=== PATIENT | male | born 1960 | race Caucasian/White ===

== ENCOUNTER → 2016-10-19 | Outpatient (CLI) | payer MEDICAID ==
[~2016-10-19] MED LIST: CYCL10TA9 PO; LISI10TA2 PO; NEURONTIN; SULF1TAB34
== END ==
LOC: CARD 07:57
PROVIDERS: ATTEND Physician Assistant
DX: I25.10 Atherosclerotic heart disease of native coronary artery without angina pectoris (principal); I10 Essential (primary) hypertension; E78.2 Mixed hyperlipidemia; E66.9 Obesity, unspecified

== ENCOUNTER 2017-01-02 05:47 | Outpatient (CLI) | payer MEDICAID ==
[~2017-01-02] VITALS: Ht 170.2 cm; Wt 98.4 kg
[2017-01-04] MEDS ORDERED: PANT40TA2 PO (11:50)
== END 2017-01-02 11:37 ==
LOC: PREOP 05:47
PROVIDERS: ATTEND Surgery
DX: Z01.818 Encounter for other preprocedural examination (principal); Z12.11 Encounter for screening for malignant neoplasm of colon; R13.10 Dysphagia, unspecified

== ENCOUNTER 2017-01-04 09:47 | Day surgery (SDC) | payer MEDICAID ==
[~2017-01-04] VITALS: Ht 170.2 cm; Wt 98.4 kg
--- OUTSIDE RECORDS SUMMARY | 2017-01-04 09:51 | XMS REPORT ---
Author Author JO OQUENDO Organization [facility] Address [address] [place] [address] Care Team Providers Care Cruller Maker Name Role Phone JO OQUENDO Unavailable PROBLEMS Type Condition ICD9-CM Code BLO07-HG Code Onset Dates Condition Status SNOMED Code Problem Other and unspecified hyperlipidemia 272.4 Active 72751104 Problem CAD (coronary artery disease) I25.10 Active 24326833 Problem Unspecified hypothyroidism 244.9 Active 92910873 Problem Constipation, unspecified constipation type K59.00 Active 64676784 Problem Seasonal allergic rhinitis, unspecified allergic rhinitis trigger J30.2 Active 824055258 Problem Hyperlipidemia, unspecified hyperlipidemia type E78.5 Active 99885044 Problem Hyperlipemia E78.5 Active 39672417 Problem Lumbago with sciatica, left side M54.42 Active 416498966 Problem Essential hypertension I10 Active 62388285 Problem Family history of other cardiovascular diseases V17.49 Active 091411009 Problem Coronary atherosclerosis of unspecified type of vessel, [place] or graft 414.00 Active 911149456 Problem Essential hypertension, benign 401.1 Active 8295879 Problem Arthralgia of neck M54.2 Active 69916064 Problem Obesity, unspecified 278.00 Active 702267608 ALLERGIES Substance Reaction Event Type Date Status Ibuprofen hives Drug Allergy Apr, Active Bactrim Unknown Drug Allergy Apr, Active SOCIAL HISTORY No smoking Hx information available PLAN OF CARE Activity Details Follow Up prn Reason: VITAL SIGNS Height 67 in 2016-05-10 Weight 227.2 lbs 2016-05-10 Temperature 97.9 degrees Fahrenheit 2016-05-10 Heart Rate 64 bpm 2016-05-10 Respiratory Rate 18 2016-05-10 BMI 35.58 kg/m2 2016-05-10 Blood pressure systolic 138 mmHg 2016-05-10 Blood pressure diastolic 86 mmHg 2016-05-10 MEDICATIONS Medication Instructions Dosage Frequency Start Date End Date Duration Status Lipitor 40 MG Orally Once a day 1 tablet 24h Feb, Active Losartan Potassium 50 MG Orally Once a day 1 tablet 24h Active HydrOXYzine HCl 25 mg take 1 tablet (25 mg) by oral route 4 times per day Apr, Active Fluticasone Furoate Active Norflex 100 mg 1 tablet by Oral route 2 times per day Nov, Active Guaifenesin 400 MG Orally 4 times a day 1 tablet as needed 6h Apr, Active Omeprazole 40 MG Orally Once a day 1 capsule 24h Active Nystatin 237702 UNIT/ML Mouth/Throat Four times a day 5 ml 6h Apr, Apr, 15 days Active Miconazole Nitrate 2 % 1 soham by Topical route 2 times per day for 14 day(s ) Apr, Active Neurontin 400 mg 1 capsule by Oral route 3 times per day Oct, Active Hydrocodone-Acetaminophen Active RESULTS No Results PROCEDURES Procedure Date Ordered Related Diagnosis Body Site Office Visit, Est Pt., Level 3 May 10, 2016 IMMUNIZATIONS No Known Immunizations
--- OUTSIDE RECORDS SUMMARY | 2017-01-04 09:51 | XMS REPORT ---
Author Author MEKHI BRAVO Organization [employer] Address Unknown Phone Unavailable Care Team Providers Care Forest Economics Professor Name Role Phone MEKHI BRAVO CP Unavailable Allergies No Known Allergies Problems Problem Type Condition Code Onset Dates Condition Status Assessment Hyperlipemia E78.5 Active Problem Unspecified hypothyroidism 244.9 Active Problem Family history of other cardiovascular diseases V17.49 Active Problem Hyperlipemia E78.5 Active Problem Obesity, unspecified 278.00 Active Problem CAD (coronary artery disease) I25.10 Active Problem Cervicalgia 723.1 Active Problem Coronary atherosclerosis of unspecified type of vessel, [place] or graft 414.00 Active Problem Essential hypertension, benign 401.1 Active Problem Other and unspecified hyperlipidemia 272.4 Active Medications Medication Code System Code Instructions Start Date End Date Status Dosage Lipitor [facility] [address]-01 40 MG Orally Once a day Feb 28, 2015 1 tablet Results No Known Results Summary Purpose [employer]ClinicalWorks Submission
--- OUTSIDE RECORDS SUMMARY | 2017-01-04 09:51 | XMS REPORT ---
Author Author JENNI JUNG [facility] eClinical[employer] Address Unknown Phone Unavailable Care Team Providers Care Hardware Engineering Manager Name Role Phone JENNI JUNG CP Unavailable Allergies, Adverse Reactions, Alerts Substance Reaction Event Type Bactrim Info Not Available Drug Allergy Problems Problem Type Condition Code Onset Dates Condition Status Assessment Dental caries K02.9 Active Problem Unspecified hypothyroidism 244.9 Active Problem Family history of other cardiovascular diseases V17.49 Active Problem Hyperlipemia E78.5 Active Problem Obesity, unspecified 278.00 Active Problem CAD (coronary artery disease) I25.10 Active Problem Cervicalgia 723.1 Active Problem Coronary atherosclerosis of unspecified type of vessel, [place] or graft 414.00 Active Problem Essential hypertension, benign 401.1 Active Problem Other and unspecified hyperlipidemia 272.4 Active Medications Medication Code System Code Instructions Start Date End Date Status Dosage Hydrocodone-Acetaminophen [facility] [address]-03 not defined Neurontin [facility] [address]-57 400 mg 1 CAP orally 3 times a day October 27, 2013 1 capsule by Oral route 3 times per day Fluticasone Furoate [facility] [address]-60 not defined Amoxicillin [facility] [address]-71 500 MG Orally 3 TIMES A DAY November 15, 2015 November 22, 2015 1 capsule Lipitor [facility] [address]-06 40 MG Orally Once a day Feb 28, 2015 1 tablet Procedures Procedure Coding System Code Date SURG REMOVAL ERUPTED TOOTH CPT-4 D7210 November 22, 2015 Vital Signs Date/Time: November 22, 2015 Blood Pressure Diastolic 88 mmHg Blood Pressure Systolic 161 mmHg Results No Known Results Summary Purpose eClinicalWorks Submission
--- OUTSIDE RECORDS SUMMARY | 2017-01-04 09:51 | XMS REPORT ---
Author Author ROCAEL SANDOVAL Organization [facility] Address [address] [place] [address] Care Team Providers Care Bung Driver Name Role Phone ROCAEL SANDOVAL Unavailable PROBLEMS Type Condition ICD9-CM Code [id number] Code Onset Dates Condition Status SNOMED Code Problem Coronary atherosclerosis of unspecified type of vessel, [place] or graft 414.00 Active 70401390 Problem Other and unspecified hyperlipidemia 272.4 Active 20439676 Problem Cervicalgia 723.1 Active 55521929 Assessment Oropharyngeal candidiasis B37.0 Mar, Active 97840981 Problem Family history of other cardiovascular diseases V17.49 Active 008518478 Problem Unspecified hypothyroidism 244.9 Active 94762922 Problem Essential hypertension I10 Active 81712716 Problem Hyperlipidemia, unspecified hyperlipidemia type E78.5 Active 73869774 Problem Obesity, unspecified 278.00 Active 076976424 Problem Essential hypertension, benign 401.1 Active 5814359 Problem CAD (coronary artery disease) I25.10 Active 93195874 Problem Hyperlipemia E78.5 Active 20242725 ALLERGIES Substance Reaction Event Type Date Status Bactrim Unknown Drug Allergy Mar, Active SOCIAL HISTORY No smoking Hx information available PLAN OF CARE VITAL SIGNS Height 67 in 2016-04-10 Weight 228.4 lbs 2016-04-10 Heart Rate 64 bpm 2016-04-10 Respiratory Rate 20 2016-04-10 BMI 35.77 kg/m2 2016-04-10 Blood pressure systolic 128 mmHg 2016-04-10 Blood pressure diastolic 76 mmHg 2016-04-10 MEDICATIONS Medication Instructions Dosage Frequency Start Date End Date Duration Status Losartan Potassium 50 MG Orally Once a day 1 tablet 24h Active Omeprazole 40 MG Orally Once a day 1 capsule 24h Active Lipitor 40 MG Orally Once a day 1 tablet 24h Feb, Active Magic Mouthwash 30 ML each of 2% Viscous Lidocaine/Maalox/Benadryl Oral Swish and Spit 4 times daily 5 ML Active Fluconazole 200 MG Orally Once a day 1 tablet 24h Mar, Mar, 10 day(s) Active Amoxicillin 500 MG Orally every 8 hrs 1 tablet 8h Mar, Active RESULTS No Results PROCEDURES Procedure Date Ordered Related Diagnosis Body Site Office Visit, Est Pt., Level 3 Apr 10, 2016 IMMUNIZATIONS No Known Immunizations
--- OUTSIDE RECORDS SUMMARY | 2017-01-04 09:51 | XMS REPORT ---
Author Author JOCELYNN BUSTAMANTE Organization [employer] Address Unknown Phone Unavailable Care Team Providers Care Property Coordinator Name Role Phone JOCELYNN BUSTAMANTE CP Unavailable Allergies, Adverse Reactions, Alerts Substance Reaction Event Type Bactrim Info Not Available Drug Allergy Problems Problem Type Condition ICD-9 Code Onset Dates Condition Status Assessment Neuropathy 355.9 Active Problem Essential hypertension, benign 401.1 Active Problem Other and unspecified hyperlipidemia 272.4 Active Problem Obesity, unspecified 278.00 Active Problem Unspecified hypothyroidism 244.9 Active Problem Family history of other cardiovascular diseases V17.49 Active Problem Cervicalgia 723.1 Active Problem Coronary atherosclerosis of unspecified type of vessel, [place] or graft 414.00 Active Medications Medication Code System Code Instructions Start Date End Date Status Dosage Terbinafine HCl [facility] [address]-16 1 % Externally Twice a day Dec 31, 2014 Feb 11, 2015 1 application to affected area Procedures Procedure Coding System Code Date DEPO MEDROL 40 MG/ML CPT-4 J1030 Dec 31, 2014 THER/PROPH/DIAG INJ, SC/IM CPT-4 47036 Dec 31, 2014 Office Visit, Est Pt., Level 3 CPT-4 54539 Dec 31, 2014 Vital Signs Date/Time: Dec 31, 2014 Temperature 96.9 F Weight 209.8 lbs Height 67 in BMI 32.86 Index Blood Pressure Diastolic 82 mmHg Blood Pressure Systolic 150 mmHg Cardiac Monitoring Heart Rate 78 bpm Results No Known Results Summary Purpose eClinicalWorks Submission
--- OUTSIDE RECORDS SUMMARY | 2017-01-04 09:51 | XMS REPORT ---
Author Author FRANKLIN MELENDEZ Organization [employer] Address Unknown Phone Unavailable Care Team Providers Care Kelp Or Seagrass Gatherer Name Role Phone FRANKLIN MELENDEZ CP Unavailable Allergies No Known Allergies Problems Problem Type Condition Code Onset Dates Condition Status Problem Unspecified hypothyroidism 244.9 Active Problem Cervicalgia 723.1 Active Problem Coronary atherosclerosis of unspecified type of vessel, [place] or graft 414.00 Active Assessment Hyperlipemia E78.5 Active Problem Family history of other cardiovascular diseases V17.49 Active Problem Hyperlipidemia, unspecified hyperlipidemia type E78.5 Active Problem CAD (coronary artery disease) I25.10 Active Problem Essential hypertension I10 Active Problem Essential hypertension, benign 401.1 Active Problem Other and unspecified hyperlipidemia 272.4 Active Problem Hyperlipemia E78.5 Active Problem Obesity, unspecified 278.00 Active Medications No Known Medications Procedures Procedure Coding System Code Date VENIPUNCT, ROUTINE* CPT-4 30469 Feb 21, 2016 LAB NOT BILLED BY [facility] CPT-4 NOBLL Feb 21, 2016 Results No Known Results Summary Purpose eClinicalWorks Submission
--- OUTSIDE RECORDS SUMMARY | 2017-01-04 09:51 | XMS REPORT ---
Author Author BINTA GAMEZ Organization [employer] Address Unknown Phone Unavailable Care Team Providers Care Geriatric Assistant Name Role Phone BINTA GAMEZ CP Unavailable Allergies, Adverse Reactions, Alerts Substance Reaction Event Type Bactrim Info Not Available Drug Allergy Problems Problem Type Condition Code Onset Dates Condition Status Assessment Right elbow pain M25.521 Active Problem Unspecified hypothyroidism 244.9 Active Problem Family history of other cardiovascular diseases V17.49 Active Assessment Neuropathy G62.9 Active Assessment Left elbow pain M25.522 Active Problem Hyperlipemia E78.5 Active Problem Obesity, unspecified 278.00 Active Problem CAD (coronary artery disease) I25.10 Active Problem Cervicalgia 723.1 Active Problem Coronary atherosclerosis of unspecified type of vessel, [place] or graft 414.00 Active Problem Essential hypertension, benign 401.1 Active Problem Other and unspecified hyperlipidemia 272.4 Active Medications Medication Code System Code Instructions Start Date End Date Status Dosage Neurontin [facility] [address]-35 400 mg 1 CAP orally 3 times a day October 27, 2013 1 capsule by Oral route 3 times per day Lipitor [facility] [address]-57 40 MG Orally Once a day Feb 28, 2015 1 tablet Naprosyn [facility] [address]-50 500 MG Orally every 12 hrs May 13, 2015May 1 tablet as needed with food Procedures Procedure Coding System Code Date Office Visit, Est Pt., Level 3 CPT-4 25732 May 13, 2015 X-RAY EXAM OF ELBOW CPT-4 04656 May 13, 2015 Vital Signs Date/Time: May 13, 2015 Temperature 97.3 F Weight 212.7 lbs Height 67 in BMI 33.31 Index Blood Pressure Diastolic 90 mmHg Blood Pressure Systolic 140 mmHg Cardiac Monitoring Heart Rate 64 bpm Results No Known Results Summary Purpose eClinicalWorks Submission
--- OUTSIDE RECORDS SUMMARY | 2017-01-04 09:51 | XMS REPORT ---
Author Author JOCELYNN BUSTAMANTE [facility] Address [address] [place] [address] Care Team Providers Care Market Analyst Name Role Phone JOCELYNN BUSTAMANTE Unavailable PROBLEMS Type Condition ICD9-CM Code TCH72-MO Code Onset Dates Condition Status SNOMED Code Problem Other and unspecified hyperlipidemia 272.4 Active 85151541 Problem CAD (coronary artery disease) I25.10 Active 21870799 Problem Unspecified hypothyroidism 244.9 Active 41377233 Problem Constipation, unspecified constipation type K59.00 Active 88637224 Problem Seasonal allergic rhinitis, unspecified allergic rhinitis trigger J30.2 Active 358053117 Problem Hyperlipidemia, unspecified hyperlipidemia type E78.5 Active 00712041 Problem Hyperlipemia E78.5 Active 33224441 Problem Lumbago with sciatica, left side M54.42 Active 318676802 Problem Essential hypertension I10 Active 36521820 Problem Family history of other cardiovascular diseases V17.49 Active 864784340 Problem Coronary atherosclerosis of unspecified type of vessel, [place] or graft 414.00 Active 473795197 Problem Essential hypertension, benign 401.1 Active 4176747 Problem Arthralgia of neck M54.2 Active 29076728 Problem Obesity, unspecified 278.00 Active 091546964 ALLERGIES Substance Reaction Event Type Date Status Ibuprofen hives Drug Allergy Apr, Active Bactrim Unknown Drug Allergy Apr, Active SOCIAL HISTORY No smoking Hx information available PLAN OF CARE VITAL SIGNS Height 67 in 2016-05-02 Weight 228.2 lbs 2016-05-02 Temperature 97.3 degrees Fahrenheit 2016-05-02 Heart Rate 60 bpm 2016-05-02 Respiratory Rate 18 2016-05-02 BMI 35.74 kg/m2 2016-05-02 Blood pressure systolic 130 mmHg 2016-05-02 Blood pressure diastolic 74 mmHg 2016-05-02 MEDICATIONS Medication Instructions Dosage Frequency Start Date End Date Duration Status Neurontin 400 mg 1 capsule by Oral route 3 times per day Oct, Active Losartan Potassium 50 MG Orally Once a day 1 tablet 24h Active PredniSONE 20 mg Orally Once a day 2 tablets 24h Apr, Apr, 05 days Active Hydrocodone-Acetaminophen Active Lipitor 40 MG Orally Once a day 1 tablet 24h Feb, Active Omeprazole 40 MG Orally Once a day 1 capsule 24h Active Fluticasone Furoate Active Norflex 100 mg 1 tablet by Oral route 2 times per day Nov, Active HydrOXYzine HCl 25 mg take 1 tablet (25 mg) by oral route 4 times per day Apr, Active Miconazole Nitrate 2 % 1 soham by Topical route 2 times per day for 14 day(s ) Apr, Active Guaifenesin 400 MG Orally 4 times a day 1 tablet as needed 6h Apr, Active RESULTS No Results PROCEDURES Procedure Date Ordered Related Diagnosis Body Site Office Visit, Est Pt., Level 3 May 02, 2016 IMMUNIZATIONS No Known Immunizations
--- OUTSIDE RECORDS SUMMARY | 2017-01-04 09:51 | XMS REPORT ---
Author Author FRANKLIN MELENDEZ Organization [employer] Address Unknown Phone Unavailable Care Team Providers Care Accounts Adjustable Clerk Name Role Phone FRANKLIN MELENDEZ CP Unavailable Allergies, Adverse Reactions, Alerts Substance Reaction Event Type Bactrim Info Not Available Drug Allergy Problems Problem Type Condition Code Onset Dates Condition Status Problem Unspecified hypothyroidism 244.9 Active Problem Cervicalgia 723.1 Active Problem Coronary atherosclerosis of unspecified type of vessel, [place] or graft 414.00 Active Problem Hyperlipidemia, unspecified hyperlipidemia type E78.5 Active Problem CAD (coronary artery disease) I25.10 Active Problem Essential hypertension I10 Active Problem Essential hypertension, benign 401.1 Active Problem Other and unspecified hyperlipidemia 272.4 Active Problem Hyperlipemia E78.5 Active Problem Obesity, unspecified 278.00 Active Assessment Hyperlipidemia, unspecified hyperlipidemia type E78.5 Active Assessment Essential hypertension I10 Active Assessment CAD (coronary artery disease) I25.10 Active Assessment Dyspnea, unspecified type R06.00 Active Problem Family history of other cardiovascular diseases V17.49 Active Medications Medication Code System Code Instructions Start Date End Date Status Dosage Lipitor [facility] [address]-42 40 MG Orally Once a day Feb 28, 2015 1 tablet Omeprazole [facility] [address]-85 40 MG Orally Once a day 1 capsule Losartan Potassium [facility] [address]-11 50 MG Orally Once a day 1 tablet Procedures Procedure Coding System Code Date Office Visit, Est Pt., Level 4 CPT-4 95822 Feb 03, 2016 Vital Signs Date/Time: Feb 03, 2016 Cardiac Monitoring Heart Rate 70 bpm Weight 222 lbs Height 67 in BMI 34.77 Index Blood Pressure Diastolic 78 mmHg Blood Pressure Systolic 130 mmHg Results No Known Results Summary Purpose eClinicalWorks Submission
--- OUTSIDE RECORDS SUMMARY | 2017-01-04 09:52 | XMS REPORT ---
Author Author FRANKLIN MELENDEZ Organization [employer] Address Unknown Phone Unavailable Care Team Providers Care Emergency Room Orderly Name Role Phone FRANKLIN MELENDEZ CP Unavailable Allergies, Adverse Reactions, Alerts Substance Reaction Event Type Bactrim Info Not Available Drug Allergy Problems Problem Type Condition Code Onset Dates Condition Status Assessment CAD (coronary artery disease) I25.10 Active Problem Unspecified hypothyroidism 244.9 Active Problem Family history of other cardiovascular diseases V17.49 Active Problem Hyperlipemia E78.5 Active Problem Obesity, unspecified 278.00 Active Problem CAD (coronary artery disease) I25.10 Active Problem Cervicalgia 723.1 Active Problem Coronary atherosclerosis of unspecified type of vessel, [place] or graft 414.00 Active Problem Essential hypertension, benign 401.1 Active Problem Other and unspecified hyperlipidemia 272.4 Active Assessment History of tobacco use Z87.891 Active Assessment Obesity E66.9 Active Assessment Hyperlipemia E78.5 Active Medications No Known Medications Procedures Procedure Coding System Code Date VENIPUNCT, ROUTINE* CPT-4 27991 Feb 18, 2015 Office Visit, Est Pt., Level 4 CPT-4 93900 Feb 18, 2015 LAB NOT BILLED BY [facility] CPT-4 NOBLL Feb 18, 2015 Vital Signs Date/Time: Feb 18, 2015 Temperature 97.9 F Weight 207.2 lbs Height 67 in BMI 32.45 Index Blood Pressure Diastolic 76 mmHg Blood Pressure Systolic 142 mmHg Cardiac Monitoring Heart Rate 72 bpm Results Name Result Date Reference Range Unit Abnormality Flag ROUTINE VENIPUNCTURE LIPID PANEL Summary Purpose eClinicalWorks Submission
[2017-01-04] MEDS ORDERED: NS IV 500 ML 500 ML ONE (09:54)
--- NOTE | 2017-01-04 09:56 | Conscious Sedation/ASA ---
Conscious Sedation Pre-Proced Time Reviewed: 09:47 ASA Class: 2 Airway Mallampati Classification: ([place] appropriate class) I. II. III, IV Lungs Heart ASA score ASA 1: a normal healthy patient ASA 2: a patient with a mild systemic disease (mid diabetes, controlled hypertension, obesity ASA 3: a patient with a severe systemic disease that limits activity (angina , COPD, prior Myocardial infarction) ASA 4: a patient with an incapacitating disease that is a constant threat to life (CHF, renal failure) ASA 5: a moribund patient not expected to survive 24 hrs. (ruptured aneurysm) ASA 6: a declared brain patient whose organs are being harvested. For emergent operations, add the letter E after the classification Grade 2 Sedation Plan: Analgesia, Amnesia, Plan communicated to team members, Discussed options with patient/fam, Discussed risks with patient/fam Note The patient is an appropriate candidate to undergo the planned procedure, sedation, and anesthesia. The patient immediately re-assessed prior to indication. MALAIKA VILCHIS MD Jan 04, 2017 9:56 am
--- NOTE | 2017-01-04 09:56 | Progress Note-Pre Operative ---
Pre-Operative Progress Note H&P Reviewed The H&P was reviewed, patient examined and no changes noted. Date Seen by Provider: Jan 04, 2017 Time Seen by Provider: 09:47 Date H&P Reviewed: Jan 04, 2017 Time H&P Reviewed: 09:47 Pre-Operative Diagnosis: dysphagia, screening colonoscopy MALAIKA VILCHIS MD Jan 04, 2017 9:56 am
[2017-01-04] MEDS ORDERED: ONDANSETRON 4 MG/2 ML (SDV) Z0FRAN IV PRN (10:00)
[2017-01-04] MEDS ORDERED: morphine INJ 10 MG/ML 1ML (SYR OR VIAL) IV PRN (10:00)
[2017-01-04] MEDS ORDERED: HYDROcodone/APAP 5 MG/325 MG (LORTAB) TAB PO PRN (10:00)
[2017-01-04] MEDS ORDERED: ACETAMINOPHEN 325 MG TABLET/CAPLET (TYLENOL) PO PRN (10:00)
[2017-01-04] MEDS ORDERED: NS IV 500 ML 500 ML IV SCH (10:30)
[2017-01-04] MEDS: fentaNYL INJECTION 100 MCG/2 ML AMP IVP PRN ×2 (10:34→11:05)
[2017-01-04 10:36] VITALS: BP 149/82
[2017-01-04] MEDS: MIDAZOLAM 2 MG/2 ML (VERSED) VIAL IVP PRN ×5 (10:36→11:10)
[2017-01-04] MEDS ORDERED: ATOR40TA70 PO (10:45)
[2017-01-04] MEDS ORDERED: LOSA50TA36 PO (10:45)
[2017-01-04] MEDS ORDERED: HURRICAINE EXT TUBE (BENZOCAINE) XX PRN (10:45)
[2017-01-04] MEDS ORDERED: SUCR1TAB36 PO (10:45)
--- NOTE | 2017-01-04 11:49 | Progress Note-Post Operative ---
Post-Operative Progess Note Surgeon (s)/Internet Media Planner (s) Surgeon MALAIKA VILCHIS MD Internet Media Planner: none Pre-Operative Diagnosis dysphagia, screening colonoscopy Post-Operative Diagnosis reflux esophagitis(class B), small HH(2cm), mild gastritis and duodentitis. chronic stage 2 ext and int hemorrhoids, mild sigmoid diverticulosis, pendunculated polyp sigmoid and asc colon, HP polyp sigmoid and asc colon. Procedure & Operative Findings Date of Procedure 01/04/17 Procedure Performed/Findings EGD with bx. Colonoscopy with snare and forcep polypectomy. Anesthesia Type CS Estimated Blood Loss Estimated blood loss (mL): minimal Specimens/Packing Specimens Removed sigmoid polyp x2 and ascending polyp x2 MALAIKA VILCHIS MD Jan 04, 2017 11:49 am
[2017-01-04] MEDS ORDERED: PANT40TA2 PO (11:50)
--- NOTE | 2017-01-04 11:51 | Discharge Inst-Surgical ---
D/C Lap Instructions-KIDO New, Converted, or Re-Newed RX: RX on Chart Follow Up Appt in 3 years Activity as tolerated High Fiber Diet 25g or more per day Avoid Alcohol, Caffeine, Spicy [place] and Acid foods. Drink 64 fluid oz or more of fluids per day. Symptoms to Report: Fever over 101 degree F, Nausea/Vomiting If any problems/questions: Contact your physician or go to Emergency Room MALAIKA VILCHIS MD Jan 04, 2017 11:51 am
[2017-01-04 11:55] VITALS: BP 96/57
[2017-01-04] MEDS ORDERED: LIDOCAINE JELLY 2% (XYLOCAINE) 5 ML TUBE TOP ONE (12:00)
[2017-01-04 12:25] VITALS: BP 111/67
[2017-01-04 12:45] VITALS: BP 111/67
--- NOTE | 2017-01-04 15:05 | OPERATIVE REPORT ---
DATE OF SERVICE: 01/04/2017 ATTENDING PRIMARY CARE PHYSICIAN: Dr. Wiggins. PREOPERATIVE DIAGNOSIS: Dysphagia screening colonoscopy. POSTOPERATIVE DIAGNOSES: Reflux esophagitis class B, small hiatal hernia approximately 2 cm in size, mild gastritis and mild duodenitis. Chronic stage II external and internal hemorrhoids, mild sigmoid diverticulosis. There were a total of four polyps, one hyperplastic polyp of the sigmoid colon 2 mm in size, a pedunculated polyp just proximal to this approximately 3 mm in size. There was a hyperplastic polyp of the ascending colon, 2 mm in size and a pedunculated 1 distal to this approximately 3 to 4 mm in size. PROCEDURE: EGD with biopsy, colonoscopy with snare polypectomy and biopsy. SURGEON: Malaika Vilchis MD. ANESTHESIA: Conscious sedation. ESTIMATED BLOOD LOSS: Minimal. FINDINGS: EGD reflux esophagitis class B, small hiatal hernia approximately 2 cm in size, mild gastritis and mild duodenitis. No ulcers, polyps or any neoplasms identified. Colonoscopy chronic stage II external and internal hemorrhoids. Prostate gland was palpable and appeared normal. Mild sigmoid diverticulosis, hyperplastic polyp as well as the pedunculated polyp of the sigmoid colon with a pedunculated polyp approximately 3 to 4 mm in size. Hyperplastic and pedunculated polyp of the ascending colon with a pedunculated polyp approximately 3 to 4 mm in size. DISPOSITION: The patient tolerated the procedure well. INDICATIONS: The patient is a 56-year-old male with a history of gastroesophageal reflux disease, which has progressed dysphagia and reports that when he does eat solids, sometimes he will feel substernal pressure sensation for 10 to 15 minutes which were not relieved; however, eventually will. He does not report any regurgitation, no nausea or vomiting. He also is in need of a screening colonoscopy, which he has not had done before in the past. He does not report any red blood per rectum nor any dark tarry stools. He does have some issues with constipation. DESCRIPTION OF PROCEDURE: The patient was brought to the endoscopy suite, laid in the left lateral decubitus position. After adequate IV pain and sedating medications and conscious sedation anesthesia, the mouthpiece was applied. The endoscope was placed in the mouth, visualizing the pharynx and hypopharyngeal region. Vocal cords, epiglottis and vallecula identified and appeared to be normal. The endoscope was then advanced to the first, second and third gently intubated in the esophageal opening esophagus insufflated. Endoscope was then advanced to the first, second and third portions of the esophagus. At the level of the GE junction, a reflux esophagitis class B identified. There were no ulcers or strictures identified in this region. A biopsy was taken with forceps with visualization of good hemostasis. The endoscope was then easily advanced in the stomach. The endoscope retroflexed, visualizing a small hiatal hernia approximately 2 cm in size. There was a mild gastritis noted throughout the stomach. There were no formal ulcers, polyps or any neoplasms identified. A biopsy was taken of the stomach antrum with forceps with visualization of good hemostasis. The endoscope was then advanced to the pylorus and the first and second portions of the duodenum, which appeared normal with a mild duodenitis identified with no distal obstructions. The endoscope was then slowly withdrawn. We are taking a second look and suctioning of residual air with no additional findings. The patient tolerated the procedure well. His symptoms are most likely secondary to his body habitus as well as previous lifestyle, including smoking and chewing tobacco. We will recommend necessary lifestyle and diet accommodation including small and more frequent meals, avoiding eating at night as well as head elevation while lying supine. He also needs to avoid caffeinated beverages, spicy, greasy and acidic foods as well as alcoholic beverages. We will also start him on Protonix 40 mg daily. Under the same conscious sedation anesthesia, we then proceeded with the colonoscopy portion of the procedure. A digital rectal examination was performed, which revealed chronic stage II external and internal hemorrhoids, not actively edematous nor inflamed and no bleeding. Normal sphincter tone was felt and there were no palpable masses. Prostate gland was palpable and appeared normal. The endoscope was then intubated to the anus and rectum and gently insufflated. The endoscope was then advanced through the valves of [place] of the rectum with no polyps or any neoplasms identified. Through the sigmoid colon, a mild sigmoid diverticulosis identified. Two polyps were identified adjacent to each other. The distal sigmoid polyp was a pedunculated polyp approximately 3 to 4 mm in size. This was excised using a snare and cautery with visualization of good hemostasis. A hyperplastic polyp just proximal to this approximately 2 mm in size was identified. This was biopsied and destroyed using forceps and electrocautery with visualization of good hemostasis. The endoscope was then advanced to the remainder of the descending, transverse, ascending colon. Around the mid ascending colon, another set of polyps was identified. The proximal one was a small hyperplastic polyp approximately 2 mm in size which was biopsied and destroyed using forceps and electrocautery. Another pedunculated polyp approximately 3 to 4 mm in size was identified more distally. This was biopsied and destroyed using electrocautery and forceps with visualization of good hemostasis. The cecum appeared normal. The endoscope was then slowly withdrawn taking a second look and suctioning residual air with no additional findings. The patient tolerated the procedure well. We will recommend necessary lifestyle and diet accommodations including high fiber diet with at least 30 grams of fiber per day as well as at least 64 fluid ounces of water daily to promote soft stools on a daily basis. We will recommend a followup colonoscopy in approximately 3 years due to the four polyps identified. Job ID: [id number] DocumentID: [id number] Dictated Date: 01/04/2017 11:40:06 Brick Tender Date: 01/04/2017 15:05:32 Dictated By: MALAIKA VILCHIS MD
== END 2017-01-04 12:45 | disposition home or self-care (01) ==
LOC: ENDO 09:47
PROVIDERS: ATTEND Surgery
DX: Z12.11 Encounter for screening for malignant neoplasm of colon (principal); K21.0 Gastro-esophageal reflux disease with esophagitis; D12.5 Benign neoplasm of sigmoid colon; D12.2 Benign neoplasm of ascending colon; K29.70 Gastritis, unspecified, without bleeding; K64.1 Second degree hemorrhoids; K29.80 Duodenitis without bleeding; K57.30 Diverticulosis of large intestine without perforation or abscess without bleeding; I10 Essential (primary) hypertension; E78.00 Pure hypercholesterolemia, unspecified; G89.29 Other chronic pain; Z98.1 Arthrodesis status; Z79.899 Other long term (current) drug therapy; Z87.891 Personal history of nicotine dependence

== ENCOUNTER → 2017-04-23 | Outpatient (CLI) | payer MEDICAID ==
[~2017-04-23] MED LIST changes: +ATOR40TA70 PO; +LOSA50TA36 PO; +PANT40TA2 PO; +SUCR1TAB36 PO
--- NOTE | 2017-04-23 13:30 | Diagnostic Imaging Report ---
CLINICAL INDICATION: Patient with neck fullness. Patient complains of left neck tingling. COMPARISONS: None. FINDINGS: THYROID NODULES: There is a 1.1 cm x 0.6 cm x 0.8 cm isoechoic nodule with peripheral hypoechoic rim located in the anterior mid to inferior aspect of the left thyroid gland. THYROID GLAND: Besides the thyroid nodule, the thyroid gland has normal size, shape and echogenicity. The right lobe measures 3.8 cm x 1.2 cm x 1.7 cm and the left lobe measures 3.6 cm x 1.5 cm x 1.5 cm in their three dimensions. ISTHMUS: The isthmus is unremarkable and measures 3 mm in thickness. IMPRESSION: There is a 11 mm benign-appearing left thyroid gland nodule. Otherwise, the thyroid gland is unremarkable. Dictated by: Dictated on workstation # [id number]
== END ==
LOC: RAD 12:45
PROVIDERS: ATTEND Nurse Practitioner Community Health
DX: E04.1 Nontoxic single thyroid nodule (principal)
CPT/HCPCS: 76536

== ENCOUNTER → 2017-06-04 | Outpatient (CLI) | payer MEDICAID ==
--- NOTE | 2017-06-04 10:25 | Diagnostic Imaging Report ---
PROCEDURE: MR imaging cervical spine without contrast. TECHNIQUE: Multiplanar, multisequence MR imaging of the cervical spine was performed without contrast. INDICATION: Neck pain, right shoulder pain. COMPARISON: There are no prior studies available for comparison. FINDINGS: On the T2 sagittal series, there is metallic artifact suggesting a prior anterior fusion of C5, C6 and C7. The orthopedic hardware appears to be in good position. There is mild narrowing of the ventral aspect of the thecal sac on the right at C6-C7 due to bony overgrowth. The neural foramen on the right at this level is also narrowed and that may be encroaching the exiting right nerve root. There is also narrowing of the neural foramen on the left at C5-C6. At the C4-C5 level, there is a mild disc bulge centrally. The disc indents the ventral aspect of the thecal sac and narrows the AP diameter to approximately 9.9 mm. There is mild narrowing of the neural foramen on the left at this level as well. There is also a disc bulge centrally at the C3-C4 level. The disc flattens the ventral aspect of the thecal sac and narrows the AP diameter to 10.2 mm. There is also moderate narrowing of the neural foramen on the left at this level and mild narrowing of the neural foramen on the right. The remainder of the cervical spine is unremarkable for spinal stenosis or nerve root encroachment. There is no abnormal signal arising from the cord or the vertebral bodies to indicate an acute abnormality. There is no sign of a paraspinal mass. IMPRESSION: 1. There are postsurgical changes consistent with anterior fusion of C5, C6 and C7. There is mild central stenosis on the right at C6-C7. There is also narrowing of the neural foramen on the right at this level and that may be encroachment the exiting right nerve root at this level. 2. There is also borderline central stenosis at C3-C4 and C4-C5 and there is moderate narrowing of the neural foramen on the left at C3-C4 and mild narrowing of the neural foramen on the left at C4-C5. 3. There is no acute bony abnormality identified. There is no sign of a cord lesion either. Dictated by: Dictated on workstation # [id number]
== END ==
LOC: RAD 08:03
PROVIDERS: ATTEND Nurse Practitioner Community Health
DX: M48.02 Spinal stenosis, cervical region (principal); M25.511 Pain in right shoulder; Z98.1 Arthrodesis status
CPT/HCPCS: 72141

== ENCOUNTER → 2017-06-10 | Outpatient (CLI) | payer MEDICAID ==
[~2017-06-10] MED LIST changes: +CATHETER FLUSH 10 ML SYR IV PRN; +IOHEXOL 350 MG/ML 100 ML (OMNIPAQUE 350) VIAL IV ONE; +NS 250 ML (IVPB) BAG IV ONE; +RECEIVED CONTRAST (Hold Metformin) IV SCH
[2017-06-10 14:08] LABS: BUN/CREATININE RATIO 15; CREATININE SERUM 0.99 MG/DL (0.60-1.30); GFR ESTIMATED > 60
--- NOTE | 2017-06-10 15:31 | Diagnostic Imaging Report ---
CLINICAL INDICATION: Patient with mass on left side of neck in deep tissue. Followup from ultrasound. Patient has left shoulder numbness. EXAM: CT scan of the neck soft tissue performed with 75 cc of Omnipaque 350 IV contrast. Coronal and sagittal reformatted images are created. COMPARISON: Ultrasound of the thyroid gland dated 04/23/2017. MRI of the cervical spine without contrast dated 06/04/2017. FINDINGS: There is no neck soft tissue abnormality seen. The nasopharynx, oropharynx, hypopharynx, and laryngeal soft tissue structures show no significant abnormality and are relatively symmetric. Incidental note of multiple small tonsilliths bilaterally. The thyroid gland shows no significant abnormality as visualized. The previously described 11 mm left thyroid gland nodule is not evident on this exam and is better seen on the comparison ultrasound. There is no neck lymphadenopathy. There is mild atherosclerotic disease involving the left ICA bulb. Otherwise, visualized neck vascular structures are patent and unremarkable. The bilateral salivary glands are unremarkable. Visualized intracranial structures are unremarkable. Limited visualization of the oral cavity, tongue, sublingual space, and submandibular spaces are unremarkable. Limited visualization of the upper lung andino are unremarkable. There is C5-C7 anterior cervical disc fusion hardware seen. There is cervical spine degenerative disease. IMPRESSION: 1: Unremarkable CT scan of the neck soft tissue for patient's age. 2: The previously seen left thyroid gland nodule is not visualized on this exam. Of note, thyroid nodules are much better visualized on ultrasound than CT. Dictated by: Dictated on workstation # [id number]
== END ==
LOC: RAD 13:36
PROVIDERS: ATTEND Otolaryngology Otolaryngology/Facial Plastic Surgery
DX: R22.1 Localized swelling, mass and lump, neck (principal); R20.0 Anesthesia of skin; R07.0 Pain in throat
CPT/HCPCS: 36415; 70491; 82565; 84520

== ENCOUNTER 2018-07-21 19:35 | Emergency (ER) | payer MEDICAID ==
[~2018-07-21] VITALS: Ht 167.6 cm; Wt 101.2 kg
[~2018-07-21 19:35] MED LIST changes: -CATHETER FLUSH 10 ML SYR IV PRN; -IOHEXOL 350 MG/ML 100 ML (OMNIPAQUE 350) VIAL IV ONE; -LOSA50TA36 PO; +LOSA50TA63 PO; -NS 250 ML (IVPB) BAG IV ONE; -RECEIVED CONTRAST (Hold Metformin) IV SCH
--- OUTSIDE RECORDS SUMMARY | 2018-07-21 19:41 | XMS REPORT ---
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 Name Role Phone MONICA JUANITA Unavailable PROBLEMS Type Condition ICD9-CM Code WGA55-KR Code Onset Dates Condition Status SNOMED Code Problem Hyperlipemia E78.5 Active 22218125 Problem Hypothyroidism (acquired) E03.9 Active 931298678 Problem Arthritis of left shoulder region M19.012 Active 0754121087060491 Problem Hyperlipidemia, unspecified hyperlipidemia type E78.5 Active 76048904 Problem CAD (coronary artery disease) I25.10 Active 22698108 Problem Seasonal allergic rhinitis, unspecified allergic rhinitis trigger J30.2 Active 953929980 Problem Essential hypertension I10 Active 88527017 ALLERGIES Substance Reaction Event Type Date Status Ibuprofen hives Drug Allergy Feb, Active Bactrim Unknown Drug Allergy Feb, Active ENCOUNTERS Encounter Location Date Diagnosis [facility] [address] [address] 05 Mar, 2018 [facility] IN [facility] [address] [address] 17 Feb, 2018 Dysuria R30.0 and Myalgia, other site M79.18 [facility] IN [facility] [address] [address] 07 Feb, 2018 Acute bronchitis J20.9 and Acute sinusitis J01.90 [facility] [address] [address] 20 Dec, 2017 Essential hypertension I10 [facility] [address] [address] 14 Dec, 2017 Essential hypertension I10 ; Lumbago with sciatica, left side M54.42 ; Therapeutic drug monitoring Z51.81 and Chronic, continuous use of opioids F11.90 [facility] [address] [address] Nov, Essential hypertension I10 and Lumbago with sciatica, left side M54.42 [facility] [address] [address] Nov, [facility]ALK IN [facility] [address] [address] Oct, Back pain M54.9 and Muscle spasm of back M62.830 [facility]ALK IN [facility] [address] [address] August, Sore throat J02.9 and Strep pharyngitis J02.0 [place] [address] [address] August, Cervical paraspinal muscle spasm M62.838 [place] [address] [address] May, [place] [address] [address] May, [place] [address] [address] May, [place] [address] [address] May, Cervicalgia M54.2 [place] [address] [address] Apr, [facility] IN [facility] [address] [address] Apr, Tongue sore K14.6 [facility] [address] [address] Apr, CAD (coronary artery disease) I25.10 ; Essential hypertension I10 ; Hyperlipidemia, unspecified hyperlipidemia type E78.5 and Shortness of breath R06.02 [place] [address] [address] Apr, [facility] IN [place] [address] [address] Apr, Sore throat J02.9 [facility] [place] [address] [address] Mar, Acute seasonal allergic rhinitis, unspecified trigger J30.2 [facility] WALK IN [address] [address] Mar, Pharyngitis due to other organism J02.8 ; Cervical neuritis M54.12 and Lump in throat R22.1 [place] [address] [address] Feb, Pneumonia due to infectious organism, unspecified laterality , unspecified part of lung J18.9 [place] [address] [address] Feb, [place] [address] [address] Feb, [place] [address] [address] Feb, Hypothyroidism (acquired) E03.9 [facility] WALK IN [address] [address] Jan, Oral thrush B37.0 and Arthritis of left shoulder region M19.012 [facility] IN [address] [address] Dec, Acute seasonal allergic rhinitis due to other allergen J30.89 [facility] IN [place] [address] [address] Nov, Torticollis, acquired M43.6 and Geographic tongue K14.1 [place] [address] [place] [address] Oct, Arthralgia of neck M54.2 [facility] [place] [id number] [place] [address] Oct, Constipation, unspecified constipation type K59.00 [place] [id number] [place] [address] Oct, Arthralgia of neck M54.2 [facility] [place] [id number] [place] [address] August, Seasonal allergic rhinitis, unspecified allergic rhinitis trigger J30.2 and Acute gastritis without hemorrhage, unspecified gastritis type K29.00 [place] [id number] [place] [address] Jul, Arthralgia of neck M54.2 ; Lumbago with sciatica, left side M54.42 and Neuropathy G62.9 [place] [id number] [place] [address] Jul, CAD (coronary artery disease) I25.10 ; Shortness of breath R06.02 ; Hyperlipidemia, unspecified hyperlipidemia type E78.5 and History of tobacco use Z87.891 [facility] IN [address] [place] [address] Jun, Other viral agents as the cause of diseases classified elsewhere B97.89 and Acute upper respiratory infection, unspecified J06.9 [facility] IN [address] [place] [address] May, Tonsillitis J03.90 [facility] [place] [id number] [place] [address] Apr, Other viral agents as the cause of diseases classified elsewhere B97.89 and Acute upper respiratory infection, unspecified J06.9 [facility] [place] [id number] [place] [address] Apr, Candidiasis of mouth B37.0 [facility] IN [facility] [address] [place] [id number] [place] [address] Apr, Bronchitis J40 [facility]ALK IN [facility] [address] [place] [id number] [place] [address] Mar, Oropharyngeal candidiasis B37.0 [place] [address] [address] Jan, Hyperlipemia E78.5 [place] [address] [address] Jan, CAD (coronary artery disease) I25.10 ; Essential hypertension I10 ; Hyperlipidemia, unspecified hyperlipidemia type E78.5 and Dyspnea, unspecified type R06.00 [facility] [address] [id number] Oct, Dental caries K02.9 [facility] [address] [id number] Oct, Dental examination Z01.20 [place] [address] [address] Apr, Right elbow pain M25.521 ; Left elbow pain M25.522 and Neuropathy G62.9 [place] [address] [place] [id number] [place] [address] Feb, Hyperlipemia E78.5 [place] [address] [address] Jan, CAD (coronary artery disease) I25.10 ; Hyperlipemia E78.5 ; Obesity E66.9 and History of tobacco use Z87.891 [place] [address] [place] [id number] [place] [address] Dec, [place] [address] [place] [id number] [place] [address] Dec, Neuropathy 355.9 [facility] [place] [facility] [address] [id number] [place] [address] 14 Jul, 2014 [facility] [place] [facility] [address] [id number] [place] [address]- 48[address] Jul, [facility] [place] [facility] [address] [id number] [place] [address]- 164[address] Jun, [facility] [place] [facility] [address] [id number] [place] [address]- 1663 Jun, [facility] [place] [facility] [address] [id number] [place] [address]- 5[address] May, [facility] [place] [facility] [address] [id number] [place] [address]- 228[address] May, [facility] [place] [facility] [address] [id number] [place] [address]- 8894 Apr, [facility] [place] [facility] [address] [id number] [place] [address]- 5188 Apr, [facility] [place] [facility] [address] [id number] [place] [address]- 3269 Apr, [facility] [place] [facility] [address] [id number] [place] [address]- 8740 Apr, [facility] [place] [facility] [address] [id number] [place] [address]- 3955 Apr, [facility] [place] [facility] [address] [id number] [place] [address]- 5677 Apr, [facility] [place] [facility] [address] [id number] [place] [address]- 4589 Apr, [facility] [place] [facility] [address] [id number] [place] [address]- 5233 Apr, [facility] [place] [facility] [address] [id number] [place] [address]- 5026 Mar, [facility] [place] [facility] [address] [id number] [place] [address]- 1921 Mar, [facility] [place] [facility] [address] [id number] [place] [address]- 9683 Nov, [facility] [place] [facility] [address] [id number] [place] [address]- 6577 Nov, [facility] [place] [facility] [address] [id number] [place] [address]- 6317 Oct, [facility] [place] [facility] [address] [id number] [place] [address]- 2999 Oct, [facility] [place] [facility] [address] [id number] [place] [address]- 9237 Oct, [facility] [place] [facility] [address] [id number] [place] [address]- 9177 Oct, [facility] [place] [facility] [address] [id number] [place] [address]- 1289 Oct, [facility] [place] [facility] [address] [id number] [place] [address]- 4556 Sep, [facility] [place] [facility] [address] [id number] [place] [address]- 6698 Sep, [facility] [place] [facility] [address] [id number] [place] [address]- 5536 August, [facility] [place] [facility] [address] [id number] [place] [address]- 7823 August, [facility] [place] [facility] [address] [id number] [place] [address]- 9368 Jul, [facility] [place] [facility] [address] [id number] [place] [address]- 0062 Jul, [facility] [place] [facility] [address] [id number] [place] [address]- 4929 Jul, [facility] [place] [facility] [address] [id number] [place] [address]- 0605 Jul, [facility] [place] [facility] [address] [id number] [place] [address]- 0317 Jul, [facility] [address] [id number] [place] [address] Jul, [facility] [address] [id number] [place] [address]- 7442 Jul, [facility] [address] [id number] [place] [id number] Jul, [facility] [address] [id number] [place] [address]- 1005 Jul, [facility] [address] [id number] [place] [address]- 9086 Jul, [facility] [address] [id number] [place] [address]- 7986 Jul, [facility] [address] [id number] [place] [address]- 3584 Jul, [facility] [address] [id number] [place] [address]- 9794 Jul, [facility] [address] [id number] [place] [address]- 9339 Jun, [facility] [address] [id number] [place] [address]- 8194 Jun, [facility] [place] [facility] [address] [id number] [place] [address]- 8431 Jun, [facility] [address] [id number] [place] [address]- 9845 Jun, [facility] [place] [facility] [address] [id number] [place] [address]- 2593 Jun, [facility] [place] [facility] [address] [id number] [place] [address]- 7850 Jun, [facility] [place] [facility] [address] [id number] [place] [address] Jun, [facility] [place] [facility] [address] [id number] [place] [address]- 8550 Jun, [facility] [place] [facility] [address] [id number] [place] [address]- 6852 May, [facility] [place] [facility] [address] [id number] [place] [address]- 8909 May, [facility] [place] [facility] [address] [id number] [place] [address]- 8286 May, [facility] [place] [facility] [address] [id number] [place] [address]- 2524 May, [facility] [place] [facility] [address] [id number] [place] [address]- 5409 Apr, [facility] [place] [facility] [address] [id number] [place] [address]- 4197 Apr, [facility] [place] [facility] [address] [id number] [place] [address]- 4538 Apr, [facility] [place] [facility] [address] [id number] [place] [address]- 2335 Apr, [facility] [place] [facility] [address] [id number] [place] [address]- 2606 Apr, [facility] [place] [facility] [address] [id number] [place] [address]- 4570 Apr, [facility] [place] [facility] [address] [id number] [place] [address]- 9163 Mar, [facility] [place] [facility] [address] [id number] [place] [address]- 5050 Mar, [facility] [place] [facility] [address] [id number] [place] [address]- 9321 Mar, [facility] [place] [facility] [address] [id number] [place] [address]- 6151 Mar, [facility] [place] [facility] [address] [id number] [address]- [address] Nov, [facility] [address] [address] [address] May, [facility] [address] May, [facility] [address] [address]- 2526 May, [facility] [address] [place] [address] 565023- 1518 May, [facility] [address] [place] [address] 341242- 1578 May, [facility] [address] [place] [id number] [place] [address]958- 3106 May, [facility] [address] [place] [address] 214356- 1333 Apr, [facility] [address] [address] [address] Apr, [facility] [address] [place] [address]- 3829 Apr, [facility] [address] [address]- 2[address] Apr, [facility] [address] [address]- [address] May, [facility] [address] [place] [id number] [address] Jun, IMMUNIZATIONS No Known Immunizations SOCIAL HISTORY Never Assessed REASON FOR VISIT Lower Abdominal pain Damir Luna prednisone 03-13-18 PLAN OF CARE Activity Details Follow Up if not improving or with pcp for regular fu Reason:recheck or next [facility] VITAL SIGNS Height 67 in 2018-03-15 Weight 222.6 lbs 2018-03-15 Temperature 97.6 degrees Fahrenheit 2018-03-15 Heart Rate 28 bpm 2018-03-15 Respiratory Rate 2018-03-15 BMI 34.86 kg/m2 2018-03-15 Blood pressure systolic 122 mmHg 2018-03-15 Blood pressure diastolic 80 mmHg 2018-03-15 MEDICATIONS Medication Instructions Dosage Frequency Start Date End Date Duration Status Pantoprazole Sodium 40 MG Orally Once a day 1 tablet 24h 30 day(s) Active Hydrocodone-Acetaminophen 10-325 MG Orally every 6 hrs 1 tablet as needed 6h Nov, Active Losartan Potassium 50 mg TAKE ONE TABLET BY MOUTH ONCE DAILY 90 Active Gabapentin 600 MG Orally Three times a day 1 tablet 8h 90 days Active Lipitor 40 MG Orally Once a day 1 tablet 24h 90 Active Flonase Allergy Relief 50 MCG/ACT Nasally twice per day 1 spray in each nostril Apr, 30 day(s) Active RESULTS Name Result Date Reference Range UA LONG DIP (IN HOUSE) 2018-03-15 Lot # [id number] Exp date 03-28-18 Clarity clear Color dark yellow Odor none GLU negative JACKIE negative KET negative SG >=1.030 BLO negative pH 6.0 Protein negative URO 0.2 NIT negative TERESA negative Lot # [id number] Exp date Mar 2018 PROCEDURES Procedure Date Ordered Result Body Site URINALYSIS, AUTO, W/O SCOPE Mar 15, 2018 INSTRUCTIONS MEDICATIONS ADMINISTERED No Known Medications MEDICAL (GENERAL) HISTORY Type Description Date Medical History Hypertension Medical History Hyperlipidemia Medical History Hypothyroidism Medical History Chronic pain Surgical History heart cath Surgical History cervical fusion Surgical History teeth extraction 01/2018 Hospitalization History [place] Fever
--- OUTSIDE RECORDS SUMMARY | 2018-07-21 19:41 | XMS REPORT ---
Author Author JUANITA ANDERSON [facility] Address [address] [place] [address] Care Team Providers Care Agricultural Education Instructor Name Role Phone JUANITA ANDERSON Unavailable PROBLEMS Type Condition ICD9-CM Code KUC98-VQ Code Onset Dates Condition Status SNOMED Code Problem Hyperlipemia E78.5 Active 43256927 Problem Hypothyroidism (acquired) E03.9 Active 346016737 Problem Arthritis of left shoulder region M19.012 Active 7922176971507425 Problem Hyperlipidemia, unspecified hyperlipidemia type E78.5 Active 55903305 Problem CAD (coronary artery disease) I25.10 Active 31992746 Problem Seasonal allergic rhinitis, unspecified allergic rhinitis trigger J30.2 Active 595991171 Problem Essential hypertension I10 Active 01156281 ALLERGIES Substance Reaction Event Type Date Status Ibuprofen hives Drug Allergy Mar, Active Bactrim Unknown Drug Allergy Mar, Active ENCOUNTERS Encounter Location Date Diagnosis [place] [id number] [place] [address]11[address] 8380 31 Mar, 2018 [facility] [id number] [place] [address]9409 Mar, Mouth pain K13.79 [facility] [address] [address] 17 Feb, 2018 Dysuria R30.0 and Myalgia, other site M79.18 [facility] [address] [place] [address] 07 Feb, 2018 Acute bronchitis J20.9 and Acute sinusitis J01.90 [facility] [id number] [place] [address] 09981- 6648 Dec, Essential hypertension I10 [place] [id number] [place] [address] 37740- 6898 14 Dec, 2017 Essential hypertension I10 ; Lumbago with sciatica, left side M54.42 ; Therapeutic drug monitoring Z51.81 and Chronic, continuous use of opioids F11.90 [facility] [id number] [place] [address] 88454- 9049 Nov, Essential hypertension I10 and Lumbago with sciatica, left side M54.42 [place] [address] 17796- 2290 Nov, [facility] [place] [address] [address] Oct, Back pain M54.9 and Muscle spasm of back M62.830 [facility] [place] [id number] [place] [address] August, Sore throat J02.9 and Strep pharyngitis J02.0 [place] [id number] [place] [address] 83443- 6098 August, Cervical paraspinal muscle spasm M62.838 [place] [id number] [place] [address] 88313- 7159 May, [place] [id number] [place] [address] 52647- 4236 May, [place] [id number] [place] [address] 26923- 0980 May, [place] [id number] [place] [address] 99237- 3144 May, Cervicalgia M54.2 [place] [address] 7[address]32- 1496 Apr, [facility] [id number] [place] [address] 74023 -9966 Apr, Tongue sore K14.6 [place] [address] 63984- 6804 Apr, CAD (coronary artery disease) I25.10 ; Essential hypertension I10 ; Hyperlipidemia, unspecified hyperlipidemia type E78.5 and Shortness of breath R06.[address] [address] Apr, [facility] [address] [address] Apr, Sore throat J02.9 [facility] [address] 34[address] Mar, Acute seasonal allergic rhinitis, unspecified trigger J30.2 [facility] [address] 6[address]67 [address]2166 06 Mar, 2017 Pharyngitis due to other organism J02.8 ; Cervical neuritis M54.12 and Lump in throat R22.[address] 77433- 7506 16 Feb, 2017 Pneumonia due to infectious organism, unspecified laterality , unspecified part of lung J18.[address] 75913- 6052 15 Feb, [address] 97663- 7005 15 Feb, [address] [address]73- [address]959 Feb, Hypothyroidism (acquired) E03.9 [facility] [address] [address] Jan, Oral thrush B37.0 and Arthritis of left shoulder region M19.012 [facility] [address] 73448 [address]0568 29 Dec, 2016 Acute seasonal allergic rhinitis due to other allergen J30.89 [facility] [address] [place] [address]7255 Nov, Torticollis, acquired M43.6 and Geographic tongue K14.[address] 7[address]10- 2608 Oct, Arthralgia of neck M54.2 [facility] [address] [address] Oct, Constipation, unspecified constipation type K59.[address] 47221- 8955 Oct, Arthralgia of neck M54.[address] [address] August, Seasonal allergic rhinitis, unspecified allergic rhinitis trigger J30.2 and Acute gastritis without hemorrhage, unspecified gastritis type K29.[address] 12774- 1662 Jul, Arthralgia of neck M54.2 ; Lumbago with sciatica, left side M54.42 and Neuropathy G62.[address] 50179- 8750 Jul, CAD (coronary artery disease) I25.10 ; Shortness of breath R06.02 ; Hyperlipidemia, unspecified hyperlipidemia type E78.5 and History of tobacco use Z87.891 [facility] [address] [address]307 Jun, Other viral agents as the cause of diseases classified elsewhere B97.89 and Acute upper respiratory infection, unspecified J06.[address] [address] May, Tonsillitis J03.90 [facility] [address] 28[address]29 Apr, Other viral agents as the cause of diseases classified elsewhere B97.89 and Acute upper respiratory infection, unspecified J06.9 [facility] [address] 5[address]8633 Apr, Candidiasis of mouth B37.0 [facility] [address] 37[address]99 04 Apr, 2016 Bronchitis J40 [facility] [place] [address] 72534 [address]0458 Mar, Oropharyngeal candidiasis B37.0 [place] [address] 83150- 6524 Jan, Hyperlipemia E78.5 [place] [address] 75007- 7827 07 Jan, 2016 CAD (coronary artery disease) I25.10 ; Essential hypertension I10 ; Hyperlipidemia, unspecified hyperlipidemia type E78.5 and Dyspnea, unspecified type R06.00 [facility] [address] [id number] Oct, Dental caries K02.9 [facility] [address] [id number] Oct, Dental examination Z01.20 [place] [address] 86927- 3976 15 Apr, 2015 Right elbow pain M25.521 ; Left elbow pain M25.522 and Neuropathy G62.9 [place] [address] 34699- 5819 Feb, Hyperlipemia E78.5 [place] [address] 84167- 7731 Jan, CAD (coronary artery disease) I25.10 ; Hyperlipemia E78.5 ; Obesity E66.9 and History of tobacco use Z87.891 [place] [address] [address]- [address] Dec, [facility] [address] [id number] [place] [address] 8602 04 Dec, 2014 Neuropathy 355.9 [facility] [place] [facility] [address] [id number] [place] [address]- 2156 14 Jul, 2014 [facility] [place] [facility] [address] [id number] [place] [address]- 5652 Jul, [facility] [place] [facility] [address] [id number] [place] [address]- 0761 Jun, [facility] [place] [facility] [address] [id number] [place] [address]- 9273 Jun, [facility] [place] [facility] [address] [id number] [place] [address]- 1575 May, [facility] [place] [facility] [address] [id number] [place] [address]- 9973 May, [facility] [place] [facility] [address] [id number] [place] [address]- 8123 Apr, [facility] [place] [facility] [address] [id number] [place] [address]- 1325 Apr, [facility] [place] [facility] [address] [id number] [place] [address]- 3516 Apr, [facility] [place] [facility] [address] [id number] [place] [address]- 4926 Apr, [facility] [place] [facility] [address] [id number] [address]- 0989 Apr, [facility] [place] [facility] [address] [id number] [place] [address]- 6767 Apr, [facility] [place] [facility] [address] [id number] [place] [address] Apr, [facility] [place] [facility] [address] [id number] [place] [address]- 1793 Apr, [facility] [place] [facility] [address] [id number] [place] [address]- 7290 Mar, [facility] [place] [facility] [address] [id number] [place] [address]476 Mar, [facility] [place] [facility] [address] [id number] [place] [address] Nov, [facility] [place] [facility] [address] [id number] [place] [address]- 3802 Nov, [facility] [place] [facility] [address] [id number] [place] [address]- 5971 Oct, [facility] [place] [facility] [address] [id number] [place] [address]- 7462 Oct, [facility] [place] [facility] [address] [id number] [place] [address]- 3011 Oct, [facility] [place] [facility] [address] [id number] [place] [address]- 5222 Oct, [facility] [place] [facility] [address] [id number] [place] [address]- 4424 Oct, [facility] [place] [facility] [address] [id number] [place] [address]- 6985 Sep, [facility] [place] [facility] [address] [id number] [place] [address]- 3361 Sep, [facility] [place] [facility] [address] [id number] [place] [address]- 4548 August, [facility] [place] [facility] [address] [id number] [place] [address]- 8806 August, [facility] [place] [facility] [address] [id number] [place] [address]- 6337 Jul, [facility] [place] [facility] [address] [id number] [place] [address]- 1768 Jul, [facility] [place] [facility] [address] [id number] [place] [address]- 7958 Jul, [facility] [place] [facility] [address] [id number] [place] [address]- 1677 Jul, [facility] [place] [facility] [address] [id number] [place] [address]- 3535 Jul, [facility] [place] [facility] [address] [id number] [place] [address]- 3775 Jul, [facility] [place] [facility] [address] [id number] [place] [address]- 9525 Jul, [facility] [place] [facility] [address] [id number] [place] [id number] Jul, [facility] [place] [facility] [address] [id number] [place] [address]- 9642 Jul, [facility] [place] [facility] [address] [id number] [place] [address]- 6996 Jul, [facility] [place] [facility] [address] [id number] [place] [address]- 9891 Jul, [facility] [place] [facility] [address] [id number] [place] [address]- 2364 Jul, [facility] [place] [facility] [address] [id number] [place] [address]- 3458 Jul, [facility] [place] [facility] [address] [id number] [place] [address]- 9102 Jun, [facility] [place] [facility] [address] [id number] [place] [address]- 0864 Jun, [facility] [place] [facility] [address] [id number] [place] [address]- 2008 Jun, [facility] [place] [facility] [address] [id number] [place] [address]- 7984 Jun, [facility] [place] [facility] [address] [id number] [place] [address]- 2395 Jun, [facility] [place] [facility] [address] [id number] [place] [address]- 5014 Jun, [facility] [place] [facility] [address] [id number] [place] [address]- 3314 Jun, [facility] [place] [facility] [address] [id number] [place] [address]- 6958 Jun, [facility] [place] [facility] [address] [id number] [place] [address]- 5508 May, [facility] [place] [facility] [address] [id number] [place] [address]- 7263 May, [facility] [place] [facility] [address] [id number] [place] [address]- 0603 May, [facility] [place] [facility] [address] [id number] [place] [address]- 2318 May, [facility] [place] [facility] [address] [id number] [place] [address]- 0797 Apr, [facility] [place] [facility] [address] [id number] [place] [address]- 5944 Apr, [facility] [place] [facility] [address] [id number] [place] [address]- 3079 Apr, [facility] [place] [facility] [address] [id number] [place] [address]- 1685 Apr, [facility] [place] [facility] [address] [id number] [place] [address]- 7497 Apr, [facility] [place] [facility] [address] [id number] [place] [address]- 2975 Apr, [facility] [place] [facility] [address] [id number] [place] [address]- 5032 Mar, [facility] [place] [facility] [address] [id number] [place] [address]- 5661 Mar, [facility] [place] [facility] [address] [id number] [place] [address]- 4113 Mar, [facility] [place] [facility] [address] [address]- 9065 Mar, [facility] [address] [address]- 2658 Nov, [facility] [address] [address]- 2776 May, [facility] [address] [address]- 8287 May, [facility] [address] [address]- 4011 May, [facility] [id number] [place] [address]- 9864 May, [facility] [id number] [address] May, [facility] [id number] [place] [address]- 6653 May, [facility] [address] [address]- 3500 Apr, [facility] [address] [address]- 3405 Apr, [facility] [address] [address]- 0479 Apr, [facility] [address] [address]- 0947 Apr, [facility] [id number] [address]- 6099 May, [facility] [address] [address]- 3472 Jun, IMMUNIZATIONS No Known Immunizations SOCIAL HISTORY Never Assessed REASON FOR VISIT tooth pain front lower started a couple days ago [facility] PLAN OF CARE Activity Details Follow Up prn Reason: VITAL SIGNS Height 67 in 2018-04-13 Weight 223.6 lbs 2018-04-13 Temperature 97.3 degrees Fahrenheit 2018-04-13 Heart Rate 60 bpm 2018-04-13 Respiratory Rate 22 2018-04-13 BMI 35.02 kg/m2 2018-04-13 Blood pressure systolic 120 mmHg 2018-04-13 Blood pressure diastolic 76 mmHg 2018-04-13 MEDICATIONS Medication Instructions Dosage Frequency Start Date End Date Duration Status Flonase Allergy Relief 50 MCG/ACT Nasally twice per day 1 spray in each nostril Apr, 30 day(s) Active Gabapentin 600 MG Orally Three times a day 1 tablet 8h 90 days Active Hydrocodone-Acetaminophen 10-325 MG Orally every 6 hrs 1 tablet as needed 6h Nov, Active Losartan Potassium 50 mg TAKE ONE TABLET BY MOUTH ONCE DAILY 90 Active Lipitor 40 MG Orally Once a day 1 tablet 24h 90 Active Pantoprazole Sodium 40 MG Orally Once a day 1 tablet 24h 30 day(s) Active Amoxicillin 500 mg Orally every 8 hrs 1 tablet 8h Mar, 10 day(s ) Active RESULTS No Results PROCEDURES No Known procedures INSTRUCTIONS MEDICATIONS ADMINISTERED No Known Medications MEDICAL (GENERAL) HISTORY Type Description Date Medical History Hypertension Medical History Hyperlipidemia Medical History Hypothyroidism Medical History Chronic pain Surgical History heart cath Surgical History cervical fusion Surgical History teeth extraction 01/2018 Hospitalization History [place] Fever
--- OUTSIDE RECORDS SUMMARY | 2018-07-21 19:42 | XMS REPORT ---
Author Author JOCELYNN BUSTAMANTE Organization [facility] Address [address] [place] [address] Care Team Providers Care Looper Operator Name Role Phone JOCELYNN BUSTAMANTE Unavailable PROBLEMS Type Condition ICD9-CM Code HTH99-KD Code Onset Dates Condition Status SNOMED Code Problem Hyperlipidemia, unspecified hyperlipidemia type E78.5 Active 96245401 Problem Lumbago with sciatica, left side M54.42 Active 080643384 Problem Essential hypertension I10 Active 38589380 Problem CAD (coronary artery disease) I25.10 Active 37739750 Problem Hyperlipemia E78.5 Active 01546507 Problem Tongue sore K14.6 Active 21050373 Problem Acute seasonal allergic rhinitis, unspecified trigger J30.2 Active 215841576 Problem Constipation, unspecified constipation type K59.00 Active 19140956 Problem Seasonal allergic rhinitis, unspecified allergic rhinitis trigger J30.2 Active 411723935 Problem Hypothyroidism (acquired) E03.9 Active 964134454 Problem Arthritis of left shoulder region M19.012 Active [id number] ALLERGIES Substance Reaction Event Type Date Status Ibuprofen hives Drug Allergy Nov, Active Bactrim Unknown Drug Allergy Nov, Active ENCOUNTERS Encounter Location Date Diagnosis [place] [id number] [place] [address] Dec, Essential hypertension I10 [place] [id number] [place] [address]- 48[address] 14 Dec, 2017 Essential hypertension I10 ; Lumbago with sciatica, left side M54.42 ; Therapeutic drug monitoring Z51.81 and Chronic, continuous use of opioids F11.90 [place] [address] [address] Nov, Essential hypertension I10 and Lumbago with sciatica, left side M54.42 [place] [address] [place] [id number] [place] [address]89- 3961 Nov, [facility] [address] [address] Oct, Back pain M54.9 and Muscle spasm of back M62.830 [facility] [address] [place] [id number] [place] [address] August, Sore throat J02.9 and Strep pharyngitis J02.0 [place] [address] [address] August, Cervical paraspinal muscle spasm M62.838 [place] [address] [address] May, [place] [address] [place] [id number] [place] [address]- [address]878 May, [facility] [address] [address] May, [place] [address] [address] May, Cervicalgia M54.2 [place] [address] [place] [id number] [place] [address] 39166- 9604 Apr, [facility] [address] [place] [address] [id number] [place] [address]10[address] Apr, Tongue sore K14.6 [facility] [address] [place] [id number] [place] [address] 36768- 69[address] Apr, CAD (coronary artery disease) I25.10 ; Essential hypertension I10 ; Hyperlipidemia, unspecified hyperlipidemia type E78.5 and Shortness of breath R06.02 [facility] [address] [place] [id number] [place] [address]- 7275 Apr, [facility] [address] [address] Apr, Sore throat J02.9 [facility] [address] [address] Mar, Acute seasonal allergic rhinitis, unspecified trigger J30.2 [facility] [address] [address] Mar, Pharyngitis due to other organism J02.8 ; Cervical neuritis M54.12 and Lump in throat R22.[address] [address] Feb, Pneumonia due to infectious organism, unspecified laterality , unspecified part of lung J18.[address] [address] Feb, [address] [address] Feb, [address] [address] Feb, Hypothyroidism (acquired) E03.9 [facility] [address] [address] Jan, Oral thrush B37.0 and Arthritis of left shoulder region M19.012 [facility] [address] [address] Dec, Acute seasonal allergic rhinitis due to other allergen J30.89 [facility] [address] [address] Nov, Torticollis, acquired M43.6 and Geographic tongue K14.[address] [address] Oct, Arthralgia of neck M54.2 [facility] [address] [address] Oct, Constipation, unspecified constipation type K59.[address] [address] Oct, Arthralgia of neck M54.2 [facility] [address] [address] August, Seasonal allergic rhinitis, unspecified allergic rhinitis trigger J30.2 and Acute gastritis without hemorrhage, unspecified gastritis type K29.[address] [address] Jul, Arthralgia of neck M54.2 ; Lumbago with sciatica, left side M54.42 and Neuropathy G62.[address] [address] Jul, CAD (coronary artery disease) I25.10 ; Shortness of breath R06.02 ; Hyperlipidemia, unspecified hyperlipidemia type E78.5 and History of tobacco use Z87.891 [facility] [address] [address] Jun, Other viral agents as the cause of diseases classified elsewhere B97.89 and Acute upper respiratory infection, unspecified J06.9 [facility] [address] [address] May, Tonsillitis J03.90 [facility] [address] [address] Apr, Other viral agents as the cause of diseases classified elsewhere B97.89 and Acute upper respiratory infection, unspecified J06.9 [facility] [address] [address] Apr, Candidiasis of mouth B37.0 [facility] [address] [address] Apr, Bronchitis J40 [facility] [address] [address] Mar, Oropharyngeal candidiasis B37.0 [facility] [address] [place] [id number] [place] [address]11- 8[address] Jan, Hyperlipemia E78.5 [facility] [address] [address] 07 Jan, 2016 CAD (coronary artery disease) I25.10 ; Essential hypertension I10 ; Hyperlipidemia, unspecified hyperlipidemia type E78.5 and Dyspnea, unspecified type R06.00 [facility] [address] [place] [id number] [place] [id number] Oct, Dental caries K02.9 [facility] [address] [id number] Oct, Dental examination Z01.20 [place] [address] [address] Apr, Right elbow pain M25.521 ; Left elbow pain M25.522 and Neuropathy G62.9 [place] [address] [address] Feb, Hyperlipemia E78.5 [place] [address] 33[address]- 59[address] 23 Jan, 2015 CAD (coronary artery disease) I25.10 ; Hyperlipemia E78.5 ; Obesity E66.9 and History of tobacco use Z87.891 [place] [address] [address] 11 Dec, 2014 [place] [address] [address] 04 Dec, 2014 Neuropathy 355.9 [place] [address] [address]- 5031 14 Jul, 2014 [place] [address] [address]- [address] 13 Jul, 2014 [place] [address] [place] [address] Jun, [facility] [place] [facility] [address] [id number] [place] [address] Jun, [facility] [place] [facility] [address] [id number] [place] [address]- 0964 May, [facility] [place] [facility] [address] [id number] [place] [address]- 7059 May, [facility] [place] [facility] [address] [id number] [place] [address]- 5412 Apr, [facility] [place] [facility] [address] [id number] [place] [address]- 44[address] Apr, [facility] [place] [facility] [address] [id number] [place] [address]- 3715 Apr, [facility] [place] [facility] [address] [id number] [place] [address]- 0832 Apr, [facility] [place] [facility] [address] [id number] [place] [address]- 7289 Apr, [facility] [place] [facility] [address] [id number] [place] [address]- 1500 Apr, [facility] [place] [facility] [address] [id number] [place] [address]- 2846 Apr, [facility] [place] [facility] [address] [id number] [place] [address]- 6222 Apr, [facility] [place] [facility] [address] [id number] [place] [address]- 6[address] Mar, [facility] [place] [facility] [address] [id number] [place] [address] Mar, [facility] [place] [facility] [address] [id number] [place] [address]- 2377 Nov, [facility] [place] [facility] [address] [id number] [place] [address]- 9402 Nov, [facility] [place] [facility] [address] [id number] [place] [address]- 4160 Oct, [facility] [place] [facility] [address] [id number] [place] [address]- 7304 Oct, [facility] [place] [facility] [address] [id number] [place] [address]- 9682 Oct, [facility] [place] [facility] [address] [id number] [place] [address]- 8251 Oct, [facility] [place] [facility] [address] [id number] [place] [address]- 9648 Oct, [facility] [place] [facility] [address] [id number] [place] [address]- 9749 Sep, [facility] [place] [facility] [address] [id number] [place] [address]- 8131 Sep, [facility] [place] [facility] [address] [id number] [place] [address]- 1945 August, [facility] [place] [facility] [address] [id number] [place] [address]- 9896 August, [facility] [place] [facility] [address] [id number] [place] [address]- 1238 Jul, [facility] [place] [facility] [address] [id number] [place] [address]- 7621 Jul, [facility] [place] [facility] [address] [id number] [place] [address]- 6579 Jul, [facility] [place] [facility] [address] [id number] [place] [address]- 9310 Jul, [facility] [place] [facility] [address] [id number] [place] [address]- 0581 Jul, [facility] [place] [facility] [address] [id number] [place] [address]- 1903 Jul, [facility] [place] [facility] [address] [id number] [place] [address]- 5549 Jul, [facility] [place] [facility] [address] [id number] [place] [id number] Jul, [facility] [place] [facility] [address] [id number] [place] [address] Jul, [facility] [place] [facility] [address] [id number] [place] [address]- 0830 Jul, [facility] [place] [facility] [address] [id number] [place] [address]- 3404 Jul, [facility] [place] [facility] [address] [id number] [place] [address]- 7807 Jul, [facility] [place] [facility] [address] [id number] [place] [address]- 2492 Jul, [facility] [place] [facility] [address] [id number] [place] [address]- 0248 Jun, [facility] [place] [facility] [address] [id number] [place] [address]- 4082 Jun, [facility] [place] [facility] [address] [id number] [place] [address]- 8046 Jun, [facility] [place] [facility] [address] [id number] [place] [address]- 6849 Jun, [facility] [place] [facility] [address] [id number] [place] [address]- 8645 Jun, [facility] [place] [facility] [address] [id number] [place] [address]- 7490 Jun, [facility] [place] [facility] [address] [id number] [place] [address]- 5264 Jun, [facility] [place] [facility] [address] [id number] [place] [address]- 4728 Jun, [facility] [place] [facility] [address] [id number] [place] [address]- 8949 May, [facility] [place] [facility] [address] [id number] [place] [address]- 2287 13 May, 2013 [facility] [address] [id number] [place] [address]- 9470 May, [facility] [place] [facility] [address] [id number] [place] [address]- 2546 May, [facility] [place] [facility] [address] [id number] [place] [address]- 6421 Apr, [facility] [place] [facility] [address] [id number] [place] [address]- 9544 Apr, [facility] [place] [facility] [address] [id number] [place] [address]- 9147 Apr, [facility] [place] [facility] [address] [id number] [place] [address]- 1502 Apr, [facility] [place] [facility] [address] [id number] [place] [address]- 4298 Apr, [facility] [place] [facility] [address] [id number] [place] [address]- 8254 Apr, [facility] [place] [facility] [address] [id number] [place] [address]- 6982 Mar, [facility] [place] [facility] [address] [id number] [place] [address]- 4670 Mar, [facility] [place] [facility] [address] [id number] [place] [address]- 1956 Mar, [facility] [place] [facility] [address] [id number] [place] [address]- 1328 Mar, [facility] [place] [facility] [address] [id number] [place] [address]- 2786 Nov, [facility] [place] [facility] [address] [id number] [place] [address]- 2546 19 May, 2012 [facility] [place] [facility] [address] [id number] [place] [address]- 1219 May, [facility] [address] [address] May, [facility] [address] May, [facility] [address], [place] [address]- [address]2 May, [facility] [address] [place] [address]- 2048 May, [facility] [address] [place] [address] 9[address]- 3329 Apr, [facility] [address] [place] [id number] [place] [address]- 5495 Apr, [facility] [address] [place] [id number] [place] [address]012- 2404 Apr, [facility] [address] [place] [address] [id number] [place] [address]131- 8950 Apr, [facility] [address] [place] [address] 9[address]28- 0952 May, [facility] [address] [address]- [address]26 Jun, IMMUNIZATIONS No Known Immunizations SOCIAL HISTORY Never Assessed REASON FOR VISIT Pain management (chronic) Pt in for f/u, needing medication refills on lipitor , would also like refills on hydrocodone, does not take often but does need on occasion MAYELIN Anderson PLAN OF CARE VITAL SIGNS Height 67 in 2017-12-18 Weight 223.8 lbs 2017-12-18 Temperature 97.9 degrees Fahrenheit 2017-12-18 Heart Rate 68 bpm 2017-12-18 Respiratory Rate 16 2017-12-18 BMI 35.05 kg/m2 2017-12-18 Blood pressure systolic 138 mmHg 2017-12-18 Blood pressure diastolic 68 mmHg 2017-12-18 MEDICATIONS Medication Instructions Dosage Frequency Start Date End Date Duration Status Losartan Potassium 50 mg TAKE ONE TABLET BY MOUTH ONCE DAILY 90 Active Gabapentin 600 MG Orally Three times a day 1 tablet 8h Active Lipitor 40 MG Orally Once a day 1 tablet 24h 90 Active Tizanidine HCl 4 MG Orally 2 times a day 1 tablet as needed 12h August, Active Hydrocodone-Acetaminophen 10-325 MG Orally every 6 hrs 1 tablet as needed 6h Nov, Active Flonase 50 MCG/ACT Nasally Once a day 1 spray in each nostril 24h Nov, 30 day(s) Active Flonase Allergy Relief 50 MCG/ACT Nasally twice per day 1 spray in each nostril Apr, 30 day(s) Active RESULTS No Results PROCEDURES No Known procedures INSTRUCTIONS MEDICATIONS ADMINISTERED No Known Medications MEDICAL (GENERAL) HISTORY Type Description Date Medical History Hypertension Medical History Hyperlipidemia Medical History Hypothyroidism Medical History Chronic pain Surgical History heart cath Surgical History cervical fusion Hospitalization History [place] Fever
--- OUTSIDE RECORDS SUMMARY | 2018-07-21 19:42 | XMS REPORT ---
Author Author JOCELYNN BUSTAMANTE Organization [facility] Address [address] [place] [address] Care Team Providers Care Fine Craft Artist Name Role Phone JOCELYNN BUSTAMANTE Unavailable PROBLEMS Type Condition ICD9-CM Code YFM93-CE Code Onset Dates Condition Status SNOMED Code Problem Hyperlipidemia, unspecified hyperlipidemia type E78.5 Active 45531991 Problem Lumbago with sciatica, left side M54.42 Active 406475891 Problem Essential hypertension I10 Active 82691561 Problem CAD (coronary artery disease) I25.10 Active 77211322 Problem Hyperlipemia E78.5 Active 22754216 Problem Tongue sore K14.6 Active 88195291 Problem Acute seasonal allergic rhinitis, unspecified trigger J30.2 Active 820803105 Problem Constipation, unspecified constipation type K59.00 Active 50150452 Problem Seasonal allergic rhinitis, unspecified allergic rhinitis trigger J30.2 Active 580959254 Problem Hypothyroidism (acquired) E03.9 Active 989339594 Problem Arthritis of left shoulder region M19.012 Active [id number] ALLERGIES No Information ENCOUNTERS Encounter Location Date Diagnosis [facility] [id number] [place] [address]- 0748 Dec, [facility] [id number] [place] [address]759- 8935 Nov, Essential hypertension I10 and Lumbago with sciatica, left side M54.42 [facility] [address] [address] Nov, [facility] [address] [address] Oct, Back pain M54.9 and Muscle spasm of back M62.830 [facility] [address] [address] August, Sore throat J02.9 and Strep pharyngitis J02.0 [place] [address] [address] August, Cervical paraspinal muscle spasm M62.838 [place] [address] [address]- [address] May, [facility] [address] [address]- [address] May, [place] [address] [address]- 7879 May, [place] [address] [address]- 68[address] May, Cervicalgia M54.2 [place] [address] 7[address]91- 4193 Apr, [facility] [place] [address] [address] Apr, Tongue sore K14.6 [place] [address] [address]- 1276 Apr, CAD (coronary artery disease) I25.10 ; Essential hypertension I10 ; Hyperlipidemia, unspecified hyperlipidemia type E78.5 and Shortness of breath R06.02 [place] [id number] [place] [address]47- 0304 Apr, [facility] [id number] [place] [address] Apr, Sore throat J02.9 [facility] [place] [id number] [place] [address]76 -8919 Mar, Acute seasonal allergic rhinitis, unspecified trigger J30.2 [facility] [place] [id number] [place] [address] -23[address] 06 Dec, 2017 Pharyngitis due to other organism J02.8 ; Cervical neuritis M54.12 and Lump in throat R22.[address] [address] Feb, Pneumonia due to infectious organism, unspecified laterality , unspecified part of lung J18.9 [place] [address] [address]- 5105 Feb, [place] [address] [address]- 8490 Feb, [address] [address]28 Feb, Hypothyroidism (acquired) E03.9 [facility] [address] [address] Jan, Oral thrush B37.0 and Arthritis of left shoulder region M19.012 [facility] [address] [address]98 Dec, Acute seasonal allergic rhinitis due to other allergen J30.89 [facility] [address] [address] Nov, Torticollis, acquired M43.6 and Geographic tongue K14.[address] [address] Oct, Arthralgia of neck M54.2 [facility] [address] [address] Oct, Constipation, unspecified constipation type K59.[address] [address]- [address] Oct, Arthralgia of neck M54.2 [facility] [address] 23[address] August, Seasonal allergic rhinitis, unspecified allergic rhinitis trigger J30.2 and Acute gastritis without hemorrhage, unspecified gastritis type K29.00 [place] [address] 6[address]- [address] 27 Jul, 2016 Arthralgia of neck M54.2 ; Lumbago with sciatica, left side M54.42 and Neuropathy G62.9 [place] [address] [address]49- 8763 Jul, CAD (coronary artery disease) I25.10 ; Shortness of breath R06.02 ; Hyperlipidemia, unspecified hyperlipidemia type E78.5 and History of tobacco use Z87.891 [facility] [address] [address] Jun, Other viral agents as the cause of diseases classified elsewhere B97.89 and Acute upper respiratory infection, unspecified J06.9 [facility] [address] [address] May, Tonsillitis J03.90 [facility] [address] 12[address] Apr, Other viral agents as the cause of diseases classified elsewhere B97.89 and Acute upper respiratory infection, unspecified J06.9 [facility] [address] [address] Apr, Candidiasis of mouth B37.0 [facility] [address] 8[address] Apr, Bronchitis J40 [facility] [address] [address] Mar, Oropharyngeal candidiasis B37.[address] [address] Jan, Hyperlipemia E78.[address] [address]- [address]48 Jan, CAD (coronary artery disease) I25.10 ; Essential hypertension I10 ; Hyperlipidemia, unspecified hyperlipidemia type E78.5 and Dyspnea, unspecified type R06.00 [facility] [id number] [place] [id number] Oct, Dental caries K02.9 [facility] [id number] [place] [id number] Oct, Dental examination Z01.20 [facility] [address] [address] Apr, Right elbow pain M25.521 ; Left elbow pain M25.522 and Neuropathy G62.9 [facility] [address] 9[address]99- 5101 Feb, Hyperlipemia E78.5 [facility] [address] [address]50- 8803 Jan, CAD (coronary artery disease) I25.10 ; Hyperlipemia E78.5 ; Obesity E66.9 and History of tobacco use Z87.891 [facility] [id number] [place] [address] 94[address]- 9490 Dec, [facility] [address] 9[address]- 8366 04 Dec, 2014 Neuropathy 355.9 [facility] [id number] [place] [address] 61699- 5723 14 Jul, 2014 [facility] [id number] [place] [address] 37671- 7458 13 Jul, 2014 [facility] [id number] [place] [address] 07743- 4868 Jun, [facility] [address] [address]68- 3012 Jun, [facility] [id number] [place] [address] [id number]- 7725 May, [facility] [address] [place] [address]- 7367 May, [facility] [place] [facility] [address] [id number] [place] [address]- 4719 Apr, [facility] [place] [facility] [address] [id number] [place] [address]- 9464 Apr, [facility] [place] [facility] [address] [id number] [place] [address]- 7256 Apr, [facility] [place] [facility] [address] [id number] [place] [address]- 0062 Apr, [facility] [place] [facility] [address] [id number] [place] [address]- 6160 Apr, [facility] [place] [facility] [address] [id number] [place] [address]- 0650 Apr, [facility] [place] [facility] [address] [id number] [place] [address]- 0155 Apr, [facility] [place] [facility] [address] [id number] [place] [address]- 0601 Apr, [facility] [place] [facility] [address] [id number] [place] [address]- 9289 Mar, [facility] [place] [facility] [address] [id number] [place] [address]- 4636 Mar, [facility] [place] [facility] [address] [id number] [place] [address]- 3408 Nov, [facility] [place] [facility] [address] [id number] [place] [address]- 2455 Nov, [facility] [place] [facility] [address] [id number] [place] [address]- 6346 Oct, [facility] [place] [facility] [address] [id number] [place] [address]- 2546 Oct, [facility] [place] [facility] [address] [id number] [place] [address]- 6715 Oct, [facility] [place] [facility] [address] [id number] [place] [address]- 3985 Oct, [facility] [place] [facility] [address] [id number] [place] [address]138 Oct, [facility] [place] [facility] [address] [id number] [place] [address]- 3085 Sep, [facility] [place] [facility] [address] [id number] [place] [address]- 3662 Sep, [facility] [place] [facility] [address] [id number] [place] [address]- 5843 August, [facility] [place] [facility] [address] [id number] [place] [address]- 9113 August, [facility] [place] [facility] [address] [id number] [place] [address]- 4297 Jul, [facility] [place] [facility] [address] [id number] [place] [address]- 1558 Jul, [facility] [place] [facility] [address] [id number] [place] [address]- 5082 Jul, [facility] [place] [facility] [address] [id number] [place] [address]- 1353 Jul, [facility] [place] [facility] [address] [id number] [place] [address]- 2463 Jul, [facility] [place] [facility] [address] [id number] [place] [address]- 9133 Jul, [facility] [place] [facility] [address] [id number] [place] [address]- 4740 Jul, [facility] [place] [facility] [address] [id number] [place] [id number] Jul, [facility] [place] [facility] [address] [id number] [place] [address] Jul, [facility] [place] [facility] [address] [id number] [place] [address]- 3636 Jul, [facility] [place] [facility] [address] [id number] [place] [address]- 4586 Jul, [facility] [place] [facility] [address] [id number] [place] [address]- 2467 Jul, [facility] [place] [facility] [address] [id number] [place] [address]- 9655 Jul, [facility] [place] [facility] [address] [id number] [place] [address]- 1750 Jun, [facility] [place] [facility] [address] [id number] [place] [address]- 1667 Jun, [facility] [place] [facility] [address] [id number] [place] [address]- 0460 Jun, [facility] [place] [facility] [address] [id number] [place] [address]- 9897 Jun, [facility] [place] [facility] [address] [id number] [place] [address]- 8056 Jun, [facility] [place] [facility] [address] [id number] [place] [address]- 2284 Jun, [facility] [place] [facility] [address] [id number] [place] [address]- 2612 Jun, [facility] [place] [facility] [address] [id number] [place] [address]- 8194 Jun, [facility] [place] [facility] [address] [id number] [place] [address]- 8097 May, [facility] [place] [facility] [address] [id number] [place] [address]- 8370 May, [facility] [place] [facility] [address] [id number] [place] [address] May, [facility] [place] [facility] [address] [id number] [place] [address]- 5211 May, [facility] [place] [facility] [address] [id number] [place] [address]- 2026 Apr, [facility] [address] [id number] [place] [address]- 6544 Apr, [facility] [place] [facility] [address] [id number] [place] [address]- 0042 Apr, [facility] [address] [id number] [place] [address]- 7661 Apr, [facility] [address] [id number] [place] [address]- 3972 Apr, [facility] [address] [id number] [place] [address]- 4493 Apr, [facility] [address] [id number] [place] [address]- 9468 Mar, [facility] [address] [id number] [place] [address]- 0432 Mar, [facility] [address] [id number] [place] [address]- 8177 Mar, [facility] [address] [id number] [place] [address]- 4281 Mar, [facility] [address] [id number] [place] [address]- 1297 Nov, [facility] [address] [id number] [place] [address]- 0398 May, [facility] [address] [id number] [place] [address]- 2992 May, [facility] [place] [facility] [address] [id number] [place] [address]- 9286 08 May, 2012 [facility] [place] [facility] [address] [id number] [place] [address]- 9766 04 May, 2012 [facility] [place] [facility] [address] [id number] [place] [id number]77 May, [facility] [address] [facility] [id number] [address]99 May, [facility] [address] [address]- 0223 Apr, [facility] [address] [id number] [address]- 0321 Apr, [facility] [address] [place] [address]- 1030 Apr, [facility] [address] [id number] [address]- 0159 Apr, [facility] [address] [id number] [address]- 1404 May, [facility] [address] [id number] [address]- 9750 Jun, IMMUNIZATIONS No Known Immunizations SOCIAL HISTORY Never Assessed REASON FOR VISIT Refill request PLAN OF CARE VITAL SIGNS MEDICATIONS Unknown Medications RESULTS No Results PROCEDURES No Known procedures INSTRUCTIONS MEDICATIONS ADMINISTERED No Known Medications MEDICAL (GENERAL) HISTORY Type Description Date Medical History Hypertension Medical History Hyperlipidemia Medical History Hypothyroidism Medical History Chronic pain Surgical History heart cath Surgical History cervical fusion Hospitalization History [facility]
--- OUTSIDE RECORDS SUMMARY | 2018-07-21 19:42 | XMS REPORT ---
Author Author JOCELYNN BUSTAMANTE Organization [facility] Address [address] [place] [address] Care Team Providers Care Barrel Straightener Name Role Phone JOCELYNN BUSTAMANTE Unavailable PROBLEMS Type Condition ICD9-CM Code AZL24-WR Code Onset Dates Condition Status SNOMED Code Problem Hyperlipidemia, unspecified hyperlipidemia type E78.5 Active 81446762 Problem Lumbago with sciatica, left side M54.42 Active 060834026 Problem Essential hypertension I10 Active 16730363 Problem CAD (coronary artery disease) I25.10 Active 00906469 Problem Hyperlipemia E78.5 Active 87837294 Problem Tongue sore K14.6 Active 29445335 Problem Acute seasonal allergic rhinitis, unspecified trigger J30.2 Active 940015868 Problem Constipation, unspecified constipation type K59.00 Active 58088077 Problem Seasonal allergic rhinitis, unspecified allergic rhinitis trigger J30.2 Active 741364686 Problem Hypothyroidism (acquired) E03.9 Active 969305521 Problem Arthritis of left shoulder region M19.012 Active [id number] ALLERGIES No Information ENCOUNTERS Encounter Location Date Diagnosis [place] [address] [place] [id number] [place] [address] 3337 Dec, Essential hypertension I10 [place] [id number] [place] [address] 22824- 4267 14 Dec, 2017 Essential hypertension I10 ; Lumbago with sciatica, left side M54.42 ; Therapeutic drug monitoring Z51.81 and Chronic, continuous use of opioids F11.90 [place] [id number] [place] [address] 9[address]69- 6761 Nov, Essential hypertension I10 and Lumbago with sciatica, left side M54.42 [place] [id number] [place] [address] 10044- 2098 Nov, [facility] [id number] [place] [address] Oct, Back pain M54.9 and Muscle spasm of back M62.830 [facility] [place] [id number] [place] [address] August, Sore throat J02.9 and Strep pharyngitis J02.0 [place] [address] [address] August, Cervical paraspinal muscle spasm M62.838 [place] [address] [address]- [address] May, [place] [address] [address] May, [place] [address] [address]858 May, [place] [address] [address] 7650 May, Cervicalgia M54.2 [place] [address] 28732- 8189 Apr, [facility] [place] [address] 295[address]2507 Apr, Tongue sore K14.6 [place] [address] [address]24[address]- 8362 Apr, CAD (coronary artery disease) I25.10 ; Essential hypertension I10 ; Hyperlipidemia, unspecified hyperlipidemia type E78.5 and Shortness of breath R06.02 [place] [address] 6[address]- 4621 Apr, [facility] [place] [address] [address] Apr, Sore throat J02.9 [facility] [address] [place] [address] Mar, Acute seasonal allergic rhinitis, unspecified trigger J30.2 [facility] [address] [address] Mar, Pharyngitis due to other organism J02.8 ; Cervical neuritis M54.12 and Lump in throat R22.[address] [address]- 56[address] Feb, Pneumonia due to infectious organism, unspecified laterality , unspecified part of lung J18.[address] [address]- 6668 Feb, [address] [address]- [address]302 Feb, [address] 64[address]- 6711 Feb, Hypothyroidism (acquired) E03.9 [facility] [address] [address] Jan, Oral thrush B37.0 and Arthritis of left shoulder region M19.012 [facility] [address] 6[address] Dec, Acute seasonal allergic rhinitis due to other allergen J30.89 [facility] [address] 03[address] Nov, Torticollis, acquired M43.6 and Geographic tongue K14.[address] 06[address]- 8173 Oct, Arthralgia of neck M54.2 [facility] [address] 40158 [address]3236 Oct, Constipation, unspecified constipation type K59.[address] [address]18- 5583 Oct, Arthralgia of neck M54.2 [facility] [address] 22[address] August, Seasonal allergic rhinitis, unspecified allergic rhinitis trigger J30.2 and Acute gastritis without hemorrhage, unspecified gastritis type K29.[address] 92372- 1510 Jul, Arthralgia of neck M54.2 ; Lumbago with sciatica, left side M54.42 and Neuropathy G62.[address] 87147- 5615 Jul, CAD (coronary artery disease) I25.10 ; Shortness of breath R06.02 ; Hyperlipidemia, unspecified hyperlipidemia type E78.5 and History of tobacco use Z87.891 [facility] IN [address] [address]13[address] Jun, Other viral agents as the cause of diseases classified elsewhere B97.89 and Acute upper respiratory infection, unspecified J06.9 [facility] [address] [address] May, Tonsillitis J03.90 [facility] [address] 84788 [address]88[address] Apr, Other viral agents as the cause of diseases classified elsewhere B97.89 and Acute upper respiratory infection, unspecified J06.9 [facility] [address] [place] [address]2811 Apr, Candidiasis of mouth B37.0 [facility] IN [address] 44446 [address] Apr, Bronchitis J40 [facility] [address] 28615 [address]1744 Mar, Oropharyngeal candidiasis B37.0 [place] [id number] [place] [address] 21522- 2923 Jan, Hyperlipemia E78.5 [place] [address] 67595- 6[address] 07 Jan, 2016 CAD (coronary artery disease) I25.10 ; Essential hypertension I10 ; Hyperlipidemia, unspecified hyperlipidemia type E78.5 and Dyspnea, unspecified type R06.00 [facility] [address] [id number] Oct, Dental caries K02.9 [facility] [address] [id number] Oct, Dental examination Z01.20 [place] [address] 35553- 6207 Apr, Right elbow pain M25.521 ; Left elbow pain M25.522 and Neuropathy G62.9 [place] [address] 7[address]38- 9121 Feb, Hyperlipemia E78.5 [place] [address] 28571- 4630 Jan, CAD (coronary artery disease) I25.10 ; Hyperlipemia E78.5 ; Obesity E66.9 and History of tobacco use Z87.891 [place] [address] 79627- 3684 Dec, [place] [address] [address]- 3012 04 Dec, 2014 Neuropathy 355.9 [place] [address] 55200- 4511 14 Jul, 2014 [place] [address] 06311- 7631 13 Jul, 2014 [place] [address] 26383- 6406 Jun, [place] [address] [facility] [id number] [place] [address]- 6672 Jun, [facility] [place] [facility] [address] [id number] [place] [address]- 6510 May, [facility] [place] [facility] [address] [id number] [place] [address]- 9153 May, [facility] [place] [facility] [address] [id number] [place] [address]- 5780 Apr, [facility] [place] [facility] [address] [id number] [place] [address]- 1492 Apr, [facility] [place] [facility] [address] [id number] [place] [address]- 0909 Apr, [facility] [place] [facility] [address] [id number] [place] [address]- 7631 Apr, [facility] [place] [facility] [address] [id number] [place] [address]- 5491 Apr, [facility] [place] [facility] [address] [id number] [place] [address]- 6979 Apr, [facility] [place] [facility] [address] [id number] [place] [address]- 9222 Apr, [facility] [place] [facility] [address] [id number] [place] [address]- 8921 Apr, [facility] [place] [facility] [address] [id number] [place] [address]- 4337 Mar, [facility] [place] [facility] [address] [id number] [place] [address]- 8334 Mar, [facility] [place] [facility] [address] [id number] [place] [address]- 9121 Nov, [facility] [place] [facility] [address] [id number] [place] [address]- 4876 Nov, [facility] [place] [facility] [address] [id number] [place] [address]- 7673 Oct, [facility] [place] [facility] [address] [id number] [place] [address]- 7635 Oct, [facility] [place] [facility] [address] [id number] [place] [address]- 1483 Oct, [facility] [place] [facility] [address] [id number] [place] [address]- 0250 Oct, [facility] [place] [facility] [address] [id number] [place] [address]- 9682 Oct, [facility] [place] [facility] [address] [id number] [place] [address]- 5231 Sep, [facility] [place] [facility] [address] [id number] [place] [address]- 3986 Sep, [facility] [place] [facility] [address] [id number] [place] [address]- 0329 August, [facility] [place] [facility] [address] [id number] [place] [address]- 0348 August, [facility] [place] [facility] [address] [id number] [place] [address]- 6330 Jul, [facility] [place] [facility] [address] [id number] [place] [address]- 7963 Jul, [facility] [place] [facility] [address] [id number] [place] [address]- 2853 Jul, [facility] [place] [facility] [address] [id number] [place] [address]- 8950 Jul, [facility] [place] [facility] [address] [id number] [place] [address]- 9126 Jul, [facility] [place] [facility] [address] [id number] [place] [address]- 1941 Jul, [facility] [place] [facility] [address] [id number] [place] [address]- 4781 Jul, [facility] [place] [facility] [address] [id number] [place] [id number] Jul, 2013 [facility] [place] [facility] [address] [id number] [place] [address]- 4003 Jul, [facility] [place] [facility] [address] [id number] [place] [address]- 5517 Jul, [facility] [place] [facility] [address] [id number] [place] [address]- 3413 Jul, [facility] [place] [facility] [address] [id number] [place] [address]- 0971 Jul, [facility] [place] [facility] [address] [id number] [place] [address]- 6638 Jul, [facility] [place] [facility] [address] [id number] [place] [address]- 9225 Jun, [facility] [place] [facility] [address] [id number] [place] [address]- 9424 Jun, [facility] [place] [facility] [address] [id number] [place] [address]- 3327 Jun, [facility] [place] [facility] [address] [id number] [place] [address]- 9214 Jun, [facility] [place] [facility] [address] [id number] [place] [address]- 2129 Jun, [facility] [place] [facility] [address] [id number] [place] [address]- 0035 Jun, [facility] [place] [facility] [address] [id number] [place] [address]- 3903 Jun, [facility] [place] [facility] [address] [id number] [place] [address]- 9951 Jun, [facility] [place] [facility] [address] [id number] [place] [address]- 1541 May, [facility] [place] [facility] [address] [id number] [place] [address]- 1282 May, [facility] [place] [facility] [address] [id number] [place] [address]- 9784 May, [facility] [place] [facility] [address] [id number] [place] [address]- 3180 May, [facility] [place] [facility] [address] [id number] [place] [address]- 0037 Apr, [facility] [place] [facility] [address] [id number] [place] [address]- 4119 Apr, [facility] [place] [facility] [address] [id number] [place] [address]- 0268 Apr, [facility] [place] [facility] [address] [id number] [place] [address]- 8908 Apr, [facility] [place] [facility] [address] [id number] [place] [address]- 5892 Apr, [facility] [place] [facility] [address] [id number] [place] [address]- 1669 Apr, [facility] [place] [facility] [address] [id number] [place] [address]- 2332 Mar, [facility] [place] [facility] [address] [id number] [place] [address]- 9957 Mar, [facility] [place] [facility] [address] [id number] [place] [address]- 3288 Mar, [facility] [place] [facility] [address] [id number] [address]- 5588 Mar, [facility] [place] [facility] [address] [id number] [place] [address]- 6742 Nov, [facility] [place] [facility] [address] [id number] [place] [address]- 5330 May, [facility] [place] [facility] [address] [id number], [place] [address]- 1222 May, [facility] [place] [facility] [address] [id number], [place] [address]- [address]12 08 May, 2012 [facility] [id number] [address]- [address] May, [facility] [id number] [address] May, [facility] [id number] [address] May, [facility] [id number] [address] Apr, [facility] [id number] [address] Apr, [facility] [id number], [place] [address]- 6222 Apr, [facility] [id number], [place] [address]- 2027 Apr, [facility] [id number] [address]- 7[address] May, [facility] [id number] [address]- 9088 Jun, IMMUNIZATIONS No Known Immunizations SOCIAL HISTORY Never Assessed REASON FOR VISIT Medication refill request PLAN OF CARE VITAL SIGNS MEDICATIONS Medication Instructions Dosage Frequency Start Date End Date Duration Status Gabapentin 600 MG Orally Three times a day 1 tablet 8h 90 days Active RESULTS No Results PROCEDURES No Known procedures INSTRUCTIONS MEDICATIONS ADMINISTERED No Known Medications MEDICAL (GENERAL) HISTORY Type Description Date Medical History Hypertension Medical History Hyperlipidemia Medical History Hypothyroidism Medical History Chronic pain Surgical History heart cath Surgical History cervical fusion Hospitalization History Mears Fever
--- OUTSIDE RECORDS SUMMARY | 2018-07-21 19:42 | XMS REPORT ---
Author Author JOCELYNN BUSTAMANTE Organization [facility] Address [address] [place] [address] Care Team Providers Care Film Editor Supervisor Name Role Phone JOCELYNN BUSTAMANTE Unavailable PROBLEMS Type Condition ICD9-CM Code YFW63-BC Code Onset Dates Condition Status SNOMED Code Problem Hyperlipidemia, unspecified hyperlipidemia type E78.5 Active 84104011 Problem Lumbago with sciatica, left side M54.42 Active 039865484 Problem Essential hypertension I10 Active 70836854 Problem CAD (coronary artery disease) I25.10 Active 89354625 Problem Hyperlipemia E78.5 Active 34244200 Problem Tongue sore K14.6 Active 88418846 Problem Acute seasonal allergic rhinitis, unspecified trigger J30.2 Active 763302074 Problem Constipation, unspecified constipation type K59.00 Active 65624138 Problem Seasonal allergic rhinitis, unspecified allergic rhinitis trigger J30.2 Active 168753889 Problem Hypothyroidism (acquired) E03.9 Active 370938372 Problem Arthritis of left shoulder region M19.012 Active [id number] ALLERGIES Substance Reaction Event Type Date Status Ibuprofen hives Drug Allergy Dec, Active Bactrim Unknown Drug Allergy Dec, Active ENCOUNTERS Encounter Location Date Diagnosis [place] [address] [id number] [place] [address] Dec, Essential hypertension I10 [place] [address] [place] [address]9- [address]706 Dec, Essential hypertension I10 ; Lumbago with sciatica, left side M54.42 ; Therapeutic drug monitoring Z51.81 and Chronic, continuous use of opioids F11.90 [place] [address] [address] Nov, Essential hypertension I10 and Lumbago with sciatica, left side M54.42 [place] [address] [address] [place] [id number] [place] [address] 0[address]- [address] Nov, [facility] [address] [address] Oct, Back pain M54.9 and Muscle spasm of back M62.830 [facility] [address] [place] [id number] [place] [address] August, Sore throat J02.9 and Strep pharyngitis J02.0 [place] [address] [address] August, Cervical paraspinal muscle spasm M62.838 [place] [address] [address] May, [place] [address] [place] [id number] [place] [address] 2[address]- [address] May, [facility] [address] [address] May, [place] [address] [address] May, Cervicalgia M54.2 [place] [address] [place] [id number] [place] [address]54- 3424 Apr, [facility] [address] [place] [id number] [place] [address] 9[address] -64[address] Apr, Tongue sore K14.6 [facility] [address] [place] [id number] [place] [address] 76730- 8480 Apr, CAD (coronary artery disease) I25.10 ; Essential hypertension I10 ; Hyperlipidemia, unspecified hyperlipidemia type E78.5 and Shortness of breath R06.02 [facility] [address] [place] [id number] [place] [address] 84208- 2417 Apr, [facility] [address] [address] Apr, Sore throat J02.[address] [facility] [address] [address] Mar, Acute seasonal allergic rhinitis, unspecified trigger J30.[address] [facility] [address] [address] Mar, Pharyngitis due to other organism J02.8 ; Cervical neuritis M54.12 and Lump in throat R22.[address] [address] Feb, Pneumonia due to infectious organism, unspecified laterality , unspecified part of lung J18.[address] [address]- 9810 Feb, [address] [address]- 0369 Feb, [address] [address]- [address] Feb, Hypothyroidism (acquired) E03.9 [facility] [address] [address] Jan, Oral thrush B37.0 and Arthritis of left shoulder region M19.012 [facility] [address] 14[address] Dec, Acute seasonal allergic rhinitis due to other allergen J30.89 [facility] [address] [address] Nov, Torticollis, acquired M43.6 and Geographic tongue K14.[address] [address]- [address] Oct, Arthralgia of neck M54.2 [facility] [address] [address] Oct, Constipation, unspecified constipation type K59.[address] [address]- 8[address] Oct, Arthralgia of neck M54.2 [facility] [address] [address] August, Seasonal allergic rhinitis, unspecified allergic rhinitis trigger J30.2 and Acute gastritis without hemorrhage, unspecified gastritis type K29.[address] [address]- [address] Jul, Arthralgia of neck M54.2 ; Lumbago with sciatica, left side M54.42 and Neuropathy G62.[address] 7[address]83- 34[address] Jul, CAD (coronary artery disease) I25.10 ; Shortness of breath R06.02 ; Hyperlipidemia, unspecified hyperlipidemia type E78.5 and History of tobacco use Z87.891 [facility] [address] [address] Jun, Other viral agents as the cause of diseases classified elsewhere B97.89 and Acute upper respiratory infection, unspecified J06.9 [facility] [address] 17[address] May, Tonsillitis J03.90 [facility] [address] [address] Apr, Other viral agents as the cause of diseases classified elsewhere B97.89 and Acute upper respiratory infection, unspecified J06.9 [facility] [address] 8[address] Apr, Candidiasis of mouth B37.0 [facility] [address] 305[address] Apr, Bronchitis J40 [facility] [address] 8[address] Mar, Oropharyngeal candidiasis B37.0 [facility] [address] [place] [id number] [place] [address] 42057- 2824 Jan, Hyperlipemia E78.5 [facility] [address] [address] 07 Jan, 2016 CAD (coronary artery disease) I25.10 ; Essential hypertension I10 ; Hyperlipidemia, unspecified hyperlipidemia type E78.5 and Dyspnea, unspecified type R06.00 [facility] [address] [place] [id number] [place] [id number] Oct, Dental caries K02.9 [facility] [address] [id number] Oct, Dental examination Z01.20 [place] [address] [address] Apr, Right elbow pain M25.521 ; Left elbow pain M25.522 and Neuropathy G62.9 [place] [address] [address]43- [address] Feb, Hyperlipemia E78.5 [place] [address] 87628- 7256 23 Jan, 2015 CAD (coronary artery disease) I25.10 ; Hyperlipemia E78.5 ; Obesity E66.9 and History of tobacco use Z87.891 [place] [address] [address]- [address] 11 Dec, 2014 [place] [address] [address]51- [address] 04 Dec, 2014 Neuropathy 355.9 [place] [address] [address]- 4613 14 Jul, 2014 [place] [address] 8[address]86- 38[address] 13 Jul, 2014 [place] [address] [address] [place] [address]- [address] Jun, [facility] [place] [facility] [address] [id number] [place] [address]- 2461 Jun, [facility] [place] [facility] [address] [id number] [place] [address]- 3534 May, [facility] [place] [facility] [address] [id number] [place] [address]- 4669 May, [facility] [place] [facility] [address] [id number] [place] [address]- 9732 Apr, [facility] [place] [facility] [address] [id number] [place] [address]- 4465 Apr, [facility] [place] [facility] [address] [id number] [place] [address]- 4343 Apr, [facility] [place] [facility] [address] [id number] [place] [address]- 0064 Apr, [facility] [place] [facility] [address] [id number] [place] [address]- 3946 Apr, [facility] [place] [facility] [address] [id number] [place] [address]- 7327 Apr, [facility] [place] [facility] [address] [id number] [place] [address]- 9138 Apr, [facility] [place] [facility] [address] [id number] [place] [address]- 5125 Apr, [facility] [place] [facility] [address] [id number] [place] [address]- 1294 Mar, [facility] [place] [facility] [address] [id number] [place] [address] Mar, [facility] [place] [facility] [address] [id number] [place] [address]- 3864 Nov, [facility] [place] [facility] [address] [id number] [place] [address]- 7252 Nov, [facility] [place] [facility] [address] [id number] [place] [address]- 7941 Oct, [facility] [place] [facility] [address] [id number] [place] [address]- 8703 Oct, [facility] [place] [facility] [address] [id number] [place] [address]- 4912 Oct, [facility] [place] [facility] [address] [id number] [place] [address]- 3239 Oct, [facility] [place] [facility] [address] [id number] [place] [address]- 9685 Oct, [facility] [place] [facility] [address] [id number] [place] [address]- 4718 Sep, [facility] [place] [facility] [address] [id number] [place] [address]- 4339 Sep, [facility] [place] [facility] [address] [id number] [place] [address]- 7859 August, [facility] [place] [facility] [address] [id number] [place] [address]- 1936 August, [facility] [place] [facility] [address] [id number] [place] [address]- 5403 Jul, [facility] [place] [facility] [address] [id number] [place] [address]- 8798 Jul, [facility] [place] [facility] [address] [id number] [place] [address]- 5928 Jul, [facility] [place] [facility] [address] [id number] [place] [address]- 5211 Jul, [facility] [place] [facility] [address] [id number] [place] [address]- 1247 Jul, [facility] [place] [facility] [address] [id number] [place] [address]- 1344 Jul, [facility] [place] [facility] [address] [id number] [place] [address]- 6133 Jul, [facility] [place] [facility] [address] [id number] [place] [id number] Jul, [facility] [place] [facility] [address] [id number] [place] [address] Jul, [facility] [place] [facility] [address] [id number] [place] [address]- 5979 Jul, [facility] [place] [facility] [address] [id number] [place] [address]- 1052 Jul, [facility] [place] [facility] [address] [id number] [place] [address]- 0117 Jul, [facility] [place] [facility] [address] [id number] [place] [address]- 8574 Jul, [facility] [place] [facility] [address] [id number] [place] [address]- 5513 Jun, [facility] [place] [facility] [address] [id number] [place] [address]- 1392 Jun, [facility] [place] [facility] [address] [id number] [place] [address]- 1094 Jun, [facility] [place] [facility] [address] [id number] [place] [address]- 8615 Jun, [facility] [place] [facility] [address] [id number] [place] [address]- 5196 Jun, [facility] [place] [facility] [address] [id number] [place] [address]- 9542 Jun, [facility] [place] [facility] [address] [id number] [place] [address]- 4328 Jun, [facility] [place] [facility] [address] [id number] [place] [address]- 7591 Jun, [facility] [place] [facility] [address] [id number] [place] [address]- 2357 May, [facility] [place] [facility] [address] [id number] [place] [address]- 5326 13 May, 2013 [facility] [address] [id number] [place] [address]- 2180 May, [facility] [place] [facility] [address] [id number] [place] [address]- 2546 May, [facility] [place] [facility] [address] [id number] [place] [address]- 4821 Apr, [facility] [place] [facility] [address] [id number] [place] [address]- 6845 Apr, [facility] [place] [facility] [address] [id number] [place] [address]- 0829 Apr, [facility] [place] [facility] [address] [id number] [place] [address]- 1164 Apr, [facility] [place] [facility] [address] [id number] [place] [address]- 1975 Apr, [facility] [place] [facility] [address] [id number] [place] [address]- 8535 Apr, [facility] [place] [facility] [address] [id number] [place] [address]- 6110 Mar, [facility] [place] [facility] [address] [id number] [place] [address]- 8056 Mar, [facility] [place] [facility] [address] [id number] [place] [address]- 6728 Mar, [facility] [place] [facility] [address] [id number] [place] [address]- 7683 Mar, [facility] [place] [facility] [address] [id number] [place] [address]- 3246 Nov, [facility] [place] [facility] [address] [id number] [place] [address]- 2546 19 May, 2012 [facility] [place] [facility] [address] [id number] [place] [address]- 9[address] May, [facility] [address] [address]- [address]295 May, [facility] [address] [address] May, [facility] [address] [address]- 8997 May, [facility] [id number] [place] [address]881- 7291 May, [facility] [address] [place] [address] 25532- 0912 Apr, [facility] [address] [place] [id number] [place] [address] 063962- 5049 Apr, [facility] [address] [place] [id number] [place] [address] 12985- 4577 Apr, [facility] [address] [place] [address] 04624- 1649 Apr, [facility] [address] [place] [address]- 6584 May, [facility] [address] [address]- 6548 Jun, IMMUNIZATIONS No Known Immunizations SOCIAL HISTORY Never Assessed REASON FOR VISIT Pain management (chronic), , PT notes he has arabella on his face after he shaved his torrez. -Everardo DICK PLAN OF CARE VITAL SIGNS Height 67 in 2018-01-10 Weight 221.4 lbs 2018-01-10 Temperature 97.5 degrees Fahrenheit 2018-01-10 Heart Rate 51 bpm 2018-01-10 Respiratory Rate 18 2018-01-10 Oximetry 94 % 2018-01-10 BMI 34.67 kg/m2 2018-01-10 Blood pressure systolic 136 mmHg 2018-01-10 Blood pressure diastolic 70 mmHg 2018-01-10 MEDICATIONS Medication Instructions Dosage Frequency Start Date End Date Duration Status Losartan Potassium 50 mg TAKE ONE TABLET BY MOUTH ONCE DAILY 90 Active Gabapentin 600 MG Orally Three times a day 1 tablet 8h Active Lipitor 40 MG Orally Once a day 1 tablet 24h 90 Active Hydrocodone-Acetaminophen 10-325 MG Orally every 6 hrs 1 tablet as needed 6h Nov, Active Tizanidine HCl 4 MG Orally 2 times a day 1 tablet as needed 12h August, Active Flonase 50 MCG/ACT Nasally Once a day 1 spray in each nostril 24h Nov, 30 day(s) Not-Taking Flonase Allergy Relief 50 MCG/ACT Nasally twice per day 1 spray in each nostril Apr, 30 day(s) Active RESULTS No Results PROCEDURES Procedure Date Ordered Result Body Site LAB NOT BILLED BY [facility] Jan 10, 2018 INSTRUCTIONS MEDICATIONS ADMINISTERED No Known Medications MEDICAL (GENERAL) HISTORY Type Description Date Medical History Hypertension Medical History Hyperlipidemia Medical History Hypothyroidism Medical History Chronic pain Surgical History heart cath Surgical History cervical fusion Hospitalization History [facility] Fever
--- OUTSIDE RECORDS SUMMARY | 2018-07-21 19:43 | XMS REPORT ---
Author Author JO OQUENDO [facility] Address [address] [place] [address] Care Team Providers Care Public Welfare Director Name Role Phone JO OQUENDO Unavailable PROBLEMS Type Condition ICD9-CM Code UER91-FJ Code Onset Dates Condition Status SNOMED Code Problem Hyperlipidemia, unspecified hyperlipidemia type E78.5 Active 85502067 Problem Lumbago with sciatica, left side M54.42 Active 024704777 Problem Essential hypertension I10 Active 37202382 Problem CAD (coronary artery disease) I25.10 Active 01413764 Problem Hyperlipemia E78.5 Active 58148332 Problem Tongue sore K14.6 Active 50901274 Problem Acute seasonal allergic rhinitis, unspecified trigger J30.2 Active 976624799 Problem Constipation, unspecified constipation type K59.00 Active 63360922 Problem Seasonal allergic rhinitis, unspecified allergic rhinitis trigger J30.2 Active 022228162 Problem Hypothyroidism (acquired) E03.9 Active 542021546 Problem Arthritis of left shoulder region M19.012 Active [id number] ALLERGIES Substance Reaction Event Type Date Status Ibuprofen hives Drug Allergy August, Active Bactrim Unknown Drug Allergy August, Active ENCOUNTERS Encounter Location Date Diagnosis [facility] [id number], [place] [address] Nov, [facility] [id number], [place] [address] Nov, [facility] [address] [place] [address] Oct, Back pain M54.9 and Muscle spasm of back M62.830 [facility] IN [facility] [id number], [place] [address] August, Sore throat J02.9 and Strep pharyngitis J02.0 [place] [id number] [place] [address] August, Cervical paraspinal muscle spasm M62.838 [place] [address] [address] May, [place] [address] [address] May, [place] [address] [address] May, [place] [address] [address] May, Cervicalgia M54.2 [place] [address] [address] Apr, [facility] [place] [address] [address] Apr, Tongue sore K14.6 [place] [address] [address] Apr, CAD (coronary artery disease) I25.10 ; Essential hypertension I10 ; Hyperlipidemia, unspecified hyperlipidemia type E78.5 and Shortness of breath R06.02 [place] [id number] [place] [address] Apr, [facility] [place] [address] [address] Apr, Sore throat J02.9 [facility] [place] [address] [address] Mar, Acute seasonal allergic rhinitis, unspecified trigger J30.2 [facility] [place] [address] [address] 06 Mar, 2017 Pharyngitis due to other organism J02.8 ; Cervical neuritis M54.12 and Lump in throat R22.1 [place] [id number] [place] [address] 16 Feb, 2017 Pneumonia due to infectious organism, unspecified laterality , unspecified part of lung J18.9 [place] [id number] [place] [address] 15 Feb, 2017 [place] [address] [address] Feb, [place] [id number] [place] [address] Feb, Hypothyroidism (acquired) E03.9 [facility] [address] [address] Jan, Oral thrush B37.0 and Arthritis of left shoulder region M19.012 [facility] [address] [address] Dec, Acute seasonal allergic rhinitis due to other allergen J30.89 [facility] [place] [id number] [place] [address] Nov, Torticollis, acquired M43.6 and Geographic tongue K14.1 [place] [id number] [place] [address] Oct, Arthralgia of neck M54.2 [facility] [place] [id number] [place] [address] Oct, Constipation, unspecified constipation type K59.00 [place] [id number] [place] [address] Oct, Arthralgia of neck M54.2 [facility] [place] [id number] [place] [address] August, Seasonal allergic rhinitis, unspecified allergic rhinitis trigger J30.2 and Acute gastritis without hemorrhage, unspecified gastritis type K29.00 [facility] [id number] [place] [address] 27 Jul, 2016 Arthralgia of neck M54.2 ; Lumbago with sciatica, left side M54.42 and Neuropathy G62.[address] [address] 07 Jul, 2016 CAD (coronary artery disease) I25.10 ; Shortness of breath R06.02 ; Hyperlipidemia, unspecified hyperlipidemia type E78.5 and History of tobacco use Z87.891 [facility] [address] [address] Jun, Other viral agents as the cause of diseases classified elsewhere B97.89 and Acute upper respiratory infection, unspecified J06.9 [facility] IN [address] [address] May, Tonsillitis J03.90 [facility] IN [address] [address] Apr, Other viral agents as the cause of diseases classified elsewhere B97.89 and Acute upper respiratory infection, unspecified J06.9 [facility] IN [address] [address] Apr, Candidiasis of mouth B37.0 [facility] IN [address] [address] Apr, Bronchitis J40 [facility] IN [address] [address] Mar, Oropharyngeal candidiasis B37.[address] [address] Jan, Hyperlipemia E78.[address] [address] 07 Jan, 2016 CAD (coronary artery disease) I25.10 ; Essential hypertension I10 ; Hyperlipidemia, unspecified hyperlipidemia type E78.5 and Dyspnea, unspecified type R06.00 [facility] [address] [address] Oct, Dental caries K02.9 [facility] [id number] [place] [id number] Oct, Dental examination Z01.20 [facility] [id number] [place] [address] 15 Apr, 2015 Right elbow pain M25.521 ; Left elbow pain M25.522 and Neuropathy G62.9 [facility] [id number] [place] [address] Feb, Hyperlipemia E78.5 [facility] [id number] [place] [address]98[address] Jan, CAD (coronary artery disease) I25.10 ; Hyperlipemia E78.5 ; Obesity E66.9 and History of tobacco use Z87.891 [facility] [id number] [place] [address] 11 Dec, 2014 [facility] [id number] [place] [address]84- [address] 04 Dec, 2014 Neuropathy 355.9 [facility] [id number] [place] [address]19- 6[address] 14 Jul, 2014 [facility] [id number] [place] [address]38- 14[address] 13 Jul, 2014 [facility] [id number] [place] [address]31- 98[address] Jun, [facility] [id number] [place] [address]62[address] Jun, [facility] [id number] [place] [address]3- [address] May, [facility] [id number] [place] [address]356- 5[address] May, [facility] [place] [facility] [address] [id number] [place] [address] Apr, [facility] [place] [facility] [address] [id number] [place] [address] 0[address] Apr, [facility] [place] [facility] [address] [id number] [place] [address] Apr, [facility] [place] [facility] [address] [id number] [place] [address] Apr, [facility] [place] [facility] [address] [id number] [place] [address] Apr, [facility] [place] [facility] [address] [id number] [place] [address] Apr, [facility] [place] [facility] [address] [id number] [place] [address] 9098 Apr, [facility] [place] [facility] [address] [id number] [place] [address] Apr, [facility] [place] [facility] [address] [id number] [place] [address] Mar, [facility] [place] [facility] [address] [id number] [place] [address] Mar, [facility] [place] [facility] [address] [id number] [place] [address] Nov, [facility] [place] [facility] [address] [id number] [place] [address] 24[address] Nov, [facility] [place] [facility] [address] [id number] [place] [address] 25[address] Oct, [facility] [place] [facility] [address] [id number] [place] [address]- 1223 Oct, [facility] [place] [facility] [address] [id number] [place] [address] 9095 Oct, [facility] [place] [facility] [address] [id number] [place] [address]- 0072 Oct, [facility] [place] [facility] [address] [id number] [place] [address]- 5908 Oct, [facility] [place] [facility] [address] [id number] [place] [address] Sep, [facility] [place] [facility] [address] [id number] [place] [address]- 75[address] Sep, [facility] [place] [facility] [address] [id number] [place] [address]- 0074 August, [facility] [place] [facility] [address] [id number] [place] [address]- 70[address] August, [facility] [place] [facility] [address] [id number] [place] [address]- 4673 Jul, [facility] [place] [facility] [address] [id number] [place] [address]- 480[address] Jul, [facility] [place] [facility] [address] [id number] [place] [address]- 4[address] Jul, [facility] [place] [facility] [address] [id number] [place] [address]- 3763 Jul, [facility] [place] [facility] [address] [id number] [place] [address]- 3[address] Jul, [facility] [place] [facility] [address] [id number] [place] [address]- 8375 Jul, [facility] [place] [facility] [address] [id number] [place] [address]- 2564 Jul, [facility] [place] [facility] [address] [id number] [place] [id number] Jul, [facility] [place] [facility] [address] [id number] [place] [address]- 4825 Jul, [facility] [place] [facility] [address] [id number] [place] [address]- 59[address] Jul, [facility] [place] [facility] [address] [id number] [place] [address]- 8873 16 Jul, 2013 [facility] [address] [id number] [place] [address]- 17[address] Jul, [facility] [place] [facility] [address] [id number] [place] [address]- 1406 Jul, [facility] [place] [facility] [address] [id number] [place] [address]- 7461 Jun, [facility] [place] [facility] [address] [id number] [place] [address]- 9[address] Jun, [facility] [place] [facility] [address] [id number] [place] [address]- 4819 Jun, [facility] [place] [facility] [address] [id number] [place] [address]- 1870 Jun, [facility] [place] [facility] [address] [id number] [place] [address]- 4715 Jun, [facility] [place] [facility] [address] [id number] [place] [address]- 7159 Jun, [facility] [place] [facility] [address] [id number] [place] [address]- 9852 Jun, [facility] [place] [facility] [address] [id number] [place] [address]- 2399 Jun, [facility] [place] [facility] [address] [id number] [place] [address]- 6976 May, [facility] [place] [facility] [address] [id number] [place] [address]- 7001 May, [facility] [place] [facility] [address] [id number] [place] [address]- 8070 May, [facility] [place] [facility] [address] [id number] [place] [address] May, [facility] [place] [facility] [address] [id number] [place] [address]- 4343 Apr, [facility] [place] [facility] [address] [id number] [place] [address]- 4968 Apr, [facility] [place] [facility] [address] [id number] [place] [address]- 3914 Apr, [facility] [place] [facility] [address] [id number] [place] [address]- 0448 Apr, [facility] [place] [facility] [address] [id number] [place] [address]- 0127 Apr, [facility] [place] [facility] [address] [id number] [place] [address]- 8397 Apr, [facility] [place] [facility] [address] [id number] [place] [address]- 4630 Mar, [facility] [place] [facility] [address] [id number] [place] [address]- 3313 Mar, [facility] [place] [facility] [address] [id number] [place] [address]- 2385 Mar, [facility] [place] [facility] [address] [id number] [place] [address]- 2005 Mar, [facility] [place] [facility] [address] [id number] [place] [address]- 5435 Nov, [facility] [place] [facility] [address] [id number] [place] [address]- 9544 May, [facility] [place] [facility] [address] [id number], [place] [address]- [address] May, [facility] [place] [facility] [address] [id number] [place] [address]- 4360 May, [facility] [place] [facility] [address] [id number] [place] [address]- 1566 May, [facility] [place] [facility] [address] [id number] [place] [address]- 9427 May, [facility] [place] [facility] [id number] [address] May, [facility] [id number], [place] [address] Apr, [facility] [address], [place] [address] Apr, [facility] [id number], [place] [address] Apr, [facility] [address], [place] [address]- 1766 Apr, [facility] [address] [place] [address]- [address] May, [facility] [address], [place] [address]- [address] Jun, IMMUNIZATIONS No Known Immunizations SOCIAL HISTORY Never Assessed REASON FOR VISIT sore throat Pt c/o sore throat for several days, recently around granddaughter that had strep MAYELIN Anderson PLAN OF CARE Activity Details Follow Up prn Reason: VITAL SIGNS Height 67 in 2017-09-24 Weight 223.4 lbs 2017-09-24 Temperature 97.5 degrees Fahrenheit 2017-09-24 Heart Rate 68 bpm 2017-09-24 Respiratory Rate 20 2017-09-24 BMI 34.99 kg/m2 2017-09-24 Blood pressure systolic 126 mmHg 2017-09-24 Blood pressure diastolic 76 mmHg 2017-09-24 MEDICATIONS Medication Instructions Dosage Frequency Start Date End Date Duration Status Tizanidine HCl 4 MG Orally 2 times a day 1 tablet as needed 12h August, Active Gabapentin 600 MG Orally Three times a day 1 tablet 8h Active Flonase Allergy Relief 50 MCG/ACT Nasally twice per day 1 spray in each nostril Apr, 30 day(s) Active Losartan Potassium 50 mg Orally Once a day 1 tablet 24h Active Omeprazole 40 MG Orally Once a day 1 capsule 24h Not-Taking Lipitor 40 MG Orally Once a day 1 tablet 24h Feb, 90 Active Amoxicillin 500 MG Orally every 12 hrs 1 capsule 12h August, Sep, 10 day(s) Active Oxycodone-Acetaminophen 7.5-325 MG Orally every 6 hrs 1 tablet as needed 6h Not-Taking RESULTS Name Result Date Reference Range STREP A (IN HOUSE) 2017-09-24 STREP A negative Control + Lot # [id number] Exp date 2018-03-28 PROCEDURES Procedure Date Ordered Result Body Site STREP A ASSAY W/OPTIC September 24, 2017 INSTRUCTIONS MEDICATIONS ADMINISTERED No Known Medications MEDICAL (GENERAL) HISTORY Type Description Date Medical History Hypertension Medical History Hyperlipidemia Medical History Hypothyroidism Medical History Chronic pain Surgical History heart cath Surgical History cervical fusion Hospitalization History [facility]
--- OUTSIDE RECORDS SUMMARY | 2018-07-21 19:43 | XMS REPORT ---
Author Author WEI PETERSON [facility] Address [address] [place] [address] Care Team Providers Care Student Services Director Name Role Phone WEI PETERSON Unavailable PROBLEMS Type Condition ICD9-CM Code YLQ45-IT Code Onset Dates Condition Status SNOMED Code Problem Hyperlipidemia, unspecified hyperlipidemia type E78.5 Active 40514810 Problem Lumbago with sciatica, left side M54.42 Active 545607946 Problem Essential hypertension I10 Active 50432260 Problem CAD (coronary artery disease) I25.10 Active 57692985 Problem Hyperlipemia E78.5 Active 08823496 Problem Tongue sore K14.6 Active 76051816 Problem Acute seasonal allergic rhinitis, unspecified trigger J30.2 Active 591384913 Problem Constipation, unspecified constipation type K59.00 Active 81601486 Problem Seasonal allergic rhinitis, unspecified allergic rhinitis trigger J30.2 Active 325566134 Problem Hypothyroidism (acquired) E03.9 Active 670254728 Problem Arthritis of left shoulder region M19.012 Active [id number] ALLERGIES Substance Reaction Event Type Date Status Ibuprofen hives Drug Allergy Oct, Active Bactrim Unknown Drug Allergy Oct, Active ENCOUNTERS Encounter Location Date Diagnosis [facility] [address] [address] Dec, [facility] [address] [address] Nov, Essential hypertension I10 and Lumbago with sciatica, left side M54.42 [facility] [address] [address] Nov, [facility] [address] [address] Oct, Back pain M54.9 and Muscle spasm of back M62.830 [facility] [id number] [place] [address] August, Sore throat J02.9 and Strep pharyngitis J02.0 [facility] [id number] [place] [address] August, Cervical paraspinal muscle spasm M62.838 [facility] [id number] [place] [address] May, [facility] [address] [address] May, [facility] [address] [address] May, [facility] [id number] [place] [address]14 May, Cervicalgia M54.2 [facility] [id number] [place] [address] Apr, [facility] [address] [address] Apr, Tongue sore K14.6 [facility] [id number] [place] [address]607- 97[address] Apr, CAD (coronary artery disease) I25.10 ; Essential hypertension I10 ; Hyperlipidemia, unspecified hyperlipidemia type E78.5 and Shortness of breath R06.02 [facility] [id number] [place] [address] Apr, [facility] [id number] [place] [address] Apr, Sore throat J02.9 [facility] [id number] [place] [address] Mar, Acute seasonal allergic rhinitis, unspecified trigger J30.2 [facility] [address] [address] Mar, Pharyngitis due to other organism J02.8 ; Cervical neuritis M54.12 and Lump in throat R22.1 [place] [address] [address] 16 Feb, 2017 Pneumonia due to infectious organism, unspecified laterality , unspecified part of lung J18.9 [place] [address] [address] Feb, [place] [address] [address] Feb, [place] [address] [address] Feb, Hypothyroidism (acquired) E03.9 [facility] [address] [address] Jan, Oral thrush B37.0 and Arthritis of left shoulder region M19.012 [facility] [address] [address] Dec, Acute seasonal allergic rhinitis due to other allergen J30.89 [facility] [address] [address] Nov, Torticollis, acquired M43.6 and Geographic tongue K14.1 [place] [address] [address] Oct, Arthralgia of neck M54.2 [facility] [address] [address] Oct, Constipation, unspecified constipation type K59.00 [place] [address] [address] Oct, Arthralgia of neck M54.2 [facility] [address] [place] [address] August, Seasonal allergic rhinitis, unspecified allergic rhinitis trigger J30.2 and Acute gastritis without hemorrhage, unspecified gastritis type K29.[address] [address] Jul, Arthralgia of neck M54.2 ; Lumbago with sciatica, left side M54.42 and Neuropathy G62.[address] [address] Jul, CAD (coronary artery disease) I25.10 ; Shortness of breath R06.02 ; Hyperlipidemia, unspecified hyperlipidemia type E78.5 and History of tobacco use Z87.891 [facility] [address] [address] Jun, Other viral agents as the cause of diseases classified elsewhere B97.89 and Acute upper respiratory infection, unspecified J06.9 [facility] [address] [address] May, Tonsillitis J03.90 [facility] [address] [address] Apr, Other viral agents as the cause of diseases classified elsewhere B97.89 and Acute upper respiratory infection, unspecified J06.9 [facility] [address] [address] Apr, Candidiasis of mouth B37.0 [facility] [address] [address] Apr, Bronchitis J40 [facility] [address] [address] Mar, Oropharyngeal candidiasis B37.[address] [address] Jan, Hyperlipemia E78.[id number] [place] [address] 07 Jan, 2016 CAD (coronary artery disease) I25.10 ; Essential hypertension I10 ; Hyperlipidemia, unspecified hyperlipidemia type E78.5 and Dyspnea, unspecified type R06.00 [facility] [address] [id number] Oct, Dental caries K02.9 [facility] [address] [id number] Oct, Dental examination Z01.20 [place] [address] [address] Apr, Right elbow pain M25.521 ; Left elbow pain M25.522 and Neuropathy G62.9 [place] [id number] [place] [address]33[address] 4[address] Feb, Hyperlipemia E78.5 [place] [address] [address] Jan, CAD (coronary artery disease) I25.10 ; Hyperlipemia E78.5 ; Obesity E66.9 and History of tobacco use Z87.891 [place] [id number] [place] [address] Dec, [place] [id number] [place] [address] 04 Dec, 2014 Neuropathy 355.9 [facility] [id number] [place] [address]887- [address] 14 Jul, 2014 [facility] [id number] [place] [address] 9[address]- [address] Jul, [place] [id number] [place] [address]- [address]6 Jun, [facility] [id number] [place] [address]183- 7892 Jun, [place] [address] [id number] [place] [address] May, [facility] [address] [id number] [place] [address] May, [facility] [address] [id number] [place] [address] Apr, [facility] [address] [id number] [place] [address]- 4[address] Apr, [facility] [address] [id number] [place] [address] Apr, [facility] [address] [id number] [place] [address]- 9867 Apr, [facility] [address] [id number] [place] [address] Apr, [facility] [address] [id number] [place] [address] Apr, [facility] [address] [id number] [place] [address] Apr, [facility] [address] [id number] [place] [address]- [address] Apr, [facility] [address] [id number] [place] [address] Mar, [facility] [address] [id number] [place] [address]- [address] Mar, [facility] [address] [id number] [place] [address] Nov, [facility] [place] [facility] [address] [id number] [place] [address] Nov, [facility] [place] [facility] [address] [id number] [place] [address]- [address] Oct, [facility] [address] [id number] [place] [address] Oct, [facility] [place] [facility] [address] [id number] [place] [address]- 7988 Oct, [facility] [place] [facility] [address] [id number] [place] [address]- 6[address] Oct, [facility] [place] [facility] [address] [id number] [place] [address] Oct, [facility] [place] [facility] [address] [id number] [place] [address]- 37[address] Sep, [facility] [place] [facility] [address] [id number] [place] [address]- [address]244 Sep, [facility] [place] [facility] [address] [id number] [place] [address]- [address]24 August, [facility] [place] [facility] [address] [id number] [place] [address]- 7100 August, [facility] [place] [facility] [address] [id number] [place] [address]- 0085 Jul, [facility] [place] [facility] [address] [id number] [place] [address]- 6803 Jul, [facility] [place] [facility] [address] [id number] [place] [address]- 1945 Jul, [facility] [place] [facility] [address] [id number] [place] [address]- 1994 Jul, [facility] [place] [facility] [address] [id number] [place] [address]- 6627 Jul, [facility] [place] [facility] [address] [id number] [place] [address]- 7885 Jul, [facility] [place] [facility] [address] [id number] [place] [address]- 2417 Jul, [facility] [place] [facility] [address] [id number] [place] [id number] Jul, [facility] [place] [facility] [address] [id number] [place] [address]- [address]607 Jul, [facility] [place] [facility] [address] [id number] [place] [address]- 3995 Jul, [facility] [place] [facility] [address] [id number] [place] [address]- 9997 Jul, [facility] [place] [facility] [address] [id number] [place] [address]- 6743 Jul, [facility] [place] [facility] [address] [id number] [place] [address]- 9945 Jul, [facility] [place] [facility] [address] [id number] [place] [address]- 2004 Jun, [facility] [place] [facility] [address] [id number] [place] [address]- 5[address] Jun, [facility] [place] [facility] [address] [id number] [place] [address]- 9368 Jun, [facility] [place] [facility] [address] [id number] [place] [address]- 6260 Jun, [facility] [place] [facility] [address] [id number] [place] [address]- 2168 Jun, [facility] [place] [facility] [address] [id number] [place] [address]- 5877 Jun, [facility] [place] [facility] [address] [id number] [place] [address]- 0879 Jun, [facility] [place] [facility] [address] [id number] [place] [address]- 3762 Jun, [facility] [place] [facility] [address] [id number] [place] [address]- 1385 May, [facility] [place] [facility] [address] [id number] [place] [address]- 8216 May, [facility] [place] [facility] [address] [id number] [place] [address]- [address]99 May, [facility] [place] [facility] [address] [id number] [place] [address]- 0730 May, [facility] [place] [facility] [address] [id number] [place] [address]- 9229 Apr, [facility] [place] [facility] [address] [id number] [place] [address]- 8209 Apr, [facility] [place] [facility] [address] [id number] [place] [address]- [address]120 Apr, [facility] [place] [facility] [address] [id number] [place] [address]- 8215 Apr, [facility] [place] [facility] [address] [id number] [place] [address]- 5167 Apr, [facility] [place] [facility] [address] [id number] [place] [address]- 0654 Apr, [facility] [place] [facility] [address] [id number] [place] [address]- 98[address] Mar, [facility] [place] [facility] [address] [id number] [place] [address]- 0491 Mar, [facility] [place] [facility] [address] [id number] [place] [address]- 0991 Mar, [facility] [place] [facility] [address] [id number] [place] [address]- 4340 Mar, [facility] [place] [facility] [address] [id number] [place] [address]- 6321 Nov, [facility] [place] [facility] [address] [id number] [place] [address]- 9235 May, [facility] [place] [facility] [address] [id number] [place] [address]- 6954 May, [facility] [place] [facility] [address] [id number] [place] [address]- 1263 May, [facility] [place] [facility] [address] [id number] [address]- [address] May, [facility] [address] May, [facility] [address] [address]- [address] May, [facility] [address] [address]- [address] Apr, [facility] [address] [place] [address]- [address] Apr, [facility] [address] [place] [address]54- 2598 Apr, [facility] [address] [address]- 39[address] Apr, [facility] [address] [place] [address]- [address] May, [facility] [address] [address]- [address] Jun, IMMUNIZATIONS No Known Immunizations SOCIAL HISTORY Never Assessed REASON FOR VISIT lower back pain on the left side for 4 days. comes et goes. denies any injury. [email or web address] PLAN OF CARE Activity Details Follow Up prn Reason: VITAL SIGNS Height 67 in 2017-11-01 Weight 222.2 lbs 2017-11-01 Temperature 98.0 degrees Fahrenheit 2017-11-01 Heart Rate 70 bpm 2017-11-01 Respiratory Rate 20 2017-11-01 BMI 34.80 kg/m2 2017-11-01 Blood pressure systolic 130 mmHg 2017-11-01 Blood pressure diastolic 82 mmHg 2017-11-01 MEDICATIONS Medication Instructions Dosage Frequency Start Date End Date Duration Status Losartan Potassium 50MG TAKE ONE TABLET BY MOUTH ONCE DAILY 90 Active Tizanidine HCl 4 MG Orally 2 times a day 1 tablet as needed 12h August, Active Gabapentin 600 MG Orally Three times a day 1 tablet 8h Active Flonase Allergy Relief 50 MCG/ACT Nasally twice per day 1 spray in each nostril Apr, 30 day(s) Active Lipitor 40 MG Orally Once a day 1 tablet 24h 90 Active RESULTS Name Result Date Reference Range UA LONG DIP (IN HOUSE) 2017-11-01 Lot # [id number] Exp date 03 28 2018 Clarity clear Color yellow Odor none GLU negative JACKIE negative KET negative SG 1.020 BLO negative pH 7.5 Protein negative URO 0.2 NIT negative TERESA negative Lot # [id number] Exp date mar 2018 PROCEDURES Procedure Date Ordered Result Body Site URINALYSIS, AUTO, W/O SCOPE November 01, 2017 INSTRUCTIONS MEDICATIONS ADMINISTERED No Known Medications MEDICAL (GENERAL) HISTORY Type Description Date Medical History Hypertension Medical History Hyperlipidemia Medical History Hypothyroidism Medical History Chronic pain Surgical History heart cath Surgical History cervical fusion Hospitalization History [place] F[facility]
--- OUTSIDE RECORDS SUMMARY | 2018-07-21 19:43 | XMS REPORT ---
Author Author JOCELYNN BUSTAMANTE Organization [facility] Address [address] [place] [address] Care Team Providers Care Repair Supervisor Name Role Phone JOCELYNN BUSTAMANTE Unavailable PROBLEMS Type Condition ICD9-CM Code CTN82-UD Code Onset Dates Condition Status SNOMED Code Problem Hyperlipidemia, unspecified hyperlipidemia type E78.5 Active 52834220 Problem Lumbago with sciatica, left side M54.42 Active 010761236 Problem Essential hypertension I10 Active 12854027 Problem CAD (coronary artery disease) I25.10 Active 98603850 Problem Hyperlipemia E78.5 Active 43434582 Problem Tongue sore K14.6 Active 51888486 Problem Acute seasonal allergic rhinitis, unspecified trigger J30.2 Active 140793001 Problem Constipation, unspecified constipation type K59.00 Active 36007109 Problem Seasonal allergic rhinitis, unspecified allergic rhinitis trigger J30.2 Active 847017278 Problem Hypothyroidism (acquired) E03.9 Active 504625625 Problem Arthritis of left shoulder region M19.012 Active [id number] ALLERGIES Substance Reaction Event Type Date Status Ibuprofen hives Drug Allergy August, Active Bactrim Unknown Drug Allergy August, Active ENCOUNTERS Encounter Location Date Diagnosis [facility] [address] [address] Nov, [facility] [id number] [place] [address] Nov, [facility] [id number] [place] [address] Oct, Back pain M54.9 and Muscle spasm of back M62.830 [facility] [address] [address] August, Sore throat J02.9 and Strep pharyngitis J02.0 [place] [id number] [place] [address]35- 6858 August, Cervical paraspinal muscle spasm M62.838 [place] [id number] [place] [address]00- 0914 May, [place] [id number] [place] [address]397- [address]77 May, [place] [address] [address] May, [place] [address] [address] May, Cervicalgia M54.2 [place] [id number] [place] [address]8927- 1195 Apr, [facility] [place] [address] [address] Apr, Tongue sore K14.6 [place] [id number] [place] [address] 71435- 9090 Apr, CAD (coronary artery disease) I25.10 ; Essential hypertension I10 ; Hyperlipidemia, unspecified hyperlipidemia type E78.5 and Shortness of breath R06.02 [place] [id number] [place] [address] 02741- 0490 Apr, [facility] [place] [id number] [place] [address] Apr, Sore throat J02.9 [facility] [place] [id number] [place] [address] Mar, Acute seasonal allergic rhinitis, unspecified trigger J30.2 [facility] WALK [facility] [place] [id number] [place] [address] Mar, Pharyngitis due to other organism J02.8 ; Cervical neuritis M54.12 and Lump in throat R22.1 [place] [id number] [place] [address]366- 8[address] 16 Feb, 2017 Pneumonia due to infectious organism, unspecified laterality , unspecified part of lung J18.9 [place] [id number] [place] [address]287- 5781 Feb, [place] [address] [address] Feb, [place] [address] [address] Feb, Hypothyroidism (acquired) E03.9 [facility] WALK IN [address] [address] Jan, Oral thrush B37.0 and Arthritis of left shoulder region M19.012 [facility] WALK IN [address] [address] Dec, Acute seasonal allergic rhinitis due to other allergen J30.89 [facility] WALK IN [address] [address] Nov, Torticollis, acquired M43.6 and Geographic tongue K14.1 [place] [address] [address] Oct, Arthralgia of neck M54.2 [facility] W[facility] [place] [address] [address] Oct, Constipation, unspecified constipation type K59.00 [place] [address] [address]06[address] Oct, Arthralgia of neck M54.2 [facility] WALK IN [address] [address] August, Seasonal allergic rhinitis, unspecified allergic rhinitis trigger J30.2 and Acute gastritis without hemorrhage, unspecified gastritis type K29.00 [place] [address] [address] Jul, Arthralgia of neck M54.2 ; Lumbago with sciatica, left side M54.42 and Neuropathy G62.[address] [address] Jul, CAD (coronary artery disease) I25.10 ; Shortness of breath R06.02 ; Hyperlipidemia, unspecified hyperlipidemia type E78.5 and History of tobacco use Z87.891 [facility] [address] [address] Jun, Other viral agents as the cause of diseases classified elsewhere B97.89 and Acute upper respiratory infection, unspecified J06.9 [facility] WALK IN [address] [address] May, Tonsillitis J03.90 [facility] WALK IN [address] [address] Apr, Other viral agents as the cause of diseases classified elsewhere B97.89 and Acute upper respiratory infection, unspecified J06.9 [facility] WALK IN [address] [address] Apr, Candidiasis of mouth B37.0 [facility] WALK IN [address] [address] Apr, Bronchitis J40 [facility] IN [address] [address] Mar, Oropharyngeal candidiasis B37.[address] [address] Jan, Hyperlipemia E78.[address] 8[address]70- [address] 07 Jan, 2016 CAD (coronary artery disease) I25.10 ; Essential hypertension I10 ; Hyperlipidemia, unspecified hyperlipidemia type E78.5 and Dyspnea, unspecified type R06.00 [facility] [address] [id number] Oct, Dental caries K02.9 [facility] [id number] [place] [id number] Oct, Dental examination Z01.20 [facility] [id number] [place] [address]706- [address] 15 Apr, 2015 Right elbow pain M25.521 ; Left elbow pain M25.522 and Neuropathy G62.9 [facility] [id number] [place] [address]394- 9516 Feb, Hyperlipemia E78.5 [facility] [id number] [place] [address]2271- 9782 Jan, CAD (coronary artery disease) I25.10 ; Hyperlipemia E78.5 ; Obesity E66.9 and History of tobacco use Z87.891 [facility] [id number] [place] [address]04- 8499 11 Dec, 2014 [facility] [id number] [place] [address]388- 4789 04 Dec, 2014 Neuropathy 355.9 [facility] [id number] [place] [address]30- 7142 14 Jul, 2014 [facility] [id number] [place] [address]9869- 1006 Jul, [facility] [id number] [place] [address]09- 69[address] Jun, [facility] [id number] [place] [address]39[address]- 3[address] Jun, [facility] [id number] [place] [address] 10377- 6926 May, [facility] [id number] [place] [address]17- 6[address] May, [facility] [address] [facility] [id number] [place] [address] Apr, [facility] [address] [id number] [place] [address] Apr, [facility] [place] [facility] [address] [id number] [place] [address] Apr, [facility] [place] [facility] [address] [id number] [place] [address] Apr, [facility] [place] [facility] [address] [id number] [place] [address] 2546 Apr, [facility] [place] [facility] [address] [id number] [place] [address]- 68[address] Apr, [facility] [place] [facility] [address] [id number] [place] [address]- 1709 Apr, [facility] [place] [facility] [address] [id number] [place] [address]- 16[address] Apr, [facility] [address] [id number] [place] [address]- 9[address] Mar, [facility] [place] [facility] [address] [id number] [place] [address]- 0971 Mar, [facility] [place] [facility] [address] [id number] [place] [address]- 4[address] Nov, [facility] [place] [facility] [address] [id number] [place] [address]- 5[address] Nov, [facility] [place] [facility] [address] [id number] [place] [address] Oct, [facility] [place] [facility] [address] [id number] [place] [address]- 25[address] Oct, [facility] [place] [facility] [address] [id number] [place] [address]- 2546 Oct, [facility] [place] [facility] [address] [id number] [place] [address]- 7887 Oct, [facility] [place] [facility] [address] [id number] [place] [address]- 3987 Oct, [facility] [place] [facility] [address] [id number] [place] [address]- 5189 Sep, [facility] [place] [facility] [address] [id number] [place] [address]- 6[address] Sep, [facility] [place] [facility] [address] [id number] [place] [address]- 6658 August, [facility] [place] [facility] [address] [id number] [place] [address]- 0037 August, [facility] [place] [facility] [address] [id number] [place] [address]- 0075 Jul, [facility] [place] [facility] [address] [id number] [place] [address]- 0222 Jul, [facility] [place] [facility] [address] [id number] [place] [address]- 5789 Jul, [facility] [place] [facility] [address] [id number] [place] [address]- 7405 Jul, [facility] [place] [facility] [address] [id number] [place] [address]- 2068 Jul, [facility] [place] [facility] [address] [id number] [place] [address]- 0728 Jul, [facility] [place] [facility] [address] [id number] [place] [address]- 9293 Jul, [facility] [place] [facility] [address] [id number] [place] [id number] Jul, [facility] [place] [facility] [address] [id number] [place] [address]- 0594 Jul, [facility] [place] [facility] [address] [id number] [place] [address]- 9942 Jul, [facility] [place] [facility] [address] [id number] [address] Jul, [facility] [place] [facility] [address] [id number] [place] [address]- 0089 Jul, [facility] [place] [facility] [address] [id number] [place] [address]- 6796 Jul, [facility] [place] [facility] [address] [facility] [id number] [place] [address]- 9620 Jun, [facility] [place] [facility] [address] [id number] [place] [address]- 0626 Jun, [facility] [place] [facility] [address] [id number] [place] [address]- 4507 Jun, [facility] [place] [facility] [address] [id number] [place] [address]- 7289 Jun, [facility] [place] [facility] [address] [facility] [id number] [place] [address]- 4265 Jun, [facility] [place] [facility] [address] [id number] [place] [address]- 5865 Jun, [facility] [place] [facility] [address] [id number] [place] [address]- 1431 Jun, [facility] [place] [facility] [address] [facility] [id number] [place] [address]- 9954 Jun, [facility] [place] [facility] [address] [id number] [place] [address]- 0935 May, [facility] [place] [facility] [address] [id number] [place] [address]- 1487 May, [facility] [place] [facility] [address] [id number] [place] [address]- 6146 May, [facility] [place] [facility] [address] [id number] [place] [address]- 2449 May, [facility] [place] [facility] [address] [id number] [address]- 6657 Apr, [facility] [place] [facility] [address] [id number] [place] [address]- 1354 Apr, [facility] [place] [facility] [address] [id number] [place] [address]- 8306 Apr, [facility] [place] [facility] [address] [id number] [place] [address]- 9503 Apr, [facility] [place] [facility] [address] [id number] [place] [address]- 8479 Apr, [facility] [address] [id number] [place] [address]- 0898 Apr, [facility] [place] [facility] [address] [id number] [place] [address]- 2056 Mar, [facility] [address] [id number] [place] [address]- 0038 Mar, [facility] [address] [id number] [place] [address]- 8766 Mar, [facility] [place] [facility] [address] [id number] [place] [address]- 7031 Mar, [facility] [place] [facility] [address] [id number] [place] [address]- 3112 Nov, [facility] [place] [facility] [address] [id number] [place] [address]- 6622 May, [facility] [place] [facility] [address] [id number] [place] [address]- 2774 May, [facility] [place] [facility] [address] [id number] [place] [address]- 8950 May, [facility] [place] [facility] [address] [id number] [place] [address]- 7263 May, [facility] [place] [facility] [address] [id number] [place] [address]- 2075 May, [facility] [place] [facility] [address] [id number] [address]- 2846 May, [facility] [id number] Apr, [facility] [id number] [address]- 7963 Apr, [facility] [id number] [address]- 4[address] Apr, [facility] [address] [address]- 1555 Apr, [facility] [address] [address]- 60[address] May, [facility] [address] Jun, IMMUNIZATIONS No Known Immunizations SOCIAL HISTORY Never Assessed REASON FOR VISIT left shouler pain possible scar tissue along with headaches-[place] MAYELIN PLAN OF CARE VITAL SIGNS Height 67 in 2017-09-09 Weight 225.7 lbs 2017-09-09 Temperature 97.8 degrees Fahrenheit 2017-09-09 Heart Rate 68 bpm 2017-09-09 Respiratory Rate 18 2017-09-09 BMI 35.35 kg/m2 2017-09-09 Blood pressure systolic 124 mmHg 2017-09-09 Blood pressure diastolic 76 mmHg 2017-09-09 MEDICATIONS Medication Instructions Dosage Frequency Start Date End Date Duration Status Omeprazole 40 MG Orally Once a day 1 capsule 24h Not-Taking Tizanidine HCl 4 MG Orally 2 times a day 1 tablet as needed 12h August, Active Losartan Potassium 50 mg Orally Once a day 1 tablet 24h Active Oxycodone-Acetaminophen 7.5-325 MG Orally every 6 hrs 1 tablet as needed 6h Not-Taking Lipitor 40 MG Orally Once a day 1 tablet 24h Feb, 90 Active Flonase Allergy Relief 50 MCG/ACT Nasally twice per day 1 spray in each nostril Apr, 30 day(s) Active Gabapentin 600 MG Orally Three times a day 1 tablet 8h Active RESULTS No Results PROCEDURES No Known procedures INSTRUCTIONS MEDICATIONS ADMINISTERED No Known Medications MEDICAL (GENERAL) HISTORY Type Description Date Medical History Hypertension Medical History Hyperlipidemia Medical History Hypothyroidism Medical History Chronic pain Surgical History heart cath Surgical History cervical fusion Hospitalization History [place] Fever
--- OUTSIDE RECORDS SUMMARY | 2018-07-21 19:44 | XMS REPORT ---
Author Author JOCELYNN BUSTAMANTE Organization [facility] Address [address] [place] [address] Care Team Providers Care Cherry Grower Name Role Phone JOCELYNN BUSTAMANTE Unavailable PROBLEMS Type Condition ICD9-CM Code ODZ25-JX Code Onset Dates Condition Status SNOMED Code Problem Hyperlipidemia, unspecified hyperlipidemia type E78.5 Active 82305194 Problem Lumbago with sciatica, left side M54.42 Active 725144022 Problem Essential hypertension I10 Active 86728049 Problem CAD (coronary artery disease) I25.10 Active 72979349 Problem Hyperlipemia E78.5 Active 55087617 Problem Tongue sore K14.6 Active 47376573 Problem Acute seasonal allergic rhinitis, unspecified trigger J30.2 Active 846475471 Problem Constipation, unspecified constipation type K59.00 Active 71036668 Problem Seasonal allergic rhinitis, unspecified allergic rhinitis trigger J30.2 Active 247990139 Problem Hypothyroidism (acquired) E03.9 Active 846351453 Problem Arthritis of left shoulder region M19.012 Active [id number] ALLERGIES No Information ENCOUNTERS Encounter Location Date Diagnosis [facility] [id number] [place] [address] May, [facility] [id number] [place] [address] 10335- 3050 May, [facility] [id number] [place] [address] 47005- 8365 May, [facility] [id number] [place] [address] 45783- 6706 May, Cervicalgia M54.2 [facility] [id number] [place] [address]35- [address]239 Apr, [facility] [address] [address] Apr, Tongue sore K14.6 [place] [address] [address] Apr, CAD (coronary artery disease) I25.10 ; Essential hypertension I10 ; Hyperlipidemia, unspecified hyperlipidemia type E78.5 and Shortness of breath R06.02 [place] [address] [address] Apr, [facility] [place] [address] [address] Apr, Sore throat J02.9 [facility] [place] [address] [address] Mar, Acute seasonal allergic rhinitis, unspecified trigger J30.2 [facility] [place] [address] [address] Mar, Pharyngitis due to other organism J02.8 ; Cervical neuritis M54.12 and Lump in throat R22.1 [place] [address] [address]- [address] 16 Feb, 2017 Pneumonia due to infectious organism, unspecified laterality , unspecified part of lung J18.9 [place] [address] [address]- [address] 15 Feb, 2017 [place] [address] [address] Feb, [place] [address] [address]88 Feb, Hypothyroidism (acquired) E03.9 [facility] [place] [address] [address] Jan, Oral thrush B37.0 and Arthritis of left shoulder region M19.012 [facility] [place] [address] [address] Dec, Acute seasonal allergic rhinitis due to other allergen J30.89 [facility] [place] [id number] [place] [address]84 [address] Nov, Torticollis, acquired M43.6 and Geographic tongue K14.[address] [address] Oct, Arthralgia of neck M54.2 [facility] [address] [address] Oct, Constipation, unspecified constipation type K59.[address] [address]10- [address]71 Oct, Arthralgia of neck M54.2 [facility] IN [address] [address] August, Seasonal allergic rhinitis, unspecified allergic rhinitis trigger J30.2 and Acute gastritis without hemorrhage, unspecified gastritis type K29.[address] 6[address]87- [address]8 Jul, Arthralgia of neck M54.2 ; Lumbago with sciatica, left side M54.42 and Neuropathy G62.9 [place] [id number] [place] [address]2335- 0112 Jul, CAD (coronary artery disease) I25.10 ; Shortness of breath R06.02 ; Hyperlipidemia, unspecified hyperlipidemia type E78.5 and History of tobacco use Z87.891 [facility] [place] [id number] [place] [address]9 Jun, Other viral agents as the cause of diseases classified elsewhere B97.89 and Acute upper respiratory infection, unspecified J06.9 [facility] IN [address] [address] May, Tonsillitis J03.90 [facility] [place] [id number] [place] [address] Apr, Other viral agents as the cause of diseases classified elsewhere B97.89 and Acute upper respiratory infection, unspecified J06.9 [facility] [place] [address] [address] Apr, Candidiasis of mouth B37.0 [facility] [place] [address] [address] Apr, Bronchitis J40 [facility] [place] [address] 6[address] Mar, Oropharyngeal candidiasis B37.0 [place] [address] 83906- 9183 Jan, Hyperlipemia E78.5 [place] [address] 6[address]18- 2567 Jan, CAD (coronary artery disease) I25.10 ; Essential hypertension I10 ; Hyperlipidemia, unspecified hyperlipidemia type E78.5 and Dyspnea, unspecified type R06.00 [facility] [address] [id number] Oct, Dental caries K02.9 [facility] [address] [id number] Oct, Dental examination Z01.20 [place] [address] [address] Apr, Right elbow pain M25.521 ; Left elbow pain M25.522 and Neuropathy G62.9 [place] [address] 16773- 2270 Feb, Hyperlipemia E78.5 [place] [address] 35879- 6534 Jan, CAD (coronary artery disease) I25.10 ; Hyperlipemia E78.5 ; Obesity E66.9 and History of tobacco use Z87.891 [facility] [place] [facility] [address] [id number] [place] [address]- [address]797 11 Dec, 2014 [facility] [place] [facility] [address] [id number] [place] [address]- 2746 04 Dec, 2014 Neuropathy 355.9 [facility] [place] [facility] [address] [id number] [place] [address] 2546 14 Jul, 2014 [facility] [place] [facility] [address] [id number] [place] [address] 2546 Jul, [facility] [place] [facility] [address] [id number] [place] [address]- 7476 Jun, [facility] [place] [facility] [address] [id number] [place] [address]- 7948 Jun, [facility] [place] [facility] [address] [facility] [id number] [place] [address]- 1274 May, [facility] [place] [facility] [address] [id number] [address] 6[address] May, [facility] [place] [facility] [address] [id number] [place] [address]- 9360 Apr, [facility] [place] [facility] [address] [id number] [address] 78[address] Apr, [facility] [place] [facility] [address] [id number] [address] 2392 Apr, [facility] [place] [facility] [address] [id number], [place] [address]- 8865 Apr, [facility] [place] [facility] [address] [id number] [place] [address]- 2000 Apr, [facility] [place] [facility] [address] [id number][place] [address]- 7528 Apr, [facility] [place] [facility] [address] [facility] [id number] [place] [address]- 6759 Apr, [facility] [place] [facility] [address] [id number] [place] [address]- 7592 Apr, [facility] [place] [facility] [address] [id number] [place] [address]- 8495 Mar, [facility] [place] [facility] [address] [id number] [place] [address] Mar, [facility] [place] [facility] [address] [id number] [place] [address]- 2444 Nov, [facility] [place] [facility] [address] [id number] [place] [address]- 4609 Nov, [facility] [place] [facility] [address] [id number] [place] [address]- 5295 Oct, [facility] [place] [facility] [address] [id number] [place] [address]- 6265 Oct, [facility] [place] [facility] [address] [id number] [place] [address]- 8958 Oct, [facility] [place] [facility] [address] [id number] [place] [address]- 5907 Oct, [facility] [place] [facility] [address] [id number] [place] [address]- 5564 Oct, [facility] [place] [facility] [address] [id number] [place] [address]- 2985 Sep, [facility] [place] [facility] [address] [id number] [place] [address]- 6101 Sep, [facility] [place] [facility] [address] [id number] [place] [address]- 1398 August, [facility] [place] [facility] [address] [id number] [place] [address]- 9677 August, [facility] [place] [facility] [address] [id number] [place] [address]- 9918 Jul, [facility] [place] [facility] [address] [id number] [place] [address]- 5247 Jul, [facility] [place] [facility] [address] [id number] [place] [address]- 1609 Jul, [facility] [place] [facility] [address] [id number] [place] [address]- 0924 Jul, [facility] [place] [facility] [address] [id number] [place] [address]- 8079 Jul, [facility] [place] [facility] [address] [id number] [place] [address]- 4582 Jul, [facility] [place] [facility] [address] [id number] [place] [address]- 1661 Jul, [facility] [place] [facility] [address] [id number] [place] [id number] Jul, [facility] [place] [facility] [address] [id number] [place] [address]- 4111 Jul, [facility] [place] [facility] [address] [id number] [place] [address]- 6558 Jul, [facility] [place] [facility] [address] [id number] [place] [address]- 4711 Jul, [facility] [place] [facility] [address] [id number] [place] [address]- 3234 Jul, [facility] [place] [facility] [address] [id number] [place] [address]- 3729 Jul, [facility] [place] [facility] [address] [id number] [place] [address]- 0389 Jun, [facility] [place] [facility] [address] [id number] [place] [address]- 9065 Jun, [facility] [place] [facility] [address] [id number] [place] [address]- 8969 Jun, [facility] [place] [facility] [address] [id number] [place] [address]- 0511 Jun, [facility] [place] [facility] [address] [id number] [place] [address]- 2080 Jun, [facility] [place] [facility] [address] [id number] [place] [address]- 6922 Jun, [facility] [place] [facility] [address] [id number] [place] [address]- 1159 Jun, [facility] [place] [facility] [address] [id number] [place] [address]- 4000 Jun, [facility] [place] [facility] [address] [id number] [place] [address]- 4056 May, [facility] [place] [facility] [address] [id number] [place] [address]- 2321 May, [facility] [place] [facility] [address] [id number] [place] [address]- 5143 May, [facility] [place] [facility] [address] [id number] [place] [address]- 3511 May, [facility] [place] [facility] [address] [id number] [place] [address]- 3843 Apr, [facility] [place] [facility] [address] [id number] [place] [address]- 3549 Apr, [facility] [place] [facility] [address] [id number] [place] [address]- 3903 Apr, [facility] [place] [facility] [address] [id number] [place] [address]- 6974 Apr, [facility] [place] [facility] [address] [id number] [place] [address]- 2849 Apr, [facility] [place] [facility] [address] [id number] [place] [address]- 9065 Apr, [facility] [place] [facility] [address] [id number] [place] [address]- 5116 Mar, [facility] [place] [facility] [address] [id number] [place] [address]- 9521 Mar, [facility] [place] [facility] [id number] [place] [address]- [address] Mar, [facility] [address] [address]- [address] Mar, [facility] [id number] [place] [address]- 9876 Nov, [facility] [address] [address]- [address] May, [facility] [id number] [place] [address]- 4418 May, [facility] [id number] [place] [address], [place] [address]- 5049 May, [facility] [id number] [address]- 0129 May, [facility] [address] [address]- 1647 May, [facility] [address] [address]- 9944 May, [facility] [address] [address]- 2750 Apr, [facility] [address] [address]- 9857 Apr, [facility] [address] [address]- 8494 Apr, [facility] [id number] [address]- 3775 Apr, [facility] [address] [address]- 0720 May, [facility] [id number] [address]- 9828 Jun, IMMUNIZATIONS No Known Immunizations SOCIAL HISTORY Never Assessed REASON FOR VISIT Xray (walk-in) MHill RT(R) PLAN OF CARE VITAL SIGNS MEDICATIONS Unknown Medications RESULTS Name Result Date Reference Range Xray : Spine, Cervical (IN HOUSE) 2016-11-21 PROCEDURES Procedure Date Ordered Result Body Site X-RAY EXAM OF NECK SPINE November 21, 2016 INSTRUCTIONS MEDICATIONS ADMINISTERED No Known Medications MEDICAL (GENERAL) HISTORY Type Description Date Medical History Hypertension Medical History Hyperlipidemia Medical History Hypothyroidism Medical History Chronic pain Surgical History heart cath Surgical History cervical fusion Hospitalization History [place] Fever
--- OUTSIDE RECORDS SUMMARY | 2018-07-21 19:44 | XMS REPORT ---
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 Name Role Phone jojoCARIDADLIANNE ROCAEL Unavailable PROBLEMS Type Condition ICD9-CM Code LZO40-BN Code Onset Dates Condition Status SNOMED Code Problem Hyperlipidemia, unspecified hyperlipidemia type E78.5 Active 25229930 Problem Lumbago with sciatica, left side M54.42 Active 614233602 Problem Essential hypertension I10 Active 20874993 Problem CAD (coronary artery disease) I25.10 Active 28505652 Problem Hyperlipemia E78.5 Active 48826250 Problem Tongue sore K14.6 Active 70510931 Problem Acute seasonal allergic rhinitis, unspecified trigger J30.2 Active 159899413 Problem Constipation, unspecified constipation type K59.00 Active 51609898 Problem Seasonal allergic rhinitis, unspecified allergic rhinitis trigger J30.2 Active 078947659 Problem Hypothyroidism (acquired) E03.9 Active 296677347 Problem Arthritis of left shoulder region M19.012 Active [id number] ALLERGIES Substance Reaction Event Type Date Status Ibuprofen hives Drug Allergy Jan, Active Bactrim Unknown Drug Allergy Jan, Active ENCOUNTERS Encounter Location Date Diagnosis [place] [id number] [address] August, Cervical paraspinal muscle spasm M62.838 [facility] [id number] [address] May, [place] [id number] [address] May, [facility] [id number] [address] May, [place] [address] [address] May, Cervicalgia M54.2 [place] [address] [address] Apr, [facility] [place] [address] [address] Apr, Tongue sore K14.6 [place] [address] [address] Apr, CAD (coronary artery disease) I25.10 ; Essential hypertension I10 ; Hyperlipidemia, unspecified hyperlipidemia type E78.5 and Shortness of breath R06.02 [place] [address] [address] Apr, [facility] W[facility] IN [address] [address] Apr, Sore throat J02.9 [facility] IN [place] [address] [address] Mar, Acute seasonal allergic rhinitis, unspecified trigger J30.2 [facility] IN [address] [address] 06 Mar, 2017 Pharyngitis due to other organism J02.8 ; Cervical neuritis M54.12 and Lump in throat R22.1 [place] [address] [address] [id number] [place] [address] Feb, Pneumonia due to infectious organism, unspecified laterality , unspecified part of lung J18.9 [place] [address] [address] Feb, [place] [address] [address] Feb, [place] [address] [address] 02 Nov, 2017 Hypothyroidism (acquired) E03.9 [facility] [place] [id number] [place] [address] Jan, Oral thrush B37.0 and Arthritis of left shoulder region M19.012 [facility] [address] [address] Dec, Acute seasonal allergic rhinitis due to other allergen J30.89 [facility] [address] [address] Nov, Torticollis, acquired M43.6 and Geographic tongue K14.[address] [address] Oct, Arthralgia of neck M54.2 [facility] W[facility] IN [address] [address] Oct, Constipation, unspecified constipation type K59.[address] [address] Oct, Arthralgia of neck M54.2 [facility] WALK IN [address] [address] August, Seasonal allergic rhinitis, unspecified allergic rhinitis trigger J30.2 and Acute gastritis without hemorrhage, unspecified gastritis type K29.[address] [address] Jul, Arthralgia of neck M54.2 ; Lumbago with sciatica, left side M54.42 and Neuropathy G62.[address] [address] Jul, CAD (coronary artery disease) I25.10 ; Shortness of breath R06.02 ; Hyperlipidemia, unspecified hyperlipidemia type E78.5 and History of tobacco use Z87.891 [facility] W[facility] IN [address] [address] Jun, Other viral agents as the cause of diseases classified elsewhere B97.89 and Acute upper respiratory infection, unspecified J06.9 [facility] [address] [place] [address] May, Tonsillitis J03.90 [facility] [address] [place] [address] Apr, Other viral agents as the cause of diseases classified elsewhere B97.89 and Acute upper respiratory infection, unspecified J06.9 [facility] [address] [place] [address] Apr, Candidiasis of mouth B37.0 [facility] [address] [address] Apr, Bronchitis J40 [facility] [address] [address] Mar, Oropharyngeal candidiasis B37.[address] [address] Jan, Hyperlipemia E78.[address] [address] Jan, CAD (coronary artery disease) I25.10 ; Essential hypertension I10 ; Hyperlipidemia, unspecified hyperlipidemia type E78.5 and Dyspnea, unspecified type R06.00 [facility] [address] [id number] Oct, Dental caries K02.9 [facility] [address] [id number] Oct, Dental examination Z01.[address] [address] Apr, Right elbow pain M25.521 ; Left elbow pain M25.522 and Neuropathy G62.[address] [address] Feb, Hyperlipemia E78.5 [facility] [address] [address] Jan, CAD (coronary artery disease) I25.10 ; Hyperlipemia E78.5 ; Obesity E66.9 and History of tobacco use Z87.891 [facility] [address] [address] 11 Dec, 2014 [facility] [id number] [place] [address] 04 Dec, 2014 Neuropathy 355.9 [facility] [id number] [place] [address] 14 Jul, 2014 [facility] [id number] [place] [address] Jul, [facility] [id number] [place] [address] Jun, [facility] [address] [place] [address] Jun, [facility] [address] [place] [address] May, [facility] [address] [address] May, [facility] [address] [place] [address] Apr, [facility] [address] Apr, [facility] [address] [place] [address] Apr, [facility] [address] [address] Apr, [facility] [address] [address] Apr, [facility] [place] [facility] [address] [id number] [place] [address] Apr, [facility] [place] [facility] [address] [id number] [place] [address] Apr, [facility] [place] [facility] [address] [id number] [place] [address] Apr, [facility] [place] [facility] [address] [id number] [place] [address] Mar, [facility] [place] [facility] [address] [id number] [place] [address] Mar, [facility] [place] [facility] [address] [id number] [place] [address] Nov, [facility] [place] [facility] [address] [id number] [place] [address] Nov, [facility] [place] [facility] [address] [id number] [place] [address] Oct, [facility] [place] [facility] [address] [id number] [place] [address]- [address] Oct, [facility] [place] [facility] [address] [id number] [place] [address] Oct, [facility] [place] [facility] [address] [id number] [place] [address] Oct, [facility] [place] [facility] [address] [id number] [place] [address] Oct, [facility] [place] [facility] [address] [id number] [place] [address] Sep, [facility] [place] [facility] [address] [id number] [place] [address] Sep, [facility] [place] [facility] [address] [id number] [place] [address] August, [facility] [place] [facility] [address] [id number] [place] [address] August, [facility] [place] [facility] [address] [id number] [place] [address] Jul, [facility] [place] [facility] [address] [id number] [place] [address] Jul, [facility] [place] [facility] [address] [id number] [place] [address]- 79[address] Jul, [facility] [place] [facility] [address] [id number] [place] [address]- [address] Jul, [facility] [place] [facility] [address] [id number] [place] [address]- 3[address] Jul, [facility] [place] [facility] [address] [id number] [place] [address]- 97[address] Jul, [facility] [place] [facility] [address] [id number] [place] [address]- [address]30 Jul, [facility] [place] [facility] [address] [id number] [place] [id number] Jul, [facility] [place] [facility] [address] [id number] [place] [address]- 14[address] Jul, [facility] [place] [facility] [address] [id number] [place] [address]- [address] Jul, [facility] [place] [facility] [address] [id number] [place] [address]- 2612 Jul, [facility] [place] [facility] [address] [id number] [place] [address]- [address]45 Jul, [facility] [place] [facility] [address] [id number] [place] [address]- 88[address] Jul, [facility] [place] [facility] [address] [id number] [place] [address] Jun, [facility] [place] [facility] [address] [id number] [place] [address]- 1815 Jun, [facility] [place] [facility] [address] [id number] [place] [address]- [address] 24 Jun, 2013 [facility] [place] [facility] [address] [id number] [place] [address]- 6[address] Jun, [facility] [place] [facility] [address] [id number] [place] [address]- [address] Jun, [facility] [place] [facility] [address] [id number] [place] [address]- 7499 Jun, [facility] [place] [facility] [address] [id number] [place] [address]- 4360 Jun, [facility] [place] [facility] [address] [id number] [place] [address]- 66[address] Jun, [facility] [place] [facility] [address] [id number] [place] [address]- [address] May, [facility] [place] [facility] [address] [id number] [place] [address]- [address] May, [facility] [place] [facility] [address] [id number] [place] [address]- [address] May, [facility] [place] [facility] [address] [id number] [place] [address]- [address] 07 May, 2013 [facility] [place] [facility] [address] [id number] [place] [address]- [address] Apr, [facility] [place] [facility] [address] [id number] [place] [address]- [address] Apr, [facility] [place] [facility] [address] [id number] [place] [address]- 1506 Apr, [facility] [place] [facility] [address] [id number] [place] [address]- 2014 Apr, [facility] [place] [facility] [address] [id number] [place] [address]- 7693 Apr, [facility] [place] [facility] [address] [id number] [place] [address]- 3569 Apr, [facility] [address] [id number] [place] [address]- 1147 Mar, [facility] [place] [facility] [address] [id number] [place] [address]- [address] Mar, [facility] [place] [facility] [address] [id number] [place] [address] Mar, [facility] [place] [facility] [address] [id number] [place] [address]- 89[address] Mar, [facility] [place] [facility] [address] [id number] [place] [address]- [address] Nov, [facility] [place] [facility] [address] [id number] [place] [address]- 7721 May, [facility] [place] [facility] [address] [id number] [place] [address]- 5[address] May, [facility] [place] [facility] [address] [id number] [place] [address]- 6678 May, [facility] [place] [facility] [address] [id number] [place] [address]- 2483 May, [facility] [place] [facility] [address] [id number] [place] [address]- [address] May, [facility] [place] [facility] [address] [id number] [place] [address]- 3739 May, [facility] [place] [facility] [address] [id number] [place] [address]- [address] Apr, [facility] [place] [facility] [address] [id number] [place] [address]- 2600 Apr, [facility] [place] [facility] [address] [id number] [place] [address]- 5831 Apr, [facility] [place] [facility] [address] [id number] [place] [address]- 1820 Apr, [facility] [place] [facility] [address] [facility] [id number] [place] [address]- [address] May, [facility] [address] [facility] [id number] [place] [address]- [address] Jun, IMMUNIZATIONS No Known Immunizations SOCIAL HISTORY Never Assessed REASON FOR VISIT left shoulder pain for a for 15 years. has been hurting worse the past 2 weeks. denies any injury. [email or web address] PLAN OF CARE Activity Details Follow Up prn Reason: VITAL SIGNS Height 67 in 2017-02-14 Weight 227.6 lbs 2017-02-14 Temperature 98.2 degrees Fahrenheit 2017-02-14 Heart Rate 78 bpm 2017-02-14 Respiratory Rate 20 2017-02-14 BMI 35.64 kg/m2 2017-02-14 Blood pressure systolic 136 mmHg 2017-02-14 Blood pressure diastolic 78 mmHg 2017-02-14 MEDICATIONS Medication Instructions Dosage Frequency Start Date End Date Duration Status Omeprazole 40 MG Orally Once a day 1 capsule 24h Active Hydrocodone-Acetaminophen Active Lipitor 40 MG Orally Once a day 1 tablet 24h Feb, Active Losartan Potassium 50 MG Or[place] Once a day 1 tablet 24h Active Singulair 10 MG Orally Once a day 1 tablet in the evening 24h 30 Active Nystatin 771769 UNIT/ML Mouth/Throat Four times a day 4 ml 6h Active RESULTS No Results PROCEDURES No Known procedures INSTRUCTIONS MEDICATIONS ADMINISTERED No Known Medications MEDICAL (GENERAL) HISTORY Type Description Date Medical History Hypertension Medical History Hyperlipidemia Medical History Hypothyroidism Medical History Chronic pain Surgical History heart cath Surgical History cervical fusion Hospitalization History [facility] Fever
--- OUTSIDE RECORDS SUMMARY | 2018-07-21 19:44 | XMS REPORT ---
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 Name Role Phone JOCELYNN BUSTAMANTE Unavailable PROBLEMS Type Condition ICD9-CM Code RVK87-HD Code Onset Dates Condition Status SNOMED Code Problem Hyperlipidemia, unspecified hyperlipidemia type E78.5 Active 45443257 Problem Lumbago with sciatica, left side M54.42 Active 231425417 Problem Essential hypertension I10 Active 40760558 Problem CAD (coronary artery disease) I25.10 Active 54336794 Problem Hyperlipemia E78.5 Active 12096997 Problem Tongue sore K14.6 Active 60552306 Problem Acute seasonal allergic rhinitis, unspecified trigger J30.2 Active 027589297 Problem Constipation, unspecified constipation type K59.00 Active 93900878 Problem Seasonal allergic rhinitis, unspecified allergic rhinitis trigger J30.2 Active 653170203 Problem Hypothyroidism (acquired) E03.9 Active 400850935 Problem Arthritis of left shoulder region M19.012 Active [id number] ALLERGIES Substance Reaction Event Type Date Status Ibuprofen hives Drug Allergy Feb, Active Bactrim Unknown Drug Allergy Feb, Active ENCOUNTERS Encounter Location Date Diagnosis [facility] [address] [id number] [address] August, Cervical paraspinal muscle spasm M62.838 [facility] [address] [id number], [place] [address] May, [facility] [address], [place] [address] May, [facility] [address] [id number], [place] [address] May, [facility] [id number] [place] [address] May, Cervicalgia M54.2 [place] [address] [address] Apr, [facility] [place] [address] [address] Apr, Tongue sore K14.[address] [address] Apr, CAD (coronary artery disease) I25.10 ; Essential hypertension I10 ; Hyperlipidemia, unspecified hyperlipidemia type E78.5 and Shortness of breath R06.02 [place] [address] [address] Apr, [facility] [address] [address] Apr, Sore throat J02.9 [facility] [address] [address] Mar, Acute seasonal allergic rhinitis, unspecified trigger J30.2 [facility] [address] [address] 06 Mar, 2017 Pharyngitis due to other organism J02.8 ; Cervical neuritis M54.12 and Lump in throat R22.1 [place] [address] [address] Feb, Pneumonia due to infectious organism, unspecified laterality , unspecified part of lung J18.9 [place] [address] [address] Feb, [address] [address] Feb, [place] [address] [address] Feb, Hypothyroidism (acquired) E03.9 [facility] [address] [place] [id number] [place] [address] Jan, Oral thrush B37.0 and Arthritis of left shoulder region M19.012 [facility] [address] [address] Dec, Acute seasonal allergic rhinitis due to other allergen J30.89 [facility] [address] [address] Nov, Torticollis, acquired M43.6 and Geographic tongue K14.[address] [address] Oct, Arthralgia of neck M54.2 [facility] [address] [address] Oct, Constipation, unspecified constipation type K59.[address] [address] Oct, Arthralgia of neck M54.2 [facility] [address] [address] August, Seasonal allergic rhinitis, unspecified allergic rhinitis trigger J30.2 and Acute gastritis without hemorrhage, unspecified gastritis type K29.00 [place] [id number] [place] [address] Jul, Arthralgia of neck M54.2 ; Lumbago with sciatica, left side M54.42 and Neuropathy G62.9 [place] [id number] [place] [address] Jul, CAD (coronary artery disease) I25.10 ; Shortness of breath R06.02 ; Hyperlipidemia, unspecified hyperlipidemia type E78.5 and History of tobacco use Z87.891 [facility] [place] [id number] [place] [address] Jun, Other viral agents as the cause of diseases classified elsewhere B97.89 and Acute upper respiratory infection, unspecified J06.9 [facility] [address] [address] May, Tonsillitis J03.90 [facility] [address] [place] [address] Apr, Other viral agents as the cause of diseases classified elsewhere B97.89 and Acute upper respiratory infection, unspecified J06.9 [facility] [address] [address] Apr, Candidiasis of mouth B37.0 [facility] [address] [address] Apr, Bronchitis J40 [facility] [address] [address] Mar, Oropharyngeal candidiasis B37.0 [place] [address] [address] Jan, Hyperlipemia E78.[address] [address] Jan, CAD (coronary artery disease) I25.10 ; Essential hypertension I10 ; Hyperlipidemia, unspecified hyperlipidemia type E78.5 and Dyspnea, unspecified type R06.00 [facility] [address] [id number] Oct, Dental caries K02.9 [facility] [address] [id number] Oct, Dental examination Z01.[address] [address] Apr, Right elbow pain M25.521 ; Left elbow pain M25.522 and Neuropathy G62.[address] [address] Feb, Hyperlipemia E78.5 [facility] [id number], [place] [address] Jan, CAD (coronary artery disease) I25.10 ; Hyperlipemia E78.5 ; Obesity E66.9 and History of tobacco use Z87.891 [facility] [address], [place] [address] 11 Dec, 2014 [facility] [address] [facility] [id number] [address] 04 Dec, 2014 Neuropathy 355.9 [facility] [address], [place] [address] 14 Jul, 2014 [facility] [address], [place] [address] Jul, [facility] [address], [place] [address] Jun, [facility] [address], [place] [address] Jun, [facility] [address], [place] [address] May, [facility] [address], [place] [address] May, [facility] [address], [place] [address] Apr, [facility] [address], [place] [address] Apr, [facility] [address] [address] Apr, [facility] [address] [address] [address] Apr, [facility] [id number], [place] [address] Apr, [facility] [address] [place] [address] Apr, [facility] [address] [id number] [place] [address] Apr, [facility] [place] [facility] [address] [id number] [place] [address] Apr, [facility] [address] [id number] [place] [address] Mar, [facility] [place] [facility] [address] [id number] [place] [address] Mar, [facility] [address] [id number] [place] [address] Nov, [facility] [place] [facility] [address] [id number] [place] [address] Nov, [facility] [place] [facility] [address] [id number] [place] [address] Oct, [facility] [address] [id number] [place] [address] Oct, [facility] [place] [facility] [address] [id number] [place] [address] Oct, [facility] [address] [id number] [place] [address] Oct, [facility] [place] [facility] [address] [id number] [place] [address] Oct, [facility] [place] [facility] [address] [id number] [place] [address] Sep, [facility] [place] [facility] [address] [id number] [place] [address]- [address] Sep, [facility] [place] [facility] [address] [id number] [place] [address] August, [facility] [place] [facility] [address] [id number] [place] [address]- [address] August, [facility] [address] [id number] [place] [address]- [address] Jul, [facility] [place] [facility] [address] [id number] [place] [address] Jul, [facility] [place] [facility] [address] [id number] [place] [address] Jul, [facility] [place] [facility] [address] [id number] [place] [address]- 2012 Jul, [facility] [address] [id number] [place] [address]- [address] Jul, [facility] [place] [facility] [address] [id number] [place] [address]- [address] Jul, [facility] [address] [id number] [place] [address]- [address] Jul, [facility] [address] [id number] [id number] Jul, [facility] [place] [facility] [address] [id number] [place] [address]- [address] Jul, [facility] [place] [facility] [address] [id number] [place] [address]- 14[address] Jul, [facility] [place] [facility] [address] [id number] [place] [address] Jul, [facility] [place] [facility] [address] [id number] [place] [address]- [address] Jul, [facility] [place] [facility] [address] [id number] [place] [address]- [address] Jul, [facility] [place] [facility] [address] [id number] [place] [address]- [address] Jun, [facility] [place] [facility] [address] [id number] [place] [address]- [address] Jun, [facility] [place] [facility] [address] [id number] [place] [address]- [address] Jun, [facility] [place] [facility] [address] [id number] [place] [address]- [address] Jun, [facility] [place] [facility] [address] [id number] [place] [address]- [address] Jun, [facility] [place] [facility] [address] [id number] [place] [address]- [address] Jun, [facility] [place] [facility] [address] [id number] [place] [address]- [address] Jun, [facility] [place] [facility] [address] [id number] [place] [address]- [address] Jun, [facility] [place] [facility] [address] [id number] [place] [address]- [address] May, [facility] [place] [facility] [address] [id number] [place] [address]- [address] May, [facility] [place] [facility] [address] [id number] [place] [address]- [address] May, [facility] [place] [facility] [address] [id number] [place] [address]- [address] May, [facility] [place] [facility] [address] [id number] [place] [address]- [address] Apr, [facility] [place] [facility] [address] [id number] [place] [address]- [address] Apr, [facility] [place] [facility] [address] [id number] [place] [address]- [address] Apr, [facility] [place] [facility] [address] [id number] [place] [address]- 79[address] Apr, [facility] [place] [facility] [address] [id number] [place] [address]- [address] Apr, [facility] [place] [facility] [address] [id number] [place] [address]- [address] Apr, [facility] [place] [facility] [address] [id number] [place] [address]- [address] Mar, [facility] [place] [facility] [address] [id number] [place] [address]- 85[address] Mar, [facility] [place] [facility] [address] [id number] [place] [address]- 39[address] Mar, [facility] [place] [facility] [address] [id number] [place] [address]- [address] Mar, [facility] [place] [facility] [address] [id number] [place] [address]- 78[address] Nov, [facility] [place] [facility] [address] [id number] [place] [address]- [address] May, [facility] [place] [facility] [address] [facility] [id number] [place] [address]- [address] May, [facility] [place] [facility] [address] [id number] [place] [address]- [address] May, [facility] [place] [facility] [address] [id number] [place] [address]- 277[address] May, [facility] [place] [facility] [address] [id number] [place] [address]- [address] May, [facility] [place] [facility] [address] [facility] [id number] [place] [address]- [address] May, [facility] [place] [facility] [address] [id number], [place] [address]- [address] Apr, [facility] [place] [facility] [address] [id number] [place] [address]- [address] Apr, [facility] [place] [facility] [address] [id number] [place] [address]- 65[address] Apr, [facility] [place] [facility] [address] [id number] [place] [address]- 89[address] Apr, [facility] [place] [facility] [address] [id number], [place] [address]- [address] May, [facility] [address] [facility] [id number] [place] [address]- [address] Jun, IMMUNIZATIONS No Known Immunizations SOCIAL HISTORY Never Assessed REASON FOR VISIT Thyroid- saw Dr Wiggins for a short time and Dr Wiggins told him to stop meds for Thyroid, but he feels he needs to start back on meds- Mauricio Elena RN PLAN OF CARE VITAL SIGNS Height 67 in 2017-02-28 Weight 225 lbs 2017-02-28 Temperature 96.8 degrees Fahrenheit 2017-02-28 Heart Rate 72 bpm 2017-02-28 Respiratory Rate 18 2017-02-28 BMI 35.24 kg/m2 2017-02-28 Blood pressure systolic 142 mmHg 2017-02-28 Blood pressure diastolic 72 mmHg 2017-02-28 MEDICATIONS Medication Instructions Dosage Frequency Start Date End Date Duration Status Levothyroxine Sodium 25 MCG Orally Once a day 1 tablet on an empty stomach in the morning 24h Feb, 30 day(s) Active Flonase Allergy Relief 50 MCG/ACT Nasally twice per day 1 spray in each nostril Apr, 30 day(s) Active Lipitor 40 MG Orally Once a day 1 tablet 24h Feb, Active Losartan Potassium 50 MG Orally Once a day 1 tablet 24h Active Omeprazole 40 MG Orally Once a day 1 capsule 24h Active Singulair 10 MG Orally Once a day 1 tablet in the evening 24h 30 Active RESULTS No Results PROCEDURES Procedure Date Ordered Result Body Site LAB NOT BILLED BY [facility] Feb 28, 2017 VENIPUNCT, ROUTINE* Feb 28, 2017 INSTRUCTIONS MEDICATIONS ADMINISTERED No Known Medications MEDICAL (GENERAL) HISTORY Type Description Date Medical History Hypertension Medical History Hyperlipidemia Medical History Hypothyroidism Medical History Chronic pain Surgical History heart cath Surgical History cervical fusion Hospitalization History [place] [facility]
--- OUTSIDE RECORDS SUMMARY | 2018-07-21 19:45 | XMS REPORT ---
Author Author JOCELYNN BUSTAMANTE Organization [facility] Address [address] [place] [address] Care Team Providers Care Lay Brother Name Role Phone JOCELYNN BUSTAMANTE Unavailable PROBLEMS Type Condition ICD9-CM Code PRC24-TH Code Onset Dates Condition Status SNOMED Code Problem Hyperlipidemia, unspecified hyperlipidemia type E78.5 Active 71634023 Problem Lumbago with sciatica, left side M54.42 Active 120258768 Problem Essential hypertension I10 Active 46695378 Problem CAD (coronary artery disease) I25.10 Active 45097055 Problem Hyperlipemia E78.5 Active 42143955 Problem Tongue sore K14.6 Active 66392288 Problem Acute seasonal allergic rhinitis, unspecified trigger J30.2 Active 851602293 Problem Constipation, unspecified constipation type K59.00 Active 73850178 Problem Seasonal allergic rhinitis, unspecified allergic rhinitis trigger J30.2 Active 776485877 Problem Hypothyroidism (acquired) E03.9 Active 189992252 Problem Arthritis of left shoulder region M19.012 Active [id number] ALLERGIES No Information ENCOUNTERS Encounter Location Date Diagnosis [facility] [id number] [place] [address] August, Sore throat J02.9 and Strep pharyngitis J02.0 [facility] [id number] [place] [address] August, Cervical paraspinal muscle spasm M62.838 [facility] [address] [place] [id number] [place] [address] 66491- 5701 May, [facility] [id number] [place] [address] 92805- 1471 May, [facility] [id number] [place] [address]64- 3666 May, [place] [address] [id number] [place] [address] 80665- 8884 May, Cervicalgia M54.2 [place] [address] [address] Apr, [facility] [place] [address] [address] Apr, Tongue sore K14.6 [place] [address] [address] Apr, CAD (coronary artery disease) I25.10 ; Essential hypertension I10 ; Hyperlipidemia, unspecified hyperlipidemia type E78.5 and Shortness of breath R06.02 [place] [address] [address]- 9258 Apr, [facility] [address] [address] Apr, Sore throat J02.9 [facility] [address] [address] Mar, Acute seasonal allergic rhinitis, unspecified trigger J30.2 [facility] [place] [id number] [place] [address] 06 Mar, 2017 Pharyngitis due to other organism J02.8 ; Cervical neuritis M54.12 and Lump in throat R22.1 [place] [address] [place] [id number] [place] [address]18- 2169 16 Feb, 2017 Pneumonia due to infectious organism, unspecified laterality , unspecified part of lung J18.9 [place] [address] [address] Feb, [place] [address] [address] Feb, [place] [address] 6[address]85 Feb, Hypothyroidism (acquired) E03.9 [facility] [address] [address] Jan, Oral thrush B37.0 and Arthritis of left shoulder region M19.012 [facility] [address] [address] Dec, Acute seasonal allergic rhinitis due to other allergen J30.89 [facility] [address] [address] Nov, Torticollis, acquired M43.6 and Geographic tongue K14.[address] [address] Oct, Arthralgia of neck M54.2 [facility] [address] [address] Oct, Constipation, unspecified constipation type K59.[address] [address] Oct, Arthralgia of neck M54.2 [facility] [address] [address] August, Seasonal allergic rhinitis, unspecified allergic rhinitis trigger J30.2 and Acute gastritis without hemorrhage, unspecified gastritis type K29.[address] 5[address]49- 1482 Jul, Arthralgia of neck M54.2 ; Lumbago with sciatica, left side M54.42 and Neuropathy G62.[address] 6[address]- [address] Jul, CAD (coronary artery disease) I25.10 ; Shortness of breath R06.02 ; Hyperlipidemia, unspecified hyperlipidemia type E78.5 and History of tobacco use Z87.891 [facility] [address] [address] Jun, Other viral agents as the cause of diseases classified elsewhere B97.89 and Acute upper respiratory infection, unspecified J06.9 [facility] [address] [place] [id number] [place] [address] May, Tonsillitis J03.90 [facility] [address] 118[address] Apr, Other viral agents as the cause of diseases classified elsewhere B97.89 and Acute upper respiratory infection, unspecified J06.9 [facility] [address] [address] Apr, Candidiasis of mouth B37.0 [facility] [place] [id number] [place] [address] Apr, Bronchitis J40 [facility] [address] [address] Mar, Oropharyngeal candidiasis B37.0 [place] [address] [address] Jan, Hyperlipemia E78.[address] [address]- [address] 07 Jan, 2016 CAD (coronary artery disease) I25.10 ; Essential hypertension I10 ; Hyperlipidemia, unspecified hyperlipidemia type E78.5 and Dyspnea, unspecified type R06.00 [facility] [address] [id number] Oct, Dental caries K02.9 [facility] [address] [id number] Oct, Dental examination Z01.20 [place] [address] [address] Apr, Right elbow pain M25.521 ; Left elbow pain M25.522 and Neuropathy G62.9 [place] [address] Feb, Hyperlipemia E78.5 [facility] [address] [id number] [place] [address] 79094- 8410 Jan, CAD (coronary artery disease) I25.10 ; Hyperlipemia E78.5 ; Obesity E66.9 and History of tobacco use Z87.891 [facility] [address] [id number] [place] [address] 39160- 9459 11 Dec, 2014 [facility] [address] [id number] [place] [address] 29393- 5436 04 Dec, 2014 Neuropathy 355.9 [facility] [address] [id number] [place] [address] 29234- 8141 14 Jul, 2014 [facility] [address] [id number] [place] [address]22- 5826 Jul, [facility] [address] [id number] [place] [address]79- 4375 Jun, [facility] [id number] [place] [address] 48825- 7222 Jun, [facility] [id number] [place] [address] 19379- 6525 May, [facility] [address] [address] 6[address] May, [facility] [address] [address] 3051 Apr, [facility] [address] [address] 1687 Apr, [facility] [id number] [place] [address] 668984- 6786 Apr, [facility] [address] [address] Apr, [facility] [id number] [place] [address] 49239- 8726 Apr, [facility] [place] [facility] [address] [id number] [place] [address]- 5871 Apr, [facility] [place] [facility] [address] [id number] [place] [address]- 6225 Apr, [facility] [place] [facility] [address] [id number] [place] [address]- 0038 Apr, [facility] [place] [facility] [address] [id number] [place] [address]- 7904 Mar, [facility] [place] [facility] [address] [id number] [place] [address]- 1206 Mar, [facility] [place] [facility] [address] [id number] [place] [address]- 4159 Nov, [facility] [place] [facility] [address] [id number] [place] [address]- 5910 Nov, [facility] [place] [facility] [address] [id number] [place] [address]- 3191 Oct, [facility] [place] [facility] [address] [id number] [place] [address]- 5714 Oct, [facility] [place] [facility] [address] [id number] [place] [address]- 9287 Oct, [facility] [place] [facility] [address] [id number] [place] [address]- 7629 Oct, [facility] [place] [facility] [address] [id number] [place] [address]- 1247 Oct, [facility] [place] [facility] [address] [id number] [place] [address]- 7742 Sep, [facility] [place] [facility] [address] [id number] [place] [address]- 5319 Sep, [facility] [place] [facility] [address] [id number] [place] [address]- 7061 August, [facility] [place] [facility] [address] [id number] [place] [address]- 5268 August, [facility] [place] [facility] [address] [id number] [place] [address] Jul, [facility] [place] [facility] [address] [id number] [place] [address] Jul, [facility] [place] [facility] [address] [id number] [place] [address]- 4052 Jul, [facility] [place] [facility] [address] [id number] [place] [address]- 9792 Jul, [facility] [place] [facility] [address] [id number] [place] [address]- 7387 Jul, [facility] [place] [facility] [address] [id number] [place] [address]- 9056 Jul, [facility] [place] [facility] [address] [id number] [place] [address]- 8872 Jul, [facility] [place] [facility] [address] [id number] [place] [id number] Jul, [facility] [place] [facility] [address] [id number] [place] [address]- 1300 Jul, [facility] [place] [facility] [address] [id number] [place] [address]- 3329 Jul, [facility] [place] [facility] [address] [id number] [place] [address]- 3214 Jul, [facility] [place] [facility] [address] [id number] [place] [address]- 2774 Jul, [facility] [place] [facility] [address] [id number] [place] [address]- 5054 Jul, [facility] [place] [facility] [address] [id number] [place] [address]- 7736 Jun, [facility] [place] [facility] [address] [id number] [place] [address]- 2353 Jun, [facility] [place] [facility] [address] [id number] [place] [address]- 9539 Jun, [facility] [place] [facility] [address] [id number] [place] [address]- 2823 Jun, [facility] [place] [facility] [address] [id number] [place] [address]- 5614 Jun, [facility] [place] [facility] [address] [id number] [place] [address]- 1884 Jun, [facility] [place] [facility] [address] [id number] [place] [address]- 5346 Jun, [facility] [place] [facility] [address] [id number] [place] [address]- 7709 Jun, [facility] [place] [facility] [address] [id number] [place] [address]- 7976 May, [facility] [place] [facility] [address] [id number] [place] [address]- 7737 May, [facility] [place] [facility] [address] [id number] [place] [address]- 2894 May, [facility] [place] [facility] [address] [id number] [place] [address]- 6258 May, [facility] [place] [facility] [address] [id number] [place] [address]- 0218 Apr, [facility] [place] [facility] [address] [id number] [place] [address]- 3124 Apr, [facility] [place] [facility] [address] [id number] [place] [address]- 4493 Apr, [facility] [place] [facility] [address] [id number] [place] [address]- 4030 Apr, [facility] [place] [facility] [address] [id number] [place] [address]- 0891 Apr, [facility] [place] [facility] [address] [id number] [place] [address]- 8696 Apr, [facility] [address] [id number] [place] [address]- 3163 Mar, [facility] [place] [facility] [address] [id number] [place] [address]- 7148 Mar, [facility] [address] [id number] [place] [address]- 7137 Mar, [facility] [place] [facility] [address] [id number] [place] [address]- 3740 Mar, [facility] [address] [id number] [place] [address]- 4057 Nov, [facility] [place] [facility] [address] [id number] [place] [address]- 9052 May, [facility] [address] [id number] [place] [address]- 3196 May, [facility] [address] [id number] [place] [address]- 8421 May, [facility] [id number] [address]- 0068 May, [facility] [address] [place] [id number] [address]- 8825 May, [facility] [place] [facility] [address] [id number] [place] [address]- 5271 May, [facility] [address] [id number] [place] [address]- 9107 Apr, [facility] [place] [facility] [address] [id number] [place] [address]- 6061 Apr, [facility] [place] [facility] [address] [id number] [place] [address]- 3641 Apr, [facility] [place] [facility] [address] [id number] [place] [address]- 7111 Apr, [facility] [address] [facility] [id number] [place] [address]- 8782 May, [facility] [address] [facility] [id number] [place] [address] Jun, IMMUNIZATIONS No Known Immunizations SOCIAL HISTORY Never Assessed REASON FOR VISIT Requests return call PLAN OF CARE VITAL SIGNS MEDICATIONS No Known Medications RESULTS No Results PROCEDURES No Known procedures INSTRUCTIONS MEDICATIONS ADMINISTERED No Known Medications MEDICAL (GENERAL) HISTORY Type Description Date Medical History Hypertension Medical History Hyperlipidemia Medical History Hypothyroidism Medical History Chronic pain Surgical History heart cath Surgical History cervical fusion Hospitalization History [place] Fever
--- OUTSIDE RECORDS SUMMARY | 2018-07-21 19:45 | XMS REPORT ---
Author Author JOCELYNN BUSTAMANTE Organization [facility] Address [address] [place] [address] Care Team Providers Care Triple Drum Operator Name Role Phone JOCELYNN BUSTAMANTE Unavailable PROBLEMS Type Condition ICD9-CM Code FZL52-QI Code Onset Dates Condition Status SNOMED Code Problem Hyperlipidemia, unspecified hyperlipidemia type E78.5 Active 47112750 Problem Lumbago with sciatica, left side M54.42 Active 963430353 Problem Essential hypertension I10 Active 31529598 Problem CAD (coronary artery disease) I25.10 Active 43017831 Problem Hyperlipemia E78.5 Active 43569807 Problem Tongue sore K14.6 Active 51848158 Problem Acute seasonal allergic rhinitis, unspecified trigger J30.2 Active 274060323 Problem Constipation, unspecified constipation type K59.00 Active 53213107 Problem Seasonal allergic rhinitis, unspecified allergic rhinitis trigger J30.2 Active 426851703 Problem Hypothyroidism (acquired) E03.9 Active 764745067 Problem Arthritis of left shoulder region M19.012 Active [id number] ALLERGIES No Information ENCOUNTERS Encounter Location Date Diagnosis [facility] [id number] [place] [address] August, Sore throat J02.9 and Strep pharyngitis J02.0 [facility] [id number] [place] [address]108- 6796 August, Cervical paraspinal muscle spasm M62.838 [facility] [address] [place] [id number] [place] [address]13- 1264 May, [facility] [id number] [place] [address] 09747- 4438 May, [facility] [id number] [place] [address] 79679- 8877 May, [place] [address] [place] [id number] [place] [address] 50781- 3400 May, Cervicalgia M54.2 [place] [address] [address] Apr, [facility] [place] [address] [address] Apr, Tongue sore K14.6 [place] [address] [address] Apr, CAD (coronary artery disease) I25.10 ; Essential hypertension I10 ; Hyperlipidemia, unspecified hyperlipidemia type E78.5 and Shortness of breath R06.02 [place] [address] [address]71 Apr, [facility] [address] [address] Apr, Sore throat J02.9 [facility] [address] 227[address]02 Mar, Acute seasonal allergic rhinitis, unspecified trigger J30.2 [facility] [place] [id number] [place] [address] 39[address]2043 06 Mar, 2017 Pharyngitis due to other organism J02.8 ; Cervical neuritis M54.12 and Lump in throat R22.1 [place] [address] [place] [id number] [place] [address] 9[address]86- 1995 16 Feb, 2017 Pneumonia due to infectious organism, unspecified laterality , unspecified part of lung J18.9 [place] [address] [address] Feb, [place] [address] [address] Feb, [place] [address] [address]- 98[address] Feb, Hypothyroidism (acquired) E03.9 [facility] [address] [address] Jan, Oral thrush B37.0 and Arthritis of left shoulder region M19.012 [facility] [address] 57[address] Dec, Acute seasonal allergic rhinitis due to other allergen J30.89 [facility] [address] 29[address] Nov, Torticollis, acquired M43.6 and Geographic tongue K14.[address] [address]659 Oct, Arthralgia of neck M54.2 [facility] [address] [address]1124 Oct, Constipation, unspecified constipation type K59.[address] [address]10 Oct, Arthralgia of neck M54.2 [facility] [address] [address] August, Seasonal allergic rhinitis, unspecified allergic rhinitis trigger J30.2 and Acute gastritis without hemorrhage, unspecified gastritis type K29.[address] [address]66- [address]107 Jul, Arthralgia of neck M54.2 ; Lumbago with sciatica, left side M54.42 and Neuropathy G62.[address] 04187- 1769 Jul, CAD (coronary artery disease) I25.10 ; Shortness of breath R06.02 ; Hyperlipidemia, unspecified hyperlipidemia type E78.5 and History of tobacco use Z87.891 [facility] [address] [address] Jun, Other viral agents as the cause of diseases classified elsewhere B97.89 and Acute upper respiratory infection, unspecified J06.9 [facility] [address] [place] [id number] [place] [address] 68826 [address]6748 May, Tonsillitis J03.90 [facility] [address] 7[address] Apr, Other viral agents as the cause of diseases classified elsewhere B97.89 and Acute upper respiratory infection, unspecified J06.9 [facility] [address] [address]32[address] Apr, Candidiasis of mouth B37.0 [facility] [place] [id number] [place] [address] 59870 -6748 Apr, Bronchitis J40 [facility] [address] 54797 [address] Mar, Oropharyngeal candidiasis B37.0 [place] [address] 75[address]- 0634 Jan, Hyperlipemia E78.[address] 87327- 7833 07 Jan, 2016 CAD (coronary artery disease) I25.10 ; Essential hypertension I10 ; Hyperlipidemia, unspecified hyperlipidemia type E78.5 and Dyspnea, unspecified type R06.00 [facility] [address] [id number] Oct, Dental caries K02.9 [facility] [address] [id number] Oct, Dental examination Z01.20 [place] [address] 02438- 6651 Apr, Right elbow pain M25.521 ; Left elbow pain M25.522 and Neuropathy G62.9 [place] [address] [address] Feb, Hyperlipemia E78.5 [facility] [address] [id number] [place] [address] 34526- 5105 Jan, CAD (coronary artery disease) I25.10 ; Hyperlipemia E78.5 ; Obesity E66.9 and History of tobacco use Z87.891 [facility] [address] [place] [id number] [place] [address] 34639- 2993 11 Dec, 2014 [facility] [address] [place] [id number] [place] [address] 91310- 1705 04 Dec, 2014 Neuropathy 355.9 [facility] [address] [place] [id number] [place] [address] 00096- 6966 14 Jul, 2014 [facility] [address] [id number] [place] [address] 43972- 4310 Jul, [facility] [address] [id number] [place] [address] 62176- 2767 Jun, [facility] [address] [place] [address] 43478- 6519 Jun, [facility] [id number] [place] [address] 83276- 3201 May, [facility] [address] [address] May, [facility] [address] [address]- 0737 Apr, [facility] [address] [address]- 3988 Apr, [facility] [id number] [place] [address] 206987- 3436 Apr, [facility] [address] [address] Apr, [facility] [id number] [place] [address] 99471- 5845 Apr, [facility] [place] [facility] [address] [id number] [place] [address]- 9426 Apr, [facility] [place] [facility] [address] [id number] [place] [address]- 1615 Apr, [facility] [place] [facility] [address] [id number] [place] [address]- 8231 Apr, [facility] [place] [facility] [address] [id number] [place] [address]- 5752 Mar, [facility] [place] [facility] [address] [id number] [place] [address]- 5482 Mar, [facility] [place] [facility] [address] [id number] [place] [address]- 2114 Nov, [facility] [place] [facility] [address] [id number] [place] [address]- 3580 Nov, [facility] [place] [facility] [address] [id number] [place] [address]- 8562 Oct, [facility] [place] [facility] [address] [id number] [place] [address]- 1376 Oct, [facility] [place] [facility] [address] [id number] [place] [address]- 6709 Oct, [facility] [place] [facility] [address] [id number] [place] [address]- 9512 Oct, [facility] [place] [facility] [address] [id number] [place] [address]- 6572 Oct, [facility] [place] [facility] [address] [id number] [place] [address]- 0332 Sep, [facility] [place] [facility] [address] [id number] [place] [address]- 3814 Sep, [facility] [place] [facility] [address] [id number] [place] [address]- 8202 August, [facility] [place] [facility] [address] [id number] [place] [address]- 6936 August, [facility] [place] [facility] [address] [id number] [place] [address] Jul, [facility] [place] [facility] [address] [id number] [place] [address]997 Jul, [facility] [place] [facility] [address] [id number] [place] [address]- 7870 Jul, [facility] [place] [facility] [address] [id number] [place] [address]- 3114 Jul, [facility] [place] [facility] [address] [id number] [place] [address]- 4472 Jul, [facility] [place] [facility] [address] [id number] [place] [address]- 5773 Jul, [facility] [place] [facility] [address] [id number] [place] [address]- 1140 Jul, [facility] [place] [facility] [address] [id number] [place] [id number] Jul, [facility] [place] [facility] [address] [id number] [place] [address]- 0547 Jul, [facility] [place] [facility] [address] [id number] [place] [address]- 4451 Jul, [facility] [place] [facility] [address] [id number] [place] [address]- 6292 Jul, [facility] [place] [facility] [address] [id number] [place] [address]- 5664 Jul, [facility] [place] [facility] [address] [id number] [place] [address]- 9650 Jul, [facility] [place] [facility] [address] [id number] [place] [address]- 4004 Jun, [facility] [place] [facility] [address] [id number] [place] [address]- 9710 Jun, [facility] [place] [facility] [address] [id number] [place] [address]- 1686 Jun, [facility] [place] [facility] [address] [id number] [place] [address]- 9107 Jun, [facility] [place] [facility] [address] [id number] [place] [address]- 0720 Jun, [facility] [place] [facility] [address] [id number] [place] [address]- 6430 Jun, [facility] [place] [facility] [address] [id number] [place] [address]- 7618 Jun, [facility] [place] [facility] [address] [id number] [place] [address]- 4922 Jun, [facility] [place] [facility] [address] [id number] [place] [address]- 8454 May, [facility] [place] [facility] [address] [id number] [place] [address]- 3814 May, [facility] [place] [facility] [address] [id number] [place] [address]- 6550 May, [facility] [place] [facility] [address] [id number] [place] [address]- 4167 May, [facility] [place] [facility] [address] [id number] [place] [address]- 6885 Apr, [facility] [place] [facility] [address] [id number] [place] [address]- 6539 Apr, [facility] [place] [facility] [address] [id number] [place] [address]- 0503 Apr, [facility] [place] [facility] [address] [id number] [place] [address]- 5995 Apr, [facility] [place] [facility] [address] [id number] [place] [address]- 4590 Apr, [facility] [place] [facility] [address] [id number] [place] [address]- 8092 Apr, [facility] [address] [id number] [place] [address]- 1255 Mar, [facility] [place] [facility] [address] [id number] [place] [address]- 4356 Mar, [facility] [address] [id number] [place] [address]- 2190 Mar, [facility] [place] [facility] [address] [id number] [place] [address]- 6936 Mar, [facility] [address] [id number] [place] [address]- 0556 Nov, [facility] [place] [facility] [address] [id number] [place] [address]- 1807 May, [facility] [address] [id number] [place] [address]- 3131 May, [facility] [address] [id number] [place] [address]- 6968 May, [facility] [address] [place] [address]- 8790 May, [facility] [address] [place] [id number] [place] [address]- 3478 May, [facility] [place] [facility] [address] [id number] [place] [address]- 8637 May, [facility] [address] [id number] [place] [address]- 6683 Apr, [facility] [place] [facility] [address] [id number] [place] [address]- 5303 Apr, [facility] [place] [facility] [address] [id number] [place] [address]- 8484 Apr, [facility] [place] [facility] [address] [id number] [place] [address]- 9219 Apr, [facility] [address] [facility] [id number] [place] [address]- 6224 May, [facility] [address] [facility] [id number] [place] [address] Jun, IMMUNIZATIONS No Known Immunizations SOCIAL HISTORY Never Assessed REASON FOR VISIT referral PLAN OF CARE VITAL SIGNS MEDICATIONS No Known Medications RESULTS No Results PROCEDURES No Known procedures INSTRUCTIONS MEDICATIONS ADMINISTERED No Known Medications MEDICAL (GENERAL) HISTORY Type Description Date Medical History Hypertension Medical History Hyperlipidemia Medical History Hypothyroidism Medical History Chronic pain Surgical History heart cath Surgical History cervical fusion Hospitalization History [facility]
--- OUTSIDE RECORDS SUMMARY | 2018-07-21 19:46 | XMS REPORT ---
Author Author FRANKLIN MELENDEZ Organization [facility] Address [address] [place] [address] Care Team Providers Care Prison Officer Name Role Phone AL, FRANKLIN Unavailable PROBLEMS Type Condition ICD9-CM Code MAE06-CY Code Onset Dates Condition Status SNOMED Code Problem Hyperlipidemia, unspecified hyperlipidemia type E78.5 Active 01841806 Problem Lumbago with sciatica, left side M54.42 Active 177012636 Problem Essential hypertension I10 Active 87055335 Problem CAD (coronary artery disease) I25.10 Active 06148886 Problem Hyperlipemia E78.5 Active 00892315 Problem Tongue sore K14.6 Active 92611289 Problem Acute seasonal allergic rhinitis, unspecified trigger J30.2 Active 340673427 Problem Constipation, unspecified constipation type K59.00 Active 70572072 Problem Seasonal allergic rhinitis, unspecified allergic rhinitis trigger J30.2 Active 316114777 Problem Hypothyroidism (acquired) E03.9 Active 118568423 Problem Arthritis of left shoulder region M19.012 Active [id number] ALLERGIES Substance Reaction Event Type Date Status Ibuprofen hives Drug Allergy Apr, Active Bactrim Unknown Drug Allergy Apr, Active ENCOUNTERS Encounter Location Date Diagnosis [facility] [address] [id number], [place] [address] August, Sore throat J02.9 and Strep pharyngitis J02.0 [facility] [address] [id number], [place] [address] August, Cervical paraspinal muscle spasm M62.838 [facility] [address] [id number], [place] [address] May, [facility] [id number] [place] [address] May, [place] [id number] [place] [address] May, [place] [address] [address] May, Cervicalgia M54.2 [place] [address] [address] Apr, [facility] [address] [address] Apr, Tongue sore K14.6 [place] [address] [address] Apr, CAD (coronary artery disease) I25.10 ; Essential hypertension I10 ; Hyperlipidemia, unspecified hyperlipidemia type E78.5 and Shortness of breath R06.02 [place] [address] [address] Apr, [facility] [place] [address] [address] Apr, Sore throat J02.9 [facility] [address] [address] Mar, Acute seasonal allergic rhinitis, unspecified trigger J30.2 [facility] [place] [id number] [place] [address] Mar, Pharyngitis due to other organism J02.8 ; Cervical neuritis M54.12 and Lump in throat R22.1 [place] [id number] [place] [address] 16 Feb, 2017 Pneumonia due to infectious organism, unspecified laterality , unspecified part of lung J18.9 [place] [id number] [place] [address] 15 Feb, 2017 [place] [address] [address] Feb, [address] [address] Feb, Hypothyroidism (acquired) E03.9 [facility] [address] [address] Jan, Oral thrush B37.0 and Arthritis of left shoulder region M19.012 [facility] [address] [address] Dec, Acute seasonal allergic rhinitis due to other allergen J30.89 [facility] [address] [address] Nov, Torticollis, acquired M43.6 and Geographic tongue K14.[address] [address] Oct, Arthralgia of neck M54.2 [facility] [address] [address] Oct, Constipation, unspecified constipation type K59.[address] [address] Oct, Arthralgia of neck M54.2 [facility] [address] [address] August, Seasonal allergic rhinitis, unspecified allergic rhinitis trigger J30.2 and Acute gastritis without hemorrhage, unspecified gastritis type K29.[address] [address] Jul, Arthralgia of neck M54.2 ; Lumbago with sciatica, left side M54.42 and Neuropathy G62.[address] [address] Jul, CAD (coronary artery disease) I25.10 ; Shortness of breath R06.02 ; Hyperlipidemia, unspecified hyperlipidemia type E78.5 and History of tobacco use Z87.891 [facility] [address] [place] [address] Jun, Other viral agents as the cause of diseases classified elsewhere B97.89 and Acute upper respiratory infection, unspecified J06.9 [facility] [address] [place] [address] 04 May, 2016 Tonsillitis J03.90 [facility] [address] [place] [address] Apr, Other viral agents as the cause of diseases classified elsewhere B97.89 and Acute upper respiratory infection, unspecified J06.9 [facility] [address] [place] [address] Apr, Candidiasis of mouth B37.0 [facility] [address] [address] Apr, Bronchitis J40 [facility] [address] [address] Mar, Oropharyngeal candidiasis B37.[address] [address] Jan, Hyperlipemia E78.[address] [address] Jan, CAD (coronary artery disease) I25.10 ; Essential hypertension I10 ; Hyperlipidemia, unspecified hyperlipidemia type E78.5 and Dyspnea, unspecified type R06.00 [facility] [place] [facility] [id number] [place] [id number] Oct, Dental caries K02.9 [facility] [place] [facility] [address] [id number] Oct, Dental examination Z01.[address] [address] Apr, Right elbow pain M25.521 ; Left elbow pain M25.522 and Neuropathy G62.9 [facility] [id number] [place] [address] Feb, Hyperlipemia E78.5 [facility] [id number] [place] [address] Jan, CAD (coronary artery disease) I25.10 ; Hyperlipemia E78.5 ; Obesity E66.9 and History of tobacco use Z87.891 [facility] [id number] [place] [address] 11 Dec, 2014 [facility] [id number] [place] [address] 04 Dec, 2014 Neuropathy 355.9 [facility] [id number] [place] [address] 14 Jul, 2014 [facility] [id number] [place] [address] Jul, [facility] [id number] [place] [address] Jun, [facility] [id number] [place] [address] Jun, [facility] [id number] [place] [address] May, [facility] [id number] [place] [address] May, [facility] [address] [place] [address] Apr, [facility] [id number] [place] [address]- [address] Apr, [facility] [id number] [place] [address] Apr, [facility] [id number] [place] [address]- [address] Apr, [facility] [place] [facility] [address] [id number] [place] [address] Apr, [facility] [place] [facility] [address] [id number] [place] [address] Apr, [facility] [place] [facility] [address] [id number] [place] [address] Apr, [facility] [place] [facility] [address] [id number] [place] [address] Apr, [facility] [place] [facility] [address] [id number] [place] [address] Mar, [facility] [place] [facility] [address] [id number] [place] [address] 8[address] Mar, [facility] [place] [facility] [address] [id number] [place] [address] Nov, [facility] [place] [facility] [address] [id number] [place] [address] Nov, [facility] [place] [facility] [address] [id number] [place] [address]- 8410 Oct, [facility] [place] [facility] [address] [id number] [place] [address]- 8682 Oct, [facility] [place] [facility] [address] [id number] [place] [address]- [address] Oct, [facility] [place] [facility] [address] [id number] [place] [address]- [address] Oct, [facility] [place] [facility] [address] [id number] [place] [address]- 60[address] Oct, [facility] [place] [facility] [address] [id number] [place] [address] 44[address] Sep, [facility] [place] [facility] [address] [id number] [place] [address]- [address] Sep, [facility] [place] [facility] [address] [id number] [place] [address] August, [facility] [address] [id number] [place] [address] August, [facility] [place] [facility] [address] [id number] [place] [address]- 8073 Jul, [facility] [address] [id number] [place] [address]- 6[address] Jul, [facility] [address] [id number] [place] [address]- [address] Jul, [facility] [address] [id number] [place] [address]- 3[address] Jul, [facility] [address] [id number] [place] [address]- 1483 Jul, [facility] [address] [id number] [place] [address]- 6773 Jul, [facility] [address] [id number] [place] [address]- 4426 Jul, [facility] [address] [id number] [place] [id number] Jul, [facility] [address] [id number] [place] [address]- 3307 Jul, [facility] [place] [facility] [address] [id number] [place] [address]- 9209 Jul, [facility] [place] [facility] [address] [id number] [place] [address]- 56[address] Jul, [facility] [place] [facility] [address] [id number] [place] [address]- 7974 Jul, [facility] [place] [facility] [address] [id number] [place] [address]- 2497 Jul, [facility] [place] [facility] [address] [id number] [place] [address]- 4599 Jun, [facility] [place] [facility] [address] [id number] [place] [address]- 6291 Jun, [facility] [place] [facility] [address] [id number] [place] [address]- 0517 Jun, [facility] [place] [facility] [address] [id number] [place] [address]- 0769 Jun, [facility] [place] [facility] [address] [id number] [place] [address]- 8910 Jun, [facility] [place] [facility] [address] [id number] [place] [address]- 9954 Jun, [facility] [place] [facility] [address] [id number] [place] [address]- 2977 Jun, [facility] [place] [facility] [address] [id number] [place] [address]- 7187 Jun, [facility] [place] [facility] [address] [id number] [place] [address]- 6730 May, [facility] [place] [facility] [address] [id number] [place] [address]- 1145 May, [facility] [place] [facility] [address] [id number] [place] [address]- 2659 May, [facility] [place] [facility] [address] [id number] [place] [address]- 4679 May, [facility] [place] [facility] [address] [id number] [place] [address]- 68[address] Apr, [facility] [place] [facility] [address] [id number] [place] [address]- 7729 Apr, [facility] [place] [facility] [address] [id number] [place] [address]- 8916 Apr, [facility] [place] [facility] [address] [id number] [place] [address]- 4429 Apr, [facility] [place] [facility] [address] [id number] [place] [address]- 6261 Apr, [facility] [address] [id number] [place] [address]- 4971 Apr, [facility] [address] [id number] [place] [address]- 1319 Mar, [facility] [address] [id number] [place] [address]- 8505 Mar, [facility] [place] [facility] [address] [id number] [place] [address]- 5040 Mar, [facility] [address] [id number] [place] [address]- 7849 Mar, [facility] [place] [facility] [address] [id number] [place] [address]- 3294 Nov, [facility] [address] [id number] [place] [address]- 3784 May, [facility] [address] [id number] [place] [address]- 9924 May, [facility] [address] [id number] [place] [address]- 0100 May, [facility] [address] [id number] [place] [address]- 9589 May, [facility] [place] [facility] [address] [id number] [place] [address]- 6999 May, [facility] [place] [facility] [address] [id number] [place] [address]- 7428 May, [facility] [place] [facility] [address] [id number] [place] [address]- 2851 Apr, [facility] [place] [facility] [address] [id number] [place] [address]- 9856 Apr, [facility] [place] [facility] [address] [id number] [place] [address]- 0951 Apr, [facility] [address] [facility] [id number] [place] [address]- [address] Apr, [facility] [address] [facility] [id number] [address] May, [facility] [address] [facility] [id number] [place] [address]- [address] Jun, IMMUNIZATIONS No Known Immunizations SOCIAL HISTORY Never Assessed REASON FOR VISIT f/u (last seen in Drs office), PT has concernes with Traci DICK PLAN OF CARE Activity Details Follow Up [address] Jo office Reason: VITAL SIGNS Height 67 in 2017-05-17 Temperature 97.8 degrees Fahrenheit 2017-05-17 Heart Rate 56 bpm 2017-05-17 Respiratory Rate 20 2017-05-17 Oximetry on room air:96 % 2017-05-17 Blood pressure systolic 124 mmHg 2017-05-17 Blood pressure diastolic 78 mmHg 2017-05-17 MEDICATIONS Medication Instructions Dosage Frequency Start Date End Date Duration Status Guaifenesin 400 mg Orally every 4 hrs 1 tablet as needed 4h Feb, Not-Taking Flonase Allergy Relief 50 MCG/ACT Nasally twice per day 1 spray in each nostril Apr, 30 day(s) Active Levothyroxine Sodium 25 MCG Orally Once a day 1 tablet on an empty stomach in the morning 24h Feb, 30 day(s) Not-Taking Hydrocodone-Acetaminophen Active Omeprazole 40 MG Orally Once a day 1 capsule 24h Active Lipitor 40 MG Orally Once a day 1 tablet 24h Feb, Active Gabapentin Active Nystatin 952465 UNIT/ML Mouth/Throat Four times a day 4 ml 6h Not- Taking Losartan Potassium 50 mg Orally Once a day 1 tablet 24h Active RESULTS No Results PROCEDURES Procedure Date Ordered Result Body Site MEASURE BLOOD OXYGEN LEVEL May 17, 2017 INSTRUCTIONS MEDICATIONS ADMINISTERED No Known Medications MEDICAL (GENERAL) HISTORY Type Description Date Medical History Hypertension Medical History Hyperlipidemia Medical History Hypothyroidism Medical History Chronic pain Surgical History heart cath Surgical History cervical fusion Hospitalization History [place] F[facility]
--- OUTSIDE RECORDS SUMMARY | 2018-07-21 19:46 | XMS REPORT ---
Author Author JOCELYNN BUSTAMANTE Organization [facility] Address [address] [place] [address] Care Team Providers Care Aerobics Teacher Name Role Phone JOCELYNN BUSTAMANTE Unavailable PROBLEMS Type Condition ICD9-CM Code DCK14-SN Code Onset Dates Condition Status SNOMED Code Problem Hyperlipidemia, unspecified hyperlipidemia type E78.5 Active 17932292 Problem Lumbago with sciatica, left side M54.42 Active 752352471 Problem Essential hypertension I10 Active 80558541 Problem CAD (coronary artery disease) I25.10 Active 21763510 Problem Hyperlipemia E78.5 Active 15196795 Problem Tongue sore K14.6 Active 57300572 Problem Acute seasonal allergic rhinitis, unspecified trigger J30.2 Active 864359601 Problem Constipation, unspecified constipation type K59.00 Active 65537799 Problem Seasonal allergic rhinitis, unspecified allergic rhinitis trigger J30.2 Active 854417495 Problem Hypothyroidism (acquired) E03.9 Active 071560659 Problem Arthritis of left shoulder region M19.012 Active [id number] ALLERGIES No Information ENCOUNTERS Encounter Location Date Diagnosis [facility] [id number] [place] [address]86- [address]447 May, [facility] [id number] [place] [address] 21793- 4371 May, [facility] [id number] [place] [address] 14940- 1267 May, [facility] [id number] [place] [address]13- 1373 May, Cervicalgia M54.2 [facility] [id number] [place] [address] 82613- 8920 Apr, [facility] [address] [address] Apr, Tongue sore K14.6 [place] [address] [address] Apr, CAD (coronary artery disease) I25.10 ; Essential hypertension I10 ; Hyperlipidemia, unspecified hyperlipidemia type E78.5 and Shortness of breath R06.02 [place] [address] [address]56- [address]797 Apr, [facility] [place] [address] [address] Apr, Sore throat J02.9 [facility] [place] [address] [address]1322 Mar, Acute seasonal allergic rhinitis, unspecified trigger J30.2 [facility] [place] [address] [address] Mar, Pharyngitis due to other organism J02.8 ; Cervical neuritis M54.12 and Lump in throat R22.1 [place] [address] [address]- 8283 16 Feb, 2017 Pneumonia due to infectious organism, unspecified laterality , unspecified part of lung J18.9 [place] [address] [address]- 3080 15 Feb, 2017 [place] [address] [address]- [address]84 Feb, [place] [address] 6[address]- 2048 Feb, Hypothyroidism (acquired) E03.9 [facility] [place] [address] [address] Jan, Oral thrush B37.0 and Arthritis of left shoulder region M19.012 [facility] [place] [address] [address] Dec, Acute seasonal allergic rhinitis due to other allergen J30.89 [facility] [place] [id number] [place] [address]14 [address]59 Nov, Torticollis, acquired M43.6 and Geographic tongue K14.[address] [address] Oct, Arthralgia of neck M54.2 [facility] [address] [address] Oct, Constipation, unspecified constipation type K59.[address] [address]- 65[address] Oct, Arthralgia of neck M54.2 [facility] [address] [address] August, Seasonal allergic rhinitis, unspecified allergic rhinitis trigger J30.2 and Acute gastritis without hemorrhage, unspecified gastritis type K29.[address] 7[address]- [address]143 Jul, Arthralgia of neck M54.2 ; Lumbago with sciatica, left side M54.42 and Neuropathy G62.9 [place] [id number] [place] [address]189- 7326 Jul, CAD (coronary artery disease) I25.10 ; Shortness of breath R06.02 ; Hyperlipidemia, unspecified hyperlipidemia type E78.5 and History of tobacco use Z87.891 [facility] [place] [id number] [place] [address]32 [address]4387 Jun, Other viral agents as the cause of diseases classified elsewhere B97.89 and Acute upper respiratory infection, unspecified J06.9 [facility] [address] [address] May, Tonsillitis J03.90 [facility] [place] [id number] [place] [address] Apr, Other viral agents as the cause of diseases classified elsewhere B97.89 and Acute upper respiratory infection, unspecified J06.9 [facility] [place] [address] [address]8760 Apr, Candidiasis of mouth B37.0 [facility] [place] [address] 37581 [address]9899 Apr, Bronchitis J40 [facility] [place] [address] 24332 [address]1462 Mar, Oropharyngeal candidiasis B37.0 [place] [address] [address]87- 28[address] Jan, Hyperlipemia E78.5 [place] [address] 6[address]67- 2077 Jan, CAD (coronary artery disease) I25.10 ; Essential hypertension I10 ; Hyperlipidemia, unspecified hyperlipidemia type E78.5 and Dyspnea, unspecified type R06.00 [facility] [address] [id number] Oct, Dental caries K02.9 [facility] [address] [id number] Oct, Dental examination Z01.20 [place] [address] [address]- 7873 Apr, Right elbow pain M25.521 ; Left elbow pain M25.522 and Neuropathy G62.9 [place] [address] [address]- 5107 Feb, Hyperlipemia E78.5 [place] [address] 7[address]31- 0456 Jan, CAD (coronary artery disease) I25.10 ; Hyperlipemia E78.5 ; Obesity E66.9 and History of tobacco use Z87.891 [facility] [place] [facility] [address] [id number] [place] [address]- 8601 11 Dec, 2014 [facility] [place] [facility] [address] [id number] [place] [address]- 3406 04 Dec, 2014 Neuropathy 355.9 [facility] [place] [facility] [address] [id number] [place] [address] 2546 14 Jul, 2014 [facility] [place] [facility] [address] [id number] [place] [address] 2546 Jul, [facility] [place] [facility] [address] [id number] [place] [address]- 4991 Jun, [facility] [place] [facility] [address] [id number] [place] [address]- 1050 Jun, [facility] [place] [facility] [address] [facility] [id number] [place] [address]- 6807 May, [facility] [place] [facility] [address] [id number], [place] [address] May, [facility] [place] [facility] [address] [id number] [place] [address]- 4080 Apr, [facility] [place] [facility] [address] [id number], [place] [address] 8653 Apr, [facility] [place] [facility] [address] [id number], [place] [address]- 7892 Apr, [facility] [place] [facility] [address] [id number], [place] [address]- 2397 Apr, [facility] [place] [facility] [address] [id number] [place] [address]- 1090 Apr, [facility] [place] [facility] [address] [id number][place] [address]- 9159 Apr, [facility] [place] [facility] [address] [facility] [id number] [place] [address]- 8285 Apr, [facility] [place] [facility] [address] [id number] [place] [address]- 2389 Apr, [facility] [place] [facility] [address] [id number] [place] [address]- 3142 Mar, [facility] [place] [facility] [address] [id number] [place] [address] Mar, [facility] [place] [facility] [address] [id number] [place] [address]- 7757 Nov, [facility] [place] [facility] [address] [id number] [place] [address]- 1922 Nov, [facility] [place] [facility] [address] [id number] [place] [address]- 6659 Oct, [facility] [place] [facility] [address] [id number] [place] [address]- 1183 Oct, [facility] [place] [facility] [address] [id number] [place] [address]- 9638 Oct, [facility] [place] [facility] [address] [id number] [place] [address]- 9440 Oct, [facility] [place] [facility] [address] [id number] [place] [address]- 9375 Oct, [facility] [place] [facility] [address] [id number] [place] [address]- 6641 Sep, [facility] [place] [facility] [address] [id number] [place] [address]- 9855 Sep, [facility] [place] [facility] [address] [id number] [place] [address]- 6251 August, [facility] [place] [facility] [address] [id number] [place] [address]- 1576 August, [facility] [place] [facility] [address] [id number] [place] [address]- 3394 Jul, [facility] [place] [facility] [address] [id number] [place] [address]- 4000 Jul, [facility] [place] [facility] [address] [id number] [place] [address]- 2230 Jul, [facility] [place] [facility] [address] [id number] [place] [address]- 6042 Jul, [facility] [place] [facility] [address] [id number] [place] [address]- 0497 Jul, [facility] [place] [facility] [address] [id number] [place] [address]- 5316 Jul, [facility] [place] [facility] [address] [id number] [place] [address]- 5022 Jul, [facility] [place] [facility] [address] [id number] [place] [address] Jul, [facility] [place] [facility] [address] [id number] [place] [address]- 0292 Jul, [facility] [place] [facility] [address] [id number] [place] [address]- 7644 Jul, [facility] [place] [facility] [address] [id number] [place] [address]- 7884 Jul, [facility] [place] [facility] [address] [id number] [place] [address]- 4024 Jul, [facility] [place] [facility] [address] [id number] [place] [address]- 2603 Jul, [facility] [place] [facility] [address] [id number] [place] [address]- 7740 Jun, [facility] [place] [facility] [address] [id number] [place] [address]- 0791 Jun, [facility] [place] [facility] [address] [id number] [place] [address]- 5468 Jun, [facility] [place] [facility] [address] [id number] [place] [address]- 3333 Jun, [facility] [place] [facility] [address] [id number] [place] [address]- 0124 Jun, [facility] [place] [facility] [address] [id number] [place] [address]- 9724 Jun, [facility] [place] [facility] [address] [id number] [place] [address]- 1800 Jun, [facility] [place] [facility] [address] [id number] [place] [address]- 4648 Jun, [facility] [place] [facility] [address] [id number] [place] [address]- 1450 May, [facility] [place] [facility] [address] [id number] [place] [address]- 0792 May, [facility] [place] [facility] [address] [id number] [place] [address]- 0402 May, [facility] [place] [facility] [address] [id number] [place] [address]- 8215 May, [facility] [place] [facility] [address] [id number] [place] [address]- 2246 Apr, [facility] [place] [facility] [address] [id number] [place] [address]- 7233 Apr, [facility] [place] [facility] [address] [id number] [place] [address]- 1117 Apr, [facility] [place] [facility] [address] [id number] [place] [address]- 2855 Apr, [facility] [place] [facility] [address] [id number] [place] [address]- 5147 Apr, [facility] [place] [facility] [address] [id number] [place] [address]- 2142 Apr, [facility] [place] [facility] [address] [id number] [place] [address]- 7706 Mar, [facility] [place] [facility] [address] [id number] [place] [address]- 0447 Mar, [facility] [place] [facility] [address], [place] [address]- [address]39 Mar, [facility] [address], [place] [address]- 2439 Mar, [facility] [address], [place] [address]- 7460 Nov, [facility] [address], [place] [address]- [address]300 May, [facility] [address], [place] [address]- 5784 May, [facility] [address] [place] [address] 13685- 6791 May, [facility] [address], [place] [address]- 6[address] May, [facility] [address], [place] [address]- 1679 May, [facility] [address], [place] [address]- 4671 May, [facility] [address], [place] [address]- 7498 Apr, [facility] [address], [place] [address]- 9023 Apr, [facility] [address], [place] [address]- 2327 Apr, [facility] [address], [place] [address]- 7436 Apr, [facility] [address], [place] [address]- 8795 May, [facility] [address] [place] [id number] [address] Jun, IMMUNIZATIONS No Known Immunizations SOCIAL HISTORY Never Assessed REASON FOR VISIT upper left shoulder PLAN OF CARE VITAL SIGNS MEDICATIONS Unknown Medications RESULTS No Results PROCEDURES No Known procedures INSTRUCTIONS MEDICATIONS ADMINISTERED No Known Medications MEDICAL (GENERAL) HISTORY Type Description Date Medical History Hypertension Medical History Hyperlipidemia Medical History Hypothyroidism Medical History Chronic pain Surgical History heart cath Surgical History cervical fusion Hospitalization History [place] Fever
--- OUTSIDE RECORDS SUMMARY | 2018-07-21 19:46 | XMS REPORT ---
Author Author ATKINSLYNN Lora Organization [facility] Address [address] [place] [address] Care Team Providers Care Digital Developer Name Role Phone ATKINSMIKAEL LoraELE Unavailable PROBLEMS Type Condition ICD9-CM Code BQE75-MA Code Onset Dates Condition Status SNOMED Code Problem Other and unspecified hyperlipidemia 272.4 Active 17152280 Problem CAD (coronary artery disease) I25.10 Active 25014712 Problem Unspecified hypothyroidism 244.9 Active 68120067 Problem Constipation, unspecified constipation type K59.00 Active 63375143 Problem Seasonal allergic rhinitis, unspecified allergic rhinitis trigger J30.2 Active 370477007 Problem Hyperlipidemia, unspecified hyperlipidemia type E78.5 Active 35028516 Problem Hyperlipemia E78.5 Active 79933100 Problem Lumbago with sciatica, left side M54.42 Active 389186168 Problem Essential hypertension I10 Active 17539048 Problem Family history of other cardiovascular diseases V17.49 Active 236124372 Problem Coronary atherosclerosis of unspecified type of vessel, tuscarora or graft 414.00 Active 118051192 Problem Essential hypertension, benign 401.1 Active 2892754 Problem Arthralgia of neck M54.2 Active 16939098 Problem Obesity, unspecified 278.00 Active 407254510 ALLERGIES Substance Reaction Event Type Date Status Ibuprofen hives Drug Allergy May, Active Bactrim Unknown Drug Allergy May, Active SOCIAL HISTORY No smoking Hx information available PLAN OF CARE Activity Details Follow Up prn Reason: VITAL SIGNS Height 67 in 2016-06-02 Weight 224 lbs 2016-06-02 Temperature 97.8 degrees Fahrenheit 2016-06-02 Heart Rate 66 bpm 2016-06-02 Respiratory Rate 16 2016-06-02 BMI 35.08 kg/m2 2016-06-02 Blood pressure systolic 148 mmHg 2016-06-02 Blood pressure diastolic 88 mmHg 2016-06-02 MEDICATIONS Medication Instructions Dosage Frequency Start Date End Date Duration Status Miconazole Nitrate 2 % 1 soham by Topical route 2 times per day for 14 day(s ) Apr, Active Hydrocodone-Acetaminophen Active Azithromycin 250 MG Orally Once a day 2 tablets on the first day, then 1 tablet daily for 4 days 24h May, May, 5 day(s) Active HydrOXYzine HCl 25 mg take 1 tablet (25 mg) by oral route 4 times per day Apr, Active Lipitor 40 MG Orally Once a day 1 tablet 24h Feb, Active Omeprazole 40 MG Orally Once a day 1 capsule 24h Active Fluticasone Furoate Active Cetirizine HCl 10 MG Orally Once a day 1 tablet 24h Apr, May, 30 day(s) Active Guaifenesin 400 MG Orally 4 times a day 1 tablet as needed 6h Apr, Active Neurontin 400 mg 1 capsule by Oral route 3 times per day Oct, Active Norflex 100 mg 1 tablet by Oral route 2 times per day Nov, Active Flonase Allergy Relief 50 MCG/ACT Nasally twice per day 1 spray in each nostril Apr, 30 day(s) Active Losartan Potassium 50 MG Orally Once a day 1 tablet 24h Active RESULTS No Results PROCEDURES Procedure Date Ordered Related Diagnosis Body Site Office Visit, Est Pt., Level 3 Jun 02, 2016 IMMUNIZATIONS No Known Immunizations
--- OUTSIDE RECORDS SUMMARY | 2018-07-21 19:47 | XMS REPORT ---
Author Author JO OQUENDO [facility] Address [address] [place] [address] Care Team Providers Care Oil Rigger Name Role Phone JO OQUENDO Unavailable PROBLEMS Type Condition ICD9-CM Code YZA37-UD Code Onset Dates Condition Status SNOMED Code Problem Hyperlipidemia, unspecified hyperlipidemia type E78.5 Active 38658138 Problem Lumbago with sciatica, left side M54.42 Active 014514007 Problem Essential hypertension I10 Active 80686683 Problem CAD (coronary artery disease) I25.10 Active 38895414 Problem Hyperlipemia E78.5 Active 53396145 Problem Tongue sore K14.6 Active 49797298 Problem Acute seasonal allergic rhinitis, unspecified trigger J30.2 Active 878762164 Problem Constipation, unspecified constipation type K59.00 Active 46405541 Problem Seasonal allergic rhinitis, unspecified allergic rhinitis trigger J30.2 Active 453132632 Problem Hypothyroidism (acquired) E03.9 Active 667066090 Problem Arthritis of left shoulder region M19.012 Active [id number] ALLERGIES Substance Reaction Event Type Date Status Ibuprofen hives Drug Allergy Mar, Active Bactrim Unknown Drug Allergy Mar, Active ENCOUNTERS Encounter Location Date Diagnosis [facility] [address] [id number], [place] [address] August, Sore throat J02.9 and Strep pharyngitis J02.0 [facility] [address] [address] August, Cervical paraspinal muscle spasm M62.838 [facility] [address] [id number] [address] May, [facility] [id number] [place] [address] May, [place] [id number] [place] [address] May, [place] [address] [address] 01 May, 2017 Cervicalgia M54.2 [place] [address] [address] Apr, [facility] [address] [address] Apr, Tongue sore K14.6 [place] [address] [address] Apr, CAD (coronary artery disease) I25.10 ; Essential hypertension I10 ; Hyperlipidemia, unspecified hyperlipidemia type E78.5 and Shortness of breath R06.02 [place] [address] [address] Apr, [facility] [place] [address] [address] Apr, Sore throat J02.9 [facility] [address] [address] Mar, Acute seasonal allergic rhinitis, unspecified trigger J30.2 [facility] [place] [id number] [place] [address] Mar, Pharyngitis due to other organism J02.8 ; Cervical neuritis M54.12 and Lump in throat R22.1 [place] [id number] [place] [address] 16 Feb, 2017 Pneumonia due to infectious organism, unspecified laterality , unspecified part of lung J18.9 [place] [address] [address] 15 Feb, 2017 [place] [address] [address] Feb, [address] [address] Feb, Hypothyroidism (acquired) E03.9 [facility] [address] [address] Jan, Oral thrush B37.0 and Arthritis of left shoulder region M19.012 [facility] [address] [address] Dec, Acute seasonal allergic rhinitis due to other allergen J30.89 [facility] [address] [address] Nov, Torticollis, acquired M43.6 and Geographic tongue K14.[address] [address] Oct, Arthralgia of neck M54.2 [facility] [address] [address] Oct, Constipation, unspecified constipation type K59.[address] [address] Oct, Arthralgia of neck M54.2 [facility] [address] [address] August, Seasonal allergic rhinitis, unspecified allergic rhinitis trigger J30.2 and Acute gastritis without hemorrhage, unspecified gastritis type K29.[address] [address] Jul, Arthralgia of neck M54.2 ; Lumbago with sciatica, left side M54.42 and Neuropathy G62.[address] [address] Jul, CAD (coronary artery disease) I25.10 ; Shortness of breath R06.02 ; Hyperlipidemia, unspecified hyperlipidemia type E78.5 and History of tobacco use Z87.891 [facility] [address] [place] [id number] [place] [address] Jun, Other viral agents as the cause of diseases classified elsewhere B97.89 and Acute upper respiratory infection, unspecified J06.9 [facility] [address] [address] May, Tonsillitis J03.90 [facility] [address] [place] [address] Apr, Other viral agents as the cause of diseases classified elsewhere B97.89 and Acute upper respiratory infection, unspecified J06.9 [facility] [address] [address] Apr, Candidiasis of mouth B37.0 [facility] [address] [address] Apr, Bronchitis J40 [facility] [address] [address] Mar, Oropharyngeal candidiasis B37.[address] [address] Jan, Hyperlipemia E78.[address] [address] Jan, CAD (coronary artery disease) I25.10 ; Essential hypertension I10 ; Hyperlipidemia, unspecified hyperlipidemia type E78.5 and Dyspnea, unspecified type R06.00 [facility] [id number] [place] [id number] Oct, Dental caries K02.9 [facility] [address] [id number] Oct, Dental examination Z01.[address] [address] 15 Sandeep, 2016 Right elbow pain M25.521 ; Left elbow pain M25.522 and Neuropathy G62.9 [facility] [address] [place] [address] Feb, Hyperlipemia E78.5 [facility] [id number] [place] [address] Jan, CAD (coronary artery disease) I25.10 ; Hyperlipemia E78.5 ; Obesity E66.9 and History of tobacco use Z87.891 [facility] [id number] [place] [address] 11 Dec, 2014 [facility] [id number] [place] [address] 04 Dec, 2014 Neuropathy 355.9 [facility] [id number] [place] [address] 14 Jul, 2014 [facility] [id number] [place] [address] Jul, [facility] [id number] [place] [address] Jun, [facility] [id number] [place] [address] Jun, [facility] [id number] [place] [address] May, [facility] [id number] [place] [address] May, [facility] [address] [place] [address] Apr, [facility] [id number] [place] [address] Apr, [facility] [address] [place] [address] 6[address]- [address] Apr, [facility] [id number] [place] [address]- [address] Apr, [facility] [place] [facility] [address] [id number] [place] [address] Apr, [facility] [place] [facility] [address] [id number] [place] [address] Apr, [facility] [place] [facility] [address] [id number] [place] [address] Apr, [facility] [place] [facility] [address] [id number] [place] [address] Apr, [facility] [place] [facility] [address] [id number] [place] [address] Mar, [facility] [place] [facility] [address] [id number] [place] [address] Mar, [facility] [place] [facility] [address] [id number] [place] [address] Nov, [facility] [place] [facility] [address] [id number] [place] [address] Nov, [facility] [place] [facility] [address] [id number] [place] [address] Oct, [facility] [place] [facility] [address] [id number] [place] [address] Oct, [facility] [place] [facility] [address] [id number] [place] [address] Oct, [facility] [place] [facility] [address] [id number] [place] [address] Oct, [facility] [place] [facility] [address] [id number] [place] [address] Oct, [facility] [place] [facility] [address] [id number] [place] [address] Sep, [facility] [place] [facility] [address] [id number] [place] [address] Sep, [facility] [place] [facility] [address] [id number] [place] [address] August, [facility] [place] [facility] [address] [id number] [place] [address] August, [facility] [place] [facility] [address] [id number] [place] [address]- [address] Jul, [facility] [place] [facility] [address] [id number] [place] [address]- [address] Jul, [facility] [place] [facility] [address] [id number] [place] [address]- 78[address] Jul, [facility] [place] [facility] [address] [id number] [place] [address]- [address] Jul, [facility] [place] [facility] [address] [id number] [place] [address]- [address] Jul, [facility] [place] [facility] [address] [id number] [place] [address]- 8658 Jul, [facility] [place] [facility] [address] [id number] [place] [address] Jul, [facility] [place] [facility] [address] [id number] [place] [id number] Jul, [facility] [place] [facility] [address] [id number] [place] [address]- 86[address] Jul, [facility] [place] [facility] [address] [id number] [place] [address]- 3412 Jul, [facility] [place] [facility] [address] [id number] [place] [address] Jul, [facility] [place] [facility] [address] [id number] [place] [address]- 63[address] Jul, [facility] [place] [facility] [address] [id number] [place] [address] Jul, [facility] [place] [facility] [address] [id number] [place] [address]- 5278 Jun, [facility] [place] [facility] [address] [id number] [place] [address]- 0337 Jun, [facility] [place] [facility] [address] [id number] [place] [address]- 6759 Jun, [facility] [place] [facility] [address] [id number] [place] [address]- 3294 Jun, [facility] [place] [facility] [address] [id number] [place] [address]- 3130 Jun, [facility] [place] [facility] [address] [id number] [place] [address]- 3869 Jun, [facility] [place] [facility] [address] [id number] [place] [address]- 7118 Jun, [facility] [place] [facility] [address] [id number] [place] [address]- 3284 Jun, [facility] [place] [facility] [address] [id number] [place] [address]- 3283 May, [facility] [place] [facility] [address] [id number] [place] [address]- 7183 May, [facility] [place] [facility] [address] [id number] [place] [address]- 9[address] May, [facility] [place] [facility] [address] [id number] [place] [address]- 0712 May, [facility] [place] [facility] [address] [id number] [place] [address]- 69[address] Apr, [facility] [place] [facility] [address] [id number] [place] [address]- 0509 Apr, [facility] [place] [facility] [address] [id number] [place] [address]- 2687 Apr, [facility] [place] [facility] [address] [id number] [place] [address]- 1461 Apr, [facility] [place] [facility] [address] [id number] [place] [address]- 3231 Apr, [facility] [address] [id number] [place] [address]- 4772 Apr, [facility] [place] [facility] [address] [id number] [place] [address]- 8095 Mar, [facility] [address] [id number] [place] [address]- 2493 Mar, [facility] [place] [facility] [address] [id number] [place] [address]- 6731 Mar, [facility] [address] [id number] [place] [address]- 2448 Mar, [facility] [place] [facility] [address] [id number] [place] [address]- 0180 Nov, [facility] [address] [id number] [place] [address]- 7065 May, [facility] [address] [id number] [place] [address]- 3332 May, [facility] [place] [facility] [address] [id number] [place] [address]- 1470 May, [facility] [id number] [address]- [address] May, [facility] [place] [facility] [address] [id number] [place] [address]- 9666 May, [facility] [place] [facility] [address] [id number] [place] [address]- 2625 May, [facility] [place] [facility] [address] [id number] [place] [address]- 2026 Apr, [facility] [place] [facility] [address] [id number] [place] [address]- 1556 Apr, [facility] [place] [facility] [address] [id number] [place] [address]- 9290 Apr, [facility] [address] [facility] [id number] [address]- [address] Apr, [facility] [address] [facility] [id number], [place] [address]- [address] May, [facility] [address] [facility] [id number], [place] [address]- [address] Jun, IMMUNIZATIONS Vaccine Route Administration Date Status DEXAMETHASONE 4MG/ML (PER 1 MG) IM Intramuscular Apr 16, 2017 Administered DEPO MEDROL 40 MG/ML IM Intramuscular Apr 16, 2017 Administered SOCIAL HISTORY Never Assessed REASON FOR VISIT sinus pressure, congestion, sore throat, bitter taste in mouth. been sick for at least a month. has been on antibiotics and steroids...still no better. [email or web address] PLAN OF CARE Activity Details Follow Up prn Reason: VITAL SIGNS Height 67 in 2017-04-16 Weight 232.5 lbs 2017-04-16 Temperature 98.6 degrees Fahrenheit 2017-04-16 Heart Rate 66 bpm 2017-04-16 Respiratory Rate 20 2017-04-16 BMI 36.41 kg/m2 2017-04-16 Blood pressure systolic 148 mmHg 2017-04-16 Blood pressure diastolic 82 mmHg 2017-04-16 MEDICATIONS Medication Instructions Dosage Frequency Start Date End Date Duration Status Gabapentin Active Levothyroxine Sodium 25 MCG Orally Once [...] a day 1 tablet 24h Feb, Active Hydrocodone-Acetaminophen Active Guaifenesin 400 mg Orally every 4 hrs 1 tablet as needed 4h Feb, Not-Taking Nystatin [id number] UNIT/ML Mouth/Throat Four times a day 4 ml 6h Active RESULTS No Results PROCEDURES Procedure Date Ordered Result Body Site DEPO MEDROL 40 MG/ML Apr 16, 2017 DEXAMETHASONE 4MG/ML (PER 1 MG) Apr 16, 2017 THER/PROPH/DIAG INJ, SC/IM Apr 16, 2017 INSTRUCTIONS MEDICATIONS ADMINISTERED No Known Medications MEDICAL (GENERAL) HISTORY Type Description Date Medical History Hypertension Medical History Hyperlipidemia Medical History Hypothyroidism Medical History Chronic pain Surgical History heart cath Surgical History cervical fusion Hospitalization History [place] Fever
--- OUTSIDE RECORDS SUMMARY | 2018-07-21 19:47 | XMS REPORT ---
Author Author JO OQUENDO [facility] IN [facility] Address [address] [place] [address] Care Team Providers Care Supervisor Computer Operations Name Role Phone JO OQUENDO Unavailable PROBLEMS Type Condition ICD9-CM Code DDG42-ZU Code Onset Dates Condition Status SNOMED Code Problem Hyperlipidemia, unspecified hyperlipidemia type E78.5 Active 08837352 Problem Lumbago with sciatica, left side M54.42 Active 355236746 Problem Essential hypertension I10 Active 54298578 Problem CAD (coronary artery disease) I25.10 Active 30772401 Problem Hyperlipemia E78.5 Active 49260908 Problem Tongue sore K14.6 Active 18327179 Problem Acute seasonal allergic rhinitis, unspecified trigger J30.2 Active 828803948 Problem Constipation, unspecified constipation type K59.00 Active 01124091 Problem Seasonal allergic rhinitis, unspecified allergic rhinitis trigger J30.2 Active 932104792 Problem Hypothyroidism (acquired) E03.9 Active 374772464 Problem Arthritis of left shoulder region M19.012 Active [id number] ALLERGIES Substance Reaction Event Type Date Status Ibuprofen hives Drug Allergy Apr, Active Bactrim Unknown Drug Allergy Apr, Active ENCOUNTERS Encounter Location Date Diagnosis [facility] IN [facility] [id number] [address] August, Sore throat J02.9 and Strep pharyngitis J02.0 [facility] [id number] [place] [address] August, Cervical paraspinal muscle spasm M62.838 [facility] [id number] [address] May, [facility] [id number] [place] [address] May, [place] [id number] [place] [address] May, [place] [address] [address] 01 May, 2017 Cervicalgia M54.2 [place] [address] [address] Apr, [facility] [address] [address] Apr, Tongue sore K14.6 [place] [address] [address] Apr, CAD (coronary artery disease) I25.10 ; Essential hypertension I10 ; Hyperlipidemia, unspecified hyperlipidemia type E78.5 and Shortness of breath R06.02 [place] [address] [address] Apr, [facility] [place] [address] [address] Apr, Sore throat J02.9 [facility] [address] [address] Mar, Acute seasonal allergic rhinitis, unspecified trigger J30.2 [facility] [place] [id number] [place] [address] Mar, Pharyngitis due to other organism J02.8 ; Cervical neuritis M54.12 and Lump in throat R22.1 [place] [id number] [place] [address] 16 Feb, 2017 Pneumonia due to infectious organism, unspecified laterality , unspecified part of lung J18.9 [place] [address] [address] 15 Feb, 2017 [place] [address] [address] Feb, [address] [address] Feb, Hypothyroidism (acquired) E03.9 [facility] [address] [address] Jan, Oral thrush B37.0 and Arthritis of left shoulder region M19.012 [facility] [address] [address] Dec, Acute seasonal allergic rhinitis due to other allergen J30.89 [facility] [address] [address] Nov, Torticollis, acquired M43.6 and Geographic tongue K14.[address] [address] Oct, Arthralgia of neck M54.2 [facility] [address] [address] Oct, Constipation, unspecified constipation type K59.[address] [address] Oct, Arthralgia of neck M54.2 [facility] [address] [address] August, Seasonal allergic rhinitis, unspecified allergic rhinitis trigger J30.2 and Acute gastritis without hemorrhage, unspecified gastritis type K29.[address] [address] Jul, Arthralgia of neck M54.2 ; Lumbago with sciatica, left side M54.42 and Neuropathy G62.[address] [address] Jul, CAD (coronary artery disease) I25.10 ; Shortness of breath R06.02 ; Hyperlipidemia, unspecified hyperlipidemia type E78.5 and History of tobacco use Z87.891 [facility] [address] [place] [id number] [place] [address] Jun, Other viral agents as the cause of diseases classified elsewhere B97.89 and Acute upper respiratory infection, unspecified J06.9 [facility] [address] [address] May, Tonsillitis J03.90 [facility] [address] [place] [address] Apr, Other viral agents as the cause of diseases classified elsewhere B97.89 and Acute upper respiratory infection, unspecified J06.9 [facility] [address] [address] Apr, Candidiasis of mouth B37.0 [facility] [address] [address] Apr, Bronchitis J40 [facility] [address] [address] Mar, Oropharyngeal candidiasis B37.[address] [address] Jan, Hyperlipemia E78.[address] [address] Jan, CAD (coronary artery disease) I25.10 ; Essential hypertension I10 ; Hyperlipidemia, unspecified hyperlipidemia type E78.5 and Dyspnea, unspecified type R06.00 [facility] [id number] [place] [id number] Oct, Dental caries K02.9 [facility] [address] [id number] Oct, Dental examination Z01.[address] [address] 15 Sandeep, 2016 Right elbow pain M25.521 ; Left elbow pain M25.522 and Neuropathy G62.9 [facility] [address] [place] [address] Feb, Hyperlipemia E78.5 [facility] [id number] [place] [address] Jan, CAD (coronary artery disease) I25.10 ; Hyperlipemia E78.5 ; Obesity E66.9 and History of tobacco use Z87.891 [facility] [id number] [place] [address] 11 Dec, 2014 [facility] [id number] [place] [address] 04 Dec, 2014 Neuropathy 355.9 [facility] [id number] [place] [address] 14 Jul, 2014 [facility] [id number] [place] [address] Jul, [facility] [id number] [place] [address] Jun, [facility] [id number] [place] [address] Jun, [facility] [id number] [place] [address] May, [facility] [id number] [place] [address] May, [facility] [address] [place] [address] Apr, [facility] [id number] [place] [address] Apr, [facility] [id number] [place] [address]- [address] Apr, [facility] [id number] [place] [address] Apr, [facility] [place] [facility] [address] [id number] [place] [address] Apr, [facility] [place] [facility] [address] [id number] [place] [address] Apr, [facility] [place] [facility] [address] [id number] [place] [address] Apr, [facility] [place] [facility] [address] [id number] [place] [address] Apr, [facility] [place] [facility] [address] [id number] [place] [address] Mar, [facility] [place] [facility] [address] [id number] [place] [address] Mar, [facility] [place] [facility] [address] [id number] [place] [address] Nov, [facility] [place] [facility] [address] [id number] [place] [address] Nov, [facility] [place] [facility] [address] [id number] [place] [address] 270[address] Oct, [facility] [place] [facility] [address] [id number] [place] [address] Oct, [facility] [place] [facility] [address] [id number] [place] [address] 260[address] Oct, [facility] [place] [facility] [address] [id number] [place] [address] 7[address] Oct, [facility] [place] [facility] [address] [id number] [place] [address] 116[address] Oct, [facility] [place] [facility] [address] [id number] [place] [address] Sep, [facility] [place] [facility] [address] [id number] [place] [address] Sep, [facility] [place] [facility] [address] [id number] [place] [address] August, [facility] [place] [facility] [address] [id number] [place] [address] August, [facility] [place] [facility] [address] [id number] [place] [address]- 64[address] Jul, [facility] [place] [facility] [address] [id number] [place] [address]- 4046 Jul, [facility] [place] [facility] [address] [id number] [place] [address] Jul, [facility] [place] [facility] [address] [id number] [place] [address]- 5283 Jul, [facility] [place] [facility] [address] [id number] [place] [address]- [address] Jul, [facility] [place] [facility] [address] [id number] [place] [address]- 3865 Jul, [facility] [place] [facility] [address] [id number] [place] [address] 5[address] Jul, [facility] [place] [facility] [address] [id number] [place] [id number] Jul, [facility] [place] [facility] [address] [id number] [place] [address] 66[address] Jul, [facility] [place] [facility] [address] [id number] [place] [address]- 8450 Jul, [facility] [place] [facility] [address] [id number] [place] [address] Jul, [facility] [place] [facility] [address] [id number] [place] [address] 0635 Jul, [facility] [place] [facility] [address] [id number] [place] [address] Jul, [facility] [place] [facility] [address] [id number] [place] [address]- 4286 Jun, [facility] [place] [facility] [address] [id number] [place] [address]- 6675 Jun, [facility] [place] [facility] [address] [id number] [place] [address]- 9597 Jun, [facility] [place] [facility] [address] [id number] [place] [address]- 3482 Jun, [facility] [place] [facility] [address] [id number] [place] [address]- 1117 Jun, [facility] [place] [facility] [address] [id number] [place] [address]- 8040 Jun, [facility] [place] [facility] [address] [id number] [place] [address]- 9219 Jun, [facility] [place] [facility] [address] [id number] [place] [address]- 0105 Jun, [facility] [place] [facility] [address] [id number] [place] [address] 1191 May, [facility] [place] [facility] [address] [id number] [place] [address]- 7774 May, [facility] [place] [facility] [address] [id number] [place] [address]- 9601 May, [facility] [place] [facility] [address] [id number] [place] [address]- 2552 May, [facility] [place] [facility] [address] [id number] [place] [address]- 8555 Apr, [facility] [place] [facility] [address] [id number] [place] [address]- 1182 Apr, [facility] [place] [facility] [address] [id number] [place] [address]- 0000 Apr, [facility] [place] [facility] [address] [id number] [place] [address]- 2545 Apr, [facility] [place] [facility] [address] [id number] [place] [address]- 3209 Apr, [facility] [address] [id number] [place] [address]- 7260 Apr, [facility] [place] [facility] [address] [id number] [place] [address]- 8167 Mar, [facility] [address] [id number] [place] [address]- 6343 Mar, [facility] [place] [facility] [address] [id number] [place] [address]- 9310 Mar, [facility] [address] [id number] [place] [address]- 4342 Mar, [facility] [place] [facility] [address] [id number] [place] [address]- 8898 Nov, [facility] [address] [id number] [place] [address]- 1770 May, [facility] [address] [id number] [place] [address]- 4672 May, [facility] [place] [facility] [address] [id number] [place] [address]- 4529 May, [facility] [id number] [place] [address] May, [facility] [place] [facility] [address] [id number] [place] [address]- 2806 May, [facility] [place] [facility] [address] [id number] [place] [address]- 2770 May, [facility] [place] [facility] [address] [id number] [place] [address]- 1066 Apr, [facility] [place] [facility] [address] [id number] [place] [address]- 6536 Apr, [facility] [place] [facility] [address] [id number] [place] [address]- 3126 Apr, [facility] [address] [facility] [id number] [address] Apr, [facility] [address] [facility] [id number] [address]- 25[address] May, [facility] [address] [facility] [id number] [address]- [address] Jun, IMMUNIZATIONS No Known Immunizations SOCIAL HISTORY Never Assessed REASON FOR VISIT cough, feels like something is making his throat shut off. been sick for 2 months. [email or web address] PLAN OF CARE Activity Details Follow Up prn Reason: VITAL SIGNS Height 67 in 2017-05-04 Weight 230.8 lbs 2017-05-04 Temperature 97.6 degrees Fahrenheit 2017-05-04 Heart Rate 68 bpm 2017-05-04 Respiratory Rate 20 2017-05-04 Oximetry on room air:98 % 2017-05-04 BMI 36.14 kg/m2 2017-05-04 Blood pressure systolic 138 mmHg 2017-05-04 Blood pressure diastolic 80 mmHg 2017-05-04 MEDICATIONS Medication Instructions Dosage Frequency Start Date End Date Duration Status Losartan Potassium 50 mg Orally Once a day 1 tablet 24h Active Levothyroxine Sodium 25 MCG Orally Once a day 1 tablet on an empty stomach in the morning 24h Feb, 30 day(s) Active Lipitor 40 MG Orally Once a day 1 tablet 24h Feb, Active Flonase Allergy Relief 50 MCG/ACT Nasally twice per day 1 spray in each nostril Apr, 30 day(s) Active Gabapentin Active Hydrocodone-Acetaminophen Active Guaifenesin 400 mg Orally every 4 hrs 1 tablet as needed 4h 16 Feb, 2017 Not-Taking Nystatin 752685 UNIT/ML Mouth/Throat Four times a day 4 ml 6h Active Omeprazole 40 MG Orally Once a day 1 capsule 24h Active RESULTS No Results PROCEDURES Procedure Date Ordered Result Body Site MEASURE BLOOD OXYGEN LEVEL May 04, 2017 INSTRUCTIONS MEDICATIONS ADMINISTERED No Known Medications MEDICAL (GENERAL) HISTORY Type Description Date Medical History Hypertension Medical History Hyperlipidemia Medical History Hypothyroidism Medical History Chronic pain Surgical History heart cath Surgical History cervical fusion Hospitalization History [place] Fever
--- OUTSIDE RECORDS SUMMARY | 2018-07-21 19:47 | XMS REPORT ---
Author Author JOCELYNN BUSTAMANTE Organization [facility] Address [address] [place] [address] Care Team Providers Care Senior Datastage Developer Name Role Phone JOCELYNN BUSTAMANTE Unavailable PROBLEMS Type Condition ICD9-CM Code CZQ70-JF Code Onset Dates Condition Status SNOMED Code Problem Hyperlipidemia, unspecified hyperlipidemia type E78.5 Active 70961542 Problem Lumbago with sciatica, left side M54.42 Active 741848233 Problem Essential hypertension I10 Active 63147866 Problem CAD (coronary artery disease) I25.10 Active 32079446 Problem Hyperlipemia E78.5 Active 95976809 Problem Tongue sore K14.6 Active 17426622 Problem Acute seasonal allergic rhinitis, unspecified trigger J30.2 Active 089612499 Problem Constipation, unspecified constipation type K59.00 Active 72305628 Problem Seasonal allergic rhinitis, unspecified allergic rhinitis trigger J30.2 Active 255418932 Problem Hypothyroidism (acquired) E03.9 Active 649503365 Problem Arthritis of left shoulder region M19.012 Active [id number] ALLERGIES No Information ENCOUNTERS Encounter Location Date Diagnosis [facility] [id number] [place] [address] August, Sore throat J02.9 and Strep pharyngitis J02.0 [facility] [address] [place] [address]- 1700 August, Cervical paraspinal muscle spasm M62.838 [facility] [address] [place] [id number] [place] [address] 83232- 4602 May, [facility] [address] [place] [id number] [place] [address] 63745- 6870 May, [facility] [address] [place] [id number] [place] [address] 33142- 5862 May, [place] [address] [place] [id number] [place] [address]22- 6739 May, Cervicalgia M54.2 [place] [address] [address] Apr, [facility] [place] [address] [address] Apr, Tongue sore K14.6 [place] [address] [address] Apr, CAD (coronary artery disease) I25.10 ; Essential hypertension I10 ; Hyperlipidemia, unspecified hyperlipidemia type E78.5 and Shortness of breath R06.02 [place] [address] [address] Apr, [facility] [address] [address] Apr, Sore throat J02.9 [facility] [address] [address] Mar, Acute seasonal allergic rhinitis, unspecified trigger J30.2 [facility] [place] [id number] [place] [address] 06 Mar, 2017 Pharyngitis due to other organism J02.8 ; Cervical neuritis M54.12 and Lump in throat R22.1 [place] [address] [place] [id number] [place] [address]- 7[address] 16 Feb, 2017 Pneumonia due to infectious organism, unspecified laterality , unspecified part of lung J18.9 [place] [address] [address]- [address] Feb, [place] [address] [address] Feb, [place] [address] [address] Feb, Hypothyroidism (acquired) E03.9 [facility] [address] [address] Jan, Oral thrush B37.0 and Arthritis of left shoulder region M19.012 [facility] [address] [address] Dec, Acute seasonal allergic rhinitis due to other allergen J30.89 [facility] [address] [address] Nov, Torticollis, acquired M43.6 and Geographic tongue K14.[address] [address] Oct, Arthralgia of neck M54.2 [facility] [address] [address] Oct, Constipation, unspecified constipation type K59.[address] [address] Oct, Arthralgia of neck M54.2 [facility] [address] [address] August, Seasonal allergic rhinitis, unspecified allergic rhinitis trigger J30.2 and Acute gastritis without hemorrhage, unspecified gastritis type K29.[address] [address]51[address] Jul, Arthralgia of neck M54.2 ; Lumbago with sciatica, left side M54.42 and Neuropathy G62.[address] [address] Jul, CAD (coronary artery disease) I25.10 ; Shortness of breath R06.02 ; Hyperlipidemia, unspecified hyperlipidemia type E78.5 and History of tobacco use Z87.891 [facility] [address] [address] Jun, Other viral agents as the cause of diseases classified elsewhere B97.89 and Acute upper respiratory infection, unspecified J06.9 [facility] [address] [place] [id number] [place] [address] May, Tonsillitis J03.90 [facility] [address] [address] Apr, Other viral agents as the cause of diseases classified elsewhere B97.89 and Acute upper respiratory infection, unspecified J06.9 [facility] [address] [address] Apr, Candidiasis of mouth B37.0 [facility] [place] [id number] [place] [address] Apr, Bronchitis J40 [facility] [address] [address] Mar, Oropharyngeal candidiasis B37.0 [place] [address] [address]77- [address] Jan, Hyperlipemia E78.[address] [address]- [address] 07 Jan, 2016 CAD (coronary artery disease) I25.10 ; Essential hypertension I10 ; Hyperlipidemia, unspecified hyperlipidemia type E78.5 and Dyspnea, unspecified type R06.00 [facility] [address] [id number] Oct, Dental caries K02.9 [facility] [address] [id number] Oct, Dental examination Z01.20 [place] [address] 97[address] 8[address] Apr, Right elbow pain M25.521 ; Left elbow pain M25.522 and Neuropathy G62.9 [place] [address] Feb, Hyperlipemia E78.5 [facility] [address] [place] [id number] [place] [address] 79174- 3560 Jan, CAD (coronary artery disease) I25.10 ; Hyperlipemia E78.5 ; Obesity E66.9 and History of tobacco use Z87.891 [facility] [address] [place] [id number] [place] [address]88- 2010 11 Dec, 2014 [facility] [address] [place] [id number] [place] [address] 40387- 7454 04 Dec, 2014 Neuropathy 355.9 [facility] [address] [place] [id number] [place] [address] 28380- 1100 14 Jul, 2014 [facility] [address] [place] [id number] [place] [address] 36169- 3609 Jul, [facility] [address] [place] [id number] [place] [address] 17602- 7851 Jun, [facility] [address] [place] [address] 51643- 5017 Jun, [facility] [address] [place] [address] 18735- 7673 May, [facility] [address] [address] May, [facility] [address] [address] 2111 Apr, [facility] [address] [address] 3599 Apr, [facility] [address] [place] [address] 229735- 9746 Apr, [facility] [address] [address] Apr, [facility] [address] [place] [address] 00644- 2652 Apr, [facility] [place] [facility] [address] [id number] [place] [address] Apr, [facility] [place] [facility] [address] [id number] [place] [address]- 8730 Apr, [facility] [place] [facility] [address] [id number] [place] [address]- 4092 Apr, [facility] [place] [facility] [address] [id number] [place] [address]- 0306 Mar, [facility] [place] [facility] [address] [id number] [place] [address]- 0912 Mar, [facility] [place] [facility] [address] [id number] [place] [address]- 8914 Nov, [facility] [place] [facility] [address] [id number] [place] [address]- 0956 Nov, [facility] [place] [facility] [address] [id number] [place] [address]- 4918 Oct, [facility] [place] [facility] [address] [id number] [place] [address]- 4687 Oct, [facility] [place] [facility] [address] [id number] [place] [address]- 7263 Oct, [facility] [place] [facility] [address] [id number] [place] [address]- 8722 Oct, [facility] [place] [facility] [address] [id number] [place] [address]- 2193 Oct, [facility] [place] [facility] [address] [id number] [place] [address]- 2016 Sep, [facility] [place] [facility] [address] [id number] [place] [address]- 1377 Sep, [facility] [place] [facility] [address] [id number] [place] [address]- 9549 August, [facility] [place] [facility] [address] [id number] [place] [address]- 1758 August, [facility] [place] [facility] [address] [id number] [place] [address] Jul, [facility] [place] [facility] [address] [id number] [place] [address] Jul, [facility] [place] [facility] [address] [id number] [place] [address]- 0528 Jul, [facility] [place] [facility] [address] [id number] [place] [address]- 6798 Jul, [facility] [place] [facility] [address] [id number] [place] [address]- 8229 Jul, [facility] [place] [facility] [address] [id number] [place] [address]- 2043 Jul, [facility] [place] [facility] [address] [id number] [place] [address]- 2424 Jul, [facility] [place] [facility] [address] [id number] [place] [address] Jul, [facility] [place] [facility] [address] [id number] [place] [address]- 8176 Jul, [facility] [place] [facility] [address] [id number] [place] [address]- 8063 Jul, [facility] [place] [facility] [address] [id number] [place] [address]- 5239 Jul, [facility] [place] [facility] [address] [id number] [place] [address]- 6511 Jul, [facility] [place] [facility] [address] [id number] [place] [address]- 2804 Jul, [facility] [place] [facility] [address] [id number] [place] [address]- 3775 Jun, [facility] [place] [facility] [address] [id number] [place] [address]- 5438 Jun, [facility] [place] [facility] [address] [id number] [place] [address]- 1222 Jun, [facility] [place] [facility] [address] [id number] [place] [address]- 4667 Jun, [facility] [place] [facility] [address] [id number] [place] [address]- 3593 Jun, [facility] [place] [facility] [address] [id number] [place] [address]- 2218 Jun, [facility] [place] [facility] [address] [id number] [place] [address]- 4166 Jun, [facility] [place] [facility] [address] [id number] [place] [address]- 9548 Jun, [facility] [place] [facility] [address] [id number] [place] [address]- 1847 May, [facility] [place] [facility] [address] [id number] [place] [address]- 4696 May, [facility] [place] [facility] [address] [id number] [place] [address]- 7071 May, [facility] [place] [facility] [address] [id number] [place] [address]- 0210 May, [facility] [place] [facility] [address] [id number] [place] [address]- 4516 Apr, [facility] [place] [facility] [address] [id number] [place] [address]- 0968 Apr, [facility] [place] [facility] [address] [id number] [place] [address]- 8661 Apr, [facility] [place] [facility] [address] [id number] [place] [address]- 8032 Apr, [facility] [place] [facility] [address] [id number] [place] [address]- 2757 Apr, [facility] [place] [facility] [address] [id number] [place] [address]- 1081 Apr, [facility] [address] [id number] [place] [address]- 4666 Mar, [facility] [place] [facility] [address] [id number] [place] [address]- 6538 Mar, [facility] [address] [id number] [place] [address]- 9282 Mar, [facility] [place] [facility] [address] [id number] [place] [address]- 3121 Mar, [facility] [address] [id number] [place] [address]- 2213 Nov, [facility] [place] [facility] [address] [id number] [place] [address]- 7454 May, [facility] [address] [id number] [place] [address]- 0203 May, [facility] [address] [id number] [place] [address]- 5500 May, [facility] [id number] [place] [address]- 9585 May, [facility] [address] [place] [id number] [place] [address]- 8526 May, [facility] [place] [facility] [address] [id number] [place] [address]- 0688 May, [facility] [address] [id number] [place] [address]- 8467 Apr, [facility] [place] [facility] [address] [id number] [place] [address]- 8994 Apr, [facility] [place] [facility] [address] [id number] [place] [address]- 0324 Apr, [facility] [place] [facility] [address] [id number] [place] [address]- 5910 Apr, [facility] [address] [facility] [id number] [place] [address]- 0277 May, [facility] [address] [facility] [id number] [place] [address] Jun, IMMUNIZATIONS No Known Immunizations SOCIAL HISTORY Never Assessed REASON FOR VISIT PLAN OF CARE VITAL SIGNS MEDICATIONS No Known Medications RESULTS No Results PROCEDURES No Known procedures INSTRUCTIONS MEDICATIONS ADMINISTERED No Known Medications MEDICAL (GENERAL) HISTORY Type Description Date Medical History Hypertension Medical History Hyperlipidemia Medical History Hypothyroidism Medical History Chronic pain Surgical History heart cath Surgical History cervical fusion Hospitalization History [place] Fever
--- OUTSIDE RECORDS SUMMARY | 2018-07-21 19:48 | XMS REPORT ---
Author Author ROCAEL SANDOVAL Organization [facility] Address [address] [place] [address] Care Team Providers Care Spot Billing Clerk Name Role Phone ROCAEL SANDOVAL Unavailable PROBLEMS Type Condition ICD9-CM Code NJS38-LE Code Onset Dates Condition Status SNOMED Code Problem Other and unspecified hyperlipidemia 272.4 Active 10815874 Problem CAD (coronary artery disease) I25.10 Active 77028679 Problem Unspecified hypothyroidism 244.9 Active 68197583 Problem Constipation, unspecified constipation type K59.00 Active 25260465 Problem Seasonal allergic rhinitis, unspecified allergic rhinitis trigger J30.2 Active 064231823 Problem Hyperlipidemia, unspecified hyperlipidemia type E78.5 Active 99412037 Problem Hyperlipemia E78.5 Active 79527725 Problem Lumbago with sciatica, left side M54.42 Active 417156222 Problem Essential hypertension I10 Active 41393397 Problem Family history of other cardiovascular diseases V17.49 Active 021883500 Problem Coronary atherosclerosis of unspecified type of vessel, nenana or graft 414.00 Active 009263792 Problem Essential hypertension, benign 401.1 Active 8619067 Problem Arthralgia of neck M54.2 Active 22737270 Problem Obesity, unspecified 278.00 Active 838464984 ALLERGIES Substance Reaction Event Type Date Status Ibuprofen hives Drug Allergy Apr, Active Bactrim Unknown Drug Allergy Apr, Active SOCIAL HISTORY No smoking Hx information available PLAN OF CARE Activity Details Follow Up prn Reason: VITAL SIGNS Height 67 in 2016-05-17 Weight 228.0 lbs 2016-05-17 Temperature 97.3 degrees Fahrenheit 2016-05-17 Heart Rate 60 bpm 2016-05-17 Respiratory Rate 18 2016-05-17 BMI 35.71 kg/m2 2016-05-17 Blood pressure systolic 158 mmHg 2016-05-17 Blood pressure diastolic 92 mmHg 2016-05-17 MEDICATIONS Medication Instructions Dosage Frequency Start Date End Date Duration Status HydrOXYzine HCl 25 mg take 1 tablet (25 mg) by oral route 4 times per day Apr, Active Omeprazole 40 MG Orally Once a day 1 capsule 24h Active Losartan Potassium 50 MG Orally Once a day 1 tablet 24h Active Fluticasone Furoate Active Lipitor 40 MG Orally Once a day 1 tablet 24h Feb, Active Nystatin 814933 UNIT/ML Mouth/Throat Four times a day 5 ml 6h Apr, Apr, 15 days Active Hydrocodone-Acetaminophen Active Norflex 100 mg 1 tablet by Oral route 2 times per day Nov, Active Guaifenesin 400 MG Orally 4 times a day 1 tablet as needed 6h Apr, Active Cetirizine HCl 10 MG Orally Once a day 1 tablet 24h Apr, May, 30 day(s) Active Neurontin 400 mg 1 capsule by Oral route 3 times per day Oct, Active Miconazole Nitrate 2 % 1 soham by Topical route 2 times per day for 14 day(s ) Apr, Active Flonase Allergy Relief 50 MCG/ACT Nasally twice per day 1 spray in each nostril Apr, 30 day(s) Active RESULTS No Results PROCEDURES Procedure Date Ordered Related Diagnosis Body Site Office Visit, Est Pt., Level 3 May 17, 2016 IMMUNIZATIONS No Known Immunizations
--- OUTSIDE RECORDS SUMMARY | 2018-07-21 19:48 | XMS REPORT ---
Author Author JOCELYNN BUSTAMANTE Organization [facility] Address [address] [place] [address] Care Team Providers Care Ceo And Co Founder Name Role Phone JOCELYNN BUSTAMANTE Unavailable PROBLEMS Type Condition ICD9-CM Code TTG30-EM Code Onset Dates Condition Status SNOMED Code Problem Hyperlipidemia, unspecified hyperlipidemia type E78.5 Active 27507911 Problem Lumbago with sciatica, left side M54.42 Active 393296089 Problem Essential hypertension I10 Active 32463366 Problem CAD (coronary artery disease) I25.10 Active 49421415 Problem Hyperlipemia E78.5 Active 51378686 Problem Tongue sore K14.6 Active 05271323 Problem Acute seasonal allergic rhinitis, unspecified trigger J30.2 Active 480917706 Problem Constipation, unspecified constipation type K59.00 Active 20849239 Problem Seasonal allergic rhinitis, unspecified allergic rhinitis trigger J30.2 Active 853295735 Problem Hypothyroidism (acquired) E03.9 Active 180781294 Problem Arthritis of left shoulder region M19.012 Active [id number] ALLERGIES Substance Reaction Event Type Date Status Ibuprofen hives Drug Allergy Mar, Active Bactrim Unknown Drug Allergy Mar, Active ENCOUNTERS Encounter Location Date Diagnosis [facility] [address] [id number] [address] August, Sore throat J02.9 and Strep pharyngitis J02.0 [facility] [address] [id number] [address] August, Cervical paraspinal muscle spasm M62.838 [facility] [address] [id number] [address] May, [facility] [address] [id number] [address] May, [place] [id number] [place] [address] May, [place] [address] [address] May, Cervicalgia M54.2 [place] [address] [address] Apr, [facility] [place]note 2[facility] [address] [address] Apr, Tongue sore K14.6 [place] [address] [address] Apr, CAD (coronary artery disease) I25.10 ; Essential hypertension I10 ; Hyperlipidemia, unspecified hyperlipidemia type E78.5 and Shortness of breath R06.02 [place] [address] [address] Apr, [facility] [place] [address] [address] Apr, Sore throat J02.9 [facility] [address] [address] Mar, Acute seasonal allergic rhinitis, unspecified trigger J30.2 [facility] [address] [address] 06 Mar, 2017 Pharyngitis due to other organism J02.8 ; Cervical neuritis M54.12 and Lump in throat R22.1 [place] [address] [address] 16 Feb, 2017 Pneumonia due to infectious organism, unspecified laterality , unspecified part of lung J18.9 [place] [id number] [place] [address] 15 Feb, 2017 [place] [address] [address] Feb, [address] [address] Feb, Hypothyroidism (acquired) E03.9 [facility] [address] [address] Jan, Oral thrush B37.0 and Arthritis of left shoulder region M19.012 [facility] [address] [address] Dec, Acute seasonal allergic rhinitis due to other allergen J30.89 [facility] [address] [address] Nov, Torticollis, acquired M43.6 and Geographic tongue K14.[address] [address] Oct, Arthralgia of neck M54.2 [facility] [address] [address] Oct, Constipation, unspecified constipation type K59.[address] [address] Oct, Arthralgia of neck M54.2 [facility] [address] [address] August, Seasonal allergic rhinitis, unspecified allergic rhinitis trigger J30.2 and Acute gastritis without hemorrhage, unspecified gastritis type K29.[address] [address] Jul, Arthralgia of neck M54.2 ; Lumbago with sciatica, left side M54.42 and Neuropathy G62.[address] [address] Jul, CAD (coronary artery disease) I25.10 ; Shortness of breath R06.02 ; Hyperlipidemia, unspecified hyperlipidemia type E78.5 and History of tobacco use Z87.891 [facility] [address] [place] [id number] [place] [address] Jun, Other viral agents as the cause of diseases classified elsewhere B97.89 and Acute upper respiratory infection, unspecified J06.9 [facility] [id number] [place] [address] 04 May, 2016 Tonsillitis J03.90 [facility] [address] [place] [address] Apr, Other viral agents as the cause of diseases classified elsewhere B97.89 and Acute upper respiratory infection, unspecified J06.9 [facility] [address] [address] Apr, Candidiasis of mouth B37.0 [facility] [address] [address] Apr, Bronchitis J40 [facility] [address] [address] Mar, Oropharyngeal candidiasis B37.[address] [address] Jan, Hyperlipemia E78.[address] [address] 07 Jan, 2016 CAD (coronary artery disease) I25.10 ; Essential hypertension I10 ; Hyperlipidemia, unspecified hyperlipidemia type E78.5 and Dyspnea, unspecified type R06.00 [facility] [id number] [place] [id number] Oct, Dental caries K02.9 [facility] [address] [id number] Oct, Dental examination Z01.[address] [address] Apr, Right elbow pain M25.521 ; Left elbow pain M25.522 and Neuropathy G62.9 [facility] [id number] [place] [address] Feb, Hyperlipemia E78.5 [facility] [id number] [place] [address] 23 Jan, 2015 CAD (coronary artery disease) I25.10 ; Hyperlipemia E78.5 ; Obesity E66.9 and History of tobacco use Z87.891 [facility] [id number] [place] [address] 11 Dec, 2014 [facility] [id number] [place] [address] 04 Dec, 2014 Neuropathy 355.9 [facility] [id number] [place] [address] 14 Jul, 2014 [facility] [id number] [place] [address] 13 Jul, 2014 [facility] [id number] [place] [address] Jun, [facility] [id number] [place] [address] Jun, [facility] [id number] [place] [address] May, [facility] [id number] [place] [address] May, [facility] [id number] [place] [address] Apr, [facility] [id number] [place] [address] Apr, [facility] [id number] [place] [address] Apr, [facility] [id number] [place] [address] Apr, [facility] [place] [facility] [address] [id number] [place] [address] Apr, [facility] [place] [facility] [address] [id number] [place] [address] Apr, [facility] [place] [facility] [address] [id number] [place] [address] Apr, [facility] [place] [facility] [address] [id number] [place] [address] Apr, [facility] [place] [facility] [address] [id number] [place] [address] Mar, [facility] [place] [facility] [address] [id number] [place] [address] Mar, [facility] [place] [facility] [address] [id number] [place] [address] Nov, [facility] [place] [facility] [address] [id number] [place] [address] Nov, [facility] [place] [facility] [address] [id number] [place] [address] Oct, [facility] [place] [facility] [address] [id number] [place] [address] Oct, [facility] [place] [facility] [address] [id number] [place] [address]- [address] Oct, [facility] [place] [facility] [address] [id number] [place] [address] Oct, [facility] [place] [facility] [address] [id number] [place] [address]- [address] Oct, [facility] [place] [facility] [address] [id number] [place] [address]- [address] Sep, [facility] [place] [facility] [address] [id number] [place] [address]- [address] Sep, [facility] [place] [facility] [address] [id number] [place] [address]- [address] August, [facility] [address] [id number] [place] [address] August, [facility] [place] [facility] [address] [id number] [place] [address] Jul, [facility] [address] [id number] [place] [address] Jul, [facility] [place] [facility] [address] [id number] [place] [address] Jul, [facility] [place] [facility] [address] [id number] [place] [address] Jul, [facility] [place] [facility] [address] [id number] [place] [address]- [address] Jul, [facility] [address] [id number] [place] [address]- [address] Jul, [facility] [address] [id number] [place] [address] Jul, [facility] [place] [facility] [address] [id number] [place] [id number] Jul, [facility] [address] [id number] [place] [address]- [address] Jul, [facility] [place] [facility] [address] [id number] [place] [address]- 6[address] Jul, [facility] [place] [facility] [address] [id number] [place] [address]- [address] Jul, [facility] [place] [facility] [address] [id number] [place] [address]- [address] Jul, [facility] [place] [facility] [address] [id number] [place] [address] Jul, [facility] [place] [facility] [address] [id number] [place] [address]- [address] Jun, [facility] [place] [facility] [address] [id number] [place] [address]- [address] Jun, [facility] [place] [facility] [address] [id number] [place] [address]- [address] Jun, [facility] [place] [facility] [address] [id number] [place] [address]- 24[address] Jun, [facility] [place] [facility] [address] [id number] [place] [address]- 4[address] Jun, [facility] [place] [facility] [address] [id number] [place] [address]- 76[address] Jun, [facility] [place] [facility] [address] [id number] [place] [address]- 134[address] Jun, [facility] [place] [facility] [address] [id number] [place] [address]- 30[address] Jun, [facility] [place] [facility] [address] [id number] [place] [address]- 79[address] May, [facility] [place] [facility] [address] [id number] [place] [address]- [address] May, [facility] [place] [facility] [address] [id number] [place] [address]- 44[address] May, [facility] [place] [facility] [address] [id number] [place] [address]- [address] May, [facility] [place] [facility] [address] [id number] [place] [address]- [address] Apr, [facility] [place] [facility] [address] [id number] [place] [address]- 20[address] Apr, [facility] [place] [facility] [address] [id number] [place] [address]- [address] Apr, [facility] [place] [facility] [address] [id number] [place] [address]- [address] Apr, [facility] [place] [facility] [address] [id number] [address] Apr, [facility] [address] [id number] [place] [address]- [address] Apr, [facility] [place] [facility] [address] [id number] [place] [address]- [address] Mar, [facility] [address] [id number] [place] [address]- 8[address] Mar, [facility] [place] [facility] [address] [id number] [place] [address]- [address] Mar, [facility] [address] [id number] [place] [address]- [address] Mar, [facility] [place] [facility] [address] [id number] [place] [address]- 1334 Nov, [facility] [id number] [place] [address] May, [facility] [place] [facility] [address] [id number] [place] [address]- [address] May, [facility] [address] [id number] [place] [address]- [address] May, [facility] [address] [facility] [id number] [place] [address]- [address] May, [facility] [place] [facility] [id number] [place] [address]- [address] May, [facility] [place] [facility] [address] [id number] [place] [address]- 38[address] May, [facility] [place] [facility] [address] [id number] [place] [address]- 6[address] Apr, [facility] [place] [facility] [address] [id number] [place] [address]- 2000 Apr, [facility] [place] [facility] [address] [id number] [place] [address]- 8[address] Apr, [facility] [address] [facility] [id number] [place] [address]- [address] Apr, [facility] [address] [facility] [id number] [address] May, [facility] [address] [facility] [id number] [place] [address]- [address] Jun, IMMUNIZATIONS No Known Immunizations SOCIAL HISTORY Never Assessed REASON FOR VISIT congestion, neck pain, [facility] VITAL SIGNS Height 67 in 2017-04-03 Weight 230 lbs 2017-04-03 Temperature 97.7 degrees Fahrenheit 2017-04-03 Heart Rate 64 bpm 2017-04-03 Respiratory Rate 20 2017-04-03 BMI 36.02 kg/m2 2017-04-03 Blood pressure systolic 148 mmHg 2017-04-03 Blood pressure diastolic 90 mmHg 2017-04-03 MEDICATIONS Medication Instructions Dosage Frequency Start Date End Date Duration Status Lipitor 40 MG Orally Once a day 1 tablet 24h Feb, Active Gabapentin Active Losartan Potassium 50 mg Orally Once a day 1 tablet 24h Active Nystatin 536485 UNIT/ML Mouth/Throat Four times a day 4 ml 6h Active Omeprazole 40 MG Orally Once a day 1 capsule 24h Active Levothyroxine Sodium 25 MCG Orally Once a day 1 tablet on an empty stomach in the morning 24h Feb, 30 day(s) Active Guaifenesin 400 mg Orally every 4 hrs 1 tablet as needed 4h Feb, Not-Taking Hydrocodone-Acetaminophen Not-Taking Flonase Allergy Relief 50 MCG/ACT Nasally twice per day 1 spray in each nostril Apr, 30 day(s) Active PredniSONE 20 mg Orally Once a day 2 tablets 24h Mar, Mar, 05 days Active Amoxicillin 500 mg Orally 3 times a day 1 capsule 8h Mar, Mar, 10 day(s) Active RESULTS Name Result Date Reference Range Xray : Chest (IN HOUSE) 2017-04-03 Ultrasound : Neck 2017-04-10 PROCEDURES Procedure Date Ordered Result Body Site CHEST X-RAY Apr 03, 2017 INSTRUCTIONS MEDICATIONS ADMINISTERED No Known Medications MEDICAL (GENERAL) HISTORY Type Description Date Medical History Hypertension Medical History Hyperlipidemia Medical History Hypothyroidism Medical History Chronic pain Surgical History heart cath Surgical History cervical fusion Hospitalization History [place] F[facility]
--- OUTSIDE RECORDS SUMMARY | 2018-07-21 19:48 | XMS REPORT ---
Author Author JO OQUENDO Organization [facility] Address [address] [place] [address] Care Team Providers Care Radiation Technician Name Role Phone JO OQUENDO Unavailable PROBLEMS Type Condition ICD9-CM Code GJH13-JS Code Onset Dates Condition Status SNOMED Code Problem Other and unspecified hyperlipidemia 272.4 Active 18879218 Problem CAD (coronary artery disease) I25.10 Active 91627287 Problem Unspecified hypothyroidism 244.9 Active 69720582 Problem Constipation, unspecified constipation type K59.00 Active 31463661 Problem Seasonal allergic rhinitis, unspecified allergic rhinitis trigger J30.2 Active 865506401 Problem Hyperlipidemia, unspecified hyperlipidemia type E78.5 Active 48133195 Problem Hyperlipemia E78.5 Active 50870440 Problem Lumbago with sciatica, left side M54.42 Active 908131058 Problem Essential hypertension I10 Active 08058331 Problem Family history of other cardiovascular diseases V17.49 Active 403670229 Problem Coronary atherosclerosis of unspecified type of vessel, venetie or graft 414.00 Active 942386626 Problem Essential hypertension, benign 401.1 Active 0806335 Problem Arthralgia of neck M54.2 Active 85525969 Problem Obesity, unspecified 278.00 Active 870441655 ALLERGIES Substance Reaction Event Type Date Status Ibuprofen hives Drug Allergy Jun, Active Bactrim Unknown Drug Allergy Jun, Active SOCIAL HISTORY Never Assessed PLAN OF CARE Activity Details Follow Up prn Reason: VITAL SIGNS Height 67 in 2016-06-29 Weight 225.0 lbs 2016-06-29 Temperature 97.8 degrees Fahrenheit 2016-06-29 Heart Rate 60 bpm 2016-06-29 Respiratory Rate 20 2016-06-29 BMI 35.24 kg/m2 2016-06-29 Blood pressure systolic 132 mmHg 2016-06-29 Blood pressure diastolic 70 mmHg 2016-06-29 MEDICATIONS Medication Instructions Dosage Frequency Start Date End Date Duration Status Hydrocodone-Acetaminophen Active Fluticasone Furoate Active Norflex 100 mg 1 tablet by Oral route 2 times per day Nov, Active Omeprazole 40 MG Orally Once a day 1 capsule 24h Active Guaifenesin 400 MG Orally 4 times a day 1 tablet as needed 6h Apr, Active Losartan Potassium 50 MG Orally Once a day 1 tablet 24h Active Miconazole Nitrate 2 % 1 soham by Topical route 2 times per day for 14 day(s ) Apr, Active Neurontin 400 mg 1 capsule by Oral route 3 times per day Oct, Active HydrOXYzine HCl 25 mg take 1 tablet (25 mg) by oral route 4 times per day Apr, Active Lipitor 40 MG Orally Once a day 1 tablet 24h Feb, Active Flonase Allergy Relief 50 MCG/ACT Nasally twice per day 1 spray in each nostril Apr, 30 day(s) Active Singulair 10 MG Orally Once a day 1 tablet in the evening 24h Jun, 30 day(s) Active RESULTS No Results PROCEDURES No Known procedures IMMUNIZATIONS No Known Immunizations MEDICAL (GENERAL) HISTORY Type Description Date Medical History Hypertension Medical History Hyperlipidemia Medical History Hypothyroidism Medical History Chronic pain Surgical History heart cath Surgical History cervical fusion Hospitalization History [facility] Fever
--- OUTSIDE RECORDS SUMMARY | 2018-07-21 19:49 | XMS REPORT ---
Author Author ROCAEL [place] IN [facility] Address [address] [place] [address] Care Team Providers Care Manager Port Name Role Phone jojoCARIDADLIANNE ROCAEL Unavailable PROBLEMS Type Condition ICD9-CM Code KKO76-FE Code Onset Dates Condition Status SNOMED Code Problem Hyperlipidemia, unspecified hyperlipidemia type E78.5 Active 67909532 Problem Lumbago with sciatica, left side M54.42 Active 320962936 Problem Essential hypertension I10 Active 27162298 Problem CAD (coronary artery disease) I25.10 Active 83308139 Problem Hyperlipemia E78.5 Active 95231488 Problem Tongue sore K14.6 Active 23109749 Problem Acute seasonal allergic rhinitis, unspecified trigger J30.2 Active 208259635 Problem Constipation, unspecified constipation type K59.00 Active 55721095 Problem Seasonal allergic rhinitis, unspecified allergic rhinitis trigger J30.2 Active 763021136 Problem Hypothyroidism (acquired) E03.9 Active 734802593 Problem Arthritis of left shoulder region M19.012 Active [id number] ALLERGIES Substance Reaction Event Type Date Status Ibuprofen hives Drug Allergy Dec, Active Bactrim Unknown Drug Allergy Dec, Active ENCOUNTERS Encounter Location Date Diagnosis [facility] [id number] [address] May, [facility] [address] [address] May, [facility] [address] [address] May, [facility] [id number] [address] May, Cervicalgia M54.2 [facility] [id number] [place] [address] Apr, [facility] [place] [address] [address] Apr, Tongue sore K14.[address] [address] Apr, CAD (coronary artery disease) I25.10 ; Essential hypertension I10 ; Hyperlipidemia, unspecified hyperlipidemia type E78.5 and Shortness of breath R06.[address] [address] Apr, [facility] [address] [address] Apr, Sore throat J02.[address] [address] Mar, Acute seasonal allergic rhinitis, unspecified trigger J30.2 [facility] [address] [address] 06 Mar, 2017 Pharyngitis due to other organism J02.8 ; Cervical neuritis M54.12 and Lump in throat R22.1 [place] [id number] [place] [address] 16 Feb, 2017 Pneumonia due to infectious organism, unspecified laterality , unspecified part of lung J18.9 [place] [id number] [place] [address] Feb, [place] [address] [address] Feb, [address] [address] 02 Feb, 2017 Hypothyroidism (acquired) E03.9 [facility] [place] [address] [address] Jan, Oral thrush B37.0 and Arthritis of left shoulder region M19.012 [facility] [place] [id number] [place] [address] Dec, Acute seasonal allergic rhinitis due to other allergen J30.89 [facility] [address] [address] Nov, Torticollis, acquired M43.6 and Geographic tongue K14.[address] [address] Oct, Arthralgia of neck M54.2 [facility] [address] [address] Oct, Constipation, unspecified constipation type K59.[address] [address] Oct, Arthralgia of neck M54.2 [facility] [address] [address] August, Seasonal allergic rhinitis, unspecified allergic rhinitis trigger J30.2 and Acute gastritis without hemorrhage, unspecified gastritis type K29.[address] [address] Jul, Arthralgia of neck M54.2 ; Lumbago with sciatica, left side M54.42 and Neuropathy G62.[address] [address] Jul, CAD (coronary artery disease) I25.10 ; Shortness of breath R06.02 ; Hyperlipidemia, unspecified hyperlipidemia type E78.5 and History of tobacco use Z87.891 [facility] [address] [address] Jun, Other viral agents as the cause of diseases classified elsewhere B97.89 and Acute upper respiratory infection, unspecified J06.9 [facility] [address] [address] May, Tonsillitis J03.90 [facility] [address] [address] Apr, Other viral agents as the cause of diseases classified elsewhere B97.89 and Acute upper respiratory infection, unspecified J06.9 [facility] [address] [address] Apr, Candidiasis of mouth B37.0 [facility] [address] [address] Apr, Bronchitis J40 [facility] [address] [address] Mar, Oropharyngeal candidiasis B37.[address] [address] Jan, Hyperlipemia E78.[address] [address] Jan, CAD (coronary artery disease) I25.10 ; Essential hypertension I10 ; Hyperlipidemia, unspecified hyperlipidemia type E78.5 and Dyspnea, unspecified type R06.00 [facility] [address] [id number] Oct, Dental caries K02.9 [facility] [address] [id number] Oct, Dental examination Z01.[address] [address] Apr, Right elbow pain M25.521 ; Left elbow pain M25.522 and Neuropathy G62.9 [place] [address] [address] Feb, Hyperlipemia E78.5 [place] [address] [address] Jan, CAD (coronary artery disease) I25.10 ; Hyperlipemia E78.5 ; Obesity E66.9 and History of tobacco use Z87.891 [facility] [address] [address] 11 Dec, 2014 [facility] [address], [place] [address] 04 Dec, 2014 Neuropathy 355.9 [facility] [address], [place] [address] 14 Jul, 2014 [facility] [address] [address] Jul, [facility] [address] [place] [address] Jun, [facility] [address], [place] [address] Jun, [facility] [address] [place] [address] May, [facility] [address], [place] [address] May, [facility] [address], [place] [address] Apr, [facility] [address] [address] Apr, [facility] [address] [address] Apr, [facility] [address] [place] [address] Apr, [facility] [address] [address] [address] Apr, [facility] [address] [address] Apr, [facility] [address] [place] [address] Apr, [facility] [address] [id number] [place] [address] Apr, [facility] [place] [facility] [address] [id number] [place] [address] Mar, [facility] [address] [id number] [place] [address] Mar, [facility] [place] [facility] [address] [id number] [place] [address] Nov, [facility] [address] [id number] [place] [address] Nov, [facility] [address] [id number] [place] [address] Oct, [facility] [place] [facility] [address] [id number] [place] [address] Oct, [facility] [address] [id number] [place] [address] Oct, [facility] [place] [facility] [address] [id number] [place] [address] 1995 Oct, [facility] [address] [id number] [place] [address] Oct, [facility] [place] [facility] [address] [id number] [place] [address] Sep, [facility] [place] [facility] [address] [id number] [place] [address] Sep, [facility] [place] [facility] [address] [id number] [place] [address] August, [facility] [place] [facility] [address] [id number] [place] [address] August, [facility] [place] [facility] [address] [id number] [place] [address] Jul, [facility] [address] [id number] [place] [address] Jul, [facility] [place] [facility] [address] [id number] [place] [address]- [address] Jul, [facility] [place] [facility] [address] [id number] [place] [address] Jul, [facility] [place] [facility] [address] [id number] [place] [address]- [address] Jul, [facility] [address] [id number] [place] [address]- [address] Jul, [facility] [place] [facility] [address] [id number] [place] [address]- [address] Jul, [facility] [place] [facility] [address] [id number] [place] [id number] Jul, [facility] [place] [facility] [address] [id number] [place] [address]- [address] Jul, [facility] [place] [facility] [address] [id number] [place] [address]- [address] Jul, [facility] [place] [facility] [address] [id number] [place] [address]- 365[address] Jul, [facility] [place] [facility] [address] [id number] [place] [address]- [address] Jul, [facility] [place] [facility] [address] [id number] [place] [address]- [address] Jul, [facility] [place] [facility] [address] [id number] [place] [address]- [address] Jun, [facility] [place] [facility] [address] [id number] [place] [address]- [address] Jun, [facility] [place] [facility] [address] [id number] [place] [address]- [address] Jun, [facility] [place] [facility] [address] [id number] [place] [address]- [address] Jun, [facility] [place] [facility] [address] [id number] [place] [address]- [address] Jun, [facility] [place] [facility] [address] [id number] [place] [address]- [address] Jun, [facility] [place] [facility] [address] [id number] [place] [address]- [address] Jun, [facility] [place] [facility] [address] [id number] [place] [address]- [address] Jun, [facility] [place] [facility] [address] [id number] [place] [address]- [address] May, [facility] [place] [facility] [address] [id number] [place] [address]- [address] May, [facility] [place] [facility] [address] [id number] [place] [address]- [address] May, [facility] [place] [facility] [address] [id number] [place] [address]- [address] May, [facility] [place] [facility] [address] [id number] [place] [address]- [address] Apr, [facility] [place] [facility] [address] [id number] [place] [address]- [address] Apr, [facility] [place] [facility] [address] [id number] [place] [address]- 235[address] Apr, [facility] [place] [facility] [address] [id number] [place] [address]- [address] Apr, [facility] [place] [facility] [address] [id number] [place] [address]- [address] Apr, [facility] [place] [facility] [address] [id number] [place] [address]- [address] Apr, [facility] [place] [facility] [address] [facility] [id number] [place] [address]- [address] Mar, [facility] [place] [facility] [address] [id number] [place] [address]- [address] Mar, [facility] [place] [facility] [address] [id number] [place] [address]- [address] Mar, [facility] [place] [facility] [address] [id number] [place] [address]- [address] Mar, [facility] [place] [facility] [address] [id number] [place] [address]- [address] Nov, [facility] [place] [facility] [address] [id number] [place] [address]- [address] May, [facility] [place] [facility] [address] [id number] [place] [address]- [address] May, [facility] [place] [facility] [address] [facility] [id number] [place] [address]- [address] May, [facility] [place] [facility] [address] [id number] [place] [address]- [address] May, [facility] [place] [facility] [address] [id number] [place] [address]- [address] May, [facility] [place] [facility] [address] [facility] [id number] [place] [address]- [address] May, [facility] [place] [facility] [address] [facility] [id number] [place] [address]- [address] Apr, [facility] [place] [facility] [address] [id number], [place] [address] Apr, [facility] [place] [facility] [address] [id number] [place] [address]- [address] Apr, [facility] [place] [facility] [address] [id number] [place] [address]- [address] Apr, [facility] [place] [facility] [address] [facility] [id number] [address] 29 May, 2011 [facility] [place] [facility] [address] [facility] [id number], [place] [address] Jun, IMMUNIZATIONS No Known Immunizations SOCIAL HISTORY Never Assessed REASON FOR VISIT sore throat, cough, runny nose JStrassHansa PLAN OF CARE Activity Details Follow Up prn Reason: VITAL SIGNS Height 67 in 2017-01-25 Weight 221.4 lbs 2017-01-25 Temperature 97.7 degrees Fahrenheit 2017-01-25 Heart Rate 76 bpm 2017-01-25 Respiratory Rate 20 2017-01-25 BMI 34.67 kg/m2 2017-01-25 Blood pressure systolic 112 mmHg 2017-01-25 Blood pressure diastolic 76 mmHg 2017-01-25 MEDICATIONS Medication Instructions Dosage Frequency Start Date End Date Duration Status Cyclobenzaprine HCl 7.5 MG Orally Three times a day 1 tablet as needed 8h Active Singulair 10 MG Orally Once a day 1 tablet in the evening 24h 30 Active Cetirizine HCl 10 MG Orally Once a day 1 tablet 24h Dec, 30 day (s) Active Zofran ODT 4 MG Orally every 8 hrs 1 tablet on the tongue and allow to dissolve 8h Oct, 5 days Active Omeprazole 40 MG Orally Once a day 1 capsule 24h Active Singulair 10 MG Orally Once a day 1 tablet in the evening 24h Dec, 30 day(s) Active Hydrocodone-Acetaminophen Active Gabapentin 400 MG Orally twice per day 1 capsule Jul, 30 day( s) Active Losartan Potassium 50 MG Orally Once a day 1 tablet 24h Active Lipitor 40 MG Orally Once a day 1 tablet 24h Feb, Active Cetirizine HCl 10 MG Orally Once a day 1 tablet 24h August, 30 day (s) Active RESULTS No Results PROCEDURES No Known procedures INSTRUCTIONS MEDICATIONS ADMINISTERED No Known Medications MEDICAL (GENERAL) HISTORY Type Description Date Medical History Hypertension Medical History Hyperlipidemia Medical History Hypothyroidism Medical History Chronic pain Surgical History heart cath Surgical History cervical fusion Hospitalization History [place] Fever
--- OUTSIDE RECORDS SUMMARY | 2018-07-21 19:50 | XMS REPORT | Continuity of Care Document ---
Author Author [facility] Address Unknown Phone Unavailable Allergies Active Description Code Type Severity Reaction Onset Reported/Identified Relationship to Patient Clinical Status Yes ibuprofen Drug Allergy 05/23/2010 Yes ibuprofen Drug Allergy N/A N/A 05/23/2010 Yes Bactrim Drug Allergy N/A N/A 04/27/2013 Yes ibuprofen [id number] Drug Allergy Severe HIVES 01/02/2017 Medications There is no data. Problems Date Dx Coded Attending Type Code Diagnosis Diagnosed By 05/23/2010 724.5 BACKACHE UNSPECIFIED 05/23/2010 724.5 BACKACHE UNSPECIFIED 05/23/2010 724.5 BACKACHE UNSPECIFIED 05/23/2010 JOCELYNN BUSTAMANTE APRN 724.5 BACKACHE UNSPECIFIED 05/23/2010 724.5 BACKACHE UNSPECIFIED 05/23/2010 724.5 BACKACHE UNSPECIFIED 05/23/2010 JOCELYNN BUSTAMANTE APRN 724.5 BACKACHE UNSPECIFIED 05/23/2010 MEKHI BRAVO APRN S 724.5 BACKACHE UNSPECIFIED 05/23/2010 JACQUE JEFFERY APRN 724.5 BACKACHE UNSPECIFIED 05/23/2010 MILLER DO, JOSH K 724.5 BACKACHE UNSPECIFIED 05/23/2010 MEKHI BRAVO APRN S 724.5 BACKACHE UNSPECIFIED 05/23/2010 MILLER DO, JOSH K 724.5 BACKACHE UNSPECIFIED 05/23/2010 JESSICA GARRIDO DDS 724.5 BACKACHE UNSPECIFIED 05/23/2010 JOCELYNN BUSTAMANTE APRN 724.5 BACKACHE UNSPECIFIED 05/23/2010 MILLER DO, JOSH K 724.5 BACKACHE UNSPECIFIED 05/23/2010 JOCELYNN BUSTAMANTE APRN 724.5 BACKACHE UNSPECIFIED 05/23/2010 MEKHI BRAVO APRN S 724.5 BACKACHE UNSPECIFIED 05/23/2010 MEKHI BRAVO APRN S 724.5 BACKACHE UNSPECIFIED 05/23/2010 SHELBY TOVAR APRN 724.5 BACKACHE UNSPECIFIED 05/23/2010 FRANKLIN MELENDEZ MD 724.5 BACKACHE UNSPECIFIED 05/23/2010 JOCELYNN BUSTAMANTE APRN 724.5 BACKACHE UNSPECIFIED 05/23/2010 MILLER DO, JOSH K 724.5 BACKACHE UNSPECIFIED 05/23/2010 JOCELYNN BUSTAMANTE APRN 724.5 BACKACHE UNSPECIFIED 06/20/2010 Ot 401.9 06/20/2010 Ot 724.2 06/20/2010 Ot 724.3 07/14/2010 311 DEPRESSIVE DISORDER NOT ELSEWHERE CLASSIFIED 07/14/2010 461.9 ACUTE SINUSITIS UNSPECIFIED 07/14/2010 311 DEPRESSIVE DISORDER NOT ELSEWHERE CLASSIFIED 07/14/2010 461.9 ACUTE SINUSITIS UNSPECIFIED 07/14/2010 311 DEPRESSIVE DISORDER NOT ELSEWHERE CLASSIFIED 07/14/2010 461.9 ACUTE SINUSITIS UNSPECIFIED 07/14/2010 JOCELYNN BUSTAMANTE APRN 311 DEPRESSIVE DISORDER NOT ELSEWHERE CLASSIFIED 07/14/2010 JOCELYNN BUSTAMANTE APRN 461.9 ACUTE SINUSITIS UNSPECIFIED 07/14/2010 311 DEPRESSIVE DISORDER NOT ELSEWHERE CLASSIFIED 07/14/2010 461.9 ACUTE SINUSITIS UNSPECIFIED 07/14/2010 311 DEPRESSIVE DISORDER NOT ELSEWHERE CLASSIFIED 07/14/2010 461.9 ACUTE SINUSITIS UNSPECIFIED 07/14/2010 JOCELYNN BUSTAMANTE APRN 311 DEPRESSIVE DISORDER NOT ELSEWHERE CLASSIFIED 07/14/2010 JOCELYNN BUSTAMANTE APRN 461.9 ACUTE SINUSITIS UNSPECIFIED 07/14/2010 MEKHI BRAVO APRN S 311 DEPRESSIVE DISORDER NOT ELSEWHERE CLASSIFIED 07/14/2010 MARANDA BRAVO APRNA S 461.9 ACUTE SINUSITIS UNSPECIFIED 07/14/2010 JOSE D LAROSE JACQUE R 311 DEPRESSIVE DISORDER NOT ELSEWHERE CLASSIFIED 07/14/2010 JOSE D LAROSE JACQUE R 461.9 ACUTE SINUSITIS UNSPECIFIED 07/14/2010 MILLER DO JOSH K 311 DEPRESSIVE DISORDER NOT ELSEWHERE CLASSIFIED 07/14/2010 MILLER DO JOSH K 461.9 ACUTE SINUSITIS UNSPECIFIED 07/14/2010 PAT BRAVO APRNNDA S 311 DEPRESSIVE DISORDER NOT ELSEWHERE CLASSIFIED 07/14/2010 LAWRENCE PRODUCTION CELL LEADER, MEKHI S 461.9 ACUTE SINUSITIS UNSPECIFIED 07/14/2010 MILLER DO, JOSH K 311 DEPRESSIVE DISORDER NOT ELSEWHERE CLASSIFIED 07/14/2010 MILLER DO, JOSH K 461.9 ACUTE SINUSITIS UNSPECIFIED 07/14/2010 WHITE DDS, JESSICA J 311 DEPRESSIVE DISORDER NOT ELSEWHERE CLASSIFIED 07/14/2010 WHITE DDS, JESSICA J 461.9 ACUTE SINUSITIS UNSPECIFIED 07/14/2010 JOCELYNN BUSTAMANTE APRN 311 DEPRESSIVE DISORDER NOT ELSEWHERE CLASSIFIED 07/14/2010 JOCELYNN BUSTAMANTE APRN 461.9 ACUTE SINUSITIS UNSPECIFIED 07/14/2010 MILLER DO, JOSH K 311 DEPRESSIVE DISORDER NOT ELSEWHERE CLASSIFIED 07/14/2010 MILLER DO, JOSH K 461.9 ACUTE SINUSITIS UNSPECIFIED 07/14/2010 JOCELYNN BUSTAMANTE APRN 311 DEPRESSIVE DISORDER NOT ELSEWHERE CLASSIFIED 07/14/2010 JOCELYNN BUSTAMANTE APRN 461.9 ACUTE SINUSITIS UNSPECIFIED 07/14/2010 PAT BRAVO APRNNDA S 311 DEPRESSIVE DISORDER NOT ELSEWHERE CLASSIFIED 07/14/2010 PAT BRAVO APRNNDA S 461.9 ACUTE SINUSITIS UNSPECIFIED 07/14/2010 PAT BRAVO APRNNDA S 311 DEPRESSIVE DISORDER NOT ELSEWHERE CLASSIFIED 07/14/2010 LAWRENCE LAROSE MEKHI S 461.9 ACUTE SINUSITIS UNSPECIFIED 07/14/2010 PETER TOVAR APRNA L 311 DEPRESSIVE DISORDER NOT ELSEWHERE CLASSIFIED 07/14/2010 DENYS TOVAR APRNNYA L 461.9 ACUTE SINUSITIS UNSPECIFIED 07/14/2010 FRANKLIN MELENDEZ MD 311 DEPRESSIVE DISORDER NOT ELSEWHERE CLASSIFIED 07/14/2010 FRANKLIN MELENDEZ MD 461.9 ACUTE SINUSITIS UNSPECIFIED 07/14/2010 JOCELYNN BUSTAMANTE APRN 311 DEPRESSIVE DISORDER NOT ELSEWHERE CLASSIFIED 07/14/2010 JOCELYNN BUSTAMANTE APRN 461.9 ACUTE SINUSITIS UNSPECIFIED 07/14/2010 MILLER DO JOSH K 311 DEPRESSIVE DISORDER NOT ELSEWHERE CLASSIFIED 07/14/2010 CORONA MILLER DOA K 461.9 ACUTE SINUSITIS UNSPECIFIED 07/14/2010 JOCELYNN BUSTAMANTE APRN 311 DEPRESSIVE DISORDER NOT ELSEWHERE CLASSIFIED 07/14/2010 JOCELYNN BUSTAMANTE APRN 461.9 ACUTE SINUSITIS UNSPECIFIED 11/16/2010 719.45 PAIN IN JOINT INVOLVING PELVIC REGION AND THIGH 11/16/2010 719.45 PAIN IN JOINT INVOLVING PELVIC REGION AND THIGH 11/16/2010 719.45 PAIN IN JOINT INVOLVING PELVIC REGION AND THIGH 11/16/2010 JOCELYNN BUSTAMANTE APRN 719.45 PAIN IN JOINT INVOLVING PELVIC REGION AND THIGH 11/16/2010 719.45 PAIN IN JOINT INVOLVING PELVIC REGION AND THIGH 11/16/2010 719.45 PAIN IN JOINT INVOLVING PELVIC REGION AND THIGH 11/16/2010 JOCELYNN BUSTAAMNTE APRN 719.45 PAIN IN JOINT INVOLVING PELVIC REGION AND THIGH 11/16/2010 MEKHI BRAVO APRN S 719.45 PAIN IN JOINT INVOLVING PELVIC REGION AND THIGH 11/16/2010 JACQUE JEFFERY APRN 719.45 PAIN IN JOINT INVOLVING PELVIC REGION AND THIGH 11/16/2010 CORONA MILLER DOA K 719.45 PAIN IN JOINT INVOLVING PELVIC REGION AND THIGH 11/16/2010 MEKHI BRAVO APRN S 719.45 PAIN IN JOINT INVOLVING PELVIC REGION AND THIGH 11/16/2010 CORONA MILLER DOA K 719.45 PAIN IN JOINT INVOLVING PELVIC REGION AND THIGH 11/16/2010 JESSICA GARRIDO DDS 719.45 PAIN IN JOINT INVOLVING PELVIC REGION AND THIGH 11/16/2010 JOCELYNN BUSTAMANTE APRN 719.45 PAIN IN JOINT INVOLVING PELVIC REGION AND THIGH 11/16/2010 CORONA MILLER DOA K 719.45 PAIN IN JOINT INVOLVING PELVIC REGION AND THIGH 11/16/2010 JOCELYNN BUSTAMANTE APRN 719.45 PAIN IN JOINT INVOLVING PELVIC REGION AND THIGH 11/16/2010 MEKHI BRAVO APRN S 719.45 PAIN IN JOINT INVOLVING PELVIC REGION AND THIGH 11/16/2010 MARANDA BRAVO APRNA S 719.45 PAIN IN JOINT INVOLVING PELVIC REGION AND THIGH 11/16/2010 SHELBY TOVAR APRN 719.45 PAIN IN JOINT INVOLVING PELVIC REGION AND THIGH 11/16/2010 FRANKLIN MELENDEZ MD 719.45 PAIN IN JOINT INVOLVING PELVIC REGION AND THIGH 11/16/2010 JOCELYNN BUSTAMANTE APRN 719.45 PAIN IN JOINT INVOLVING PELVIC REGION AND THIGH 11/16/2010 CORONA MILLER DOA K 719.45 PAIN IN JOINT INVOLVING PELVIC REGION AND THIGH 11/16/2010 JOCELYNN BUSTAMANTE APRN 719.45 PAIN IN JOINT INVOLVING PELVIC REGION AND THIGH 11/22/2010 Ot 729.1 MYALGIA AND MYOSITIS NOS 11/22/2010 Ot 780.60 FEVER, UNSPECIFIED 11/22/2010 Ot 995.20 UNSP ADVERSE EFFECT OF UNSP DRUG, MEDICI 11/22/2010 Ot E930.8 ADV EFF ANTIBIOTICS NEC 05/13/2012 706.9 UNSPECIFIED DISEASE OF SEBACEOUS GLANDS 05/13/2012 706.9 UNSPECIFIED DISEASE OF SEBACEOUS GLANDS 05/13/2012 706.9 UNSPECIFIED DISEASE OF SEBACEOUS GLANDS 05/13/2012 JOCELYNN BUSTAMANTE APRN 706.9 UNSPECIFIED DISEASE OF SEBACEOUS GLANDS 05/13/2012 706.9 UNSPECIFIED DISEASE OF SEBACEOUS GLANDS 05/13/2012 706.9 UNSPECIFIED DISEASE OF SEBACEOUS GLANDS 05/13/2012 JOCELYNN BUSTAMANTE APRN 706.9 UNSPECIFIED DISEASE OF SEBACEOUS GLANDS 05/13/2012 MEKHI BRAVO APRN S 706.9 UNSPECIFIED DISEASE OF SEBACEOUS GLANDS 05/13/2012 JACQUE JEFFERY APRN 706.9 UNSPECIFIED DISEASE OF SEBACEOUS GLANDS 05/13/2012 JOSH MILLER DO 706.9 UNSPECIFIED DISEASE OF SEBACEOUS GLANDS 05/13/2012 MEKHI BRAVO APRN S 706.9 UNSPECIFIED DISEASE OF SEBACEOUS GLANDS 05/13/2012 JOSH MILLER DO 706.9 UNSPECIFIED DISEASE OF SEBACEOUS GLANDS 05/13/2012 HEMA STARR, JESSICA Ansari 706.9 UNSPECIFIED DISEASE OF SEBACEOUS GLANDS 05/13/2012 JOCELYNN BUSTAMANTE APRN 706.9 UNSPECIFIED DISEASE OF SEBACEOUS GLANDS 05/13/2012 JOSH MILLER DO 706.9 UNSPECIFIED DISEASE OF SEBACEOUS GLANDS 05/13/2012 JOCELYNN BUSTAMANTE APRN 706.9 UNSPECIFIED DISEASE OF SEBACEOUS GLANDS 05/13/2012 MEKHI BRAVO APRN S 706.9 UNSPECIFIED DISEASE OF SEBACEOUS GLANDS 05/13/2012 MARANDA BRAVO APRNA S 706.9 UNSPECIFIED DISEASE OF SEBACEOUS GLANDS 05/13/2012 SHELBY TOVAR APRN 706.9 UNSPECIFIED DISEASE OF SEBACEOUS GLANDS 05/13/2012 AL BIGGS, FRANKLIN 706.9 UNSPECIFIED DISEASE OF SEBACEOUS GLANDS 05/13/2012 JOCELYNN BUSTAMANTE APRN 706.9 UNSPECIFIED DISEASE OF SEBACEOUS GLANDS 05/13/2012 ANGELA CHEN, JOSH K 706.9 UNSPECIFIED DISEASE OF SEBACEOUS GLANDS 05/13/2012 JOCELYNN BUSTAMANTE APRN 706.9 UNSPECIFIED DISEASE OF SEBACEOUS GLANDS 05/27/2012 706.2 SEBACEOUS CYST 05/27/2012 706.2 SEBACEOUS CYST 05/27/2012 JOCELYNN BUSTAMANTE APRN 706.2 SEBACEOUS CYST 05/27/2012 706.2 SEBACEOUS CYST 05/27/2012 706.2 SEBACEOUS CYST 05/27/2012 JOCELYNN BUSTAMANTE APRN 706.2 SEBACEOUS CYST 05/27/2012 MEKHI BRAVO APRN S 706.2 SEBACEOUS CYST 05/27/2012 JACQUE JEFFERY APRN R 706.2 SEBACEOUS CYST 05/27/2012 ANGELA CHEN, JOSH K 706.2 SEBACEOUS CYST 05/27/2012 MEKHI BRAVO APRN S 706.2 SEBACEOUS CYST 05/27/2012 CORONA MILLER DOA K 706.2 SEBACEOUS CYST 05/27/2012 HEMA AMAROS, JESSICA J 706.2 SEBACEOUS CYST 05/27/2012 JOCELYNN BUSTAMANTE APRN 706.2 SEBACEOUS CYST 05/27/2012 ANGELA CHEN, JOSH K 706.2 SEBACEOUS CYST 05/27/2012 JOCELYNN BUSTAMANTE APRN T 706.2 SEBACEOUS CYST 05/27/2012 MARANDA BRAVO APRNA S 706.2 SEBACEOUS CYST 05/27/2012 PAT BRAVO APRNNDA S 706.2 SEBACEOUS CYST 05/27/2012 PETER TOVAR APRNA L 706.2 SEBACEOUS CYST 05/27/2012 AL BIGGS, FRANKLIN 706.2 SEBACEOUS CYST 05/27/2012 JOCELYNN BUSTAMANTE APRN 706.2 SEBACEOUS CYST 05/27/2012 ANGELA CHEN JOSH K 706.2 SEBACEOUS CYST 05/27/2012 JOCELYNN BUSTAMANTE APRN 706.2 SEBACEOUS CYST 05/29/2012 272.1 HYPERTRIGLYCERIDEMIA 05/29/2012 JOCELYNN BUSTAMANTE APRN 272.1 HYPERTRIGLYCERIDEMIA 05/29/2012 JOCELYNN BUSTAMANTE APRN 338.29 CHRONIC PAIN 05/29/2012 272.1 HYPERTRIGLYCERIDEMIA 05/29/2012 338.29 CHRONIC PAIN 05/29/2012 272.1 HYPERTRIGLYCERIDEMIA 05/29/2012 338.29 CHRONIC PAIN 05/29/2012 JOCELYNN BUSTAMANTE APRN T 272.1 HYPERTRIGLYCERIDEMIA 05/29/2012 DIANNA LAROSE JOCELYNN T 338.29 CHRONIC PAIN 05/29/2012 LAWRENCE REDDYN, MEKHI S 272.1 HYPERTRIGLYCERIDEMIA 05/29/2012 LAWRENCE REDDYN, MEKHI S 338.29 CHRONIC PAIN 05/29/2012 JOSE D PRODUCTION CELL LEADER, JACQUE R 272.1 HYPERTRIGLYCERIDEMIA 05/29/2012 JOSE D PRODUCTION CELL LEADER, JACQUE R 338.29 CHRONIC PAIN 05/29/2012 MILLER DO, JOSH K 272.1 HYPERTRIGLYCERIDEMIA 05/29/2012 MILLER DO, JOSH K 338.29 CHRONIC PAIN 05/29/2012 LAWRENCE LAROSE, MEKHI S 272.1 HYPERTRIGLYCERIDEMIA 05/29/2012 LAWRENCE REDDYN, MEKHI S 338.29 CHRONIC PAIN 05/29/2012 MILLER DO, JOSH K 272.1 HYPERTRIGLYCERIDEMIA 05/29/2012 MILLER DO, JOSH K 338.29 CHRONIC PAIN 05/29/2012 WHITE DDS, JESSICA J 272.1 HYPERTRIGLYCERIDEMIA 05/29/2012 WHITE DDS, JESSICA J 338.29 CHRONIC PAIN 05/29/2012 JOCELYNN BUSTAMANTE APRN T 272.1 HYPERTRIGLYCERIDEMIA 05/29/2012 DIANNA LAROSE JOCELYNN T 338.29 CHRONIC PAIN 05/29/2012 MILLER DO, JOSH K 272.1 HYPERTRIGLYCERIDEMIA 05/29/2012 MILLER DO, JOSH K 338.29 CHRONIC PAIN 05/29/2012 JOCELYNN BUSTAMANTE APRN T 272.1 HYPERTRIGLYCERIDEMIA 05/29/2012 DIANNA LAROSE JOCELYNN T 338.29 CHRONIC PAIN 05/29/2012 LAWRENCE LAROSE MEKHI S 272.1 HYPERTRIGLYCERIDEMIA 05/29/2012 LAWRENCE LAROSE MEKHI S 338.29 CHRONIC PAIN 05/29/2012 LAWRENCE LAROSE MEKHI S 272.1 HYPERTRIGLYCERIDEMIA 05/29/2012 LAWRENCE REDDYN MEKHI S 338.29 CHRONIC PAIN 05/29/2012 MADSlava REDDYN, SHELBY L 272.1 HYPERTRIGLYCERIDEMIA 05/29/2012 GUY REDDYN, SHELBY L 338.29 CHRONIC PAIN 05/29/2012 AL BIGGS, FRANKLIN 272.1 HYPERTRIGLYCERIDEMIA 05/29/2012 AL BIGGS, FRANKLIN 338.29 CHRONIC PAIN 05/29/2012 JOCELYNN BUSTAMANTE APRN 272.1 HYPERTRIGLYCERIDEMIA 05/29/2012 JOCELYNN BUSTAMANTE APRN 338.29 CHRONIC PAIN 05/29/2012 MILLER DO, JOSH K 272.1 HYPERTRIGLYCERIDEMIA 05/29/2012 MILLER DO, JOSH K 338.29 CHRONIC PAIN 05/29/2012 JOCELYNN BUSTAMANTE APRN 272.1 HYPERTRIGLYCERIDEMIA 05/29/2012 JOCELYNN BUSTAMANTE APRN 338.29 CHRONIC PAIN 05/30/2012 JOCELYNN BUSTAMANTE APRN V58.31 WOUND DRESSING 05/30/2012 V58.31 WOUND DRESSING 05/30/2012 V58.31 WOUND DRESSING 05/30/2012 JOCELYNN BUSTAMANTE APRN V58.31 WOUND DRESSING 05/30/2012 PAT BRAVO APRNNDA S V58.31 WOUND DRESSING 05/30/2012 JACQUE JEFFERY APRN R V58.31 WOUND DRESSING 05/30/2012 MILLER DO, JOSH K V58.31 WOUND DRESSING 05/30/2012 LAWRENCE LAROSE MEKHI S V58.31 WOUND DRESSING 05/30/2012 MILLER DO, JOSH K V58.31 WOUND DRESSING 05/30/2012 JESSICA GARRIDO DDS J V58.31 WOUND DRESSING 05/30/2012 JOCELYNN BUSTAMANTE APRN V58.31 WOUND DRESSING 05/30/2012 MILLER DO, JOSH K V58.31 WOUND DRESSING 05/30/2012 JOCELYNN BUSTAMANTE APRN V58.31 WOUND DRESSING 05/30/2012 LAWRENCE LAROSE MEKHI S V58.31 WOUND DRESSING 05/30/2012 LAWRENCE LAROSE MEKHI S V58.31 WOUND DRESSING 05/30/2012 PETER TOVAR APRNA L V58.31 WOUND DRESSING 05/30/2012 FRANKLIN MELENDEZ MD V58.31 WOUND DRESSING 05/30/2012 JOCELYNN BUSTAMANTE APRN V58.31 WOUND DRESSING 05/30/2012 MILLER DO, JOSH K V58.31 WOUND DRESSING 05/30/2012 JOCELYNN BUSTAMANTE APRN V58.31 WOUND DRESSING 06/06/2012 V58.32 SUTURE REMOVAL 06/06/2012 DIANNA PRODUCTION CELL LEADER, JOCELYNN T V58.32 SUTURE REMOVAL 06/06/2012 LAWRENCE PRODUCTION CELL LEADER, MEKHI S V58.32 SUTURE REMOVAL 06/06/2012 JOSE D PRODUCTION CELL LEADER, JACQUE R V58.32 SUTURE REMOVAL 06/06/2012 MILLER DO, JOSH K V58.32 SUTURE REMOVAL 06/06/2012 LAWRENCE PRODUCTION CELL LEADER, MEKHI S V58.32 SUTURE REMOVAL 06/06/2012 MILLER DO, JOSH K V58.32 SUTURE REMOVAL 06/06/2012 WHITE DDS, JESSICA J V58.32 SUTURE REMOVAL 06/06/2012 DIANNA PRODUCTION CELL LEADER, JOCELYNN T V58.32 SUTURE REMOVAL 06/06/2012 MILLER DO, JOSH K V58.32 SUTURE REMOVAL 06/06/2012 DIANNA LAROSE, JOCELYNN T V58.32 SUTURE REMOVAL 06/06/2012 LAWRENCE PRODUCTION CELL LEADER, MEKHI S V58.32 SUTURE REMOVAL 06/06/2012 LAWRENCE PRODUCTION CELL LEADER, MEKHI S V58.32 SUTURE REMOVAL 06/06/2012 GUY LAROSE, SHELBY L V58.32 SUTURE REMOVAL 06/06/2012 AL BIGGS, FRANKLIN V58.32 SUTURE REMOVAL 06/06/2012 DIANNA LAROSE, JOCELYNN T V58.32 SUTURE REMOVAL 06/06/2012 MILLER DO, JOSH K V58.32 SUTURE REMOVAL 06/06/2012 DIANNA LAROSE, JOCELYNN T V58.32 SUTURE REMOVAL 04/27/2013 LAWRENCE PRODUCTION CELL LEADER, MEKHI S 786.09 DYSPNEA 04/27/2013 LAWRENCE PRODUCTION CELL LEADER, MEKHI S 786.50 CHEST PAIN 04/27/2013 LAWRENCE PRODUCTION CELL LEADER, MEKHI S V17.49 FAMILY HISTORY OF OTHER CARDIOVASCULAR DISEASES 04/27/2013 JOSE D PRODUCTION CELL LEADER, JACQUE R 786.09 DYSPNEA 04/27/2013 JOSE D PRODUCTION CELL LEADER, JACQUE R 786.50 CHEST PAIN 04/27/2013 JOSE D PRODUCTION CELL LEADER, JACQUE R V17.49 FAMILY HISTORY OF OTHER CARDIOVASCULAR DISEASES 04/27/2013 MILLER DO, JOSH K 786.09 DYSPNEA 04/27/2013 MILLER DO, JOSH K 786.50 CHEST PAIN 04/27/2013 MILLER DO, JOSH K V17.49 FAMILY HISTORY OF OTHER CARDIOVASCULAR DISEASES 04/27/2013 LAWRENCE PRODUCTION CELL LEADER, MEKHI S 786.09 DYSPNEA 04/27/2013 LAWRENCE PRODUCTION CELL LEADER, MEKHI S 786.50 CHEST PAIN 04/27/2013 LAWRENCE PRODUCTION CELL LEADER, MEKHI S V17.49 FAMILY HISTORY OF OTHER CARDIOVASCULAR DISEASES 04/27/2013 MILLER DO, JOSH K 786.09 DYSPNEA 04/27/2013 MILLER DO, JOSH K 786.50 CHEST PAIN 04/27/2013 MILLER DO, JOSH K V17.49 FAMILY HISTORY OF OTHER CARDIOVASCULAR DISEASES 04/27/2013 WHITE DDS, JESSICA J 786.09 DYSPNEA 04/27/2013 WHITE DDS, JESSICA J 786.50 CHEST PAIN 04/27/2013 WHITE DDS, JESSICA J V17.49 FAMILY HISTORY OF OTHER CARDIOVASCULAR DISEASES 04/27/2013 DIANNA LAROSE, JOCELYNN T 786.09 DYSPNEA 04/27/2013 DIANNA LAROSE, JOCELYNN T 786.50 CHEST PAIN 04/27/2013 DIANNA LAROSE JOCELYNN T V17.49 FAMILY HISTORY OF OTHER CARDIOVASCULAR DISEASES 04/27/2013 MILLER DO, JOSH K 786.09 DYSPNEA 04/27/2013 MILLER DO, JOSH K 786.50 CHEST PAIN 04/27/2013 MILLER DO, JOSH K V17.49 FAMILY HISTORY OF OTHER CARDIOVASCULAR DISEASES 04/27/2013 DIANNA LAROSE JOCELYNN T 786.09 DYSPNEA 04/27/2013 DIANNA LAROSE, JOCELYNN T 786.50 CHEST PAIN 04/27/2013 DIANNA LAROSE JOCELYNN T V17.49 FAMILY HISTORY OF OTHER CARDIOVASCULAR DISEASES 04/27/2013 LAWRENCE PRODUCTION CELL LEADER, MEKHI S 786.09 DYSPNEA 04/27/2013 LAWRENCE PRODUCTION CELL LEADER, MEKHI S 786.50 CHEST PAIN 04/27/2013 LAWRENCE PRODUCTION CELL LEADER, MEKHI S V17.49 FAMILY HISTORY OF OTHER CARDIOVASCULAR DISEASES 04/27/2013 LAWRENCE PRODUCTION CELL LEADER, MEKHI S 786.09 DYSPNEA 04/27/2013 LAWRENCE PRODUCTION CELL LEADER, MEKHI S 786.50 CHEST PAIN 04/27/2013 LAWRENCE PRODUCTION CELL LEADER, MEKHI S V17.49 FAMILY HISTORY OF OTHER CARDIOVASCULAR DISEASES 04/27/2013 MADL PRODUCTION CELL LEADER, SHELBY L 786.09 DYSPNEA 04/27/2013 MADL PRODUCTION CELL LEADER, SHELBY L 786.50 CHEST PAIN 04/27/2013 MADL PRODUCTION CELL LEADER, SHELBY L V17.49 FAMILY HISTORY OF OTHER CARDIOVASCULAR DISEASES 04/27/2013 FRANKLIN MELENDEZ MD 786.09 DYSPNEA 04/27/2013 AL BIGGS, FRANKLIN 786.50 CHEST PAIN 04/27/2013 AL BIGGS, FRANKLIN V17.49 FAMILY HISTORY OF OTHER CARDIOVASCULAR DISEASES 04/27/2013 JOCELYNN BUSTAMANTE APRN 786.09 DYSPNEA 04/27/2013 JOCELYNN BUSTAMANTE APRN T 786.50 CHEST PAIN 04/27/2013 JOCELYNN BUSTAMANTE APRN V17.49 FAMILY HISTORY OF OTHER CARDIOVASCULAR DISEASES 04/27/2013 MILLER DO, JOSH K 786.09 difficulty breathing (dyspnea) 04/27/2013 MILLER DO, JOSH K 786.50 CHEST PAIN 04/27/2013 MILLER DO, JOSH K V17.49 FAMILY HISTORY OF OTHER CARDIOVASCULAR DISEASES 04/27/2013 JOCELYNN BUSTAMANTE APRN 786.09 difficulty breathing (dyspnea) 04/27/2013 JOCELYNN BUSTAMANTE APRN 786.50 CHEST PAIN 04/27/2013 JOCELYNN BUSTAMANTE APRN V17.49 FAMILY HISTORY OF OTHER CARDIOVASCULAR DISEASES 05/16/2013 JACQUE JEFFERY APRN R 521.00 UNSPECIFIED DENTAL CARIES 05/16/2013 MILLER DO, JOSH K 521.00 UNSPECIFIED DENTAL CARIES 05/16/2013 MARANDA BRAVO APRNA S 521.00 UNSPECIFIED DENTAL CARIES 05/16/2013 MILLER DO, JOSH K 521.00 UNSPECIFIED DENTAL CARIES 05/16/2013 JESSICA GARRIDO DDS 521.00 UNSPECIFIED DENTAL CARIES 05/16/2013 JOCELYNN BUSTAMANTE APRN 521.00 UNSPECIFIED DENTAL CARIES 05/16/2013 MILLER DO, JOSH K 521.00 UNSPECIFIED DENTAL CARIES 05/16/2013 JOCELYNN BUSTAMANTE APRN 521.00 UNSPECIFIED DENTAL CARIES 05/16/2013 PAT BRAVO APRNNDA S 521.00 UNSPECIFIED DENTAL CARIES 05/16/2013 LAWRENCE LAROSE MEKHI S 521.00 UNSPECIFIED DENTAL CARIES 05/16/2013 SHELBY TOVAR APRN 521.00 UNSPECIFIED DENTAL CARIES 05/16/2013 FRANKLIN MELENDEZ MD 521.00 UNSPECIFIED DENTAL CARIES 05/16/2013 JOCELYNN BUSTAMANTE APRN 521.00 UNSPECIFIED DENTAL CARIES 05/16/2013 MILLER DO, JOSH K 521.00 UNSPECIFIED DENTAL CARIES 05/16/2013 JOCELYNN BUSTAMANTE APRN 521.00 UNSPECIFIED DENTAL CARIES 07/08/2013 LAWRENCE LAROSE MEKHI S 719.47 PAIN- FOOT 07/08/2013 LAWRENCE LAROSE MEKHI S 723.1 CERVICALGIA 07/08/2013 MILLER DO, JOSH K 719.47 PAIN- FOOT 07/08/2013 MILLER DO, JOSH K 723.1 CERVICALGIA 07/08/2013 WHITE DDS, JESSICA J 719.47 PAIN- FOOT 07/08/2013 WHITE DDS, JESSICA J 723.1 CERVICALGIA 07/08/2013 JOCELYNN BUSTAMANTE APRN 719.47 PAIN- FOOT 07/08/2013 JOCELYNN BUSTAMANTE APRN 723.1 CERVICALGIA 07/08/2013 MILLER DO, JOSH K 719.47 PAIN- FOOT 07/08/2013 MILLER DO, JOSH K 723.1 CERVICALGIA 07/08/2013 JOCELYNN BUSTAMANTE APRN 719.47 PAIN- FOOT 07/08/2013 JOCELYNN BUSTAMANTE APRN 723.1 CERVICALGIA 07/08/2013 MARANDA BRAVO APRNA S 719.47 PAIN- FOOT 07/08/2013 MARANDA BRAVO APRNA S 723.1 CERVICALGIA 07/08/2013 PAT BRAVO APRNNDA S 719.47 PAIN- FOOT 07/08/2013 LAWRENCE LAROSE MEKHI S 723.1 CERVICALGIA 07/08/2013 PETER TOVAR APRNA L 719.47 PAIN- FOOT 07/08/2013 GUY LAROSE SHELBY L 723.1 CERVICALGIA 07/08/2013 FRANKLIN MELENDEZ MD 719.47 PAIN- FOOT 07/08/2013 FRANKLIN MELENDEZ MD 723.1 CERVICALGIA 07/08/2013 JOCELYNN BUSTAMANTE APRN 719.47 PAIN- FOOT 07/08/2013 JOCELYNN BUSTAMANTE APRN 723.1 CERVICALGIA 07/08/2013 MILLER DO, JOSH K 719.47 PAIN- FOOT 07/08/2013 MILLER DO, JOSH K 723.1 CERVICALGIA 07/08/2013 JOCELYNN BUSTAMANTE APRN 719.47 PAIN- FOOT 07/08/2013 JOCELYNN BUSTAMANTE APRN 723.1 CERVICALGIA 07/31/2013 MILLER DO, JOSH K 272.4 HYPERLIPIDEMIA 07/31/2013 MILLER DO, JOSH K 278.00 OBESITY 07/31/2013 MILLER DO, JOSH K 401.1 HYPERTENSION, BENIGN ESSENTIAL 07/31/2013 WHITE DDS, JESSICA J 272.4 HYPERLIPIDEMIA 07/31/2013 WHITE DDS, JESSICA J 278.00 OBESITY 07/31/2013 WHITE DDS, JESSICA J 401.1 HYPERTENSION, BENIGN ESSENTIAL 07/31/2013 JOCELYNN BUSTAMANTE APRN T 272.4 HYPERLIPIDEMIA 07/31/2013 JOCELYNN BUSTAMANTE APRN T 278.00 OBESITY 07/31/2013 JOCELYNN BUSTAMANTE APRN T 401.1 HYPERTENSION, BENIGN ESSENTIAL 07/31/2013 MILLER DO, JOSH K 272.4 HYPERLIPIDEMIA 07/31/2013 MILLER DO, JOSH K 278.00 OBESITY 07/31/2013 MILLER DO, JOSH K 401.1 HYPERTENSION, BENIGN ESSENTIAL 07/31/2013 JOCELYNN BUSTAMANTE APRN T 272.4 HYPERLIPIDEMIA 07/31/2013 JOCELYNN BUSTAMANTE APRN T 278.00 OBESITY 07/31/2013 JOCELYNN BUSTAMANTE APRN 401.1 HYPERTENSION, BENIGN ESSENTIAL 07/31/2013 LAWRENCE LAROSE, MEKHI S 272.4 HYPERLIPIDEMIA 07/31/2013 LAWRENCE LAROSE, MEKHI S 278.00 OBESITY 07/31/2013 LAWRENCE LAROSE MEKHI S 401.1 HYPERTENSION, BENIGN ESSENTIAL 07/31/2013 LAWRENCE LAROSE, MEKHI S 272.4 HYPERLIPIDEMIA 07/31/2013 LAWRENCE LAROSE, MEKHI S 278.00 OBESITY 07/31/2013 LAWRENCE LAROSE MEKHI S 401.1 HYPERTENSION, BENIGN ESSENTIAL 07/31/2013 MADL PRODUCTION CELL LEADER, SHELBY L 272.4 HYPERLIPIDEMIA 07/31/2013 MADL PRODUCTION CELL LEADER, SHELBY L 278.00 OBESITY 07/31/2013 MADL THUAN, SHELBY L 401.1 HYPERTENSION, BENIGN ESSENTIAL 07/31/2013 FRANKLIN MELENDEZ MD 272.4 HYPERLIPIDEMIA 07/31/2013 AL BIGGS, FRANKLIN 278.00 OBESITY 07/31/2013 FRANKLIN MELENDEZ MD 401.1 HYPERTENSION, BENIGN ESSENTIAL 07/31/2013 JOCELYNN BUSTAMANTE APRN T 272.4 HYPERLIPIDEMIA 07/31/2013 JOCELYNN BUSTAMANTE APRN T 278.00 OBESITY 07/31/2013 JOCELYNN BUSTAMANTE APRN 401.1 HYPERTENSION, BENIGN ESSENTIAL 07/31/2013 MILLER DO, JOSH K 272.4 HYPERLIPIDEMIA 07/31/2013 MILLER DO, JOSH K 278.00 OBESITY 07/31/2013 MILLER DO, JOSH K 401.1 ESSENTIAL HYPERTENSION BENIGN 07/31/2013 JOCELYNN BUSTAMANTE APRN 272.4 HYPERLIPIDEMIA 07/31/2013 JOCELYNN BUSTAMANTE APRN T 278.00 OBESITY 07/31/2013 JOCELYNN BUSTAMANTE APRN 401.1 ESSENTIAL HYPERTENSION BENIGN 08/18/2013 JOCELYNN BUSTAMANTE APRN 701.9 SKIN TAG 08/18/2013 MILLER DO, JOSH K 701.9 SKIN TAG 08/18/2013 JOCELYNN BUSTAMANTE APRN 701.9 SKIN TAG 08/18/2013 MARANDA BRAVO APRNA S 701.9 SKIN TAG 08/18/2013 PAT BRAVO APRNNDA S 701.9 SKIN TAG 08/18/2013 PETER TOVAR APRNA L 701.9 SKIN TAG 08/18/2013 FRANKLIN MELENDEZ MD 701.9 SKIN TAG 08/18/2013 JOCELYNN BUSTAMANTE APRN 701.9 SKIN TAG 08/18/2013 MILLER DO, JOSH K 701.9 SKIN TAG 08/18/2013 JOCELYNN BUSTAMANTE APRN 701.9 SKIN TAG 08/21/2013 JOCELYNN BUSTAMANTE APRN 244.9 HYPOTHYROIDISM 08/21/2013 PAT BRAVO APRNNDA S 244.9 HYPOTHYROIDISM 08/21/2013 PAT BRAVO APRNNDA S 244.9 HYPOTHYROIDISM 08/21/2013 ALEXIS TOVAR APRNWNYA L 244.9 HYPOTHYROIDISM 08/21/2013 FRANKLIN MELENDEZ MD 244.9 HYPOTHYROIDISM 08/21/2013 JOCELYNN BUSTAMANTE APRN 244.9 HYPOTHYROIDISM 08/21/2013 MILLER DO, JOSH K 244.9 HYPOTHYROIDISM 08/21/2013 JOCELYNN BUSTAMANTE APRN 244.9 HYPOTHYROIDISM 10/27/2013 PAT BRAVO APRNNDA S 784.7 EPISTAXIS 10/27/2013 PAT BRAVO APRNNDA S 784.7 EPISTAXIS 10/27/2013 ALEXIS TOVAR APRNWNYA L 784.7 EPISTAXIS 10/27/2013 FRANKLIN MELENDEZ MD 784.7 EPISTAXIS 10/27/2013 JOCELYNN BUSTAMANTE APRN 784.7 EPISTAXIS 10/27/2013 JOSH MILLER DO 784.7 EPISTAXIS 10/27/2013 JOCELYNN BUSTAMANTE APRN 784.7 EPISTAXIS 12/08/2013 MEKHI BRAVO APRN S 724.2 LUMBAGO/ LOW BACK PAIN 12/08/2013 SHELBY TOVAR APRN 724.2 LUMBAGO/ LOW BACK PAIN 12/08/2013 FRANKLIN MELENDEZ MD 724.2 LUMBAGO/ LOW BACK PAIN 12/08/2013 JOCELYNN BUSTAMANTE APRN 724.2 LUMBAGO/ LOW BACK PAIN 12/08/2013 JOSH MILLER DO 724.2 LUMBAGO/ LOW BACK PAIN 12/08/2013 JOCELYNN BUSTAMANTE APRN 724.2 LUMBAGO/ LOW BACK PAIN 05/12/2014 FRANKLIN MELENDEZ MD Ot 244.9 HYPOTHYROIDISM NOS 05/12/2014 FRANKLIN MELENDEZ MD Ot 272.4 HYPERLIPIDEMIA NEC/NOS 05/12/2014 FRANKLIN MELENDEZ MD Ot 278.00 OBESITY, NOS 05/12/2014 FRANKLIN MELENDEZ MD Ot 356.9 IDIO PERIPH NEURPTHY NOS 05/12/2014 FRANKLIN MELENDEZ MD Ot 401.9 HYPERTENSION NOS 05/12/2014 FRANKLIN MELENDEZ MD Ot 414.01 CORONARY ATHEROSCLEROSIS OF [place] CORON 05/12/2014 FRANKLIN MELENDEZ MD Ot 724.5 BACKACHE NOS 05/12/2014 FRANKLIN MELENDEZ MD Ot 786.50 CHEST PAIN NOS 05/12/2014 FRANKLIN MELENDEZ MD Ot 794.30 ABN CARDIOVASC STUDY NOS 05/12/2014 FRANKLIN MELENDEZ MD Ot V15.82 HISTORY OF TOBACCO USE 05/12/2014 FRANKLIN MELENDEZ MD Ot V58.69 OTH MED,LT,CURRENT USE 05/12/2014 FRANKLIN MELENDEZ MD Ot V85.34 BODY MASS INDEX 34.0-34.9, ADULT 05/19/2014 JOCELYNN BUSTAMANTE APRN 110.3 DERMATOPHYTOSIS OF GROIN AND PERIANAL AREA 05/19/2014 JOCELYNN BUSTAMANTE APRN 692.9 DERMATITIS CONTACT UNSPECIFIED 05/19/2014 JOSH MILLER DO K 110.3 DERMATOPHYTOSIS OF GROIN AND PERIANAL AREA 05/19/2014 JOSH MILLER DO K 692.9 DERMATITIS CONTACT UNSPECIFIED 05/19/2014 JOCELYNN BUSTAMANTE APRN 110.3 DERMATOPHYTOSIS OF GROIN AND PERIANAL AREA 05/19/2014 JOCELYNN BUSTAMANTE APRN 692.9 DERMATITIS CONTACT UNSPECIFIED 06/18/2014 CORONA MILLER DOA Brody 414.00 CAD 06/18/2014 JOCELYNN BUSTAMANTE APRN 414.00 CAD 08/18/2014 JOCELYNN BUSTAMANTE APRN 788.1 DYSURIA 03/07/2015 ROSA SHEARER Ot 397.0 03/07/2015 ROSA SHEARER Ot 424.0 03/07/2015 ROSA SHEARER Ot 786.09 03/07/2015 ROSA SHEARER Ot 786.50 03/07/2015 ROSA SHEARER Ot 786.50 02/21/2016 ROSA SHEARER Ot 397.0 TRICUSPID VALVE DISEASE 02/21/2016 ROSA SHEARER Ot 424.0 MITRAL VALVE DISORDER 02/21/2016 ROSA SHEARER Ot 786.09 RESPIRATORY ABNORM NEC 02/21/2016 ROSA SHEARER K Ot 786.50 CHEST PAIN NOS 02/21/2016 ORSA SHEARER Ot 786.50 CHEST PAIN NOS 02/22/2016 ROSA SHEARER Ot 397.0 TRICUSPID VALVE DISEASE 02/22/2016 ROSA SHEARER K Ot 424.0 MITRAL VALVE DISORDER 02/22/2016 ROSA SHEARER Ot 786.09 RESPIRATORY ABNORM NEC 02/22/2016 ROSA SHEARER Ot 786.50 CHEST PAIN NOS 02/22/2016 ROSA SHEARER Ot 786.50 CHEST PAIN NOS 10/19/2016 ROSA SHEARER Ot 397.0 TRICUSPID VALVE DISEASE 10/19/2016 ROSA SHEARER Ot 424.0 MITRAL VALVE DISORDER 10/19/2016 CAUSEY-ESDRAS PA, ROSA K Ot 786.09 RESPIRATORY ABNORM NEC 10/19/2016 ALEX PA, ROSA K Ot 786.50 CHEST PAIN NOS 10/19/2016 ALEX PA, ROSA K Ot 786.50 CHEST PAIN NOS 10/22/2016 ALEX PA, ROSA K Ot E66.9 OBESITY, UNSPECIFIED 10/22/2016 ALEX PA, ROSA K Ot E78.2 MIXED HYPERLIPIDEMIA 10/22/2016 ALEX PA, ROSA K Ot I10 ESSENTIAL (PRIMARY) HYPERTENSION 10/22/2016 ALEX GUSTAFSON, ROSA K Ot I25.10 ATHSCL HEART DISEASE OF [place] CORONARY 10/23/2016 ALEX GUSTAFSON, ROSA K Ot E66.9 OBESITY, UNSPECIFIED 10/23/2016 ALEX GUSTAFSON, ROSA K Ot E78.2 MIXED HYPERLIPIDEMIA 10/23/2016 ALEX GUSTAFSON, ROSA K Ot I10 ESSENTIAL (PRIMARY) HYPERTENSION 10/23/2016 ALEX GUSTAFSON, ROSA K Ot I25.10 ATHSCL HEART DISEASE OF [place] CORONARY 10/23/2016 ALEX GUSTAFSON, ROSA K Ot E66.9 OBESITY, UNSPECIFIED 10/23/2016 ALEX GUSTAFSON, ROSA K Ot E78.2 MIXED HYPERLIPIDEMIA 10/23/2016 ALEX GUSTAFSON, RSOA K Ot I10 ESSENTIAL (PRIMARY) HYPERTENSION 10/23/2016 ALEX GUSTAFSON, ROSA K Ot I25.10 ATHSCL HEART DISEASE OF [place] CORONARY 10/23/2016 ALEX GUSTAFSON, ROSA K Ot E66.9 OBESITY, UNSPECIFIED 10/23/2016 ALEX PA, ROSA K Ot E78.2 MIXED HYPERLIPIDEMIA 10/23/2016 ALEX GUSTAFSON, ROSA K Ot I10 ESSENTIAL (PRIMARY) HYPERTENSION 10/23/2016 ALEX GUSTAFSON, ROSA K Ot I25.10 ATHSCL HEART DISEASE OF [place] CORONARY 11/05/2016 ALEX GUSTAFSON, ROSA K Ot E66.9 OBESITY, UNSPECIFIED 11/05/2016 ALEX PA, ROSA K Ot E78.2 MIXED HYPERLIPIDEMIA 11/05/2016 CAUSEYROSA LE Ot I10 ESSENTIAL (PRIMARY) HYPERTENSION 11/05/2016 ROSA SHEARER Ot I25.10 ATHSCL HEART DISEASE OF [place] CORONARY 01/02/2017 MALAIKA VILCHIS MD, Ot R13.10 DYSPHAGIA, UNSPECIFIED 01/02/2017 MALAIKA VILCHIS MD, Ot Z01.818 ENCOUNTER FOR OTHER PREPROCEDURAL EXAMIN 01/02/2017 MALAIKA VILCHIS MD, Ot Z12.11 ENCOUNTER FOR SCREENING FOR MALIGNANT NE 01/03/2017 ROSA SHEARER Ot 397.0 TRICUSPID VALVE DISEASE 01/03/2017 ROSA SHEARER Ot 424.0 MITRAL VALVE DISORDER 01/03/2017 ROSA SHEARER Ot 786.09 RESPIRATORY ABNORM NEC 01/03/2017 ROSA SHEARER Ot 786.50 CHEST PAIN NOS 01/03/2017 ROSA SHEARER Ot 786.50 CHEST PAIN NOS 01/03/2017 ROSA SHEARER Ot E66.9 OBESITY, UNSPECIFIED 01/03/2017 ROSA SHEARER Ot E78.2 MIXED HYPERLIPIDEMIA 01/03/2017 ROSA SHEARER Ot I10 ESSENTIAL (PRIMARY) HYPERTENSION 01/03/2017 ROSA SHEARER Ot I25.10 ATHSCL HEART DISEASE OF [place] CORONARY 01/04/2017 MALAIKA VILCHIS MD Ot D12.2 BENIGN NEOPLASM OF ASCENDING COLON 01/04/2017 MALAIKA VILCHIS MD, Ot D12.5 BENIGN NEOPLASM OF SIGMOID COLON 01/04/2017 MALAIKA VILCHIS MD Ot E78.00 PURE HYPERCHOLESTEROLEMIA, UNSPECIFIED 01/04/2017 MALAIKA VILCHIS MD Ot G89.29 OTHER CHRONIC PAIN 01/04/2017 MALAIKA VILCHIS MD Ot I10 ESSENTIAL (PRIMARY) HYPERTENSION 01/04/2017 MALAIKA VILCHIS MD Ot K21.0 GASTRO-ESOPHAGEAL REFLUX DISEASE WITH ES 01/04/2017 MALAIKA VILCHIS MD Ot K29.70 GASTRITIS, UNSPECIFIED, WITHOUT BLEEDING 01/04/2017 MALAIKA VILCHIS MD, Ot K29.80 DUODENITIS WITHOUT BLEEDING 01/04/2017 MALAIKA VILCHIS MD Ot K57.30 DVRTCLOS OF LG INT W/O PERFORATION OR AB 01/04/2017 MALAIKA VILCHIS MD Ot K64.1 SECOND DEGREE HEMORRHOIDS 01/04/2017 MALAIKA VILCHIS MD Ot Z12.11 ENCOUNTER FOR SCREENING FOR MALIGNANT NE 01/04/2017 MALAIKA VILCHIS MD, Ot Z79.899 OTHER MANAGER STRATEGY (CURRENT) DRUG THERAPY 01/04/2017 MALAIKA VILCHIS MD, Ot Z87.891 PERSONAL HISTORY OF NICOTINE DEPENDENCE 01/04/2017 MALAIKA VILCHIS MD, Ot Z98.1 ARTHRODESIS STATUS 01/10/2017 MALAIKA VILCHIS MD Ot D12.2 BENIGN NEOPLASM OF ASCENDING COLON 01/10/2017 MALAIKA VILCHIS MD, Ot D12.5 BENIGN NEOPLASM OF SIGMOID COLON 01/10/2017 MALAIKA VILCHIS MD Ot E78.00 PURE HYPERCHOLESTEROLEMIA, UNSPECIFIED 01/10/2017 MALAIKA VILCHIS MD Ot G89.29 OTHER CHRONIC PAIN 01/10/2017 MALAIKA VILCHIS MD Ot I10 ESSENTIAL (PRIMARY) HYPERTENSION 01/10/2017 MALAIKA VILCHIS MD Ot K21.0 GASTRO-ESOPHAGEAL REFLUX DISEASE WITH ES 01/10/2017 MALAIKA VILCHIS MD Ot K29.70 GASTRITIS, UNSPECIFIED, WITHOUT BLEEDING 01/10/2017 MALAIKA VILCHIS MD Ot K29.80 DUODENITIS WITHOUT BLEEDING 01/10/2017 MALAIKA VILCHIS MD Ot K57.30 DVRTCLOS OF LG INT W/O PERFORATION OR AB 01/10/2017 MALAIKA VILCHIS MD Ot K64.1 SECOND DEGREE HEMORRHOIDS 01/10/2017 MALAIKA VILCHIS MD Ot Z12.11 ENCOUNTER FOR SCREENING FOR MALIGNANT NE 01/10/2017 MALAIKA VILCHIS MD, Ot Z79.899 OTHER MANAGER STRATEGY (CURRENT) DRUG THERAPY 01/10/2017 MALAIKA VILCHIS MD, Ot Z87.891 PERSONAL HISTORY OF NICOTINE DEPENDENCE 01/10/2017 MALAIKA VILCHIS MD, Ot Z98.1 ARTHRODESIS STATUS 04/24/2017 JOCELYNN BUSTAMANTE Ot E04.1 NONTOXIC SINGLE THYROID NODULE 05/09/2017 JOCELYNN BUSTAMANTE Ot E04.1 NONTOXIC SINGLE THYROID NODULE 06/04/2017 ROSA SHEARER Ot 397.0 TRICUSPID VALVE DISEASE 06/04/2017 ALEX GUSTAFSON ROSA K Ot 424.0 MITRAL VALVE DISORDER 06/04/2017 ALEX GUSTAFSON ROSA K Ot 786.09 RESPIRATORY ABNORM NEC 06/04/2017 ALEX GUSTAFSON ROSA K Ot 786.50 CHEST PAIN NOS 06/04/2017 ROSA SHEARER Ot 786.50 CHEST PAIN NOS 06/04/2017 ALEX GUSTAFSON ROSA K Ot E66.9 OBESITY, UNSPECIFIED 06/04/2017 ALEX GUSTAFSON ROSA K Ot E78.2 MIXED HYPERLIPIDEMIA 06/04/2017 ROSA SHEARER Ot I10 ESSENTIAL (PRIMARY) HYPERTENSION 06/04/2017 ROSA SHEARER Ot I25.10 ATHSCL HEART DISEASE OF [place] CORONARY 06/04/2017 JOCELYNN BUSTAMANTE Ot E04.1 NONTOXIC SINGLE THYROID NODULE 06/05/2017 JOCELYNN BUSTAMANTE Ot M25.511 PAIN IN RIGHT SHOULDER 06/05/2017 JOCELYNN BUSTAMANTE Ot M48.02 SPINAL STENOSIS, CERVICAL REGION 06/05/2017 JOCELYNN BUSTAMANTE Ot Z98.1 ARTHRODESIS STATUS 06/11/2017 CLEMENTE RUTLEDGE MD Ot R07.0 PAIN IN THROAT 06/11/2017 CLEMENTE RUTLEDGE MD Ot R20.0 ANESTHESIA OF SKIN 06/11/2017 CLEMENTE RUTLEDGE MD Ot R22.1 LOCALIZED SWELLING, MASS AND LUMP, NECK 06/19/2017 JOCELYNN BUSTAMANTE Ot M25.511 PAIN IN RIGHT SHOULDER 06/19/2017 JOCELYNN BUSTAMANTE Ot M48.02 SPINAL STENOSIS, CERVICAL REGION 06/19/2017 JOCELYNN BUSTAMANTE Ot Z98.1 ARTHRODESIS STATUS 07/08/2017 CLEMENTE RUTLEDGE MD Ot R07.0 PAIN IN THROAT 07/08/2017 CLEMENTE RUTLEDGE MD Ot R20.0 ANESTHESIA OF SKIN 07/08/2017 CLEMENTE RUTLEDGE MD Ot R22.1 LOCALIZED SWELLING, MASS AND LUMP, NECK 12/24/2017 CLEMENTE RUTLEDGE MD Ot E04.2 NONTOXIC MULTINODULAR GOITER 01/08/2018 CLEMENTE RUTLEDGE MD Ot E04.2 NONTOXIC MULTINODULAR GOITER Procedures Code Description [place] [address] EXCISION BENIGN LESION 1.1- 2 cm (specify location in [facility] descriiption) 05/27/2012 63399 EKG, TRACING (IN-HOUSE) 04/27/2013 68507 ROUTINE VENIPUNCTURE 04/28/2013 CARDIOLOG FRANKLIN MELENDEZ 04/28/2013 [id number] GFR CALC (RESULT ONLY) 04/28/2013 74088 CMP 04/28/2013 01873 LIPID PANEL 04/28/2013 77871 MAGNESIUM 04/28/2013 60149 CBC 04/28/2013 16510 TSH 04/28/2013 81667 NUCLEAR STRESS TESTING 06/05/2013 67599 LIPID PANEL 06/05/2013 59533 LIVER PANEL (LFT) 06/05/2013 62621 ECHO 2D 06/05/2013 79304 XRAY FOOT LEFT 2 VIEWS 07/08/2013 82059 CMP 07/31/2013 99805 LIPID PANEL 07/31/2013 16184 SKIN TAG REM 1-15 08/18/2013 13606 EXCISION BENIGN LESION 1.1- 2 cm (specify location in [facility] descriiption) 08/18/2013 89166 ROUTINE VENIPUNCTURE 08/21/2013 17064 ROUTINE VENIPUNCTURE 08/21/2013 40872 CMP 08/21/2013 87907 LIPID PANEL 08/21/2013 62871 CMP 08/21/2013 31334 LIPID PANEL 08/21/2013 [id number] GFR CALC (RESULT ONLY) 08/21/2013 [id number] GFR CALC (RESULT ONLY) 08/21/2013 84522 TSH 08/25/2013 37826 CBC 10/27/2013 67659 PT/INR 10/27/2013 84087 EKG, TRACING (IN-HOUSE) 05/04/2014 12103 UA LONG DIP 08/18/2014 Results Test Result Range Comp. Metabolic Panel (14) - 02/21/16 00:00 Glucose, Serum 108 mg/dL 65-99 BUN 15 mg/dL 6-24 Creatinine, Serum 1.08 mg/dL 0.76-1.27 eGFR If NonAfricn Am 76 mL/min/1.73 >59 eGFR If Africn Am 88 mL/min/1.73 >59 BUN/Creatinine Ratio 14 9-20 Sodium, Serum 142 mmol/L 136-144 Potassium, Serum 4.8 mmol/L 3.5-5.2 Chloride, Serum 103 mmol/L 97-106 Carbon Dioxide, Total 22 mmol/L 18-29 Calcium, Serum 8.6 mg/dL 8.7-10.2 Protein, Total, Serum 6.8 g/dL 6.0-8.5 Albumin, Serum 4.1 g/dL 3.5-5.5 Globulin, Total 2.7 g/dL 1.5-4.5 A/G Ratio 1.5 1.1-2.5 Bilirubin, Total 0.5 mg/dL 0.0-1.2 Alkaline Phosphatase, S 69 IU/L 39-117 AST (SGOT) 21 IU/L 0-40 ALT (SGPT) 25 IU/L 0-44 Lipid Panel - 02/21/16 00:00 Cholesterol, Total 154 mg/dL 100-199 Triglycerides 194 mg/dL 0-149 HDL Cholesterol 38 mg/dL >39 VLDL Cholesterol Keyur 39 mg/dL 5-40 LDL Cholesterol Calc 77 mg/dL 0-99 TSH - 02/21/16 00:00 TSH 2.950 uIU/mL 0.450-4.500 Lipid Panel - 12/26/16 09:00 C/HDL 4.1 3.7-6.7 Cholesterol 148 mg/dL 100-240 HDL 36 mg/dL 30-85 LDL-Calculated 62 mg/dL 0-100 Trig 249 mg/dL 35-160 VLDL 50 mg/dL 0-42 Hemoglobin A1C - 12/26/16 09:00 % A1C 5.70 % 5.40-6.60 AvGlu 124 mg/dL 70-110 BENNY w/Reflex - 12/26/16 09:00 BENNY DIRECT NEGATIVE NEGATIVE Thyroid Stimulating Hormone - 01/11/17 13:16 TSH 4.35 mIU/mL 0.32-5.00 HCV Antibody - 01/11/17 13:16 Hep C Virus Ab <0.1 S/CO RATIO 0.0-0.9 HCV Antibody - 01/11/17 13:16 Hep C Virus Ab <0.1 s/co ratio 0.0-0.9 TSH - 02/28/17 13:17 TSH 3.77 mIU/L 0.40-4.50 [id number] - 06/10/17 13:45 Serum or plasma urea nitrogen measurement (mass/volume) 15 mg/dL 7-18 Serum or plasma creatinine measurement (mass/volume) 0.99 mg/dL 0.60-1.30 Serum or plasma urea nitrogen/creatinine mass ratio 15 NRG Serum or plasma creatinine measurement with calculation of estimated glomerular filtration rate > NRG PDM - 09 PANEL (PROFILE 1) - 01/10/18 09:57 Prescribed Drug 1 Pansey(TM) NRG Creatinine 280.3 mg/dL > or=20.0 pH 5.07 4.5 - 9.0 Oxidant NEGATIVE mcg/mL <200 Amphetamines NEGATIVE ng/mL <500 medMATCH Amphetamines CONSISTENT NRG Benzodiazepines NEGATIVE ng/mL <100 medMATCH Benzodiazepines CONSISTENT NRG Marijuana Metabolite NEGATIVE ng/mL <20 medMATCH Marijuana Metab CONSISTENT NRG Cocaine Metabolite NEGATIVE ng/mL <150 medMATCH Cocaine Metab CONSISTENT NRG Opiates NEGATIVE ng/mL <100 medMATCH Opiates INCONSISTENT NRG Oxycodone NEGATIVE ng/mL <100 medMATCH Oxycodone CONSISTENT NRG COMMENT NRG Barbiturates NEGATIVE ng/mL <300 medMATCH Barbiturates CONSISTENT NRG Methadone Metabolite NEGATIVE ng/mL <100 medMATCH Methadone Metab CONSISTENT NRG Phencyclidine NEGATIVE ng/mL <25 medMATCH Phencyclidine CONSISTENT NRG Encounters ACCT No. Visit Date/Time Discharge Status Pt. Type Provider Facility Loc./Unit Complaint [id number] 08/18/2014 14:32:00 08/18/2014 23:59:59 CLS Outpatient JOCELYNN BUSTAMANTE APRN [id number] 06/18/2014 09:01:00 06/18/2014 23:59:59 CLS Outpatient JOSH MILLER DO [id number] 05/19/2014 17:27:00 05/19/2014 23:59:59 CLS Outpatient JOCELYNN BUSTAMANTE APRN [id number] 05/07/2014 10:34:00 05/07/2014 23:59:59 CLS Outpatient FRANKLIN MELENDEZ MD [id number] 05/01/2014 12:30:00 05/01/2014 23:59:59 CLS Outpatient SHELBY TOVAR APRN [id number] 12/08/2013 11:23:00 12/08/2013 23:59:59 CLS Outpatient MEKHI BRAVO APRN [id number] 10/27/2013 15:36:00 10/27/2013 23:59:59 CLS Outpatient MEKHI BRAVO APRN [id number] 08/21/2013 10:20:00 08/21/2013 23:59:59 CLS Outpatient CORONA MILLER DOSilver Skinner [id number] 08/18/2013 14:20:00 08/18/2013 23:59:59 CLS Outpatient JOCELYNN BUSTAMANTE APRN [id number] 08/12/2013 13:44:00 08/12/2013 23:59:59 CLS Outpatient HEMA AMAROZandra JESSICA Coty [id number] 2013 00:00:00 2013 23:59:59 CLS Outpatient JOCELYNN BUSTAMANTE APRN [id number] 07/31/2013 09:53:00 07/31/2013 23:59:59 CLS Outpatient ANGELA CHEN JOSH Skinner [id number] 07/08/2013 15:07:00 07/08/2013 23:59:59 CLS Outpatient MEKHI BRAVO APRN [id number] 06/05/2013 10:33:00 06/05/2013 23:59:59 CLS Outpatient ANGELA CHEN JOSH Skinner [id number] 05/16/2013 10:07:00 05/16/2013 23:59:59 CLS Outpatient JACQUE JEFFERY APRN Samuel [id number] 04/28/2013 10:31:00 04/28/2013 23:59:59 CLS Outpatient MEKHI BRAVO APRN [id number] 06/17/2012 14:10:00 06/17/2012 23:59:59 CLS Outpatient JOCELYNN BUSTAMANTE APRN [id number] 06/06/2012 16:39:00 06/06/2012 23:59:59 CLS Outpatient [id number] 06/02/2012 15:20:00 06/02/2012 23:59:59 CLS Outpatient [id number] 05/30/2012 15:48:00 05/30/2012 23:59:59 CLS Outpatient JOCELYNN BUSTAMANTE APRN [id number] 05/29/2012 15:43:00 05/29/2012 23:59:59 CLS Outpatient [id number] 05/27/2012 16:11:00 05/27/2012 23:59:59 CLS Outpatient [id number] 05/16/2012 14:38:00 05/16/2012 23:59:59 CLS Outpatient [id number] 02/22/2016 10:06:00 Document Registration [id number] 01/11/2017 13:15:00 01/11/2017 23:59:00 DIS Outpatient Gio Wiggins [id number] 12/26/2016 09:32:00 12/26/2016 23:59:00 DIS Outpatient Gio Wiggins [id number] 12/14/2016 11:45:00 12/14/2016 23:59:00 DIS Outpatient Gio Wiggins [id number] 03/15/2016 10:51:00 03/15/2016 23:59:00 DIS Outpatient Gio Wiggins [id number] 07/17/2018 14:00:00 07/17/2018 23:59:59 CLS Outpatient JOCELYNN BUSTAMANTE APRN [facility] [id number] 01/10/2018 09:20:00 Document Registration [id number] 02/28/2017 13:00:00 Document Registration [id number] 01/12/2017 11:12:00 Document Registration [id number] 12/23/2017 13:46:00 12/23/2017 23:59:59 CLS Outpatient CLEMENTE RUTLEDGE MD [facility] RAD THYROID NODULES [id number] 06/10/2017 13:36:00 06/10/2017 23:59:59 CLS Outpatient CLEMENTE RUTLEDGE MD [facility] RAD ABNORMAL THROAT PAIN/ NECK FULLNESS [id number] 06/04/2017 08:03:00 06/04/2017 23:59:59 CLS Outpatient JOCELYNN BUSTAMANTE [facility] RAD M54.2 CERVICALGIA [id number] 04/23/2017 12:45:00 04/23/2017 23:59:59 CLS Outpatient JOCELYNN BUSTAMANTE [facility] RAD LUMP IN THROAT [id number] 04/03/2017 12:46:00 04/03/2017 23:59:59 CLS Preadmit JOCELYNN BUSTAMANTE [facility] RAD R22.1 LUMP IN THROAT [id number] 01/04/2017 09:47:00 01/04/2017 12:45:00 DIS Outpatient MALAIKA VILCHIS MD [facility] ENDO SCREENING/DYSPHAGIA [id number] 01/02/2017 05:47:00 01/02/2017 11:37:00 DIS Outpatient MALAIKA VILCHIS MD [facility] PREOP SCREENING/DYSPHAGIA [id number] 10/19/2016 07:57:00 10/19/2016 23:59:59 CLS Outpatient ROSA SHEARER [facility] CARD I25.10 [id number] 05/12/2014 07:16:00 05/12/2014 15:00:00 DIS Outpatient FRANKLIN MELENDEZ MD [facility] CATH CP,ABNORMAL EKG,FAMILY HX OF CAD, HTN,HAWK,HLP [id number] 06/23/2013 12:30:00 06/23/2013 23:59:59 CLS Outpatient ROSA SHEARER [facility] RAD CHEST PAIN [id number] 06/17/2013 13:41:00 06/17/2013 23:59:59 CLS Outpatient ROSA SHEARER [facility] CARD CHEST PAIN [id number] 11/22/2010 17:48:00 Document Registration [id number] 06/20/2010 22:55:00 Document Registration
--- NOTE | 2018-07-21 19:53 | ED Abdominal Pain ---
General Stated Complaint: PAIN IN LOWER ABD Source of Information: Patient Exam Limitations: No Limitations History of Present Illness Date Seen by Provider: Jul 21, 2018 Time Seen by Provider: 19:53 Initial Comments 57-year-old male who presents to the emergency room with complaints of right upper abdominal pain for the past 3-4 days that radiates to his right lower abdomen. He was seen and evaluated when the pain started at [facility] and was told that he had an inflamed appendix on ultrasound. They instructed him to come to the emergency room for worsening pain. He denies nausea, vomiting , diarrhea, constipation. Timing/Duration: 3-4 Days Severity/Quality: Aching Location: RUQ Radiation: RLQ Associated Symptoms: Denies Symptoms Allergies and Home Medications Allergies Coded Allergies: ibuprofen (Unverified Allergy, Severe, HIVES, 01/02/17) Home Medications Atorvastatin Calcium 40 Mg Tablet, 40 MG PO DAILY, (Reported) Hydrocodone Bit/Acetaminophen 1 Tab Tab, 1 EACH PO Q4-6HR PRN for PAIN-MODERATE Prescribed by: AMY NICHOLE on 07/21/182142 Lisinopril 10 Mg Tablet, 10 MG PO DAILY, (Reported) Losartan Potassium 50 Mg Tablet, 50 MG PO DAILY, (Reported) Pantoprazole Sodium 40 Mg Tablet.dr, 40 MG PO DAILY Prescribed by: MALAIKA VILCHIS on 01/04/17 1150 Sucralfate 1 Gm Tablet, 1 GM PO QID, (Reported) Patient Home Medication List Home Medication List Reviewed: Yes Review of Systems Review of Systems Constitutional: see HPI; No chills, No fever Gastrointestinal: See HPI, Abdominal Pain; Denies Constipated, Denies Diarrhea , Denies Nausea, Denies Vomiting Genitourinary: No Symptoms Reported All Other Systems Reviewed Negative Unless Noted: Yes Past Rehjxkc-Jcycqv-Sudxpr Hx Past Med/Social Hx: Reviewed Nursing Past Med/Soc Hx Patient Social History Type Used: Smokeless Tobacco Recent Foreign Travel: No Contact w/Someone Who Travel: No Recent Hopitalizations: No Seasonal Allergies Seasonal Allergies: Yes Past Medical History High Cholesterol, Hypertension Reproductive Disorders: No Sexually Transmitted Disease: No HIV/AIDS: No Gastroesophageal Reflux, Chronic Constipation Arthritis, Chronic Back Pain Loss of Vision: Denies Hearing Impairment: Denies Adverse Reaction/Blood Tranf: No Family Medical History Reviewed Nursing Family Hx Physical Exam Vital Signs Vital Signs - First Documented 07/21/18 19:44 Temp 100.8 Pulse 62 Resp 20 B/P (MAP) 141/79 (99) Pulse Ox 99 O2 Delivery Room Air Capillary Refill : Height/Weight/BMI Height: 5'7.00" Weight: 217lbs. 0.0oz. [id number]; 34.0 BMI Method: General Appearance: WD/WN, no apparent distress Respiratory: chest non-tender, lungs clear, normal breath sounds, no respiratory distress, no accessory muscle use Cardiovascular: normal peripheral pulses, regular rate, rhythm, no edema, no gallop, no JVD, no murmur Gastrointestinal: normal bowel sounds, soft, no organomegaly, no pulsatile mass , tenderness (right upper quadrant tenderness) Extremities: normal capillary refill Neurologic/Psychiatric: alert, normal mood/affect, oriented x 3 Skin: normal color, warm/dry Progress/Results/Core Measures Results/Orders Lab Results Laboratory Tests Test 07/21/18 19:47 07/21/18 20:10 Range/Units Urine Color YELLOW Urine Clarity CLEAR Urine pH 6.5 5-9 Urine Specific [place] 1.010 L 1.016-1.022 Urine Protein NEGATIVE NEGATIVE Urine Glucose (UA) NEGATIVE NEGATIVE Urine Ketones NEGATIVE NEGATIVE Urine Nitrite NEGATIVE NEGATIVE Urine Bilirubin NEGATIVE NEGATIVE Urine Urobilinogen NORMAL NORMAL MG/DL Urine Leukocyte Esterase NEGATIVE NEGATIVE Urine RBC (Auto) NEGATIVE NEGATIVE Urine RBC NONE /HPF Urine WBC RARE /HPF Urine Crystals NONE /LPF Urine Bacteria NEGATIVE /HPF Urine Casts NONE /LPF Urine Mucus NEGATIVE /LPF Urine Culture Indicated NO White Blood Count 7.8 4.3-11.0 10^3/uL Red Blood Count 4.98 4.35-5.85 10^6/uL Hemoglobin 15.0 13.3-17.7 G/DL Hematocrit 43 40-54 % Mean Corpuscular Volume 86 80-99 FL Mean Corpuscular Hemoglobin 30 25-34 PG Mean Corpuscular Hemoglobin Concent 35 32-36 G/DL Red Cell Distribution Width 13.5 10.0-14.5 % Platelet Count 235 130-400 10^3/uL Mean Platelet Volume 9.3 7.4-10.4 FL Neutrophils (%) (Auto) 58 42-75 % Lymphocytes (%) (Auto) 25 12-44 % Monocytes (%) (Auto) 13 H 0-12 % Eosinophils (%) (Auto) 4 0-10 % Basophils (%) (Auto) 0 0-10 % Neutrophils # (Auto) 4.5 1.8-7.8 X 10^3 Lymphocytes # (Auto) 2.0 1.0-4.0 X 10^3 Monocytes # (Auto) 1.0 0.0-1.0 X 10^3 Eosinophils # (Auto) 0.3 0.0-0.3 10^3/uL Basophils # (Auto) 0.0 0.0-0.1 10^3/uL Sodium Level 139 135-145 MMOL/L Potassium Level 4.2 3.6-5.0 MMOL/L Chloride Level 105 98-107 MMOL/L Carbon Dioxide Level 24 21-32 MMOL/L Anion Gap 10 5-14 MMOL/L Blood Urea Nitrogen 10 7-18 MG/DL Creatinine 1.10 0.60-1.30 MG/DL Estimat Glomerular Filtration Rate > 60 BUN/Creatinine Ratio 9 Glucose Level 101 70-105 MG/DL Calcium Level 9.2 8.5-10.1 MG/DL Corrected Calcium 9.1 8.5-10.1 MG/DL Total Bilirubin 0.5 0.1-1.0 MG/DL Aspartate Amino Transf (AST/SGOT) 27 5-34 U/L Alanine Aminotransferase (ALT/SGPT) 28 0-55 U/L Alkaline Phosphatase 83 40-136 U/L Total Protein 7.0 6.4-8.2 GM/DL Albumin 4.1 3.2-4.5 GM/DL Amylase Level 76 25-125 U/L Lipase 30 8-78 U/L My Orders Orders - AMY NICHOLE Comprehensive Metabolic Panel (07/21/18 19:45) Lipase (07/21/18 19:45) Amylase (07/21/18 19:45) Ua Culture If Indicated (07/21/18 19:45) Saline Lock/Iv-Start (07/21/18 19:45) Cbc With Automated Diff (07/21/18 19:45) Ct Abdomen/Pelvis W (07/21/18 19:45) Iohexol Injection (Omnipaque 350 Mg/Ml 1 (07/21/18 20:00) Received Contrast (Hold Metformin- Contr (07/21/18 20:00) Vital Signs/I&O 07/21/18 07/21/18 19:44 21:55 Temp 100.8 99.3 Pulse 62 59 Resp 20 20 B/P (MAP) 141/79 (99) 139/85 (103) Pulse Ox 99 97 O2 Delivery Room Air Room Air Progress Progress Note : Time: 21:58 Progress Note I have seen and evaluated the patient. I've informed him of his laboratory and imaging studies. He agrees with plan of care, plans for follow-up, return precautions were given. Diagnostic Imaging Diagonstic Imaging: CT Plain Films/CT/US/NM/MRI: abdomen, pelvis Comments NAME: [facility] REC#: [id number] PT STATUS: REG ER : 1960 PHYSICIAN: AMY NICHOLE ADMIT DATE: 07/21/18/ER Signed Date of Exam: 07/21/18 CT ABDOMEN/PELVIS W PROCEDURE: CT abdomen and pelvis with contrast. TECHNIQUE: Multiple contiguous axial images were obtained through the abdomen and pelvis after administration of intravenous contrast. Auto Exposure Controls were utilized during the CT exam to meet ALARA standards for radiation dose reduction. INDICATION: Right lower quadrant pain. Nausea and vomiting. FINDINGS: Lung bases are clear. There is diffuse hepatic steatosis without focal lesion. There is at least one small gallstone present. Gallbladder is nondistended. Bile ducts are not dilated. Pancreas and spleen are normal. Adrenal glands are normal. Kidneys show no evidence of obstruction or calculi. There is a benign cortical cyst off the lateral aspect of the left kidney measuring 2.5 cm. There is normal enhancement of abdominal organs and vessels following IV contrast. Aorta appears normal as do the abdominal vessels. No atherosclerotic changes are seen. No adenopathy of pathologic size. The stomach is not distended. Small bowel shows normal caliber without evidence of wall thickening. The appendix is not identified. There is no evidence of edema around the cecum or terminal ileum. No evidence of appendicolith. There is normal stool and gas pattern throughout colon. No evidence of diverticulitis. There is no free air or free fluid. No intra-abdominal adenopathy of pathologic size. No bony lesion. IMPRESSION: 1. Hepatic steatosis without mass. 2. Small gallstone without cholecystitis. 3. The appendix is not identified though no evidence of inflammatory changes about the cecum or terminal ileum. 4. No evidence of constipation or bowel obstruction. Dictated by: Dictated on workstation # [id number] Dict: 07/21/182108 Trans: 07/21/182201 Interpreted by: SERGE BLACK MD Electronically signed by: SERGE BLACK MD 07/21/182201 Reviewed: Reviewed by Me Departure Impression Primary Impression: Cholelithiasis Disposition: HOME, SELF-CARE Condition: Stable/Unchanged Departure-Patient Inst. Decision time for Depature: 21:28 Referrals: JOSH MILLER DO (PCP) Primary Care Physician JOCELYNN BUSTAMANTE (Family) Primary Care Physician SERGE BEARD DO Patient Instructions: Gallstones (DC) Add. Discharge Instructions: Take medications as directed. Follow-up with Dr. Beard's office by calling first thing tomorrow morning to make an appointment to further evaluate your gallstones. Return back to the emergency room for worsening symptoms or concerns as needed. Follow-up with your primary care provider within 1 week for recheck. Scripts Hydrocodone Bit/Acetaminophen (Hydrocodone/Acetaminophen 5/325mg Tablet) 1 Tab Tab 1 EACH PO Q4-6HR PRN for PAIN-MODERATE MDD 10, #14 TAB Prov: AMY NICHOLE 07/21/18 AMY NICHOLE Jul 21, 2018 19:53
[2018-07-21 19:57] LABS: BILIRUBIN,URINE NEGATIVE (NEGATIVE); CLARITY,URINE CLEAR; COLOR,URINE YELLOW; GLUCOSE, URINE (UA) NEGATIVE (NEGATIVE); KETONES,URINE NEGATIVE (NEGATIVE); LEUKOCYTE ESTERASE ,URINE NEGATIVE (NEGATIVE); NITRITE,URINE NEGATIVE (NEGATIVE); PH,URINE 6.5 (5-9); PROTEIN,URINE NEGATIVE (NEGATIVE); UROBILINOGEN,URINE NORMAL (NORMAL)
[2018-07-21] MEDS ORDERED: HOLD METFORMIN - RECEIVED CONTRAST 20 ML VIAL IV SCH (20:00)
[2018-07-21] MEDS ORDERED: IOHEXOL 350 MG/ML 100 ML (OMNIPAQUE 350) VIAL IV ONE (20:00)
[2018-07-21 20:03] LABS: BACTERIA,URINE NEGATIVE /HPF; WBC,URINE RARE /HPF
[2018-07-21 20:18] LABS: BASOPHILS % (AUTO) 0 % (0-10); EOSINOPHILS # (AUTO) 0.3 10^3/uL (0.0-0.3); EOSINOPHILS % (AUTO) 4 % (0-10); HEMATOCRIT 43 % (40-54); LYMPHOCYTES % (AUTO) 25 % (12-44); MEAN CORPUSCULAR HEMOGLOBIN 30 PG (25-34); MEAN CORPUSCULAR HGB CONC 35 G/DL (32-36); MEAN CORPUSCULAR VOLUME 86 FL (80-99); MEAN PLATELET VOLUME 9.3 FL (7.4-10.4); MONOCYTES % (AUTO) 13 % (0-12); NEUTROPHILS # (AUTO) 4.5 X 10^3 (1.8-7.8); NEUTROPHILS % (AUTO) 58 % (42-75); PLATELET COUNT 235 10^3/uL (130-400); RED CELL DISTRIBUTION WIDTH 13.5 % (10.0-14.5); WHITE BLOOD COUNT 7.8 10^3/uL (4.3-11.0)
[2018-07-21 20:36] LABS: ALANINE AMINOTRANSFERASE 28 U/L (0-55); ALBUMIN 4.1 GM/DL (3.2-4.5); ALKALINE PHOSPHATASE 83 U/L (40-136); AMYLASE 76 U/L (25-125); BILIRUBIN,TOTAL 0.5 MG/DL (0.1-1.0); BUN/CREATININE RATIO 9; CALCIUM 9.2 MG/DL (8.5-10.1); CARBON DIOXIDE 24 MMOL/L (21-32); CHLORIDE 105 MMOL/L (98-107); GFR ESTIMATED > 60; GLUCOSE 101 MG/DL (70-105); LIPASE 30 U/L (8-78); POTASSIUM 4.2 MMOL/L (3.6-5.0); SODIUM 139 MMOL/L (135-145)
--- NOTE | 2018-07-21 21:16 | NUR ---
PT RETURNS FROM CT DEPT, DENIES NEEDS, NO S/S OF DISTRESS
--- NOTE | 2018-07-21 21:18 | Diagnostic Imaging Report ---
PROCEDURE: CT abdomen and pelvis with contrast. TECHNIQUE: Multiple contiguous axial images were obtained through the abdomen and pelvis after administration of intravenous contrast. Auto Exposure Controls were utilized during the CT exam to meet ALARA standards for radiation dose reduction. INDICATION: Right lower quadrant pain. Nausea and vomiting. FINDINGS: Lung bases are clear. There is diffuse hepatic steatosis without focal lesion. There is at least one small gallstone present. Gallbladder is nondistended. Bile ducts are not dilated. Pancreas and spleen are normal. Adrenal glands are normal. Kidneys show no evidence of obstruction or calculi. There is a benign cortical cyst off the lateral aspect of the left kidney measuring 2.5 cm. There is normal enhancement of abdominal organs and vessels following IV contrast. Aorta appears normal as do the abdominal vessels. No atherosclerotic changes are seen. No adenopathy of pathologic size. The stomach is not distended. Small bowel shows normal caliber without evidence of wall thickening. The appendix is not identified. There is no evidence of edema around the cecum or terminal ileum. No evidence of appendicolith. There is normal stool and gas pattern throughout colon. No evidence of diverticulitis. There is no free air or free fluid. No intra-abdominal adenopathy of pathologic size. No bony lesion. IMPRESSION: 1. Hepatic steatosis without mass. 2. Small gallstone without cholecystitis. 3. The appendix is not identified though no evidence of inflammatory changes about the cecum or terminal ileum. 4. No evidence of constipation or bowel obstruction. Dictated by: Dictated on workstation # [id number]
[2018-07-21] MEDS ORDERED: ACHD5005 PO (21:43)
[2018-07-21 21:55] VITALS: BP 139/85
== END 2018-07-21 21:55 | disposition home or self-care (01) ==
LOC: EDUNIT# 19:35 → ER 19:36
DX: K80.20 Calculus of gallbladder without cholecystitis without obstruction (principal); E78.00 Pure hypercholesterolemia, unspecified; I10 Essential (primary) hypertension; K21.9 Gastro-esophageal reflux disease without esophagitis; Z87.19 Personal history of other diseases of the digestive system; Z88.6 Allergy status to analgesic agent
CPT/HCPCS: 36415; 74177; 80053; 81000; 82150; 83690; 85025

== ENCOUNTER 2018-07-25 09:40 | Day surgery (SDC) | payer MEDICAID ==
[~2018-07-25] VITALS: Ht 167.6 cm; Wt 98.9 kg
[~2018-07-25 09:40] MED LIST changes: +ACHD5005 PO
[2018-07-25] MEDS ORDERED: LIDOCAINE 1% INJ 20 ML 20 ML VIAL ONE (09:42)
[2018-07-25] MEDS ORDERED: BUP/EPI 0.5% 1:200,000 (SENSORCAINE) 30 ML VIAL ONE (09:42)
[2018-07-25 09:45] VITALS: BP 137/102
[2018-07-25] MEDS ORDERED: LACTATED RINGERS 1,000 ML IV PRN (09:49)
[2018-07-25] MEDS ORDERED: ceFAZolin 2 GM IV Premixed 50 ML IV ONE (10:00)
[2018-07-25] MEDS ORDERED: fentaNYL INJECTION 100 MCG/2 ML AMP ONE ×2 (10:03→11:26)
[2018-07-25] MEDS ORDERED: ROCURONIUM 10 MG/ML 5 ML SYRINGE IV ONE (10:04)
[2018-07-25] MEDS ORDERED: DEXAMETHASONE 10 MG/ML (DECADRON) 1 ML VIAL ONE (10:04)
[2018-07-25] MEDS ORDERED: SEVOFLURANE (ULTANE) 15 ML INHAL SOLN ONE ×2 (10:04→11:31)
[2018-07-25] MEDS ORDERED: proPOfol 200 MG/20 ML (DIPRIVAN) VIAL IV ONE (10:04)
[2018-07-25] MEDS ORDERED: ONDANSETRON 4 MG/2 ML (SDV) Z0FRAN ONE (10:04)
[2018-07-25] MEDS ORDERED: MIDAZOLAM 2 MG/2 ML (VERSED) VIAL ONE (10:04)
[2018-07-25] MEDS ORDERED: LIDOCAINE PF 2% 5 ML (XYLOCAINE) VIAL ONE (10:04)
[2018-07-25] MEDS ORDERED: FLUT16SP22 IH (10:12)
[2018-07-25] MEDS ORDERED: CYCL10TA9 PO (10:12)
[2018-07-25] MEDS ORDERED: GBPN600T PO (10:12)
[2018-07-25] MEDS ORDERED: NYST1000 (10:12)
[2018-07-25] MEDS ORDERED: CATHETER FLUSH 10 ML SYR IV PRN (10:15)
[2018-07-25] MEDS: HOLD METFORMIN - RECEIVED CONTRAST 20 ML VIAL IV SCH ×2 (11:05→12:00)
[2018-07-25] MEDS ORDERED: IOHEXOL 300 MG/ML 30 ML (OMNIPAQUE 300) VIAL IV ONE (11:15)
[2018-07-25] MEDS ORDERED: NEOSTIGMINE 1 MG/ML 5 ML SYRINGE ONE (11:21)
[2018-07-25] MEDS ORDERED: GLYCOPYRROLATE 0.2 MG/ML (ROBINUL) 2 ML VIAL ONE (11:21)
--- NOTE | 2018-07-25 11:34 | Diagnostic Imaging Report ---
Indication: Fluoroscopy for intraoperative cholangiogram. Fluoroscopy was provided in the OR during intraoperative cholangiogram. 7 seconds of fluoroscopy was utilized. Contrast is noted being injected via the cystic duct remnant. Intrahepatic bile ducts are normal caliber. No filling defects are seen. Contrast passes into the duodenum. Impression: Fluoroscopy for intraoperative cholangiogram. Dictated by: Dictated on workstation # [id number]
--- NOTE | 2018-07-25 11:35 | Progress Note-Post Operative ---
Post-Operative Progess Note Surgeon (s)/Shank Sander (s) Surgeon SERGE BEARD DO Shank Sander: none Pre-Operative Diagnosis GALLSTONES Post-Operative Diagnosis Cholelithiasis/Cholecystitis Procedure & Operative Findings Date of Procedure 07/25/18 Procedure Performed/Findings Lap yelena with IOC Anesthesia Type GET Estimated Blood Loss Estimated blood loss (mL): scant Specimens/Packing Specimens Removed GB and contents SERGE BEARD DO Jul 25, 2018 11:35
[2018-07-25] MEDS ORDERED: ACHD5005 PO (11:37)
--- NOTE | 2018-07-25 11:38 | Discharge Inst-Surgical ---
Discharge Inst-Surgical Depart Medication/Instructions New, Converted or Re-Newed RX: RX Given to Pt/Family Patient Instructions Follow up Appt: Make appointment for 1 week. [phone] Instructions: No lifting greater than 20 pounds. No strenuous activity. May shower in 24 hours, no tub bath or soaking. Use incentive spirometer at home as directed. No Smoking Skin/Wound Care: May remove bandages in am. You need to leave the Dermabond on incision it will fall off on it's own. Symptoms to Report: Appetite Changes, Extremity Discoloration, Numbness/Tingling, Swelling Increased , Bleeding Excessive, Eyesight Changes, Pain Increased, Urine Color Change, Constipation(Persistent), Fever over 101 degree F, Pain/Pressure in chest, Urinating Difficulty, Cough Up/Vomit Blood, Heart Beat Irreg/Pounding, Pain/ Pressure in jaw, Cramps in feet or legs, Lightheadedness, Pain/Pressure in shoulder, Diarrhea(Persistent), Memory Changes Suddenly, Questions/Concerns, Weight gain consecutive days, Dizziness/Fainting, Nausea/Vomiting, Shortness of Breath, Weight gain over 2 pounds If questions or concerns contact your physician Or seek help at emergency department. Activity Activity as Tolerated: Yes Activity Instructions: Avoid Stress to Incision Driving Instructions: No Driving/Refer to Diet Discharge Diet: Avoid Fatty Foods, Low Fat/Low Cholesterol Diet After 24 Hours: Clear Liquid if Nauseous If Any Problems/Questions/Issu: Contact Your Physician, Go to Emergency Room Skin/Wound Care Infection Signs and Symptoms: Increased Redness, Foul Odor of Wound, Increased Drainage, Skin Itchy or Has a Rash, Increased Swelling, Temperature Above 101 F Wound Care Comment: Heating pad to neck or shoulder tonight for pain Bathing Instructions: Shower Stitches/[place]/Dermabond Dis: Dermabond Ice Pack: Ice On and Off Site (incision sites as needed for pain) SERGE BEARD DO Jul 25, 2018 11:38
[2018-07-25] MEDS ORDERED: ONDANSETRON 4 MG/2 ML (SDV) Z0FRAN IVP PRN (11:45)
[2018-07-25] MEDS ORDERED: morphine INJ 10 MG/ML 1ML (SYR OR VIAL) IVP ONE (11:45)
[2018-07-25] MEDS ORDERED: HYDROmorphone 2 MG/ML VIAL (DILAUDID) IV ONE (11:45)
[2018-07-25 12:50] VITALS: BP 115/66
[2018-07-25 13:20] VITALS: BP 137/63
--- NOTE | 2018-07-25 13:48 | Anesthesia-General Post-Op ---
General Patient Condition Mental Status/LOC: Same as Preop Cardiovascular: Satisfactory Nausea/Vomiting: Absent Respiratory: Satisfactory Pain: Controlled Complications: Absent Post Op Complications Complications None Follow Up Care/Instructions Patient Instructions None needed. Anesthesia/Patient Condition Patient Condition Patient is doing well, no complaints, stable vital signs, no apparent adverse anesthesia problems. No complications reported per nursing. SARAH BETH MILLER CRNA Jul 25, 2018 13:48
[2018-07-25 13:50] VITALS: BP 150/93
[2018-07-25 14:13] VITALS: BP 150/93
--- NOTE | 2018-07-25 22:37 | OPERATIVE REPORT ---
DATE OF SERVICE: PREOPERATIVE DIAGNOSES: Cholelithiasis, cholecystitis as well as right lower quadrant pain. POSTOPERATIVE DIAGNOSES: Cholelithiasis, cholecystitis as well as right lower quadrant pain, pending pathology. PROCEDURE: Laparoscopic cholecystectomy, intraoperative cholangiogram. SURGEON: Cosmo Hodge DO OFFICE SERVICES REPRESENTATIVE: None. ANESTHESIA: General endotracheal tube. SPECIMEN: Gallbladder and contents. BLOOD LOSS: Scant. FLUIDS: Per anesthesia. POSTOPERATIVE CONDITION: Stable. INDICATION FOR PROCEDURE: The patient is a 57-year-old male who has been having some right lower quadrant pain that gone up to the right upper quadrant as well as into the back and then down his legs. Had a CAT scan and ultrasound. Ultrasound showed possible appendicitis, but CAT scan could not even find the appendix. All that was noted was a gallstone. The patient was adamant that this is a problem, want to get this fixed. FINDINGS: The patient had some fat surrounding the gallbladder, but denies any adhesions. Gallbladder removed without any difficulty, found the appendix. It looked completely normal. Picture taken. PROCEDURE NOTE: After informed consent was obtained, the patient was brought to the operating room, placed on the table in supine position. He was sterilely prepped and draped in normal fashion. Local lidocaine was used to infiltrate the skin above the umbilicus. I then made an incision with #11 blade, carried down through the skin into subcutaneous tissue, deepened down to subcutaneous tissue with Bovie electrocautery down to the fascia. Fascia incised with Bovie electrocautery and bluntly entered the abdomen, swept a finger around, placed 0 Vicryl [id number] sutured in placed 11 mm trocar port under direct visualization. Created pneumoperitoneum and then placed 3 more ports in normal fashion using local lidocaine, 11 blade for stab incision and Versed system, all done under direct visualization, one subxiphoid and two in the right upper quadrant. The patient then placed slightly reverse Trendelenburg and rotated left, able to visualize the gallbladder, grasped at the fundus and taken in superior direction, then grasped on Antonio's pouch and pulled in inferolateral direction and start dissecting out cystic duct and cystic artery. Able to get around the cystic duct, placed one clip distally and then get around the cystic artery, placed one distally and two proximally. Again, cut the cystic duct alf through Metzenbaum scissors, placed a cholangiogram catheter and shot a cholangiogram. Good spillage of dye down the common bile duct into the small intestine as well as up in the common hepatic and right and left hepatic, then removed the cholangiogram catheter, placed 2 clips proximally on the cystic duct and cut the cystic duct and cystic artery with Metzenbaum scissors, then removed the gallbladder from bed of liver with L-hook cautery. Once it was completely removed, placed a bag in the abdomen, placed the gallbladder in the bag and removed this through the supraumbilical incision. Placed the port back in the abdomen, copiously irrigated with normal saline. Hemostasis obtained in the bed with a Bovie electrocautery, then looked around and looked down the pelvis did not see anything obvious in the right lower quadrant, ran the small intestine for about 2 feet. I did not see anything and then looked and found the appendix, took a picture of the appendix. Again, no other obvious pathology. At this point, the patient was placed supine, removed all ports under direct visualization, allowed the pneumoperitoneum to escape. Closed the supraumbilical incision, closing the fascia with 0 Vicryl suture previously placed. Copiously irrigated all incisions with normal saline, then closed the three small 5 mm incisions with a single interrupted 4-0 undyed Monocryl subcuticular stitch. Closed the supraumbilical incision with 3 interrupted 4-0 undyed Monocryl subcuticular stitches. Area was cleaned and dried and Dermabond placed as well as a bandage. The patient then transferred to recovery room in stable condition. Sponge, instrument and needle count correct at the end of the case. Job ID: [id number] DocumentID: [id number] Dictated Date: 07/25/2018 13:58:35 Afterschool Date: 07/25/2018 22:36:51 Dictated By: COSMO HODGE DO
== END 2018-07-25 14:13 | disposition home or self-care (01) ==
LOC: SDC 09:40
PROVIDERS: ATTEND Surgery
DX: K81.1 Chronic cholecystitis (principal); I25.10 Atherosclerotic heart disease of native coronary artery without angina pectoris; I10 Essential (primary) hypertension; E78.2 Mixed hyperlipidemia; G47.33 Obstructive sleep apnea (adult) (pediatric); K21.9 Gastro-esophageal reflux disease without esophagitis; G57.93 Unspecified mononeuropathy of bilateral lower limbs; F17.220 Nicotine dependence, chewing tobacco, uncomplicated; E66.9 Obesity, unspecified; Z68.35 Body mass index [BMI] 35.0-35.9, adult; Z79.899 Other long term (current) drug therapy
CPT/HCPCS: 87081

== ENCOUNTER 2018-08-28 23:02 | Emergency (ER) | payer MEDICAID ==
[~2018-08-28] VITALS: Ht 170.2 cm; Wt 101.2 kg
[~2018-08-28 23:02] MED LIST changes: +FLUT16SP22 IH; +GBPN600T PO; +NYST1000
--- NOTE | 2018-08-28 23:32 | NUR ---
DR. ELIZABETH IN ROOM WITH PT. @ THIS TIME PT COMPLAINS OF CHEST DISCOMFORT.
[2018-08-28 23:50] LABS: BASOPHILS % (AUTO) 0 % (0-10); EOSINOPHILS % (AUTO) 0 % (0-10); HEMATOCRIT 43 % (40-54); HEMOGLOBIN 14.7 G/DL (13.3-17.7); LYMPHOCYTES # (AUTO) 1.4 X 10^3 (1.0-4.0); LYMPHOCYTES % (AUTO) 13 % (12-44); MEAN CORPUSCULAR HEMOGLOBIN 29 PG (25-34); MEAN CORPUSCULAR HGB CONC 34 G/DL (32-36); MEAN CORPUSCULAR VOLUME 85 FL (80-99); MEAN PLATELET VOLUME 9.7 FL (7.4-10.4); MONOCYTES # (AUTO) 0.8 X 10^3 (0.0-1.0); MONOCYTES % (AUTO) 7 % (0-12); NEUTROPHILS # (AUTO) 8.7 X 10^3 (1.8-7.8); NEUTROPHILS % (AUTO) 80 % (42-75); PLATELET COUNT 214 10^3/uL (130-400); RED CELL DISTRIBUTION WIDTH 13.1 % (10.0-14.5)
[2018-08-29 00:07] LABS: PROTHROMBIN TIME PATIENT 13.6 SEC (12.2-14.7)
[2018-08-29 00:09] LABS: ALANINE AMINOTRANSFERASE 32 U/L (0-55); ALBUMIN 4.1 GM/DL (3.2-4.5); ALKALINE PHOSPHATASE 89 U/L (40-136); BILIRUBIN,TOTAL 0.5 MG/DL (0.1-1.0); BUN/CREATININE RATIO 10; CALCIUM 9.2 MG/DL (8.5-10.1); CARBON DIOXIDE 21 MMOL/L (21-32); CHLORIDE 102 MMOL/L (98-107); CREATININE SERUM 1.17 MG/DL (0.60-1.30); GFR ESTIMATED > 60; GLUCOSE 132 MG/DL (70-105); MAGNESIUM 2.6 MG/DL (1.8-2.4); POTASSIUM 5.1 MMOL/L (3.6-5.0); SODIUM 134 MMOL/L (135-145); TOTAL PROTEIN 7.2 GM/DL (6.4-8.2)
[2018-08-29] MEDS ORDERED: ONDANSETRON 4 MG/2 ML (SDV) Z0FRAN ONE (00:13)
[2018-08-29] MEDS ORDERED: ONDANSETRON 4 MG/2 ML (SDV) Z0FRAN IVP ONE (00:15)
--- NOTE | 2018-08-29 00:27 | ED General ---
General Chief Complaint: General Problems/Pain Stated Complaint: RXN TO NEW MEDICINE Nursing Triage Note: PT AMB TO ROOM # W/O DIFFICULTY. A&OX4. C/O ADVERSE RECTION TO NEWLY PRESCRIBED MEDICATION. PT REPORTS ON THIS DAY HE WAS SEEN @ [facility] AND PRESCRIBED REQUIP D/T INSOMNIA. PT REPORTS HE TOOK X1 DOSE OF MEDICATION @ APPROX 2130 ON THIS DAY. REPORTS @ APPROX 2200 HE BEGAN TO FEEL SHAKY, DIAPHORETIC, WEAK, AND NAUSEOUS. DENIES SOB. NO REDNESS OR HIVES NOTED. NO SWELLING TO THROAT OR TONGUE NOTED. INITIAL O2 SAT 97%% VIA RA. Nursing Sepsis Screen: No Definite Risk Allergies and Home Medications Allergies Coded Allergies: ibuprofen (Unverified Allergy, Severe, HIVES, 01/02/17) Home Medications Atorvastatin Calcium 40 Mg Tablet, 40 MG PO DAILY, (Reported) Cyclobenzaprine HCl 10 Mg Tablet, 10 MG PO BID PRN for SPASMS, (Reported) Fluticasone Propionate 16 Gm [place].susp, 1 SPRAY IH PRN, (Reported) Gabapentin 600 Mg Tablet, 600 MG PO TID, (Reported) Hydrocodone Bit/Acetaminophen 1 Tab Tab, 1 EACH PO Q4-6HR PRN for PAIN-MODERATE Prescribed by: SERGE BEARD on 07/25/18 1137 Losartan Potassium 50 Mg Tablet, 50 MG PO DAILY, (Reported) Pantoprazole Sodium 40 Mg Tablet.dr, 40 MG PO DAILY Prescribed by: MALAIKA VILCHIS on 01/04/17 1150 Past Hmfgbyj-Jgggah-Bccsyk Hx Patient Social History Alcohol Use: Denies Use Recreational Drug Use: No Type Used: Smokeless Tobacco 2nd Hand Smoke Exposure: No Recent Foreign Travel: No Contact w/Someone Who Travel: No Recent Infectious Disease Expo: No Recent Hopitalizations: No Seasonal Allergies Seasonal Allergies: Yes Past Medical History Surgeries: Yes (BACK, CSPINE FUSION) Orthopedic Respiratory: No Cardiac: Yes (HEART CATH-OK 2013) High Cholesterol, Hypertension Neurological: No Reproductive Disorders: No Sexually Transmitted Disease: No HIV/AIDS: No Gastrointestinal: Yes Gastroesophageal Reflux, Chronic Constipation Musculoskeletal: Yes (neck fx surgically repaired) Arthritis, Chronic Back Pain, Fractures Endocrine: No Loss of Vision: Denies Hearing Impairment: Denies Cancer: No Psychosocial: No Integumentary: No Blood Disorders: No Adverse Reaction/Blood Tranf: No Physical Exam Vital Signs Vital Signs - First Documented 08/28/18 08/28/18 23:13 23:32 Temp 97.6 Pulse 60 Resp 18 B/P (MAP) 150/81 (104) Pulse Ox 97 O2 Delivery Room Air Capillary Refill : Less Than 3 Seconds Height, Weight, BMI Height: 5'7.00" Weight: 223lbs. 0.0oz. 101.341425zt; 35.2 BMI Method:Stated Progress/Results/Core Measures Suspected Sepsis Recent Fever Within 48 Hours: No Infection Criteria Present: None New/Unexplained Altered Menta: No Sepsis Screen: No Definite Risk SIRS Temperature:97.6 Pulse: 60 Respiratory Rate: 18 Laboratory Tests 08/28/18 23:40: White Blood Count 11.0 Blood Pressure 150 /81 Mean: 104 Laboratory Tests 08/28/18 23:40: Creatinine 1.17, INR Comment 1.0, Platelet Count 214, Total Bilirubin 0.5 Results/Orders Lab Results Laboratory Tests Test 08/28/18 23:40 Range/Units White Blood Count 11.0 4.3-11.0 10^3/uL Red Blood Count 5.02 4.35-5.85 10^6/uL Hemoglobin 14.7 13.3-17.7 G/DL Hematocrit 43 40-54 % Mean Corpuscular Volume 85 80-99 FL Mean Corpuscular Hemoglobin 29 25-34 PG Mean Corpuscular Hemoglobin Concent 34 32-36 G/DL Red Cell Distribution Width 13.1 10.0-14.5 % Platelet Count 214 130-400 10^3/uL Mean Platelet Volume 9.7 7.4-10.4 FL Neutrophils (%) (Auto) 80 H 42-75 % Lymphocytes (%) (Auto) 13 12-44 % Monocytes (%) (Auto) 7 0-12 % Eosinophils (%) (Auto) 0 0-10 % Basophils (%) (Auto) 0 0-10 % Neutrophils # (Auto) 8.7 H 1.8-7.8 X 10^3 Lymphocytes # (Auto) 1.4 1.0-4.0 X 10^3 Monocytes # (Auto) 0.8 0.0-1.0 X 10^3 Eosinophils # (Auto) 0.0 0.0-0.3 10^3/uL Basophils # (Auto) 0.0 0.0-0.1 10^3/uL Prothrombin Time 13.6 12.2-14.7 SEC INR Comment 1.0 0.8-1.4 Activated Partial Thromboplast Time 29 24-35 SEC Sodium Level 134 L 135-145 MMOL/L Potassium Level 5.1 H 3.6-5.0 MMOL/L Chloride Level 102 98-107 MMOL/L Carbon Dioxide Level 21 21-32 MMOL/L Anion Gap 11 5-14 MMOL/L Blood Urea Nitrogen 12 7-18 MG/DL Creatinine 1.17 0.60-1.30 MG/DL Estimat Glomerular Filtration Rate > 60 BUN/Creatinine Ratio 10 Glucose Level 132 H 70-105 MG/DL Calcium Level 9.2 8.5-10.1 MG/DL Corrected Calcium 9.1 8.5-10.1 MG/DL Magnesium Level 2.6 H 1.8-2.4 MG/DL Total Bilirubin 0.5 0.1-1.0 MG/DL Aspartate Amino Transf (AST/SGOT) 23 5-34 U/L Alanine Aminotransferase (ALT/SGPT) 32 0-55 U/L Alkaline Phosphatase 89 40-136 U/L Troponin I < 0.028 <0.028 NG/ML Total Protein 7.2 6.4-8.2 GM/DL Albumin 4.1 3.2-4.5 GM/DL My Orders Orders - KAREN ELIZABETH DO Ed Iv/Invasive Line Start (08/28/18 23:33) Ekg Tracing (08/28/18 23:33) Monitor-Rhythm Ecg Trace Only (08/28/18 23:33) Cbc With Automated Diff (08/28/18 23:33) Comprehensive Metabolic Panel (08/28/18 23:33) Magnesium (08/28/18 23:33) Protime With Inr (08/28/18 23:33) Partial Thromboplastin Time (08/28/18 23:33) Troponin I (08/28/18 23:33) Ondansetron Injection (Zofran Injectio (08/29/18 00:15) Ondansetron Injection (Zofran Injectio (08/29/18 00:13) Vital Signs/I&O 08/28/18 08/28/18 23:13 23:32 Temp 97.6 Pulse 60 Resp 18 B/P (MAP) 150/81 (104) Pulse Ox 97 O2 Delivery Room Air Capillary Refill : Less Than 3 Seconds Blood Pressure Mean: 104 Departure Impression Primary Impression: ADVERSE REACTION TO MEDICATION Disposition: HOME, SELF-CARE Condition: Improved Departure-Patient Inst. Referrals: JOSH MILLER DO (PCP) Primary Care Physician JOCELYNN BUSTAMANTE (Family) Primary Care Physician Patient Instructions: Adverse Drug Reactions, Adult (DC) KAREN ELIZABETH DO August 29, 2018 00:27
[2018-08-29 00:50] VITALS: BP 119/92
== END 2018-08-29 00:50 | disposition home or self-care (01) ==
LOC: EDUNIT# 23:02 → ER 23:04
DX: R53.1 Weakness (principal); R61 Generalized hyperhidrosis; R11.0 Nausea; T50.995A Adverse effect of other drugs, medicaments and biological substances, initial encounter; E78.00 Pure hypercholesterolemia, unspecified; K21.9 Gastro-esophageal reflux disease without esophagitis; G47.00 Insomnia, unspecified; F17.200 Nicotine dependence, unspecified, uncomplicated; Z98.1 Arthrodesis status; Z87.19 Personal history of other diseases of the digestive system; Z88.6 Allergy status to analgesic agent; Z79.51 Long term (current) use of inhaled steroids
CPT/HCPCS: 36415; 80053; 83735; 84484; 85025; 85610; 85730; 93005; 93041

== ENCOUNTER → 2019-03-18 | Outpatient (CLI) | payer MEDICAID ==
[~2019-03-18] VITALS: Ht 172 cm; Wt 101.0 kg
[~2019-03-18] MED LIST changes: +CATHETER FLUSH 10 ML SYR IV PRN
== END ==
LOC: CARD 08:58
PROVIDERS: ATTEND Physician Assistant
DX: I11.9 Hypertensive heart disease without heart failure (principal); E78.2 Mixed hyperlipidemia; I25.10 Atherosclerotic heart disease of native coronary artery without angina pectoris; Z82.49 Family history of ischemic heart disease and other diseases of the circulatory system
CPT/HCPCS: 93306

== ENCOUNTER → 2019-04-01 | Outpatient (CLI) | payer MEDICAID ==
[~2019-04-01] VITALS: Ht 172 cm; Wt 101.0 kg
[~2019-04-01] MED LIST changes: +REGADENOSON 0.4 MG/5 ML SYR (LEXISCAN) IV ONE
[2019-04-01 13:43] VITALS: BP 151/87
--- NOTE | 2019-04-01 18:23 | STRESS TEST ---
DATE OF SERVICE: 04/01/2019 LEXISCAN MYOVIEW STRESS TEST Baseline heart rate is 50, baseline blood pressure 151/80. Baseline EKG is sinus rhythm with no ischemic changes. In summary, the patient was injected with 9.62 mCi of technetium-99 Myoview and the resting images were obtained. Then, the patient received 0.4 mg of Lexiscan followed by 27.3 mCi of technetium-99 Myoview. Throughout the test, there were no EKG changes. The resting and stress images were reviewed and compared in the short axis, horizontal long axis, and vertical long axis views. Review of the images showed good radiotracer uptake with no significant ischemia or infarction on SPECT images. SSS is 1, SDS 1, TID value 1.07. On the gated images, the left ventricle appeared to be normal size with normal contractility. Calculated ejection fraction is 53%. CONCLUSION: 1. The patient tolerated Lexiscan well. 2. No ischemia or infarction on SPECT images. 3. Normal left ventricular size with normal contractility. Calculated ejection fraction is 53%. Job ID: [id number] DocumentID: [id number] Dictated Date: 04/01/2019 17:08:39 Targeteer Date: 04/01/2019 18:23:05 Dictated By: FRANKLIN MELENDEZ MD
== END ==
LOC: CARD 12:12
PROVIDERS: ATTEND Physician Assistant
DX: I25.10 Atherosclerotic heart disease of native coronary artery without angina pectoris (principal); I10 Essential (primary) hypertension; E78.2 Mixed hyperlipidemia; Z82.49 Family history of ischemic heart disease and other diseases of the circulatory system
CPT/HCPCS: 78452; 93017

== ENCOUNTER → 2019-04-28 | Outpatient (CLI) | payer MEDICAID ==
[~2019-04-28] MED LIST changes: -CATHETER FLUSH 10 ML SYR IV PRN; -REGADENOSON 0.4 MG/5 ML SYR (LEXISCAN) IV ONE
--- NOTE | 2019-04-28 14:45 | Diagnostic Imaging Report ---
PROCEDURE: US Thyroid. TECHNIQUE: Multiple real-time grayscale images were obtained of the thyroid in various projections. INDICATION: Thyroid nodules. COMPARISON: Correlation is made with prior thyroid ultrasound from 12/23/2017. FINDINGS: The right lobe of the thyroid measures 3.8 x 1.5 x 1.6 cm, and the left lobe measures 3.4 x 1.8 x 1.5 cm. Isthmus is 3 mm in thickness. Circumscribed hypoechoic nodule in the lower pole of the left lobe of the thyroid measures 11 mm x 5 mm x 8 mm. This compares with 12 mm x 6 mm x 8 mm on prior. Small nodule in the upper pole of the right lobe is 5 mm x 6 mm, stable. No new mass is detected. IMPRESSION: Stable bilateral thyroid nodules when compared with examination from 12/23/2017. Dictated by: Dictated on workstation # [id number]
== END ==
LOC: RAD 12:47
PROVIDERS: ATTEND Otolaryngology Otolaryngology/Facial Plastic Surgery
DX: E04.1 Nontoxic single thyroid nodule (principal)
CPT/HCPCS: 76536

== ENCOUNTER → 2019-05-04 | Outpatient (CLI) | payer MEDICAID ==
[~2019-05-04] MED LIST changes: +CATHETER FLUSH 10 ML SYR IV PRN; +HOLD METFORMIN - RECEIVED CONTRAST 20 ML VIAL IV SCH; +IOHEXOL 350 MG/ML 100 ML (OMNIPAQUE 350) VIAL IV ONE; +NS 100 ML (IVPB) BAG IV ONE
[2019-05-04 13:16] LABS: BUN/CREATININE RATIO 11; CREATININE SERUM 0.96 MG/DL (0.60-1.30); GFR ESTIMATED > 60
--- NOTE | 2019-05-04 14:23 | Diagnostic Imaging Report ---
PROCEDURE: CT neck soft tissue with contrast. TECHNIQUE: Multiple contiguous axial images were obtained through the neck after the administration of contrast. Auto Exposure Controls were utilized during the CT exam to meet ALARA standards for radiation dose reduction. INDICATION: Throat tightness. COMPARISON: Correlation is made with prior CT soft tissue neck study from 06/10/2017. FINDINGS: The visualized intracranial structures are unremarkable. Posterior nasopharynx and oropharynx are unremarkable. Parapharyngeal fat planes are preserved. The larynx is unremarkable. No discrete thyroid mass is detected. Submandibular and parotid glands appear to be symmetric bilaterally. No definite cervical or supraclavicular lymphadenopathy is identified. No fluid collection is identified. Postsurgical changes of C5 through C7 ACDF are noted. IMPRESSION: Unremarkable CT soft tissue neck study. Dictated by: Dictated on workstation # [id number]
== END ==
LOC: RAD 12:31
PROVIDERS: ATTEND Otolaryngology Otolaryngology/Facial Plastic Surgery
DX: E04.1 Nontoxic single thyroid nodule (principal); J02.9 Acute pharyngitis, unspecified
CPT/HCPCS: 36415; 70491; 82565; 84520

== ENCOUNTER 2019-05-13 19:48 | Outpatient (CLI) | payer MEDICAID ==
[~2019-05-13 19:48] MED LIST changes: -CATHETER FLUSH 10 ML SYR IV PRN; -HOLD METFORMIN - RECEIVED CONTRAST 20 ML VIAL IV SCH; -IOHEXOL 350 MG/ML 100 ML (OMNIPAQUE 350) VIAL IV ONE; -NS 100 ML (IVPB) BAG IV ONE
== END 2019-05-14 05:40 | disposition home or self-care (01) ==
LOC: SLEEP 19:48
PROVIDERS: ATTEND Otolaryngology Otolaryngology/Facial Plastic Surgery
DX: G47.33 Obstructive sleep apnea (adult) (pediatric) (principal); G47.10 Hypersomnia, unspecified; E04.2 Nontoxic multinodular goiter
CPT/HCPCS: 95810

== ENCOUNTER → 2020-03-04 | Outpatient (CLI) | payer MEDICAID ==
--- NOTE | 2020-03-04 14:39 | Diagnostic Imaging Report ---
PROCEDURE: US Thyroid. TECHNIQUE: Multiple real-time grayscale images were obtained of the thyroid in various projections. INDICATION: Multinodular goiter. COMPARISON: 04/28/2019. FINDINGS: The right thyroid lobe measures 4.6 x 2.1 x 1.6 cm. The echotexture is normal. Vascularity appears normal. There is a circumscribed isoechoic nodule with hypoechoic rim, measuring 6 x 4 x 6 mm in size, which is solid and demonstrates no calcification. The isthmus is normal measuring 3 mm. The left thyroid measures 3.2 x 1.5 x 1.6 cm. Background echotexture is normal. Vascularity is normal. There is an isoechoic solid nodule in the inferior left thyroid measuring 1.1 x 0.5 x 0.8 cm with no calcifications. IMPRESSION: 1. Bilateral thyroid nodules are unchanged in size. No further follow-up is needed per TI-RADS criteria. Dictated by: Dictated on workstation # [id number]
== END ==
LOC: RAD 13:54
PROVIDERS: ATTEND Otolaryngology Otolaryngology/Facial Plastic Surgery
DX: E04.2 Nontoxic multinodular goiter (principal)
CPT/HCPCS: 76536

== ENCOUNTER → 2020-08-17 | Outpatient (CLI) | payer MEDICAID ==
[~2020-08-17] VITALS: Ht 170 cm; Wt 93.0 kg
[~2020-08-17] MED LIST changes: +CATHETER FLUSH 10 ML SYR IV PRN; +REGADENOSON 0.4 MG/5 ML SYR (LEXISCAN) IV ONE
[2020-08-17 13:41] VITALS: BP 160/75
--- NOTE | 2020-08-17 15:33 | Cardiology Stress Test Report ---
Stress Test Report Date of Procedure/Referring: Date of Procedure: Aug 17, 2020 PCP Franklin Castaneda MD Admitting Physician Center/[facility] Indications: CP Baseline Heart Rate: 50 Baseline Blood Pressure: Blood Pressure Systolic: 160 Blood Pressure Diastolic: 75 Baseline Vitals Vital Signs Date Time Temp Pulse Resp B/P (MAP) Pulse Ox O2 Delivery O2 Flow Rate FiO2 08/17/20 13:41 57 19 160/75 (103) 97 Room Air Baseline EKG: Baseline EKG: NSR Summary After explaining the procedure to the patient, he signed a consent and then brought to the stress nuclear laboratory. Patient received 0.4 mg Lexiscan for stress test, ECG, heart rate and blood pressure were monitored continuously. Resting and stress dose of radio tracer were injected, imaging was acquired and reviewed in short axis, horizontal long axis and vertical long axis views. TID: 1.1 SSS: 4 SDS: 4 EF: 54 1. Patient tolerated Lexiscan well 2. Diaphragmatic attenuation with mild decreased uptake at the mid to apical inferior wall and inferolateral wall with mild reversibility 3. Normal left ventricular size, EF 54% FRANKLIN CASTANEDA MD Aug 17, 2020 15:33
== END ==
LOC: CARD 11:32
PROVIDERS: ATTEND Internal Medicine Cardiovascular Disease
DX: R07.9 Chest pain, unspecified (principal)
CPT/HCPCS: 78452; 93017; A9502

== ENCOUNTER 2020-12-08 17:38 | Emergency (ER) | payer MEDICAID ==
[~2020-12-08] VITALS: Ht 170.1 cm; Wt 102.5 kg
[~2020-12-08 17:38] MED LIST changes: -CATHETER FLUSH 10 ML SYR IV PRN; -REGADENOSON 0.4 MG/5 ML SYR (LEXISCAN) IV ONE
[2020-12-08] MEDS ORDERED: ACETAMINOPHEN 325 MG TABLET PO STA (17:56)
[2020-12-08] MEDS ORDERED: BENZONATATE 100 MG (TESSALON) CAPSULE PO SCH (18:00)
[2020-12-08] MEDS ORDERED: OMEP20CA18 (18:30)
[2020-12-08] MEDS ORDERED: EZET10TA49 (18:30)
[2020-12-08] MEDS ORDERED: ONDA4TAB11 (18:30)
[2020-12-08] MEDS ORDERED: PROMETH/COD (18:30)
[2020-12-08 18:35] LABS: ALKALINE PHOSPHATASE 68 U/L (40-136); BILIRUBIN,TOTAL 0.4 MG/DL (0.1-1.0); BUN/CREATININE RATIO 19; CALCIUM 8.1 MG/DL (8.5-10.1); CARBON DIOXIDE 24 MMOL/L (21-32); CHLORIDE 98 MMOL/L (98-107); CREATININE SERUM 1.06 MG/DL (0.60-1.30); GFR ESTIMATED 71; GLUCOSE 110 MG/DL (70-105); POTASSIUM 4.3 MMOL/L (3.6-5.0); SODIUM 134 MMOL/L (135-145)
[2020-12-08 18:36] LABS: ALANINE AMINOTRANSFERASE 26 U/L (0-55); ALBUMIN 3.6 GM/DL (3.2-4.5); TOTAL PROTEIN 6.7 GM/DL (6.4-8.2)
[2020-12-08 18:37] LABS: HEMATOCRIT 43 % (40-54); MEAN CORPUSCULAR HEMOGLOBIN 30 PG (25-34); MEAN CORPUSCULAR HGB CONC 35 G/DL (32-36); MEAN CORPUSCULAR VOLUME 86 FL (80-99); MEAN PLATELET VOLUME 9.6 FL (7.4-10.4); PLATELET COUNT 181 10^3/uL (130-400); WHITE BLOOD COUNT 7.5 10^3/uL (4.3-11.0)
[2020-12-08 18:38] LABS: BASOPHILS % (AUTO) 0 % (0-10); EOSINOPHILS % (AUTO) 0 % (0-10); LYMPHOCYTES # (AUTO) 0.7 X 10^3 (1.0-4.0); LYMPHOCYTES % (AUTO) 10 % (12-44); MONOCYTES # (AUTO) 0.4 X 10^3 (0.0-1.0); MONOCYTES % (AUTO) 6 % (0-12); NEUTROPHILS # (AUTO) 6.3 X 10^3 (1.8-7.8); NEUTROPHILS % (AUTO) 83 % (42-75)
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
[2020-12-08 18:58] VITALS: BP 132/68
== END 2020-12-08 18:58 | disposition home or self-care (01) ==
LOC: EDUNIT# 17:38 → ER FS 17:41
DX: U07.1 COVID-19 (principal); I10 Essential (primary) hypertension; E78.00 Pure hypercholesterolemia, unspecified; G89.29 Other chronic pain; M54.9 Dorsalgia, unspecified; Z79.891 Long term (current) use of opiate analgesic; Z79.899 Other long term (current) drug therapy
CPT/HCPCS: 36415; 80053; 84484; 85025; 93005

== ENCOUNTER → 2021-03-01 | Outpatient (CLI) | payer MEDICAID ==
[~2021-03-01] MED LIST changes: +EZET10TA49; +OMEP20CA18; +ONDA4TAB11; +PROMETH/COD
== END ==
LOC: CARD 14:00
PROVIDERS: ATTEND Physician Assistant
DX: I35.1 Nonrheumatic aortic (valve) insufficiency (principal); I11.9 Hypertensive heart disease without heart failure
CPT/HCPCS: 93306

== ENCOUNTER → 2022-03-07 | Outpatient (CLI) | payer MEDICAID ==
[~2022-03-07] MED LIST changes: +CYCL10TA25 PO
--- NOTE | 2022-03-07 20:11 | Diagnostic Imaging Report ---
PROCEDURE: US thyroid. TECHNIQUE: Multiple real-time grayscale images were obtained of the thyroid in various projections. INDICATION: Multinodular thyroid. COMPARISON: Study of 03/04/2020. FINDINGS: The right thyroid lobe measured 4.0 x 1.6 x 1.6 cm. Midpole nodule relatively hypoechoic is 7 mm maximal. Additional right lobe nodule is present on prior. No longer identified. The left thyroid lobe measured 2.8 x 1.0 x 1.8 cm. There is a lateral midpole nodule isoechoic, solid, well-defined 1 cm long axis, unchanged from prior. A 2nd nodule mixed echotexture partly cystic is 5 mm. IMPRESSION: Subcentimeter benign thyroid nodules stable or decreased from prior. No dominant or suspicious mass. Dictated by: Dictated on workstation # [id number]
== END ==
LOC: RAD 14:40
PROVIDERS: ATTEND Otolaryngology Otolaryngology/Facial Plastic Surgery
DX: E04.2 Nontoxic multinodular goiter (principal)
CPT/HCPCS: 76536

== ENCOUNTER → 2022-09-12 | Outpatient (CLI) | payer MEDICAID ==
[~2022-09-12] MED LIST changes: +CATHETER FLUSH 10 ML SYR IVP PRN; +REGADENOSON 0.4 MG/5 ML SYR (LEXISCAN) IV ONE
[2022-09-12 13:01] VITALS: BP 168/85
--- NOTE | 2022-09-12 14:45 | Cardiology Stress Test Report ---
Stress Test Report Date of Procedure/Referring: Date of Procedure: September 12, 2022 [facility] Admitting Physician Admitting Physician: Attending Physician: Génesis Watts Baseline Heart Rate: 54 Baseline Blood Pressure: Blood Pressure Systolic: 168 Blood Pressure Diastolic: 85 Baseline Vitals Vital Signs Date Time Temp Pulse Resp B/P (MAP) Pulse Ox O2 Delivery O2 Flow Rate FiO2 09/12/22 13:01 76 18 168/85 (112) Baseline EKG: Baseline EKG: NSR Summary After explaining the procedure to the patient, he signed a consent and then brought to the stress nuclear laboratory. Patient received 0.4 mg Lexiscan for stress test, ECG, heart rate and blood pressure were monitored continuously. Resting and stress dose of radio tracer were injected, imaging was acquired and reviewed in short axis, horizontal long axis and vertical long axis views. TID: 1.08 SSS: 0 SDS: 0 EF: 58 Patient tolerated Lexiscan well No significant ischemia or infarction noted on SPECT images Normal left ventricular size, ejection fraction 58% Copy Copies To 1: [facility]/FRANKLIN CALDERA MD September 12, 2022 14:45
== END ==
LOC: CARD 11:00
PROVIDERS: ATTEND Physician Assistant
DX: I11.9 Hypertensive heart disease without heart failure (principal); I35.1 Nonrheumatic aortic (valve) insufficiency
CPT/HCPCS: 78452; 93017; A9502; C8929; 93306